=== PATIENT | female | born 1935 | race Caucasian/White ===

== ENCOUNTER → 2017-04-06 | Outpatient (CLI) | payer MEDICARE, BC ==
--- NOTE | 2017-04-11 09:09 | MM ---
Reason for exam: screening (asymptomatic). Last mammogram was performed 7 years and 2 months ago. History: Patient is postmenopausal. Physical Findings: A clinical breast exam by your physician is recommended on an annual basis and results should be correlated with mammographic findings. MG Screening Mammo w CAD Bilateral CC and MLO view(s) were taken. Prior study comparison: February 03, 2010, bilateral digital screening mammogram. March 21, 2008, bilateral diagnostic digital mammog. February 10, 2005, bilateral screening mammogram w/CAD. There are scattered fibroglandular densities. No significant changes when compared with prior studies. ASSESSMENT: Negative, BI-RAD 1 RECOMMENDATION: Routine screening mammogram of both breasts in 1 year.
== END | disposition home or self-care (01) ==
LOC: RADMAMWWP 15:59
PROVIDERS: ATTEND Internal Medicine
DX: Z12.31 Encounter for screening mammogram for malignant neoplasm of breast (principal)
CPT/HCPCS: 77067

== ENCOUNTER → 2020-02-06 | Outpatient (CLI) | payer MEDICARE, BC ==
--- NOTE | 2020-02-06 17:30 | CONS ---
CONSULTATION DATE OF SERVICE: 02/06/2020 An 84-year-old lady who has been [facility] for obstructive sleep apnea- hypopnea syndrome. HISTORY OF PRESENT ILLNESS/SLEEP WAKE EVALUATION: Patient had been diagnosed with obstructive sleep apnea about 20 years ago. At that time was tried on treatment with CPAP, but she was not able to use CPAP treatment. Presently, her sleep schedule from 10 p.m. until around 7 am, but she wakes up at midnight and sometimes has difficulties falling asleep again. No problems with falling asleep at the beginning of the night. No TV in bedroom. She sleeps in different positions. She snores loudly and wakes up from sleep multiple times with up to 4 episodes of nocturia. Positive history of dry mouth and sweating during the sleep. In the morning, patient wakes up tired, falling asleep during the day. Renick Sleepiness Scale significantly increased to 12. Patient may take one nap usually in the morning time. No history of sleep paralysis or cataplexy. PAST MEDICAL HISTORY: Positive for hypertension, hyperlipidemia, low function of the kidney, hyperlipidemia, polyarthritis, episodes of bronchitis, iron deficiency anemia, glaucoma, gout. PAST SURGICAL HISTORY: Total hysterectomy. SOCIAL HISTORY: Negative for smoking or using alcohol. CURRENT MEDICATIONS: Omeprazole 30 mg once a day, furosemide 20 mg every second day, amlodipine 10 mg once a day, metoprolol 25 mg once a day, aspirin 81 mg once a day, allopurinol 100 mg once a day, ferrous sulfate 325 mg once a day, timolol eye drops. FAMILY HISTORY: Heart problems, sleep apnea, thyroid problem, mental illness. PHYSICAL EXAM: An 84-year-old lady without distress, BP 188/83, HR 72, RR 15, height 5, 6, weight 202, temperature 98.1, oxygen saturation at room air 98%. OROPHARYNX: Low position of soft palate. Mallampati 3. NECK: Supple, no JVD. Thyroid is not palpable. LUNGS: Clear to percussion and to auscultation. Good air exchange. No wheezing or rhonchi. HEART: S1, S2 regular. No murmurs, gallops, or rubs. ABDOMEN: Soft and nontender. Bowel sounds are present. No organomegaly appreciated. EXTREMITIES: No clubbing or cyanosis. PYTHON PROGRAMMER: Awake, alert, and oriented X3. Cranial nerves 2 to 7 intact. There is no fasciculation or atrophy. noted. No focal deficits observed. IMPRESSION: 1. Loud snoring, multiple awakenings from sleep, low position of soft palate. 2. History of obstructive sleep apnea and hypopnea syndrome in the past, sleepiness; obstructive sleep apnea-hypopnea syndrome. 3. Hypertension. 4. Gout. 5. Hyperlipidemia. 6. History of bronchitis. 7. History of polyarthritis including shoulders, back, ankles, knee problems. 8. Acid reflux. 9. History of iron deficiency anemia. 10.History of low function of kidney. 11.Restless legs syndrome. 12.Status post total hysterectomy. 13.Glaucoma. PLAN: 1. Polysomnography for evaluation of patient's breathing during sleep. 2. CPAP/BiPAP titration if sleep study confirms obstructive sleep apnea-hypopnea syndrome. 3. Preferable position during sleep on the side. 4. No driving if patient feels any sleepiness. 5. I will see patient for follow up visit to explain results of testing and following plan. Thank you very much for referring this patient for consultation. Sincerely, Jefe Merritt MD, PhD, FAASM Diplomat of [place] [employer] [place] [employer] [facility] [place] MMODL / IJN: [id number] /
== END | disposition home or self-care (01) ==
LOC: SLEEP 13:36
PROVIDERS: ATTEND Internal Medicine
DX: R06.83 Snoring (principal); I10 Essential (primary) hypertension; M10.9 Gout, unspecified; H40.9 Unspecified glaucoma; E78.5 Hyperlipidemia, unspecified; K21.9 Gastro-esophageal reflux disease without esophagitis; Z87.09 Personal history of other diseases of the respiratory system; Z87.39 Personal history of other diseases of the musculoskeletal system and connective tissue; Z90.710 Acquired absence of both cervix and uterus; Z86.2 Personal history of diseases of the blood and blood-forming organs and certain disorders involving the immune mechanism

== ENCOUNTER → 2020-06-01 | Outpatient (CLI) | payer MEDICARE, BC ==
--- NOTE | 2020-06-02 07:49 | XR ---
EXAMINATION TYPE: XR knee complete bilateral DATE OF EXAM: 06/01/2020 CLINICAL HISTORY: Bilateral pain. TECHNIQUE: Three views of the bilateral knees are obtained. COMPARISON: None. FINDINGS: There is no acute fracture/dislocation evident in either knee. Mild to moderate tricompart ment joint space loss seen bilaterally greatest patellofemoral compartments where there is additional mild spurring. Right knee shows 7 mm ossification or fragment along the the portion of distal quadr iceps tendon. Meniscal calcification is present bilaterally suggesting underlying chondrocalcinosis. Increased density left suprapatellar bursa consistent with moderate joint effusion. Mild to moderate posterior arterial vascular calcification is seen. IMPRESSION: As above. Correlate for underlying pseudogout advised.
--- NOTE | 2020-06-02 08:27 | XR ---
EXAMINATION TYPE: XR Hip Bilateral Complete DATE OF EXAM: 06/01/2020 CLINICAL HISTORY: Bilateral hip pain. TECHNIQUE: AP and frogleg views of the bilateral hips are obtained. COMPARISON: None. FINDINGS: There is no acute fracture/dislocation evident in either hip. Symmetric [id number] a xial joint space loss with mild acetabular spurring. Capsular calcifications bilaterally are present. Mild spurring head neck junction bilateral femoral heads. Osseous structures are somewhat deminerali zed. Mild arterial vascular calcification in the bilateral groin tissue. IMPRESSION: As above.
== END | disposition home or self-care (01) ==
LOC: RADXRMAIN 15:56
PROVIDERS: ATTEND Family Medicine
DX: M76.892 Other specified enthesopathies of left lower limb, excluding foot (principal); M76.891 Other specified enthesopathies of right lower limb, excluding foot
CPT/HCPCS: 73521

== ENCOUNTER 2020-07-16 06:03 | Day surgery (SDC) | payer MEDICARE, BC ==
[2020-07-13 11:43] VITALS: BMI 32.3
[2020-07-16 06:26] VITALS: TEMP 96.9
[2020-07-16] MEDS ORDERED: SODIUM CHLORIDE 0.9% 500 ML 500 ML IV ONE (06:26)
[2020-07-16 06:46] LABS: Anisocytosis Slight; Basophils # (A) 0.1 k/uL (0-0.2); Basophils % (A) 1 %; Eosinophils # (A) 0.3 k/uL (0-0.7); Eosinophils % (A) 5 %; HCT 30.1 % (34.0-46.0); HGB 9.1 gm/dL (11.4-16.0); Hypochromasia Marked; Lymphocytes # (A) 1.4 k/uL (1.0-4.8); Lymphocytes % (A) 23 %; MCH 29.9 pg (25.0-35.0); MCHC 30.3 g/dL (31.0-37.0); MCV 98.6 fL (80.0-100.0); Macrocytosis Slight; Mean Platelet Volume 8.1; Monocytes # (A) 0.4 k/uL (0-1.0); Monocytes % (A) 6 %; Neutrophils % (A) 63 %; Platelet Count 276 k/uL (150-450); RBC 3.05 m/uL (3.80-5.40); RDW 17.7 % (11.5-15.5); WBC 6.3 k/uL (3.8-10.6)
[2020-07-16] MEDS ORDERED: fentaNYL (PF) 50 MCG/ML 2 ML AMP ONE (07:41)
[2020-07-16] MEDS ORDERED: MIDAZOLAM 2 MG/2 ML VIAL IV ONE (08:11)
[2020-07-16] MEDS ORDERED: fentaNYL (PF) 50 MCG/ML 2 ML AMP IV ONE (08:11)
[2020-07-16 08:26] VITALS: RESP 16
[2020-07-16 09:23] VITALS: BP 138/62
[2020-07-16 09:24] VITALS: PULSE 55
--- NOTE | 2020-07-16 12:44 | ECHOT ---
TRANSESOPHAGEAL ECHOCARDIOGRAM DATE OF VISIT: July 16, 2020. PERFORMING PHYSICIAN: Armanod Ryan MD. PROCEDURE PERFORMED: Transesophageal echocardiogram. INDICATION: Mitral regurgitation. COMPLICATION: None. LEVEL OF SEDATION: Moderate with sedation length of 15 minutes. PROCEDURE DESCRIPTION: After obtaining an informed consent, the patient was brought to the transesophageal echocardiogram room. A pulse oximetry and heart rate monitors were attached to the patient. Subsequently, the transesophageal echocardiogram probe was advanced through the bite guard to the mid esophageal where 2D echocardiogram images as well as color Doppler images of various cardiac structures were obtained. Also, we did pulse-wave and continuous-wave Doppler. FINDINGS: The left ventricular dimension and systolic function appeared to be within normal limits. The ejection fraction appeared to be in the range of 50% to 55%. The right ventricle appeared to be within normal limits for dimension. The left atrium appeared to be dilated. The aortic valve appeared to be trileaflet valve without stenosis or regurgitation. The mitral valve appeared to be thickened and calcified with evidence of moderate mitral regurgitation only. There was mild to moderate tricuspid regurgitation. CONCLUSION: 1. Normal left ventricular dimension and systolic function. 2. Normal right ventricular dimension and systolic function. 3. Moderate biatrial enlargement. 4. Normal left atrial appendage. 5. Intact interatrial septum. 6. Thickened mitral valve leaflets with moderate mitral regurgitation. 7. Trileaflet aortic valve without stenosis with mild regurgitation. 8. No evidence of pericardial effusion. MMODL / IJN: [id number] /
== END 2020-07-16 09:38 | disposition home or self-care (01) ==
LOC: CATHCVL 06:03
PROVIDERS: ATTEND Internal Medicine Interventional Cardiology
DX: I34.0 Nonrheumatic mitral (valve) insufficiency (principal); I13.11 Hypertensive heart and chronic kidney disease without heart failure, with stage 5 chronic kidney disease, or end stage renal disease; N18.6 End stage renal disease; Z79.82 Long term (current) use of aspirin; Z79.899 Other long term (current) drug therapy; Z88.1 Allergy status to other antibiotic agents; Z88.0 Allergy status to penicillin; Z88.8 Allergy status to other drugs, medicaments and biological substances
CPT/HCPCS: 93312; 93320; 93325; 85025; 87635; J2250; J3010

== ENCOUNTER → 2021-09-17 | Outpatient (CLI) | payer MEDICARE, BC ==
--- NOTE | 2021-09-17 13:21 | XR ---
EXAMINATION TYPE: XR tibia fibula RT DATE OF EXAM: 09/17/2021 CLINICAL HISTORY: pain TECHNIQUE: AP and lateral images of the right tibia and fibula are obtained. COMPARISON: None. FINDINGS: There is no acute fracture/dislocation evident. The joint spaces appear within normal [place] its. The overlying soft tissue appears unremarkable. IMPRESSION: There is no acute fracture or dislocation seen. ICD 10 NO FRACTURE, INITIAL EVALUATION
== END | disposition home or self-care (01) ==
LOC: RADXRMAIN 12:13
PROVIDERS: ATTEND Internal Medicine
DX: M79.604 Pain in right leg (principal); S89.91XA Unspecified injury of right lower leg, initial encounter; Y99.9 Unspecified external cause status

== ENCOUNTER → 2022-06-15 | Outpatient (CLI) | payer MEDICARE, BC ==
[2022-06-15 13:45] LABS: African American GFR (CKD) 24 (>60 ml/min/1.73 sqM); Anion Gap 10 mmol/L; Blood Urea Nitrogen 55 mg/dL (7-17); Calcium 10.3 mg/dL (8.4-10.2); Carbon Dioxide 24 mmol/L (22-30); Chloride 104 mmol/L (98-107); Glucose 124 mg/dL (74-99); Non-African American GFR(CKD) 20 (>60 ml/min/1.73 sqM); Sodium 138 mmol/L (137-145)
== END | disposition home or self-care (01) ==
LOC: RADCTMAIN 13:02
PROVIDERS: ATTEND Internal Medicine Interventional Cardiology
DX: I65.29 Occlusion and stenosis of unspecified carotid artery (principal); N18.9 Chronic kidney disease, unspecified
CPT/HCPCS: 80048

== ENCOUNTER → 2022-06-16 | Day surgery (SDC) | payer MEDICARE, BC ==
[2022-06-14 13:10] VITALS: BMI 26.9
[~2022-06-16] MED LIST: ALPRAZolam 0.25 MG TAB PO PRN; ALPRAZolam 0.5 MG TAB PO PRN; ASPIRIN 325 MG TAB PO STA; BENZOCAINE SPRAY 1 CAN MUCOUS MEM ONE; HEPARIN SODIUM 1,000 UN/ML (10ML VL) IV ONE; HEPARIN SODIUM 1,000 UN/ML (10ML VL) ONE; HEPARIN SODIUM,PORCINE 10,000 UNIT in SODIUM CHLORIDE 0.9% 1,000 ML IRRIGATION PRN; HEPARIN SODIUM,PORCINE 2,500 UNIT in SODIUM CHLORIDE 0.9% 250 ML IRRIGATION PRN; IOPAMIDOL-370 100ML BTL INJ ONE; LIDOCAINE 1% INJ 10MG/ML (5 ML VIAL-PF) SQ ONE; MIDAZOLAM 2 MG/2 ML VIAL IVP ONE; NITROGLYCERIN SL TABS 0.4 MG TAB SUBLINGUAL PRN; RX INFO: IV CONTRAST WAS GIVEN 1 EACH MISC MISCELLANE PRN; SODIUM CHLORIDE 0.9% 1,000 ML IV SCH; SODIUM CHLORIDE 0.9% 1,000 ML in EMPTY BAG 1 BAG IV SCH; VERAPAMIL 2.5 MG/ML 2 ML AMP ONE; VERAPAMIL SYRINGE (5 MG/10 ML) INTRAARTER ONE; fentaNYL (PF) 50 MCG/ML 2 ML AMP IVP ONE; fentaNYL (PF) 50 MCG/ML 2 ML AMP ONE
[2022-06-16 06:30] VITALS: RESP 18; TEMP 97
[2022-06-16 06:52] LABS: INR 1.4 (<1.2); Prothrombin Time 13.8 sec (9.0-12.0)
--- NOTE | 2022-06-16 12:52 | P.PCN ---
Date of Procedure: 06/16/22 Operative Findings: TRANSESOPHAGEAL ECHOCARDIOGRAM CHURCH WORKER: JOSE GU MD, RPVI INDICATION: Mitral regurgitation and aortic stenosis SEDATION: Conscious sedation COMPLICATION: None LEVEL OF SEDATION Moderate sedation length of 12 minutes PROCEDURE DESCRIPTION: After obtaining an informed consent, the patient was brought to transesophageal echocardiogram room. Pulse oximetry and heart monitors were attached to the patient. The patient throat was sprayed using lidocaine. The patient was turned into left lateral position. After that a bite guard was placed. After an appropriate conscious sedation was initiated, the transesophageal echocardiogram was advanced through a bite guard into the mid esophagus. A 2-D echocardiogram images, color Doppler images, continuous wave images, pulse-wave images, of various cardiac structure were performed. After that the transesophageal echocardiogram probe was advanced into the stomach and fixed to obtain transgastric view was. The probe was brought into the mid esophagus. Inter-atrial septum was interrogated using 2D images, color Doppler images, and then contrast study. After that transesophageal echocardiogram was withdrawn out and upon withdrawing the descending thoracic aorta all the way up to the arch was evaluated. FINDING: The left ventricular systolic function appeared to be low normal was EF around 50%. The right ventricle appeared to be mildly dilated with normal function. The left atrium and right atrium are dilated. The left atrial appendage appeared to be free from any thrombus. The interatrial septum appears to be intact. The aortic valve appears to be thickened and calcified was evidence of moderate aortic stenosis with a mean gradient of about 18 mmHg the mitral valve appeared to be also thickened with evidence of moderate mitral regurgitation by quantitative measurements. The radius of the PISA was 0.8 cm. There is moderate tricuspid regurgitation was identified. No evidence of pericardial effusion CONCLUSION: 1. Low normal left ventricular systolic function was EF around 50% 2. Thickened anterior and posterior mitral leaflets was moderate mitral regurgitation by quantitative measurements 3. Aortic sclerosis with moderate aortic stenosis and no aortic insufficiency 4. Moderate tricuspid regurgitation 5. No evidence of pericardial effusion
--- NOTE | 2022-06-16 12:54 | P.PCN ---
Date of Procedure: 06/16/22 Operative Findings: CARDIAC CATHETERIZATION PERFORMING PHYSICIAN: Armando Ryan MD, RPVI PROCEDURE PERFORMED: 1. Selective right and left coronary angiogram 2. Left heart catheterization INDICATION: Valvular heart disease COMPLICATION: None APPROACH: Right radial artery LEVEL OF SEDATION: Moderate with a sedation length of 26 minutes PROCEDURE DESCRIPTION: After obtaining an informed consent, the patient was brought to cardiac wharf laborer . Local anesthesia was performed using lidocaine subcutaneously. The right radial artery was cannulated using Seldinger technique, the guidewire passed easily, following that we advanced a 5-Danish sheath dilator assembly, the wire and dilator were removed and sheath was flushed. Following that, 2 mg of verapamil along with 2000 unit heparin were given. Selective right and left coronary angiogram using a 6-Danish JR4 and JL 3.5 catheters. The procedure was completed there was no complication. SELECTIVE CORONARY ANGIOGRAM: The right coronary artery: Large-caliber vessel and a dominant vessel. The RCA has intermediate lesion in the midportion Left main: Is angiographically normal. Bifurcates into the LCx and LAD The left circumflex: Large caliber vessel and nondominant dominant vessel. The proximal LCx gives rises into a large OM which has a tight lesion in the midportion. The circumflex distally has a tight lesion as well as appears to be in the range of 80%. The left anterior descending artery: Proximal LAD has a severe disease appeared to be in the range of 70-80%. The mid and distal LAD appears to be normal CONCLUSION: 1. Severe disease involving the proximal LAD and severe disease involving the first OM and distal left circumflex 2. Intermediate disease involving the mid right coronary artery
[2022-06-16 16:07] VITALS: BP 158/65; PULSE 58
== END ==
LOC: CATHCVL 05:39
PROVIDERS: ATTEND Internal Medicine Interventional Cardiology
DX: I25.10 Atherosclerotic heart disease of native coronary artery without angina pectoris (principal); I08.3 Combined rheumatic disorders of mitral, aortic and tricuspid valves; I12.9 Hypertensive chronic kidney disease with stage 1 through stage 4 chronic kidney disease, or unspecified chronic kidney disease; N18.9 Chronic kidney disease, unspecified; I65.23 Occlusion and stenosis of bilateral carotid arteries; E11.9 Type 2 diabetes mellitus without complications; E78.5 Hyperlipidemia, unspecified; Z79.01 Long term (current) use of anticoagulants; Z79.52 Long term (current) use of systemic steroids; Z79.899 Other long term (current) drug therapy; Z88.0 Allergy status to penicillin; Z88.1 Allergy status to other antibiotic agents; Z88.8 Allergy status to other drugs, medicaments and biological substances
CPT/HCPCS: 93454; 93312; 93320; 93325; 85610; C1769 ×3; C1887; C1894; J2250; J2001; J3010; J1644; Q9967

== ENCOUNTER 2022-08-25 06:07 | Day surgery (SDC) | payer MEDICARE, BC ==
[2022-08-24 12:21] VITALS: BMI 25.4
[~2022-08-25 06:07] MED LIST changes: -BENZOCAINE SPRAY 1 CAN MUCOUS MEM ONE; -HEPARIN SODIUM 1,000 UN/ML (10ML VL) IV ONE; -HEPARIN SODIUM 1,000 UN/ML (10ML VL) ONE; -IOPAMIDOL-370 100ML BTL INJ ONE; -LIDOCAINE 1% INJ 10MG/ML (5 ML VIAL-PF) SQ ONE; -MIDAZOLAM 2 MG/2 ML VIAL IVP ONE; -RX INFO: IV CONTRAST WAS GIVEN 1 EACH MISC MISCELLANE PRN; -SODIUM CHLORIDE 0.9% 1,000 ML IV SCH; -SODIUM CHLORIDE 0.9% 1,000 ML in EMPTY BAG 1 BAG IV SCH; -VERAPAMIL 2.5 MG/ML 2 ML AMP ONE; -VERAPAMIL SYRINGE (5 MG/10 ML) INTRAARTER ONE; -fentaNYL (PF) 50 MCG/ML 2 ML AMP IVP ONE; -fentaNYL (PF) 50 MCG/ML 2 ML AMP ONE
[2022-08-25] MEDS ORDERED: SODIUM CHLORIDE 0.9% 1,000 ML IV ONE (06:49)
[2022-08-25 07:05] LABS: Anisocytosis Slight; Basophils # (A) 0.1 k/uL (0-0.2); Basophils % (A) 1 %; Eosinophils # (A) 0.3 k/uL (0-0.7); Eosinophils % (A) 5 %; HCT 26.9 % (34.0-46.0); HGB 8.7 gm/dL (11.4-16.0); Hypochromasia Moderate; Lymphocytes # (A) 1.3 k/uL (1.0-4.8); Lymphocytes % (A) 24 %; MCH 30.2 pg (25.0-35.0); MCHC 32.4 g/dL (31.0-37.0); MCV 93.3 fL (80.0-100.0); Mean Platelet Volume 9.9; Monocytes # (A) 0.4 k/uL (0-1.0); Monocytes % (A) 8 %; Neutrophils # (A) 3.2 k/uL (1.3-7.7); Neutrophils % (A) 59 %; Platelet Count 220 k/uL (150-450); RBC 2.89 m/uL (3.80-5.40); WBC 5.3 k/uL (3.8-10.6)
[2022-08-25] MEDS ORDERED: VERAPAMIL 2.5 MG/ML 2 ML AMP ONE (07:17)
[2022-08-25 07:22] LABS: INR 1.6 (<1.2); Prothrombin Time 15.9 sec (9.0-12.0)
[2022-08-25 07:31] LABS: Calcium 9.6 mg/dL (8.4-10.2); Potassium 3.9 mmol/L (3.5-5.1)
[2022-08-25] MEDS ORDERED: HEPARIN SODIUM 1,000 UN/ML (10ML VL) ONE (07:35)
[2022-08-25] MEDS: MIDAZOLAM 2 MG/2 ML VIAL IVP ONE ×2 (07:50→08:12)
[2022-08-25] MEDS ORDERED: LIDOCAINE 1% INJ 10MG/ML (5 ML VIAL-PF) SQ ONE (07:51)
[2022-08-25] MEDS ORDERED: VERAPAMIL SYRINGE (5 MG/10 ML) INTRAARTER ONE (07:54)
[2022-08-25] MEDS: HEPARIN SODIUM 1,000 UN/ML (10ML VL) IV ONE ×3 (07:58→08:30)
[2022-08-25] MEDS ORDERED: CLOPIDOGREL 75 MG TAB ONE (08:20)
[2022-08-25] MEDS ORDERED: CLOPIDOGREL 75 MG TAB PO ONE (08:22)
[2022-08-25] MEDS ORDERED: ZOLPIDEM 5 MG TAB PO PRN (08:28)
[2022-08-25] MEDS ORDERED: MAG HYDROX/AL HYDROX/SIMETH 30 ML CUP PO PRN (08:28)
[2022-08-25] MEDS ORDERED: NITROGLYCERIN SL TABS 0.4 MG TAB SUBLINGUAL PRN (08:28)
[2022-08-25] MEDS ORDERED: RX INFO: IV CONTRAST WAS GIVEN 1 EACH MISC MISCELLANE PRN (08:28)
[2022-08-25] MEDS ORDERED: ATROPINE SULFATE 0.1 MG/ML 10ML SYRINGE IV PRN (08:28)
[2022-08-25] MEDS ORDERED: SODIUM CHLORIDE 0.9% 1,000 ML in EMPTY BAG 1 BAG IV SCH (08:30)
--- NOTE | 2022-08-25 08:32 | P.PCN ---
Date of Procedure: 08/25/22 Operative Findings: PERCUTANEOUS CORONARY INTERVENTION Performing physician Armando Ryan M.D. Procedure Performed: 1. Successful stenting of the proximal LAD using 3.5 x 18 mm Xience drug-eluting stent with an excellent angiographic results with adjunctive use of intravascular imaging 2. Ultrasound-guided access of the right radial artery Indication: Severe CAD in this 87-year-old female patient who continues to be symptomatic. Approach: Right radial artery Complications: None Level of Sedation: Moderate with a sedation length of 34 minutes Procedure Discussion: After obtaining an informed consent the patient was brought to the cardiac propagator laborer. The right radial artery was cannulated using puncture technique under ultrasound guidance, the micropuncture wire passed easily then I placed a 6- Serbian sheath. After that anticoagulation was initiated using heparin with continuous ACT monitoring. Subsequently I did engage the left main using JL 3.5 short tip guiding catheter. The LAD was wired using a whisper wire. Intravascular ultrasound was performed and showed a diameter of the LAD around 3.5-4 mm. I did attempt a predilatation using 2.5 mm balloon but the balloon would not cross the lesion in spite of using guide liner. After that was using a ezra wire and I was able to get the balloon to the proximal LAD. The balloon was inflated under 14 gerald for 20 seconds. After that I deployed 3.5 x 18 mm dotty nt where the stent was positioned under fluoroscopy guidance before it was deployed and deployed under 14 gerald. I posterity the stent using 3.5 mm noncompliant balloon. Final angiogram was performed and showed [id number] dissection involving the very proximal. No dye staining was identified. The flow was MARCO-3 flow. I decided to treat the lesion medically. As a matter of fact the dissection was identified using angiogram but by intravascular ultrasound again I was unable to identify. The procedure was completed. Postprocedure Management: 1. dual antiplatelet therapy using aspirin and Plavix for 12 months 2. PCI of the LCx and ramus intermedius 3. follow-up with the patient
[2022-08-25] MEDS ORDERED: IOPAMIDOL-370 100ML BTL INJ ONE (08:34)
[2022-08-25] MEDS: SODIUM CHLORIDE 0.9% 1,000 ML in EMPTY BAG 1 BAG IV SCH ×2 (09:42→20:06)
[2022-08-25] MEDS: hydrALAZINE HCL 50 MG TAB PO SCH ×2 (16:47→20:26)
[2022-08-25] MEDS: carvediloL 12.5 MG TAB PO SCH (17:39)
[2022-08-25] MEDS: ACETAMINOPHEN TAB 500 MG TAB PO SCH (20:26)
[2022-08-25] MEDS ORDERED: SODIUM BICARBONATE TAB 650 MG TAB PO SCH (21:00)
[2022-08-25] MEDS ORDERED: allopurinoL 100 MG TAB PO SCH (21:00)
[2022-08-26 03:06] VITALS: TEMP 98.3
[2022-08-26] MEDS: carvediloL 12.5 MG TAB PO SCH (06:20)
[2022-08-26] MEDS ORDERED: FUROSEMIDE 20 MG TAB PO PRN (07:00)
[2022-08-26] MEDS ORDERED: PANTOPRAZOLE 40 MG TABLET PO SCH (07:30)
--- NOTE | 2022-08-26 07:33 | P.DS ---
Providers Attending physician: Armando Ryan Consults: 08/25/22 08:28 Consult Physician Routine Consulting Provider: [facility] Consult Reason/Comments: Post Interventional patient Do you want consulting provider notified?: Already Contacted Primary care physician: [facility] Course: The patient is a pleasant 87-year-old female patient who underwent yesterday successful stenting of the proximal left anterior descending artery. She was seen this morning. She is asymptomatic. She is hemodynamically stable. The creatinine is 2.0 which is about her baseline. The patient is going to be discharged home on dual antiplatelet therapy. She will be seen and evaluated in the office next week. Plan - Discharge Summary Discharge Rx Participant: No New Discharge Prescriptions: New Clopidogrel [Plavix] 75 mg PO DAILY #90 tablet Continue Acetaminophen Tab [Tylenol] 1,000 mg PO BID Ferrous Sulfate [Iron] 325 mg PO DAILY carvediloL [Coreg] 25 mg PO BID Furosemide [Lasix] 20 mg PO Q48H PRN PRN Reason: extreme swelling Sodium Bicarbonate Tab 650 mg PO HS Warfarin [Coumadin] 2 mg PO SUTUWETHSA Warfarin [Coumadin] 4 mg PO MOFR Sodium Bicarbonate Tab 1,300 mg PO QAM hydrALAZINE HCL [Apresoline] 100 mg PO TID amLODIPine [Norvasc] 10 mg PO QAM allopurinoL [Zyloprim] 100 mg PO HS Omeprazole 40 mg PO QAM Cholecalciferol [Vitamin D3 (125 Mcg = 5000 Iu)] 125 mcg PO DAILY Discharge Medication List Acetaminophen Tab [Tylenol] 1,000 mg PO BID 07/13/20 [History] Ferrous Sulfate [Iron] 325 mg PO DAILY 07/13/20 [History] Omeprazole 40 mg PO QAM 07/13/20 [History] Sodium Bicarbonate Tab 1,300 mg PO QAM 07/13/20 [History] allopurinoL [Zyloprim] 100 mg PO HS 07/13/20 [History] amLODIPine [Norvasc] 10 mg PO QAM 07/13/20 [History] carvediloL [Coreg] 25 mg PO BID 07/13/20 [History] hydrALAZINE HCL [Apresoline] 100 mg PO TID 07/13/20 [History] Furosemide [Lasix] 20 mg PO Q48H PRN 06/14/22 [History] Sodium Bicarbonate Tab 650 mg PO HS 06/14/22 [History] Warfarin [Coumadin] 2 mg PO SUTUWETHSA 06/14/22 [History] Warfarin [Coumadin] 4 mg PO MOFR 06/14/22 [History] Cholecalciferol [Vitamin D3 (125 Mcg = 5000 Iu)] 125 mcg PO DAILY 08/24/22 [History] Clopidogrel [Plavix] 75 mg PO DAILY #90 tablet 08/26/22 [Rx] Follow up Appointment(s)/Referral(s): Armando Ryan MD [STAFF PHYSICIAN] - 1 Week Patient Instructions/Handouts: Moderate Sedation (DC), After Radial Heart Catheterization (GEN)
[2022-08-26 07:47] VITALS: BP 146/62; PULSE 56; RESP 18
[2022-08-26] MEDS: hydrALAZINE HCL 50 MG TAB PO SCH (08:04)
[2022-08-26] MEDS: ACETAMINOPHEN TAB 500 MG TAB PO SCH (08:05)
[2022-08-26] MEDS ORDERED: CHOLECALCIFEROL 125 MCG (5000 IU) TABLET PO SCH (09:00)
[2022-08-26] MEDS ORDERED: FERROUS SULFATE 325 MG TAB PO SCH (09:00)
[2022-08-26] MEDS ORDERED: amLODIPine 10 MG TAB PO SCH (09:00)
== END 2022-08-26 12:11 | disposition home or self-care (01) ==
LOC: CATHCVL 06:07 → 6NMEDSUR 08:32 → CATHCVL 08-26 12:11
PROVIDERS: ATTEND Internal Medicine Interventional Cardiology
DX: I25.10 Atherosclerotic heart disease of native coronary artery without angina pectoris (principal); I08.0 Rheumatic disorders of both mitral and aortic valves; I12.9 Hypertensive chronic kidney disease with stage 1 through stage 4 chronic kidney disease, or unspecified chronic kidney disease; N18.9 Chronic kidney disease, unspecified; E11.22 Type 2 diabetes mellitus with diabetic chronic kidney disease; I48.0 Paroxysmal atrial fibrillation; E78.5 Hyperlipidemia, unspecified; I65.23 Occlusion and stenosis of bilateral carotid arteries; Z88.0 Allergy status to penicillin; Z88.1 Allergy status to other antibiotic agents; Z88.8 Allergy status to other drugs, medicaments and biological substances; Z79.01 Long term (current) use of anticoagulants; Z79.02 Long term (current) use of antithrombotics/antiplatelets; Z79.899 Other long term (current) drug therapy; Z82.49 Family history of ischemic heart disease and other diseases of the circulatory system
CPT/HCPCS: 94760; 92978; 80048; 82565; 85025; 85610; C1769 ×4; C9600; C1887 ×2; C1894; C1725 ×2; C1753; C1874; J2250; J2001; J1644; Q9967

== ENCOUNTER 2022-08-30 14:37 | Inpatient (IN) | payer MEDICARE, BC ==
[2022-08-30] MEDS ORDERED: SODIUM CHLORIDE 0.9% 500 ML 500 ML IV STA (15:40)
--- NOTE | 2022-08-30 15:44 | ED ---
General Adult HPI - General Chief complaint: Recheck/Abnormal Lab/Rx Stated complaint: BERENICE Time Seen by Provider: 08/30/22 14:50 Source: patient, RN notes reviewed, old records reviewed Mode of arrival: wheelchair Limitations: no limitations - History of Present Illness Initial comments: This is an 87-year-old female presents emergency department with past medical history significant for anemia. Patient states she is usually around a hemoglobin of 8. Patient states she is on Coumadin and Plavix. Patient states she had a stent placed recently approximately a week ago. Patient states she has been feeling significantly more tired and blood was drawn as an outpatient and it came back that her hemoglobin was below 7 so the center the emergency de partment. Patient states she has not noticed any change in her bowel movements or color in the bowel movements. Patient states she does take iron. Patient states she is mildly short of breath denies any chest pain or palpitations. Patient denies any increased swelling to the legs. - Related Data Home Medications Medication Instructions Recorded Confirmed Ferrous Sulfate [Iron] 325 mg PO W/SUPPER 07/13/20 08/30/22 Omeprazole 40 mg PO AC-BRKFST 07/13/20 08/30/22 Sodium Bicarbonate Tab 1,300 mg PO W/BRKFST 07/13/20 08/30/22 allopurinoL [Zyloprim] 100 mg PO W/SUPPER 07/13/20 08/30/22 amLODIPine [Norvasc] 10 mg PO W/BRKFST 07/13/20 08/30/22 carvediloL [Coreg] 25 mg PO BID-W/MEALS 07/13/20 08/30/22 hydrALAZINE HCL [Apresoline] 100 mg PO TID@0800,1600,2100 07/13/20 08/30/22 Furosemide [Lasix] 20 mg PO Q48H 06/14/22 08/30/22 Sodium Bicarbonate Tab 650 mg PO W/SUPPER 06/14/22 08/30/22 Cholecalciferol [Vitamin D3 (125 125 mcg PO W/BRKFST 08/24/22 08/30/22 Mcg = 5000 Iu)] Acetaminophen [Tylenol 8 Hour] 650 mg PO BID-W/MEALS 08/30/22 08/30/22 Aspirin EC [Ecotrin Low Dose] 81 mg PO DAILY 08/30/22 08/30/22 Clopidogrel [Plavix] 75 mg PO W/BRKFST 08/30/22 08/30/22 Warfarin Sodium 2 mg PO SUTUWETHSA@1800 08/30/22 08/30/22 Warfarin Sodium 4 mg PO MOFR@1800 08/30/22 08/30/22 Allergies Allergy/AdvReac Type Severity Reaction Status Date / Time erythromycin base Allergy Dyspnea Verified 08/30/22 16:13 levofloxacin [From Levaquin] Allergy Hallucinati Verified 08/30/22 16:13 ons metronidazole [From Flagyl] Allergy Unknown Verified 08/30/22 16:13 Penicillins Allergy Rash/Hives Verified 08/30/22 16:13 Sulfa (Sulfonamide Allergy Rash/Hives Verified 08/30/22 16:13 Antibiotics) hydrocodone AdvReac Hallucinati Verified 08/30/22 16:13 ons Ydwwygh-ZJF-ZgR Reductase AdvReac "muscle Verified 08/30/22 16:13 Inhibitor pain" [Pqpcjwm-Tjz-Tlq Reductase Inhibitor] Review of Systems ROS Statement: Those systems with pertinent positive or pertinent negative responses have been documented in the HPI. ROS Other: All systems not noted in ROS Statement are negative. Past Medical History Past Medical History: Atrial Fibrillation, Eye Disorder, GERD/Reflux, Hearing Disorder / Deafness, Hypertension, Osteoarthritis (OA), Renal Disease, Sleep Apnea/CPAP/BIPAP Additional Past Medical History / Comment(s): "leaky valves",gout hx of shingles x2-still has pain to forhead and left eye. infec,anemia,hx polio-wears lifts in shoes,CHRONIC KIDNEY DISEASE -STAGE 4,has double vision w/out glasses, HEART MURMUR, HARD OF HEARING History of Any Multi-Drug Resistant Organisms: None Reported Past Surgical History: Appendectomy, Cholecystectomy, Hysterectomy, Orthopedic Surgery Additional Past Surgical History / Comment(s): ORIF left ankle,vein stripping rt leg,trigger fingers sx X 8, had sx on left leg r/t polio,lizzy placed to rt femur post fx,THUMB procedure,maxine cataracts,arthroscopy rt knee Past Anesthesia/Blood Transfusion Reactions: No Reported Reaction, Family History of Problems w/ Anesthesia Additional Past Anesthesia/Blood Transfusion Reaction / Comment(s): no hx blood transfusion. DAUGHTER B/P dropped w/ shoulder surgery & was admitted to ICU Past Psychological History: No Psychological Hx Reported Smoking Status: Never smoker Past Alcohol Use History: None Reported Past Drug Use History: None Reported - Past Family History Son(s) Family Medical History: Cancer Additional Family Medical History / Comment(s): esophageal CA Mother Additional Family Medical History / Comment(s): thinks possibly some type of CA- had fluid retention to stomach area Sister(s) Family Medical History: Cancer Additional Family Medical History / Comment(s): LEUKEMIA General Exam - General Exam Comments Initial Comments: GENERAL: Patient is well-developed and well-nourished. Patient is nontoxic and well- hydrated and is in mild distress. ENT: Neck is soft and supple. No significant lymphadenopathy is noted. Oropharynx is clear. Moist mucous membranes. Neck has full range of motion without eliciting any pain. EYES: The sclera were anicteric and conjunctiva were pink and moist. Extraocular movements were intact and pupils were equal round and reactive to light. Eyelids were unremarkable. PULMONARY: Unlabored respirations. Good breath sounds bilaterally. No audible rales rhonchi or wheezing was noted. CARDIOVASCULAR: There is a regular rate and rhythm without any murmurs gallops or rubs. ABDOMEN: Soft and nontender with normal bowel sounds. No palpable organomegaly was noted. There is no palpable pulsatile mass. SKIN: Skin is clear with no lesions or rashes and otherwise unremarkable. RECTAL: On rectal exam stool was black and was sent off for a Hemoccult study NEUROLOGIC: Patient is alert and oriented x3. Cranial nerves II through XII are grossly intact. Motor and sensory are also intact. Normal speech, volume and content. Symmetrical smile. MUSCULOSKELETAL: Normal extremities with adequate strength and full range of motion. LYMPHATICS: No significant lymphadenopathy is noted PSYCHIATRIC: Normal psychiatric evaluation. Limitations: no limitations Course Vital Signs 08/30/22 08/30/22 08/30/22 14:46 15:26 15:40 Temperature 98.5 F 97.6 F Pulse Rate 69 62 Respiratory 22 19 18 Rate Blood Pressure 158/66 172/71 O2 Sat by Pulse 99 98 Oximetry 08/30/22 16:25 Temperature 97.5 F L Pulse Rate 61 Respiratory 16 Rate Blood Pressure 162/66 O2 Sat by Pulse 97 Oximetry Medical Decision Making - Medical Decision Making EKG shows a sinus rhythm at 63 bpm NH interval 159 QRS is 96 QT interval 470 QTC is 425 per patient's EKG shows no ST segment elevation or depression. Was pt. sent in by a medical professional or institution (CLARICE Landin, DRAW FRAME TENDER, urgent care, hospital, or custodial...) When possible be specific @ -Patient's physician sent her in because of low hemoglobin Did you speak to anyone other than the patient for history (EMS, parent, family, police, friend...)? What history was obtained from this source @ -Patient's daughters gave quite a bit of her past medical history Did you review nursing and triage notes (agree or disagree)? Why? @ -[I reviewed and agree with nursing and triage notes] Were old charts reviewed (outside hosp., previous admission, EMS record, old EKG, old radiological studies, urgent care reports/EKG's, custodial records)? Report findings @ -I reviewed Prior charts prior lab work and prior charts Differential Diagnosis (chest pain, altered mental status, abdominal pain women, abdominal pain men, vaginal bleeding, weakness, fever, dyspnea, syncope, headache, dizziness, GI bleed, back pain, seizure, CVA, palpatations, mental health, musculoskeletal)? @ -Differential Dizziness: Benign paroxysmal positional Vertigo, Menieres disease, otitis media, acoustic neuroma, vertebrobasilar insufficiency, cerebellar stroke, encephalitis, hypovolemic, arrhythmia, coronary artery syndrome, anemia, this is not meant to be an all-inclusive list EKG interpreted by me (3pts min.). @ -[As above] X-rays interpreted by me (1pt min.). @ -No CT interpreted by me (1pt min.). @ -[None done] U/S interpreted by me (1pt. min.). @ -[None done] What testing was considered but not performed or refused? (CT, X-rays, U/S, labs)? Why? @ -[None] What meds were considered but not given or refused? Why? @ -[None] Did you discuss the management of the patient with other professionals (professionals i.e. CLARICE Landin, DRAW FRAME TENDER, lab, RT, psych nurse, social welfare administrator, manager ent, teacher, human resources officer, casework manager)? Give summary @ -[No] Was smoking cessation discussed for >3mins.? @ -[No] Was critical care preformed (if so, how long)? @ -[No] Were there social determinants of health that impacted care today? How? (Homelessness, low income, unemployed, alcoholism, drug addiction, transportation, low edu. Level, literacy, decrease access to med. care, residential, rehab)? @ -[No] Was there de-escalation of care discussed even if they declined (Discuss DNR or withdrawal of care, Hospice)? DNR status @ -[No] What co-morbidities impacted this encounter? (DM, HTN, Smoking, COPD, CAD, Cancer, CVA, ARF, Chemo, Hep., AIDS, mental health diagnosis, sleep apnea, morbid obesity)? @ -[None] Was patient admitted / discharged? Hospital course, mention meds given and route, prescriptions, significant lab abnormalities, going to OR and other pertinent info. @ -Patient's hemoglobin was 6.7 so I gave the patient 1 unit of packed red blood cells I spoke with Dr. Busch he agreed to admit the patient to the patient wrote admitting orders I repeated hemoglobin. I also repeated the troponin level because it was mildly elevated but this could be secondary to patient just having a procedure done Undiagnosed new problem with uncertain prognosis? @ -[No] Drug Therapy requiring intensive monitoring for toxicity (Heparin, Nitro, Insulin, Cardizem)? @ -[No] Were any procedures done? @ -[No] Diagnosis/symptom? @ -Anemia Acute, or Chronic, or Acute on Chronic? @ -Acute Uncomplicated (without systemic symptoms) or Complicated (systemic symptoms)? @ -complicated Side effects of treatment? @ -[No] Exacerbation, Progression, or Severe Exacerbation? @ -Exacerbation Poses a threat to life or bodily function? How? (Chest pain, USA, GA, pneumonia, PE, COPD, DKA, ARF, appy, cholecystitis, CVA, Diverticulitis, Homicidal, Mimi cidal, threat to staff... and all critical care pts) @ -Yes This could lead to poor perfusion and end organ dysfunction - Lab Data Result diagrams: 08/30/22 15:44 08/30/22 15:44 Lab Results 08/30/22 08/30/22 08/30/22 Range/Units 15:44 15:44 15:44 WBC 4.9 (3.8-10.6) k/uL RBC 2.25 L (3.80-5.40) m/uL Hgb 6.7 L* D (11.4-16.0) gm/dL Hct 20.2 L (34.0-46.0) % MCV 90.1 (80.0-100.0) fL MCH 30.0 (25.0-35.0) pg MCHC 33.3 (31.0-37.0) g/dL RDW 17.4 H (11.5-15.5) % Plt Count 215 (150-450) k/uL MPV 9.2 Neutrophils % 60 % Lymphocytes % 27 % Monocytes % 6 % Eosinophils % 4 % Basophils % 1 % Neutrophils # 2.9 (1.3-7.7) k/uL Lymphocytes # 1.4 (1.0-4.8) k/uL Monocytes # 0.3 (0-1.0) k/uL Eosinophils # 0.2 (0-0.7) k/uL Basophils # 0.0 (0-0.2) k/uL Manual Slide Review Performed Large Platelets Present Polychromasia Present Hypochromasia Slight Poikilocytosis Slight Anisocytosis Slight PT 11.0 (9.0-12.0) sec INR 1.0 (<1.2) APTT 22.7 (22.0-30.0) sec Sodium (137-145) mmol/L Potassium (3.5-5.1) mmol/L Chloride (98-107) mmol/L Carbon Dioxide (22-30) mmol/L Anion Gap mmol/L BUN (7-17) mg/dL Creatinine (0.52-1.04) mg/dL Est GFR (CKD-EPI)AfAm (>60 ml/min/1.73 sqM) Est GFR (CKD-EPI)NonAf (>60 ml/min/1.73 sqM) Glucose (74-99) mg/dL Calcium (8.4-10.2) mg/dL Total Bilirubin (0.2-1.3) mg/dL AST (14-36) U/L ALT (4-34) U/L Alkaline Phosphatase (38-126) U/L Troponin I (0.000-0.034) ng/mL Total Protein (6.3-8.2) g/dL Albumin (3.5-5.0) g/dL Stool Occult Blood Positive H (Negative) Blood Type Blood Type Recheck Bld Type Recheck Status Antibody Screen Spec Expiration Date 08/30/22 08/30/22 08/30/22 Range/Units 15:44 15:44 15:44 WBC (3.8-10.6) k/uL RBC (3.80-5.40) m/uL Hgb (11.4-16.0) gm/dL Hct (34.0-46.0) % MCV (80.0-100.0) fL MCH (25.0-35.0) pg MCHC (31.0-37.0) g/dL RDW (11.5-15.5) % Plt Count (150-450) k/uL MPV Neutrophils % % Lymphocytes % % Monocytes % % Eosinophils % % Basophils % % Neutrophils # (1.3-7.7) k/uL Lymphocytes # (1.0-4.8) k/uL Monocytes # (0-1.0) k/uL Eosinophils # (0-0.7) k/uL Basophils # (0-0.2) k/uL Manual Slide Review Large Platelets Polychromasia Hypochromasia Poikilocytosis Anisocytosis PT (9.0-12.0) sec INR (<1.2) APTT (22.0-30.0) sec Sodium 139 (137-145) mmol/L Potassium 4.1 (3.5-5.1) mmol/L Chloride 108 H (98-107) mmol/L Carbon Dioxide 20 L (22-30) mmol/L Anion Gap 11 mmol/L BUN 60 H (7-17) mg/dL Creatinine 1.85 H (0.52-1.04) mg/dL Est GFR (CKD-EPI)AfAm 28 (>60 ml/min/1.73 sqM) Est GFR (CKD-EPI)NonAf 24 (>60 ml/min/1.73 sqM) Glucose 116 H (74-99) mg/dL Calcium 9.8 (8.4-10.2) mg/dL Total Bilirubin 0.4 (0.2-1.3) mg/dL AST 21 (14-36) U/L ALT 16 (4-34) U/L Alkaline Phosphatase 73 (38-126) U/L Troponin I 0.102 H* (0.000-0.034) ng/mL Total Protein 5.9 L (6.3-8.2) g/dL Albumin 3.6 (3.5-5.0) g/dL Stool Occult Blood (Negative) Blood Type O Negative Blood Type Recheck O Neg Bld Type Recheck Status No Antibody Screen NEGATIVE Spec Expiration Date 09/02/20222343 Disposition Clinical Impression: Anemia, Elevated troponin Disposition: ADMITTED IP TO THIS HOSP Referrals: Ron Busch MD [Primary Care Provider] - 1-2 days Time of Disposition: 17:00
[2022-08-30 16:11] LABS: Anisocytosis Slight; Basophils % (A) 1 %; Eosinophils # (A) 0.2 k/uL (0-0.7); Eosinophils % (A) 4 %; HCT 20.2 % (34.0-46.0); Hypochromasia Slight; Lymphocytes # (A) 1.4 k/uL (1.0-4.8); Lymphocytes % (A) 27 %; MCHC 33.3 g/dL (31.0-37.0); MCV 90.1 fL (80.0-100.0); Mean Platelet Volume 9.2; Monocytes # (A) 0.3 k/uL (0-1.0); Monocytes % (A) 6 %; Neutrophils # (A) 2.9 k/uL (1.3-7.7); Neutrophils % (A) 60 %; Partial Thromboplastin Time 22.7 sec (22.0-30.0); Platelet Count 215 k/uL (150-450); Poikilocytosis Slight; RBC 2.25 m/uL (3.80-5.40); RDW 17.4 % (11.5-15.5); WBC 4.9 k/uL (3.8-10.6)
[2022-08-30 16:17] LABS: HGB 6.7 gm/dL (11.4-16.0)
[2022-08-30 16:21] LABS: ALT 16 U/L (4-34); AST 21 U/L (14-36); African American GFR (CKD) 28 (>60 ml/min/1.73 sqM); Albumin 3.6 g/dL (3.5-5.0); Alkaline Phosphatase 73 U/L (38-126); Anion Gap 11 mmol/L; Blood Urea Nitrogen 60 mg/dL (7-17); Calcium 9.8 mg/dL (8.4-10.2); Carbon Dioxide 20 mmol/L (22-30); Chloride 108 mmol/L (98-107); Glucose 116 mg/dL (74-99); Non-African American GFR(CKD) 24 (>60 ml/min/1.73 sqM); Potassium 4.1 mmol/L (3.5-5.1); Sodium 139 mmol/L (137-145); Total Bilirubin 0.4 mg/dL (0.2-1.3); Total Protein 5.9 g/dL (6.3-8.2)
[2022-08-30 16:32] LABS: Large Platelets Present; Polychromasia Present
[2022-08-30] MEDS ORDERED: NITROGLYCERIN SL TABS 0.4 MG TAB SUBLINGUAL PRN (17:00)
--- NOTE | 2022-08-30 17:42 | P.HPIM ---
History of Present Illness H&P Date: 08/30/22 Shelley Keenan, is an 87-year-old female who presented to [facility] emergency room with a chief complaint of shortness of breath and chest tightness She was evaluated in the emergency room vital examination on presentation revealed a temperature of 98.5 pulse 69 respiration 22 blood pressure 158/66 pulse ox 99% on room air Laboratory data revealed a white blood count of 4.9 hemoglobin 6.7 platelet count 2:15 sodium 139 potassium 4.1 chloride 108 CO2 20 BUN 60 creatinine 1.85 stools for Hemoccult was positive Testing in the emergency room revealed EKG done in the emergency room revealed sinus rhythm normal EKG Patient was admitted to medical floor for further evaluation and treatment Past medical history is significant for known history of coronary artery disease, patient was admitted to the hospital a few days ago by Dr. Ryan and underwent angioplasty and stent placement of the proximal LAD, patient also has a known history of chronic anemia, history of hypertension, history of hyperlipidemia, history of gout, and history of paroxysmal atrial fibrillation Past Medical History Past Medical History: Atrial Fibrillation, Eye Disorder, GERD/Reflux, Hearing Disorder / Deafness, Hypertension, Osteoarthritis (OA), Renal Disease, Sleep Apnea/CPAP/BIPAP Additional Past Medical History / Comment(s): "leaky valves",gout hx of shingles x2-still has pain to forhead and left eye. infec,anemia,hx polio-wears lifts in shoes,CHRONIC KIDNEY DISEASE -STAGE 4,has double vision w/out glasses, HEART MURMUR, HARD OF HEARING History of Any Multi-Drug Resistant Organisms: None Reported Past Surgical History: Appendectomy, Cholecystectomy, Hysterectomy, Orthopedic Surgery Additional Past Surgical History / Comment(s): ORIF left ankle,vein stripping rt leg,trigger fingers sx X 8, had sx on left leg r/t polio,lizzy placed to rt femur post fx,THUMB procedure,maxine cataracts,arthroscopy rt knee Past Anesthesia/Blood Transfusion Reactions: No Reported Reaction, Family History of Problems w/ Anesthesia Additional Past Anesthesia/Blood Transfusion Reaction / Comment(s): no hx blood transfusion. DAUGHTER B/P dropped w/ shoulder surgery & was admitted to ICU Past Psychological History: No Psychological Hx Reported Smoking Status: Never smoker Past Alcohol Use History: None Reported Past Drug Use History: None Reported - Past Family History Son(s) Family Medical History: Cancer Additional Family Medical History / Comment(s): esophageal CA Mother Additional Family Medical History / Comment(s): thinks possibly some type of CA- had fluid retention to stomach area Sister(s) Family Medical History: Cancer Additional Family Medical History / Comment(s): LEUKEMIA Medications and Allergies Home Medications Medication Instructions Recorded Confirmed Type Ferrous Sulfate [Iron] 325 mg PO W/SUPPER 07/13/20 08/30/22 History Omeprazole 40 mg PO AC-BRKFST 07/13/20 08/30/22 History Sodium Bicarbonate Tab 1,300 mg PO W/BRKFST 07/13/20 08/30/22 History allopurinoL [Zyloprim] 100 mg PO W/SUPPER 07/13/20 08/30/22 History amLODIPine [Norvasc] 10 mg PO W/BRKFST 07/13/20 08/30/22 History carvediloL [Coreg] 25 mg PO BID-W/MEALS 07/13/20 08/30/22 History hydrALAZINE HCL [Apresoline] 100 mg PO TID@0800,1600,2100 07/13/20 08/30/22 History Furosemide [Lasix] 20 mg PO Q48H 06/14/22 08/30/22 History Sodium Bicarbonate Tab 650 mg PO W/SUPPER 06/14/22 08/30/22 History Cholecalciferol [Vitamin D3 (125 125 mcg PO W/BRKFST 08/24/22 08/30/22 History Mcg = 5000 Iu)] Acetaminophen [Tylenol 8 Hour] 650 mg PO BID-W/MEALS 08/30/22 08/30/22 History Aspirin EC [Ecotrin Low Dose] 81 mg PO DAILY 08/30/22 08/30/22 History Clopidogrel [Plavix] 75 mg PO W/BRKFST 08/30/22 08/30/22 History Warfarin Sodium 2 mg PO SUTUWETHSA@1800 08/30/22 08/30/22 History Warfarin Sodium 4 mg PO MOFR@1800 08/30/22 08/30/22 History Allergies Allergy/AdvReac Type Severity Reaction Status Date / Time erythromycin base Allergy Dyspnea Verified 08/30/22 16:13 levofloxacin [From Levaquin] Allergy Hallucinati Verified 08/30/22 16:13 ons metronidazole [From Flagyl] Allergy Unknown Verified 08/30/22 16:13 Penicillins Allergy Rash/Hives Verified 08/30/22 16:13 Sulfa (Sulfonamide Allergy Rash/Hives Verified 08/30/22 16:13 Antibiotics) hydrocodone AdvReac Hallucinati Verified 08/30/22 16:13 ons Hslvcgi-DFL-BcV Reductase AdvReac "muscle Verified 08/30/22 16:13 Inhibitor pain" [Hrdadfq-Fyo-Bex Reductase Inhibitor] Physical Exam Vitals: Vital Signs Temp Pulse Resp BP Pulse Ox 08/30/22 16:25 97.5 F L 61 16 162/66 97 08/30/22 15:40 97.6 F 62 18 172/71 98 08/30/22 15:26 19 08/30/22 14:46 98.5 F 69 22 158/66 99 Intake and Output 08/30/22 08/30/22 08/30/22 06:59 14:59 22:59 Other: Weight 74.072 kg In general patient is alert and oriented x 3 in no distress HEENT head normocephalic and atraumatic Neck is supple no JVD no goiter no lymphadenopathy no carotid bruit Chest examination is clear to auscultation no crackles no wheezing Cardiac exam reveals regular heart sounds S1 and S2 no gallops no murmurs Abdomen is soft nontender no organomegaly with normal bowel sounds Extremity exam reveals no edema no cyanosis or clubbing Neurological examination reveals no gross focal deficits Results CBC & Chem 7: 08/30/22 15:44 08/30/22 15:44 Labs: Abnormal Lab Results - Last 24 Hours (Table) 08/30/22 08/30/22 08/30/22 Range/Units 15:44 15:44 15:44 RBC 2.25 L (3.80-5.40) m/uL Hgb 6.7 L* D (11.4-16.0) gm/dL Hct 20.2 L (34.0-46.0) % RDW 17.4 H (11.5-15.5) % Chloride 108 H (98-107) mmol/L Carbon Dioxide 20 L (22-30) mmol/L BUN 60 H (7-17) mg/dL Creatinine 1.85 H (0.52-1.04) mg/dL Glucose 116 H (74-99) mg/dL Troponin I (0.000-0.034) ng/mL Total Protein 5.9 L (6.3-8.2) g/dL Stool Occult Blood Positive H (Negative) Crossmatch 08/30/22 08/30/22 Range/Units 15:44 15:44 RBC (3.80-5.40) m/uL Hgb (11.4-16.0) gm/dL Hct (34.0-46.0) % RDW (11.5-15.5) % Chloride (98-107) mmol/L Carbon Dioxide (22-30) mmol/L BUN (7-17) mg/dL Creatinine (0.52-1.04) mg/dL Glucose (74-99) mg/dL Troponin I 0.102 H* (0.000-0.034) ng/mL Total Protein (6.3-8.2) g/dL Stool Occult Blood (Negative) Crossmatch See Detail Assessment and Plan Plan: Episode of chest tightness and shortness of breath, could be related to severe anemia Anemia was positive stools for Hemoccult Underlying history of coronary artery disease with history of angioplasty and stent placement to the LAD few days ago Underlying history of hypertension Underlying history of hyperlipidemia Underlying history of gout Underlying history of chronic anemia Underlying history of diabetes mellitus type 2 At this time patient will be admitted to telemetry floor Serial EKG and cardiac enzymes are ordered Cardiology consultation was requested Surgical consultation was requested in regard to anemia was positive stools for Hemoccult Will follow closely
[2022-08-30 18:11] LABS: Anisocytosis Slight; Basophils % (A) 1 %; Eosinophils # (A) 0.2 k/uL (0-0.7); Eosinophils % (A) 4 %; Hypochromasia Slight; Lymphocytes # (A) 1.4 k/uL (1.0-4.8); Lymphocytes % (A) 31 %; MCH 30.1 pg (25.0-35.0); MCHC 32.8 g/dL (31.0-37.0); MCV 91.8 fL (80.0-100.0); Mean Platelet Volume 8.6; Monocytes # (A) 0.2 k/uL (0-1.0); Monocytes % (A) 5 %; Neutrophils # (A) 2.6 k/uL (1.3-7.7); Neutrophils % (A) 57 %; Platelet Count 195 k/uL (150-450); RDW 17.2 % (11.5-15.5); WBC 4.6 k/uL (3.8-10.6)
[2022-08-30 18:21] LABS: Anisocytosis Slight; Basophils % (A) 1 %; Eosinophils # (A) 0.2 k/uL (0-0.7); Eosinophils % (A) 4 %; HCT 20.8 % (34.0-46.0); Hypochromasia Slight; Lymphocytes # (A) 1.7 k/uL (1.0-4.8); Lymphocytes % (A) 29 %; MCH 29.9 pg (25.0-35.0); MCHC 32.3 g/dL (31.0-37.0); MCV 92.6 fL (80.0-100.0); Mean Platelet Volume 9.3; Monocytes # (A) 0.3 k/uL (0-1.0); Monocytes % (A) 5 %; Neutrophils # (A) 3.5 k/uL (1.3-7.7); Neutrophils % (A) 60 %; Platelet Count 224 k/uL (150-450); RBC 2.25 m/uL (3.80-5.40); RDW 17.2 % (11.5-15.5); WBC 5.8 k/uL (3.8-10.6)
[2022-08-30 18:34] LABS: HCT 18.4 % (34.0-46.0)
[2022-08-30 18:35] LABS: HGB 6.7 gm/dL (11.4-16.0)
[2022-08-30 18:50] LABS: African American GFR (CKD) 27 (>60 ml/min/1.73 sqM); Albumin 3.6 g/dL (3.5-5.0); Anion Gap 13 mmol/L; Blood Urea Nitrogen 60 mg/dL (7-17); Calcium 9.8 mg/dL (8.4-10.2); Carbon Dioxide 19 mmol/L (22-30); Chloride 108 mmol/L (98-107); Glucose 102 mg/dL (74-99); Magnesium 1.8 mg/dL (1.6-2.3); Non-African American GFR(CKD) 23 (>60 ml/min/1.73 sqM); Phosphorus 2.9 mg/dL (2.5-4.5); Potassium 4.1 mmol/L (3.5-5.1); Sodium 140 mmol/L (137-145)
[2022-08-30 18:53] LABS: Polychromasia Present
[2022-08-30 18:54] LABS: Large Platelets Present
[2022-08-30 18:56] LABS: Large Platelets Present; Polychromasia Present
[2022-08-30 19:17] LABS: Appearance,Urine Clear (Clear); Bilirubin,Urine Negative (Negative); Blood,Urine Negative (Negative); Color,Urine Yellow; Glucose,Urine (UA) Negative (Negative); Ketones,Urine Negative (Negative); Leukocyte Esterase,Urine Small (Negative); Nitrite,Urine Negative (Negative); Protein,Urine Negative (Negative); RBC,Urine <1 /hpf (0-5); Specific Gravity,Urine 1.014 (1.001-1.035); Squamous Epithelial Cell,Urine <1 /hpf (0-4); Urobilinogen,Urine <2.0 mg/dL (<2.0); WBC,Urine 3 /hpf (0-5)
[2022-08-30 21:18] LABS: Glucose,Whole Blood 125 mg/dL (70-110)
[2022-08-30] MEDS: SODIUM BICARBONATE TAB 650 MG TAB PO SCH (22:10)
[2022-08-30] MEDS: carvediloL 12.5 MG TAB PO SCH (22:10)
[2022-08-30] MEDS: FERROUS SULFATE 325 MG TAB PO SCH (22:10)
[2022-08-30] MEDS: allopurinoL 100 MG TAB PO SCH (22:10)
[2022-08-30] MEDS: ACETAMINOPHEN TAB 325 MG TAB PO SCH (22:15)
[2022-08-30] MEDS: hydrALAZINE HCL 50 MG TAB PO SCH (22:23)
[2022-08-31 00:38] LABS: Anisocytosis Slight; Basophils % (A) 0 %; Eosinophils # (A) 0.2 k/uL (0-0.7); Eosinophils % (A) 4 %; HCT 21.2 % (34.0-46.0); HGB 7.1 gm/dL (11.4-16.0); Hypochromasia Slight; Lymphocytes # (A) 1.4 k/uL (1.0-4.8); Lymphocytes % (A) 29 %; MCH 30.7 pg (25.0-35.0); MCHC 33.4 g/dL (31.0-37.0); MCV 91.9 fL (80.0-100.0); Mean Platelet Volume 8.7; Monocytes # (A) 0.4 k/uL (0-1.0); Monocytes % (A) 8 %; Neutrophils # (A) 2.7 k/uL (1.3-7.7); Neutrophils % (A) 56 %; Platelet Count 189 k/uL (150-450); RBC 2.31 m/uL (3.80-5.40); RDW 16.6 % (11.5-15.5); WBC 4.8 k/uL (3.8-10.6)
[2022-08-31 02:39] LABS: % Iron Saturation 15.58; Iron 50 UG/DL; Total Iron Binding Capacity 321 UG/DL
[2022-08-31 02:45] LABS: Ferritin 73.5 ng/mL
[2022-08-31 03:04] LABS: Urine Creatinine 58.1 mg/dL
[2022-08-31] MEDS: ACETAMINOPHEN TAB 325 MG TAB PO SCH ×2 (10:12→16:48)
[2022-08-31] MEDS: carvediloL 12.5 MG TAB PO SCH ×2 (10:13→16:49)
[2022-08-31] MEDS: hydrALAZINE HCL 50 MG TAB PO SCH ×3 (10:13→20:52)
[2022-08-31] MEDS: amLODIPine 10 MG TAB PO SCH (10:16)
[2022-08-31] MEDS: ASPIRIN 81 MG PO SCH (10:48)
--- NOTE | 2022-08-31 11:14 | P.PN ---
Subjective Progress Note Date: 08/31/22 Shelley Keenan, is an 87-year-old female who presented to [facility] emergency room with a chief complaint of shortness of breath and chest tightness She was evaluated in the emergency room vital examination on presentation revealed a temperature of 98.5 pulse 69 respiration 22 blood pressure 158/66 pulse ox 99% on room air Laboratory data revealed a white blood count of 4.9 hemoglobin 6.7 platelet count 2:15 sodium 139 potassium 4.1 chloride 108 CO2 20 BUN 60 creatinine 1.85 stools for Hemoccult was positive Testing in the emergency room revealed EKG done in the emergency room revealed sinus rhythm normal EKG Patient was admitted to medical floor for further evaluation and treatment Past medical history is significant for known history of coronary artery disease, patient was admitted to the hospital a few days ago by Dr. Ryan and underwent angioplasty and stent placement of the proximal LAD, patient also has a known history of chronic anemia, history of hypertension, history of hyperlipidemia, history of gout, and history of paroxysmal atrial fibrillation On 08/31/2022 patient is alert and oriented 3. Patient received 1 unit of PRBCs yesterday hemoglobin 7.1. Awaiting lab work today. Patient is currently nothing by mouth for possible EGD and/or colonoscopy. Did discuss case with cardiology services. Patient's aspirin has been added back on. Patient had recent stent placement but aware that Plavix will be held at this time. Patient denies chest pain or shortness of breath. Patient denies nausea vomiting or diarrhea. Patient denies any urinary burning or frequency. Objective - Vital Signs Vital signs: Vital Signs Temp 98.1 F 08/31/22 08:00 Pulse 61 08/31/22 08:00 Resp 18 08/31/22 08:00 BP 172/70 08/31/22 08:00 Pulse Ox 97 08/31/22 09:19 FiO2 Intake & Output 08/30/22 08/31/22 08/31/22 18:59 06:59 18:59 Intake Total 0 320 Balance 0 320 Weight 74.072 kg 74.072 kg Intake: IV 10 Invasive Line 1 10 Blood Product 0 310 Rc As-1 Unit 0 310 [id number] Other: Voiding Method Toilet # Voids 1 - Exam In general patient is alert and oriented x 3 in no distress HEENT head normocephalic and atraumatic Neck is supple no JVD no goiter no lymphadenopathy no carotid bruit Chest examination is clear to auscultation no crackles no wheezing Cardiac exam reveals regular heart sounds S1 and S2 no gallops no murmurs Abdomen is soft nontender no organomegaly with normal bowel sounds Extremity exam reveals no edema no cyanosis or clubbing Neurological examination reveals no gross focal deficits - Labs CBC & Chem 7: 08/30/22 23:42 08/30/22 15:44 Labs: Abnormal Lab Results - Last 24 Hours (Table) 08/30/22 08/30/22 08/30/22 Range/Units 10:00 10:00 10:00 RBC 2.25 L (3.80-5.40) m/uL Hgb 6.7 L* D (11.4-16.0) gm/dL Hct 20.8 L (34.0-46.0) % RDW 17.2 H (11.5-15.5) % Chloride 108 H (98-107) mmol/L Carbon Dioxide 19 L (22-30) mmol/L BUN 60 H (7-17) mg/dL Creatinine 1.92 H (0.52-1.04) mg/dL Glucose 102 H (74-99) mg/dL POC Glucose (mg/dL) (70-110) mg/dL Troponin I (0.000-0.034) ng/mL Total Protein (6.3-8.2) g/dL PTH Intact 101.0 H pg/mL Ur Leukocyte Esterase (Negative) Ur Random Microalbumin mg/dL Microalb/Creat Ratio mg/g Cr Stool Occult Blood (Negative) Crossmatch 08/30/22 08/30/22 08/30/22 Range/Units 10:00 10:00 15:44 RBC 2.25 L (3.80-5.40) m/uL Hgb 6.7 L* (11.4-16.0) gm/dL Hct 20.2 L (34.0-46.0) % RDW 17.4 H (11.5-15.5) % Chloride (98-107) mmol/L Carbon Dioxide (22-30) mmol/L BUN (7-17) mg/dL Creatinine (0.52-1.04) mg/dL Glucose (74-99) mg/dL POC Glucose (mg/dL) (70-110) mg/dL Troponin I (0.000-0.034) ng/mL Total Protein (6.3-8.2) g/dL PTH Intact pg/mL Ur Leukocyte Esterase Small H (Negative) Ur Random Microalbumin 2.6 H mg/dL Microalb/Creat Ratio 45 H mg/g Cr Stool Occult Blood (Negative) Crossmatch 08/30/22 08/30/22 08/30/22 Range/Units 15:44 15:44 15:44 RBC (3.80-5.40) m/uL Hgb (11.4-16.0) gm/dL Hct (34.0-46.0) % RDW (11.5-15.5) % Chloride 108 H (98-107) mmol/L Carbon Dioxide 20 L (22-30) mmol/L BUN 60 H (7-17) mg/dL Creatinine 1.85 H (0.52-1.04) mg/dL Glucose 116 H (74-99) mg/dL POC Glucose (mg/dL) (70-110) mg/dL Troponin I 0.102 H* (0.000-0.034) ng/mL Total Protein 5.9 L (6.3-8.2) g/dL PTH Intact pg/mL Ur Leukocyte Esterase (Negative) Ur Random Microalbumin mg/dL Microalb/Creat Ratio mg/g Cr Stool Occult Blood Positive H (Negative) Crossmatch 08/30/22 08/30/22 08/30/22 Range/Units 15:44 17:59 19:39 RBC 2.00 L (3.80-5.40) m/uL Hgb 6.0 L* (11.4-16.0) gm/dL Hct 18.4 L* (34.0-46.0) % RDW 17.2 H (11.5-15.5) % Chloride (98-107) mmol/L Carbon Dioxide (22-30) mmol/L BUN (7-17) mg/dL Creatinine (0.52-1.04) mg/dL Glucose (74-99) mg/dL POC Glucose (mg/dL) (70-110) mg/dL Troponin I 0.083 H* (0.000-0.034) ng/mL Total Protein (6.3-8.2) g/dL PTH Intact pg/mL Ur Leukocyte Esterase (Negative) Ur Random Microalbumin mg/dL Microalb/Creat Ratio mg/g Cr Stool Occult Blood (Negative) Crossmatch See Detail 08/30/22 08/30/22 Range/Units 21:17 23:42 RBC 2.31 L (3.80-5.40) m/uL Hgb 7.1 L (11.4-16.0) gm/dL Hct 21.2 L (34.0-46.0) % RDW 16.6 H (11.5-15.5) % Chloride (98-107) mmol/L Carbon Dioxide (22-30) mmol/L BUN (7-17) mg/dL Creatinine (0.52-1.04) mg/dL Glucose (74-99) mg/dL POC Glucose (mg/dL) 125 H (70-110) mg/dL Troponin I (0.000-0.034) ng/mL Total Protein (6.3-8.2) g/dL PTH Intact pg/mL Ur Leukocyte Esterase (Negative) Ur Random Microalbumin mg/dL Microalb/Creat Ratio mg/g Cr Stool Occult Blood (Negative) Crossmatch Assessment and Plan Plan: Episode of chest tightness and shortness of breath, could be related to severe anemia Anemia was positive stools for Hemoccult. Status post 1 unit of PRBCs Underlying history of coronary artery disease with history of angioplasty and stent placement to the LAD few days ago Underlying history of hypertension Underlying history of hyperlipidemia Underlying history of gout Underlying history of chronic anemia Underlying history of diabetes mellitus type 2 At this time patient will be admitted to telemetry floor Serial EKG and cardiac enzymes are ordered Cardiology services following Surgical services following tentative plans for EGD and/or colonoscopy currently nothing by mouth Repeat labs ordered Will follow closely
[2022-08-31 11:36] LABS: Anisocytosis Slight; HCT 23.1 % (34.0-46.0); HGB 7.5 gm/dL (11.4-16.0); Hypochromasia Slight; MCH 29.7 pg (25.0-35.0); MCHC 32.5 g/dL (31.0-37.0); MCV 91.2 fL (80.0-100.0); Mean Platelet Volume 8.7; Platelet Count 193 k/uL (150-450); Poikilocytosis Slight; RBC 2.54 m/uL (3.80-5.40); WBC 4.8 k/uL (3.8-10.6)
--- NOTE | 2022-08-31 13:27 | P.GSCN ---
History of Present Illness Consult date: 08/31/22 History of present illness: CHIEF COMPLAINT: Anemia HISTORY OF PRESENT ILLNESS: This is a 87-year-old female who presented to her complaints of shortness of breath and anemia. Patient found to have a hemoglobin below 7 outpatient and came into the ER for evaluation. She was found to have a hemoglobin of 6.7. She does report that her stools have been black but this is not new. She takes iron at home. She denies any abdominal pain. Denies any nausea or vomiting. She reports that her last EGD and colonoscopy over 10 years ago. She denies any prior history of GI bleed. Patient has coronary artery disease and had a stent placed last . At that time she was started on aspirin and Plavix. Patient also takes Coumadin for her history of atrial fibrillation. She does report having occasional nausea but no vomiting. Patient has received a total of 1 unit of blood. Her lowest hemoglobin was 6.0 and she is now up to 7.5. Stool for occult blood po sitive. Patient did have elevated troponin. Cardiology consulted. PAST MEDICAL HISTORY: See below PAST SURGICAL HISTORY: See below MEDICATIONS: See below ALLERGIES: See below SOCIAL HISTORY: No illicit drug use. REVIEW OF SYSTEMS: CONSTITUTIONAL: Denies fever or chills. HEENT: Denies blurred vision, vision changes, or eye pain. Denies hemoptysis CARDIOVASCULAR: Denies chest pain or pressure. RESPIRATORY: No shortness of breath. GASTROINTESTINAL: See HPI for pertinent findings HEMATOLOGIC: Denies bleeding disorders. GENITOURINARY: Denies any blood in urine or increased urinary frequency. SKIN: Denies pruitis. Denies rash. PHYSICAL EXAM: VITAL SIGNS: Reviewed GENERAL: Well-developed in no acute distress. HEENT: No sclera icterus. Extraocular movements grossly intact. Moist buccal mucosa. Head is atraumatic, normocephalic. No nasal drainage. ABDOMEN: Soft. Nondistended. Nontender NEUROLOGIC: Alert and oriented. Cranial nerves II through XII grossly intact. LABORATORY DATA: WBC is 4.8 Hgb 6.70-6.0-7.5 platelets 193 Sodium is 139 potassium 4.1 creatinine 1.85 Iron 50 Stool for occult blood positive IMAGING: ASSESSMENT: 1. Anemia with black stools and stool for occult blood positive. On iron tablets at home 2. On multiple blood thinners including aspirin, Plavix and Coumadin 3. Coronary disease with cardiac stent placed on 08/25/2022 4. Chronic kidney disease 5. Elevated troponin. Evaluated by cardiology PLAN: -Patient scheduled for EGD and Colonoscopy with Dr. Adam tomorrow, 09/01/2022 -Continue clear liquid diet for today -Start Bowel prep now -Nothing by mouth after midnight -Continue to monitor hemoglobin -Continue monitoring for any signs or symptoms of bleeding -Agree with holding aspirin, Plavix and Coumadin Physician Transaction Coordinator note has been reviewed by physician. Signing provider agrees with the documented findings, assessment, and plan of care. I have personally seen and examined the patient, reviewed the CHIEF TELEPHONE OPERATOR /PAs history, exam and MDM and agree with the assessment and plan as written. Based on total visit time, I have performed more than 50% of the visit. As above: Patient presents with symptomatic anemia. Patient with history of chronic anemia for many years. Has been on Procrit she says for the last 15-20 years. Recently her anticoagulation was increased after stent placement. No visible GI bleed however heme positive stools are present. Options discussed with patient. We'll proceed with upper and lower endoscopy tomorrow. Past Medical History Past Medical History: Atrial Fibrillation, Eye Disorder, GERD/Reflux, Hearing Disorder / Deafness, Hypertension, Osteoarthritis (OA), Renal Disease, Sleep Apnea/CPAP/BIPAP Additional Past Medical History / Comment(s): "leaky valves",gout hx of shingles x2-still has pain to forhead and left eye. infec,anemia,hx polio-wears lifts in shoes,CHRONIC KIDNEY DISEASE -STAGE 4,has double vision w/out glasses, HEART MURMUR, HARD OF HEARING History of Any Multi-Drug Resistant Organisms: None Reported Past Surgical History: Appendectomy, Cholecystectomy, Hysterectomy, Orthopedic Surgery Additional Past Surgical History / Comment(s): ORIF left ankle,vein stripping rt leg,trigger fingers sx X 8, had sx on left leg r/t polio,lizzy placed to rt femur post fx,THUMB procedure,maxine cataracts,arthroscopy rt knee Past Anesthesia/Blood Transfusion Reactions: No Reported Reaction, Family History of Problems w/ Anesthesia Additional Past Anesthesia/Blood Transfusion Reaction / Comm: hx blood transfusio. DAUGHTER B/P dropped w/ shoulder surgery & was admitted to ICU Past Psychological History: No Psychological Hx Reported Smoking Status: Never smoker Past Alcohol Use History: None Reported Additional Past Alcohol Use History / Comment(s): smoked as a teenager Past Drug Use History: None Reported - Past Family History Son(s) Family Medical History: Cancer Additional Family Medical History / Comment(s): esophageal CA Mother Additional Family Medical History / Comment(s): thinks possibly some type of CA- had fluid retention to stomach area Sister(s) Family Medical History: Cancer Additional Family Medical History / Comment(s): LEUKEMIA Medications and Allergies Home Medications Medication Instructions Recorded Confirmed Type Ferrous Sulfate [Iron] 325 mg PO W/SUPPER 07/13/20 08/30/22 History Omeprazole 40 mg PO AC-BRKFST 07/13/20 08/30/22 History Sodium Bicarbonate Tab 1,300 mg PO W/BRKFST 07/13/20 08/30/22 History allopurinoL [Zyloprim] 100 mg PO W/SUPPER 07/13/20 08/30/22 History amLODIPine [Norvasc] 10 mg PO W/BRKFST 07/13/20 08/30/22 History carvediloL [Coreg] 25 mg PO BID-W/MEALS 07/13/20 08/30/22 History hydrALAZINE HCL [Apresoline] 100 mg PO TID@0800,1600,2100 07/13/20 08/30/22 History Furosemide [Lasix] 20 mg PO Q48H 06/14/22 08/30/22 History Sodium Bicarbonate Tab 650 mg PO W/SUPPER 06/14/22 08/30/22 History Cholecalciferol [Vitamin D3 (125 125 mcg PO W/BRKFST 08/24/22 08/30/22 History Mcg = 5000 Iu)] Acetaminophen [Tylenol 8 Hour] 650 mg PO BID-W/MEALS 08/30/22 08/30/22 History Aspirin EC [Ecotrin Low Dose] 81 mg PO DAILY 08/30/22 08/30/22 History Clopidogrel [Plavix] 75 mg PO W/BRKFST 08/30/22 08/30/22 History Warfarin Sodium 2 mg PO SUTUWETHSA@1800 08/30/22 08/30/22 History Warfarin Sodium 4 mg PO MOFR@1800 08/30/22 08/30/22 History Allergies Allergy/AdvReac Type Severity Reaction Status Date / Time erythromycin base Allergy Dyspnea Verified 08/30/22 16:13 levofloxacin [From Levaquin] Allergy Hallucinati Verified 08/30/22 16:13 ons metronidazole [From Flagyl] Allergy Unknown Verified 08/30/22 16:13 Penicillins Allergy Rash/Hives Verified 08/30/22 16:13 Sulfa (Sulfonamide Allergy Rash/Hives Verified 08/30/22 16:13 Antibiotics) hydrocodone AdvReac Hallucinati Verified 08/30/22 16:13 ons [id number] Reductase AdvReac "muscle Verified 08/30/22 16:13 Inhibitor pain" [Dhxhnmd-Uak-Fka Reductase Inhibitor] Surgical - Exam Vital Signs Temp Pulse Resp BP Pulse Ox 98.5 F 69 22 158/66 99 08/30/22 14:46 08/30/22 14:46 08/30/22 14:46 08/30/22 14:46 08/30/22 14:46 Results - Labs 08/31/22 10:52 08/30/22 15:44 Abnormal Lab Results - Last 24 Hours (Table) 08/30/22 08/30/22 08/30/22 Range/Units 10:00 10:00 10:00 RBC 2.25 L (3.80-5.40) m/uL Hgb 6.7 L* D (11.4-16.0) gm/dL Hct 20.8 L (34.0-46.0) % RDW 17.2 H (11.5-15.5) % Chloride 108 H (98-107) mmol/L Carbon Dioxide 19 L (22-30) mmol/L BUN 60 H (7-17) mg/dL Creatinine 1.92 H (0.52-1.04) mg/dL Glucose 102 H (74-99) mg/dL POC Glucose (mg/dL) (70-110) mg/dL Troponin I (0.000-0.034) ng/mL Total Protein (6.3-8.2) g/dL PTH Intact 101.0 H pg/mL Ur Leukocyte Esterase (Negative) Ur Random Microalbumin mg/dL Microalb/Creat Ratio mg/g Cr Stool Occult Blood (Negative) Crossmatch 08/30/22 08/30/22 08/30/22 Range/Units 10:00 10:00 15:44 RBC 2.25 L (3.80-5.40) m/uL Hgb 6.7 L* (11.4-16.0) gm/dL Hct 20.2 L (34.0-46.0) % RDW 17.4 H (11.5-15.5) % Chloride (98-107) mmol/L Carbon Dioxide (22-30) mmol/L BUN (7-17) mg/dL Creatinine (0.52-1.04) mg/dL Glucose (74-99) mg/dL POC Glucose (mg/dL) (70-110) mg/dL Troponin I (0.000-0.034) ng/mL Total Protein (6.3-8.2) g/dL PTH Intact pg/mL Ur Leukocyte Esterase Small H (Negative) Ur Random Microalbumin 2.6 H mg/dL Microalb/Creat Ratio 45 H mg/g Cr Stool Occult Blood (Negative) Crossmatch 08/30/22 08/30/22 08/30/22 Range/Units 15:44 15:44 15:44 RBC (3.80-5.40) m/uL Hgb (11.4-16.0) gm/dL Hct (34.0-46.0) % RDW (11.5-15.5) % Chloride 108 H (98-107) mmol/L Carbon Dioxide 20 L (22-30) mmol/L BUN 60 H (7-17) mg/dL Creatinine 1.85 H (0.52-1.04) mg/dL Glucose 116 H (74-99) mg/dL POC Glucose (mg/dL) (70-110) mg/dL Troponin I 0.102 H* (0.000-0.034) ng/mL Total Protein 5.9 L (6.3-8.2) g/dL PTH Intact pg/mL Ur Leukocyte Esterase (Negative) Ur Random Microalbumin mg/dL Microalb/Creat Ratio mg/g Cr Stool Occult Blood Positive H (Negative) Crossmatch 08/30/22 08/30/22 08/30/22 Range/Units 15:44 17:59 19:39 RBC 2.00 L (3.80-5.40) m/uL Hgb 6.0 L* (11.4-16.0) gm/dL Hct 18.4 L* (34.0-46.0) % RDW 17.2 H (11.5-15.5) % Chloride (98-107) mmol/L Carbon Dioxide (22-30) mmol/L BUN (7-17) mg/dL Creatinine (0.52-1.04) mg/dL Glucose (74-99) mg/dL POC Glucose (mg/dL) (70-110) mg/dL Troponin I 0.083 H* (0.000-0.034) ng/mL Total Protein (6.3-8.2) g/dL PTH Intact pg/mL Ur Leukocyte Esterase (Negative) Ur Random Microalbumin mg/dL Microalb/Creat Ratio mg/g Cr Stool Occult Blood (Negative) Crossmatch See Detail 08/30/22 08/30/22 Range/Units 21:17 23:42 RBC 2.31 L (3.80-5.40) m/uL Hgb 7.1 L (11.4-16.0) gm/dL Hct 21.2 L (34.0-46.0) % RDW 16.6 H (11.5-15.5) % Chloride (98-107) mmol/L Carbon Dioxide (22-30) mmol/L BUN (7-17) mg/dL Creatinine (0.52-1.04) mg/dL Glucose (74-99) mg/dL POC Glucose (mg/dL) 125 H (70-110) mg/dL Troponin I (0.000-0.034) ng/mL Total Protein (6.3-8.2) g/dL PTH Intact pg/mL Ur Leukocyte Esterase (Negative) Ur Random Microalbumin mg/dL Microalb/Creat Ratio mg/g Cr Stool Occult Blood (Negative) Crossmatch Diabetes panel 08/30/22 08/30/22 Range/Units 10:00 15:44 Sodium 140 139 (137-145) mmol/L Potassium 4.1 4.1 (3.5-5.1) mmol/L Chloride 108 H 108 H (98-107) mmol/L Carbon Dioxide 19 L 20 L (22-30) mmol/L BUN 60 H 60 H (7-17) mg/dL Creatinine 1.92 H 1.85 H (0.52-1.04) mg/dL Glucose 102 H 116 H (74-99) mg/dL Calcium 9.8 9.8 (8.4-10.2) mg/dL AST 21 (14-36) U/L ALT 16 (4-34) U/L Alkaline Phosphatase 73 (38-126) U/L Total Protein 5.9 L (6.3-8.2) g/dL Albumin 3.6 3.6 (3.5-5.0) g/dL Calcium panel 08/30/22 08/30/22 Range/Units 10:00 15:44 Calcium 9.8 9.8 (8.4-10.2) mg/dL Phosphorus 2.9 (2.5-4.5) mg/dL Albumin 3.6 3.6 (3.5-5.0) g/dL Pituitary panel 08/30/22 08/30/22 Range/Units 10:00 15:44 Sodium 140 139 (137-145) mmol/L Potassium 4.1 4.1 (3.5-5.1) mmol/L Chloride 108 H 108 H (98-107) mmol/L Carbon Dioxide 19 L 20 L (22-30) mmol/L BUN 60 H 60 H (7-17) mg/dL Creatinine 1.92 H 1.85 H (0.52-1.04) mg/dL Glucose 102 H 116 H (74-99) mg/dL Calcium 9.8 9.8 (8.4-10.2) mg/dL Adrenal panel 08/30/22 08/30/22 Range/Units 10:00 15:44 Sodium 140 139 (137-145) mmol/L Potassium 4.1 4.1 (3.5-5.1) mmol/L Chloride 108 H 108 H (98-107) mmol/L Carbon Dioxide 19 L 20 L (22-30) mmol/L BUN 60 H 60 H (7-17) mg/dL Creatinine 1.92 H 1.85 H (0.52-1.04) mg/dL Glucose 102 H 116 H (74-99) mg/dL Calcium 9.8 9.8 (8.4-10.2) mg/dL Total Bilirubin 0.4 (0.2-1.3) mg/dL AST 21 (14-36) U/L ALT 16 (4-34) U/L Alkaline Phosphatase 73 (38-126) U/L Total Protein 5.9 L (6.3-8.2) g/dL Albumin 3.6 3.6 (3.5-5.0) g/dL
[2022-08-31] MEDS ORDERED: PEG 3350 (236 GM/BTL) + LYTES 4,000 ML BOTTLE PO ONE (14:00)
[2022-08-31 16:12] LABS: Chol/HDL Ratio 4.88 Ratio; LDL Cholesterol,Calculated 84.3 mg/dL (0.0-131.0)
--- NOTE | 2022-08-31 16:31 | P.CRDCN ---
History of Present Illness Consult date: 08/31/22 Reason for Consult (text): Elevated troponins History of present illness: History of present illness: This is an 87 year old female patient of Dr. Ryan with past medical history of coronary artery disease with known severe 2 vessel coronary artery disease and intermediate 1 vessel or new or artery disease as well as valvular heart disease with aortic and mitral regurgitation as well as hypertension, hyperlipidemia, chronic kidney disease, paroxysmal atrial fibrillation, carotid atherosclerosis, chronic anemia. Patient was last seen in the office on August 11. Patient is deemed a high risk or open heart surgery. She continues to have symptoms of shortness of breath with exertion and subsequently underwent PCI with stent placement in the LAD on 08/25. Patient states that she has shortness of breath at rest and with activity. She has had chronic anemia and follows with oncology. She has received iron infusions and transfusions in the past. She states she has chronically dark stool because she is on iron supplement. She has not noted any change in her bowel movements stools. We have been asked to evaluate the patient for elevated troponins. She denies having any chest pain. She states she's had shortness of breath since starting Plavix on Monday following the stent placement. Patient had a hemoglobin of 6 and following one unit transfusion is 7.1. EKG sinus rhythm Chest x-ray: WBC 4.8, hemoglobin 7.5, platelet count 193. Troponin 0.102, 0.083. Triglycerides 278, cholesterol 176, LDL 84, HDL 36. Magnesium 1.8. Stool for occult blood positive. Home cardiac medications: Amlodipine 10 mg daily, aspirin 81 mg daily, Coreg 25 mg twice daily, Plavix 75 mg daily, Lasix 20 mg every 48 hours, hydralazine 100 mg 3 times daily, Coumadin 4 mg alternating with 2 mg. Cardiac catheterization 05/2022 revealed a severe CAD involving the proximal LAD, severe CAD involving the OM1 and distal left circumflex, intermediate disease involving the mid RCA. JUAN DANIEL 06/16/2022 revealed EF of 50%, moderate MR, moderate TR, moderate a very Lexiscan stress test 03/2019 normal Carotid duplex 11/2021 revealed moderate disease in the right ICA and severe disease in the left ICA. Review Of Systems: At the time of my evaluation: Constitutional: No fever, no chills. reports weakness and fatigue denies lethargy. EENT: No headache. No dizziness. Lungs: No shortness of breath, cough, no sputum production. No wheezing. Cardiovascular: No chest pain, no lower extremity edema. No palpitations. No paroxysmal nocturnal dyspnea. No orthopnea. No lightheadedness or dizziness. No syncopal episodes. Abdominal: No abdominal pain. No nausea, vomiting. No diarrhea. No constipation. No bloody or tarry stools. Genitourinary: No dysuria.. No urinary retention. Musculoskeletal: No myalgias. No muscle weakness, no frequent falls. No back pain. No neck pain. Integumentary: No wounds. No rash. No unusual bruising. Neurologic: No aphasia. No facial droop. No change in mentation. No head injury. No headache. Physical examination: Gen: This is an 87-year-old female. She is resting in bed appears to be comfortable at rest and in no acute distress VS: reviewed HEENT: Head is atraumatic, normocephalic. Pupils equal, round. Sclerae is anicteric. NECK: Supple. No JVD. . LUNGS: Clear to auscultation. No wheezes or rhonchi. No intercostal retractions. HEART: Regular rate and rhythm. No murmur. ABDOMEN: Soft No tenderness. EXTREMITIES: No pedal edema. No calf tenderness. NEUROLOGICAL: Patient is awake, alert and oriented x3. Assessment: Elevated troponins, acute coronary syndrome ruled out Elevated troponins most likely due to anemia and chronic kidney disease Anemia with positive occult stool Chronic anemia Coronary artery disease with recent stent to the LAD on 08/25 Carotid artery disease Paroxysmal atrial fibrillation Chronic kidney disease stage IV Hypertension Dyslipidemia Diabetes Family history of CAD Plan: Resume patient on aspirin 81 mg daily and continue to hold Coumadin and Plavix Resume other home cardiac medications GI workup per general surgery Patient is cleared by cardiology to undergo EGD and colonoscopy scheduled for tomorrow Further recommendations to follow based upon clinical course Thank you kindly for this consultation. Nurse practitioner note has been reviewed, I agree with documented findings and plan of care. Patient was seen and examined. Past Medical History Past Medical History: Atrial Fibrillation, Eye Disorder, GERD/Reflux, Hearing Disorder / Deafness, Hypertension, Osteoarthritis (OA), Renal Disease, Sleep Apnea/CPAP/BIPAP Additional Past Medical History / Comment(s): "leaky valves",gout hx of shingles x2-still has pain to forhead and left eye. infec,anemia,hx polio-wears lifts in shoes,CHRONIC KIDNEY DISEASE -STAGE 4,has double vision w/out glasses, HEART MURMUR, HARD OF HEARING History of Any Multi-Drug Resistant Organisms: None Reported Past Surgical History: Appendectomy, Cholecystectomy, Hysterectomy, Orthopedic Surgery Additional Past Surgical History / Comment(s): ORIF left ankle,vein stripping rt leg,trigger fingers sx X 8, had sx on left leg r/t polio,lizzy placed to rt femur post fx,THUMB procedure,maxine cataracts,arthroscopy rt knee Past Anesthesia/Blood Transfusion Reactions: No Reported Reaction, Family History of Problems w/ Anesthesia Additional Past Anesthesia/Blood Transfusion Reaction / Comment(s): hx blood transfusio. DAUGHTER B/P dropped w/ shoulder surgery & was admitted to ICU Past Psychological History: No Psychological Hx Reported Smoking Status: Never smoker Past Alcohol Use History: None Reported Additional Past Alcohol Use History / Comment(s): smoked as a teenager Past Drug Use History: None Reported - Past Family History Son(s) Family Medical History: Cancer Additional Family Medical History / Comment(s): esophageal CA Mother Additional Family Medical History / Comment(s): thinks possibly some type of CA- had fluid retention to stomach area Sister(s) Family Medical History: Cancer Additional Family Medical History / Comment(s): LEUKEMIA Medications and Allergies Home Medications Medication Instructions Recorded Confirmed Type Ferrous Sulfate [Iron] 325 mg PO W/SUPPER 07/13/20 08/30/22 History Omeprazole 40 mg PO AC-BRKFST 07/13/20 08/30/22 History Sodium Bicarbonate Tab 1,300 mg PO W/BRKFST 07/13/20 08/30/22 History allopurinoL [Zyloprim] 100 mg PO W/SUPPER 07/13/20 08/30/22 History amLODIPine [Norvasc] 10 mg PO W/BRKFST 07/13/20 08/30/22 History carvediloL [Coreg] 25 mg PO BID-W/MEALS 07/13/20 08/30/22 History hydrALAZINE HCL [Apresoline] 100 mg PO TID@0800,1600,2100 07/13/20 08/30/22 History Furosemide [Lasix] 20 mg PO Q48H 06/14/22 08/30/22 History Sodium Bicarbonate Tab 650 mg PO W/SUPPER 06/14/22 08/30/22 History Cholecalciferol [Vitamin D3 (125 125 mcg PO W/BRKFST 08/24/22 08/30/22 History Mcg = 5000 Iu)] Acetaminophen [Tylenol 8 Hour] 650 mg PO BID-W/MEALS 08/30/22 08/30/22 History Aspirin EC [Ecotrin Low Dose] 81 mg PO DAILY 08/30/22 08/30/22 History Clopidogrel [Plavix] 75 mg PO W/BRKFST 08/30/22 08/30/22 History Warfarin Sodium 2 mg PO SUTUWETHSA@1800 08/30/22 08/30/22 History Warfarin Sodium 4 mg PO MOFR@1800 08/30/22 08/30/22 History Allergies Allergy/AdvReac Type Severity Reaction Status Date / Time erythromycin base Allergy Dyspnea Verified 08/30/22 16:13 levofloxacin [From Levaquin] Allergy Hallucinati Verified 08/30/22 16:13 ons metronidazole [From Flagyl] Allergy Unknown Verified 08/30/22 16:13 Penicillins Allergy Rash/Hives Verified 08/30/22 16:13 Sulfa (Sulfonamide Allergy Rash/Hives Verified 08/30/22 16:13 Antibiotics) hydrocodone AdvReac Hallucinati Verified 08/30/22 16:13 ons Ldvkbxw-MRO-HlR Reductase AdvReac "muscle Verified 08/30/22 16:13 Inhibitor pain" [Vouljpw-Uqr-Eyn Reductase Inhibitor] Physical Exam Vitals: Vital Signs Temp Pulse Pulse Resp BP BP Pulse Ox 08/31/22 04:00 98.0 F 57 L 18 144/66 96 08/31/22 00:00 98.0 F 59 L 18 142/76 98 08/30/22 21:35 98.2 F 60 18 168/76 97 08/30/22 20:33 98.8 F 60 16 160/67 08/30/22 20:13 60 16 157/69 96 08/30/22 19:48 98.3 F 59 L 18 170/75 98 08/30/22 19:06 98.4 F 59 L 16 181/77 98 08/30/22 18:36 98.4 F 60 17 196/81 08/30/22 18:16 98.5 F 61 16 161/67 96 08/30/22 18:05 98.5 F 64 16 159/65 96 08/30/22 16:25 97.5 F L 61 16 162/66 97 08/30/22 15:40 97.6 F 62 18 172/71 98 08/30/22 15:26 19 08/30/22 14:46 98.5 F 69 22 158/66 99 Intake and Output 08/30/22 08/31/22 08/31/22 22:59 06:59 14:59 Intake Total 320 Balance 320 Intake: IV 10 Invasive Line 1 10 Blood Product 310 Rc As-1 Unit 310 [id number] Other: Voiding Method Toilet Toilet # Voids 1 Weight 74.072 kg Results 08/31/22 10:52 08/30/22 15:44 Cardiac Enzymes 08/30/22 08/30/22 08/30/22 Range/Units 15:44 15:44 19:39 AST 21 (14-36) U/L Troponin I 0.102 H* 0.083 H* (0.000-0.034) ng/mL Coagulation 08/30/22 Range/Units 15:44 PT 11.0 (9.0-12.0) sec APTT 22.7 (22.0-30.0) sec CBC 08/30/22 08/30/22 08/30/22 Range/Units 10:00 15:44 17:59 WBC 5.8 4.9 4.6 (3.8-10.6) k/uL RBC 2.25 L 2.25 L 2.00 L (3.80-5.40) m/uL Hgb 6.7 L* D 6.7 L* 6.0 L* (11.4-16.0) gm/dL Hct 20.8 L 20.2 L 18.4 L* (34.0-46.0) % Plt Count 224 215 195 (150-450) k/uL 08/30/22 Range/Units 23:42 WBC 4.8 (3.8-10.6) k/uL RBC 2.31 L (3.80-5.40) m/uL Hgb 7.1 L (11.4-16.0) gm/dL Hct 21.2 L (34.0-46.0) % Plt Count 189 (150-450) k/uL Comprehensive Metabolic Panel 08/30/22 08/30/22 Range/Units 10:00 15:44 Sodium 140 139 (137-145) mmol/L Potassium 4.1 4.1 (3.5-5.1) mmol/L Chloride 108 H 108 H (98-107) mmol/L Carbon Dioxide 19 L 20 L (22-30) mmol/L BUN 60 H 60 H (7-17) mg/dL Creatinine 1.92 H 1.85 H (0.52-1.04) mg/dL Glucose 102 H 116 H (74-99) mg/dL Calcium 9.8 9.8 (8.4-10.2) mg/dL AST 21 (14-36) U/L ALT 16 (4-34) U/L Alkaline Phosphatase 73 (38-126) U/L Total Protein 5.9 L (6.3-8.2) g/dL Albumin 3.6 3.6 (3.5-5.0) g/dL Current Medications Generic Name Dose Route Start Last Admin Trade Name Freq PRN Reason Stop Dose Admin Acetaminophen 650 mg 08/30/22 22:00 08/30/22 22:15 Acetaminophen Tab 325 Mg Tab PO 650 mg BID-W/MEALS CONCHITA Administration Allopurinol 100 mg 08/30/22 22:00 08/30/22 22:10 Allopurinol 100 Mg Tab PO 100 mg W/SUPPER CONCHITA Administration Carvedilol 25 mg 08/30/22 22:00 08/30/22 22:10 Carvedilol 12.5 Mg Tab PO 25 mg BID-W/MEALS CONCHITA Administration Ferrous Sulfate 325 mg 08/30/22 22:00 08/30/22 22:10 Ferrous Sulfate 325 Mg Tab PO 325 mg W/SUPPER CONCHITA Administration Hydralazine HCl 100 mg 08/30/22 22:14 08/30/22 22:23 Hydralazine Hcl 50 Mg Tab PO 100 mg TID@0800,1600,2100 CONCHITA Administration Nitroglycerin 0.4 mg 08/30/22 17:00 Nitroglycerin Sl Tabs 0.4 Mg Tab SUBLINGUAL Q5M PRN Chest Pain Sodium Bicarbonate 650 mg 08/30/22 22:00 08/30/22 22:10 Sodium Bicarbonate Tab 650 Mg Tab PO 650 mg W/SUPPER CONCHITA Administration Intake and Output 08/30/22 08/31/22 08/31/22 22:59 06:59 14:59 Intake Total 320 Balance 320 Intake: IV 10 Invasive Line 1 10 Blood Product 310 Rc As-1 Unit 310 [id number] Other: Voiding Method Toilet Toilet # Voids 1 Weight 74.072 kg 08/30/22 23:42 08/30/22 15:44
[2022-08-31] MEDS: allopurinoL 100 MG TAB PO SCH (16:49)
[2022-08-31] MEDS: FERROUS SULFATE 325 MG TAB PO SCH (16:49)
[2022-08-31] MEDS: SODIUM BICARBONATE TAB 650 MG TAB PO SCH (16:49)
[2022-08-31] MEDS ORDERED: hydrALAZINE HCL 50 MG TAB PO SCH (22:00)
[2022-09-01 11:01] LABS: Anisocytosis Slight; Basophils % (A) 1 %; Eosinophils # (A) 0.2 k/uL (0-0.7); Eosinophils % (A) 6 %; HCT 23.3 % (34.0-46.0); HGB 7.6 gm/dL (11.4-16.0); Hypochromasia Slight; Lymphocytes # (A) 1.3 k/uL (1.0-4.8); Lymphocytes % (A) 29 %; MCHC 32.7 g/dL (31.0-37.0); MCV 91.9 fL (80.0-100.0); Mean Platelet Volume 8.9; Monocytes # (A) 0.3 k/uL (0-1.0); Monocytes % (A) 7 %; Neutrophils # (A) 2.4 k/uL (1.3-7.7); Neutrophils % (A) 55 %; Platelet Count 201 k/uL (150-450); RBC 2.53 m/uL (3.80-5.40); RDW 16.8 % (11.5-15.5); WBC 4.4 k/uL (3.8-10.6)
[2022-09-01 11:17] LABS: ALT 13 U/L (4-34); AST 21 U/L (14-36); African American GFR (CKD) 29 (>60 ml/min/1.73 sqM); Albumin 3.2 g/dL (3.5-5.0); Alkaline Phosphatase 76 U/L (38-126); Anion Gap 9 mmol/L; Blood Urea Nitrogen 32 mg/dL (7-17); Calcium 9.4 mg/dL (8.4-10.2); Carbon Dioxide 22 mmol/L (22-30); Chloride 110 mmol/L (98-107); Glucose 92 mg/dL (74-99); Non-African American GFR(CKD) 25 (>60 ml/min/1.73 sqM); Potassium 3.9 mmol/L (3.5-5.1); Sodium 141 mmol/L (137-145); Total Bilirubin 0.4 mg/dL (0.2-1.3); Total Protein 5.4 g/dL (6.3-8.2)
[2022-09-01] MEDS ORDERED: LIDOCAINE 2% INJ 20 MG/ML (2 ML VIAL) ONE (12:25)
[2022-09-01] MEDS ORDERED: PROPOFOL 10 MG/ML 20 ML VIAL IV ONE (12:25)
[2022-09-01] MEDS ORDERED: IV FLUID CONTINUATION 1,000 ML IV ONE (12:25)
--- NOTE | 2022-09-01 13:26 | P.PCN ---
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 EGD with biopsy and clip placement 2. Colonoscopy ANESTHESIA: MAC SURGEON: Michael Adam M.D. SPECIMENS: Antrum, distal esophagus ENDOSCOPIC PROCEDURE: The patient was on the endoscopy table in the left decubitus position. The Olympus gastroscope was inserted into the oropharynx and passed under direct visualization to the region of the third portion of the duodenum. From that point the scope was slowly withdrawn inspecting all surfaces carefully. There were no neoplastic inflammatory or polypoid lesions throughout the duodenum. The pylorus was widely patent. The stomach was carefully inspected. There was raised thickened folds in the antrum. This had the appearance of a mild watermelon stomach. A biopsy of the thickened erythematous fold was taken. There was some oozing from that that did not seem to be stopping and a clip was deployed. No further bleeding was seen at that time. Retroflexion revealed a normal hiatus. The esophagus was then carefully examined. There was mild distal esophagitis present. A biopsy of the distal esophagus took place. The patient was kept on the endoscopy table in the left decubitus position. The Olympus colonoscope was inserted into the anus and passed under direct visualization to the base of the cecum. The appendiceal orifice was visualized. From that point the scope was slowly withdrawn inspecting all surfaces carefully. There were no neoplastic inflammatory or polypoid lesions throughout the cecum, ascending, transverse, descending, sigmoid and rectum. There was extensive left-sided diverticulosis noted. Digital rectal examination was normal. The patient was taken to the recovery room in stable condition per anesthesia guidelines. RECOMMENDATIONS: Stool in the colon was dark in color. No fresh blood was seen in the colon. In the stomach there was a small area of blood seen adjacent to the thickened folds. I suspect this is likely the source of chronic anemia. Await biopsies results. Patient may resume diet. May discharge. Follow-up as outpatient. Patient may require ablative procedure on the vascular ectasia.
--- NOTE | 2022-09-01 13:44 | P.CONS ---
History of Present Illness - Reason for Consult Consult date: 09/01/22 anemia Requesting physician: Ron Busch - Chief Complaint Abnormal hemoglobin, shortness of breath, weakness - History of Present Illness Mrs. Snider is a pleasant female patient of Dr. Ti Contreras with past medical history of atrial fibrillation, GERD, hypertension, hyperlipidemia, gout, OA, chronic kidney disease, sleep apnea. She has been seen in our practice for many years for anemia of chronic kidney disease, receiving YOUSIF therapy every 3 weeks and IV iron as needed. She has had complaints of chronic fatigue for years. She had a JUAN DANIEL in [address] Quinonez. She was started on low-dose L a course by Dr. Busch her PCP after developing A. fib following Covid vaccine. Last week she had angioplasty with stent placement in the LAD and aspirin and Plavix was added. She received retacrit 60,000 units 08/30. CBC that day showed her Hgb to be less than 7 so, transfusion was recommended but, patient was having symptoms of persistent weakness, shortness of breath and fatigue so, she came to the emergency department. On admit she received 1 unit of blood, was found to have stable vital signs, hemoglobin 6.7, creatinine 1.85-which is her baseline-, Hemoccult was positive, normal EKG. She denies any gross bleeding, her last colonoscopy was more than 5-10 years ago she thinks, she denies any fevers, nausea or vomiting, chest pain, abdominal pain, distention, bloating, acute changes in bowel or bladder habits. She is being prepped for endoscopy. Review of Systems 10 point review of systems is negative except as stated in HPI Past Medical History Past Medical History: Atrial Fibrillation, Eye Disorder, GERD/Reflux, Hearing Disorder / Deafness, Hypertension, Osteoarthritis (OA), Renal Disease, Sleep Apnea/CPAP/BIPAP Additional Past Medical History / Comment(s): "leaky valves",gout hx of shingles x2-still has pain to forhead and left eye. infec,anemia,hx polio-wears lifts in shoes,CHRONIC KIDNEY DISEASE -STAGE 4,has double vision w/out glasses, HEART MURMUR, HARD OF HEARING History of Any Multi-Drug Resistant Organisms: None Reported Past Surgical History: Appendectomy, Cholecystectomy, Hysterectomy, Orthopedic Surgery Additional Past Surgical History / Comment(s): ORIF left ankle,vein stripping rt leg,trigger fingers sx X 8, had sx on left leg r/t polio,lizzy placed to rt femur post fx,THUMB procedure,maxine cataracts,arthroscopy rt knee Past Anesthesia/Blood Transfusion Reactions: No Reported Reaction, Family History of Problems w/ Anesthesia Additional Past Anesthesia/Blood Transfusion Reaction / Comm: hx blood transfusio. DAUGHTER B/P dropped w/ shoulder surgery & was admitted to ICU Past Psychological History: No Psychological Hx Reported Smoking Status: Never smoker Past Alcohol Use History: None Reported Additional Past Alcohol Use History / Comment(s): smoked as a teenager Past Drug Use History: None Reported - Past Family History Son(s) Family Medical History: Cancer Additional Family Medical History / Comment(s): esophageal CA Mother Additional Family Medical History / Comment(s): thinks possibly some type of CA- had fluid retention to stomach area Sister(s) Family Medical History: Cancer Additional Family Medical History / Comment(s): LEUKEMIA Medications and Allergies Home Medications Medication Instructions Recorded Confirmed Type Ferrous Sulfate [Iron] 325 mg PO W/SUPPER 07/13/20 08/30/22 History Omeprazole 40 mg PO AC-BRKFST 07/13/20 08/30/22 History Sodium Bicarbonate Tab 1,300 mg PO W/BRKFST 07/13/20 08/30/22 History allopurinoL [Zyloprim] 100 mg PO W/SUPPER 07/13/20 08/30/22 History amLODIPine [Norvasc] 10 mg PO W/BRKFST 07/13/20 08/30/22 History carvediloL [Coreg] 25 mg PO BID-W/MEALS 07/13/20 08/30/22 History hydrALAZINE HCL [Apresoline] 100 mg PO TID@0800,1600,2100 07/13/20 08/30/22 History Furosemide [Lasix] 20 mg PO Q48H 06/14/22 08/30/22 History Sodium Bicarbonate Tab 650 mg PO W/SUPPER 06/14/22 08/30/22 History Cholecalciferol [Vitamin D3 (125 125 mcg PO W/BRKFST 08/24/22 08/30/22 History Mcg = 5000 Iu)] Acetaminophen [Tylenol 8 Hour] 650 mg PO BID-W/MEALS 08/30/22 08/30/22 History Aspirin EC [Ecotrin Low Dose] 81 mg PO DAILY 08/30/22 08/30/22 History Clopidogrel [Plavix] 75 mg PO W/BRKFST 08/30/22 08/30/22 History Warfarin Sodium 2 mg PO SUTUWETHSA@1800 08/30/22 08/30/22 History Warfarin Sodium 4 mg PO MOFR@1800 08/30/22 08/30/22 History Allergies Allergy/AdvReac Type Severity Reaction Status Date / Time erythromycin base Allergy Dyspnea Verified 08/30/22 16:13 levofloxacin [From Levaquin] Allergy Hallucinati Verified 08/30/22 16:13 ons metronidazole [From Flagyl] Allergy Unknown Verified 08/30/22 16:13 Penicillins Allergy Rash/Hives Verified 08/30/22 16:13 Sulfa (Sulfonamide Allergy Rash/Hives Verified 08/30/22 16:13 Antibiotics) hydrocodone AdvReac Hallucinati Verified 08/30/22 16:13 ons Mcqchez-NKL-HpZ Reductase AdvReac "muscle Verified 08/30/22 16:13 Inhibitor pain" [Ffrkgmi-Ahf-Lnj Reductase Inhibitor] Physical Exam Vitals: Vital Signs Temp Pulse Resp BP Pulse Ox 09/01/22 04:00 98.3 F 60 16 135/70 98 09/01/22 00:00 98.1 F 58 L 16 148/68 99 08/31/22 20:00 98.0 F 54 L 16 164/76 98 08/31/22 16:00 98.3 F 63 16 157/65 99 08/31/22 12:00 98.3 F 53 L 16 146/63 97 08/31/22 09:19 97 Intake and Output 08/31/22 09/01/22 09/01/22 22:59 06:59 14:59 Intake Total 960 Output Total 600 Balance 360 Intake: Oral 960 Output: Stool 600 Other: Voiding Method Bedside Commode Bedside Commode # Voids 2 # Bowel Movements 6 - Constitutional General appearance: average body habitus, cooperative, no acute distress - EENT Eyes: anicteric sclerae, EOMI ENT: hearing grossly normal - Respiratory Respiratory: bilateral: CTA - Cardiovascular Rhythm: regular Heart sounds: normal: S1, S2 Abnormal Heart Sounds: systolic murmur leg Peripheral Edema: bilateral: None - Gastrointestinal General gastrointestinal: no absent bowel sounds, no decreased bowel sounds, no distended, no hepatomegaly, no hyperactive bowel sounds, normal bowel sounds, no organomegaly, no rigid, no scaphoid, soft, no splenomegaly, no tenderness, no umbilical hernia, no ventral hernia - Integumentary Integumentary: pale - Neurologic Neurologic: CNII-XII intact - Musculoskeletal Musculoskeletal: strength equal bilaterally - Psychiatric Psychiatric: A&O x's 3, appropriate affect, intact judgment & insight Results CBC & Chem 7: 09/01/22 09:42 09/01/22 09:42 Labs: Abnormal Lab Results - Last 24 Hours (Table) 08/31/22 08/31/22 Range/Units 10:52 10:52 RBC 2.54 L (3.80-5.40) m/uL Hgb 7.5 L (11.4-16.0) gm/dL Hct 23.1 L (34.0-46.0) % RDW 17.0 H (11.5-15.5) % Triglycerides 278.00 H (0.00-149.00) mg/dL VLDL Cholesterol, Calc 55.60 H (5.00-40.00) mg/dL HDL Cholesterol 36.10 L (40.00-60.00) mg/dL Assessment and Plan (1) Anemia in chronic kidney disease Current Visit: Yes Status: Chronic Priority: Medium Code(s): N18.9 - CHRONIC KIDNEY DISEASE, UNSPECIFIED; D63.1 - ANEMIA IN CHRONIC KIDNEY DISEASE SNOMED Code(s): 051325711 Plan: Anemia of chronic kidney disease -Patient has been on yousif therapy every 3 weeks for many years. Her hemoglobin tends to run in the 9-10 range. Last dose of YOUSIF was given 08/30/22 -Recent addition of dual antiplatelet therapy for cardiac stent placement in the LAD. Patient is also on Coumadin for atrial fibrillation. Cardiology holding Coumadin and Plavix for now. -Patient being prepped for endoscopy. -IV iron ordered -Continue to monitor hemoglobin while inpatient. Had an appropriate increase in her hemoglobin after 1 unit of packed red blood cells. Transfuse for hemoglobin less than 7. Doctor attests: I performed a history and physical examination of this patient, developed impression and plan of care. Discussed with dictator. I agree with dictators note, documented as a scribe.
[2022-09-01] MEDS: ACETAMINOPHEN TAB 325 MG TAB PO SCH ×2 (13:56→18:27)
[2022-09-01] MEDS: carvediloL 12.5 MG TAB PO SCH ×2 (13:56→18:27)
[2022-09-01] MEDS: hydrALAZINE HCL 50 MG TAB PO SCH ×3 (13:57→19:58)
[2022-09-01] MEDS: ASPIRIN 81 MG PO SCH (14:00)
[2022-09-01] MEDS: SODIUM FERRIC GLUCONAT-SUCROSE 125 MG in SODIUM CHLORIDE 0.9% 100 ML IVPB SCH (14:01)
[2022-09-01] MEDS: amLODIPine 10 MG TAB PO SCH (14:01)
[2022-09-01] MEDS: FUROSEMIDE 20 MG TAB PO SCH (14:01)
--- NOTE | 2022-09-01 15:11 | P.PN ---
Subjective Progress Note Date: 09/01/22 History of present illness: This is an 87 year old female patient of Dr. Ryan with past medical history of coronary artery disease with known severe 2 vessel coronary artery disease and intermediate 1 vessel or new or artery disease as well as valvular heart disease with aortic and mitral regurgitation as well as hypertension, hyperlipidemia, chronic kidney disease, paroxysmal atrial fibrillation, carotid atherosclerosis, chronic anemia. Patient was last seen in the office on August 11. Patient is deem ed a high risk or open heart surgery. She continues to have symptoms of shortness of breath with exertion and subsequently underwent PCI with stent placement in the LAD on 08/25. Patient states that she has shortness of breath at rest and with activity. She has had chronic anemia and follows with oncology. She has received iron infusions and transfusions in the past. She states she has chronically dark stool because she is on iron supplement. She has not noted any change in her bowel movements stools. We have been asked to evaluate the patient for elevated troponins. She denies having any chest pain. She states she's had shortness of breath since starting Plavix on Monday following the stent placement. Patient had a hemoglobin of 6 and following one unit transfusion is 7.1. EKG sinus rhythm Chest x-ray: WBC 4.8, hemoglobin 7.5, platelet count 193. Troponin 0.102, 0.083. Tri glycerides 278, cholesterol 176, LDL 84, HDL 36. Magnesium 1.8. Stool for occult blood positive. Home cardiac medications: Amlodipine 10 mg daily, aspirin 81 mg daily, Coreg 25 mg twice daily, Plavix 75 mg daily, Lasix 20 mg every 48 hours, hydralazine 100 mg 3 times daily, Coumadin 4 mg alternating with 2 mg. Cardiac catheterization 05/2022 revealed a severe CAD involving the proximal LAD, severe CAD involving the OM1 and distal left circumflex, intermediate disease involving the mid RCA. JUAN DANIEL 06/16/2022 revealed EF of 50%, moderate MR, moderate TR, moderate a very Lexiscan stress test 03/2019 normal Carotid duplex 11/2021 revealed moderate disease in the right ICA and severe disease in the left ICA. 09/01 Today, patient underwent EGD and colonoscopy with Dr. 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 The patient is feeling tired after undergoing bowel prep. Ferrlecit has been infused. Hemoglobin is 7.6. She denies having any chest pain or pressure. Physical examination: Gen: This is an 87-year-old female. She is resting in bed appears to be comfortable at rest and in no acute distress VS: reviewed HEENT: Head is atraumatic, normocephalic. Pupils equal, round. Sclerae is anicteric. NECK: Supple. No JVD. . LUNGS: Clear to auscultation. No wheezes or rhonchi. No intercostal retractions. HEART: Regular rate and rhythm. No murmur. ABDOMEN: Soft No tenderness. EXTREMITIES: No pedal edema. No calf tenderness. NEUROLOGICAL: Patient is awake, alert and oriented x3. Assessment: Elevated troponins, acute coronary syndrome ruled out Elevated troponins most likely due to anemia and chronic kidney disease Anemia with positive occult stool Chronic anemia Coronary artery disease with recent stent to the LAD on 08/25 Carotid artery disease Paroxysmal atrial fibrillation Chronic kidney disease stage IV Hypertension Dyslipidemia Diabetes Family history of CAD Plan: Resume patient on aspirin 81 mg daily and continue to hold Coumadin and Plavix Resume other home cardiac medications Recommend holding Lasix and Coumadin at the time of discharged and patient to follow-up with Dr. Ryan in one week to evaluate and possibly resume anticoagulation/antiplatelet. Cardiology will sign off and follow on an as- needed basis. Please reconsult for any new concerns. Nurse practitioner note has been reviewed, I agree with documented findings and plan of care. Patient was seen and examined. Objective - Vital Signs Vital signs: Vital Signs Temp 98.2 F 09/01/22 11:32 Pulse 57 L 09/01/22 11:32 Resp 20 09/01/22 11:32 BP 174/65 09/01/22 11:32 Pulse Ox 97 09/01/22 11:32 FiO2 Intake & Output 08/31/22 09/01/22 09/01/22 18:59 06:59 18:59 Intake Total 1440 800 Output Total 600 Balance 1440 -600 800 Intake: IV 800 Oral 1440 Output: Stool 600 Other: Voiding Method Bedside Commode # Voids 2 # Bowel Movements 6 - Labs CBC & Chem 7: 09/01/22 09:42 09/01/22 09:42 Labs: Abnormal Lab Results - Last 24 Hours (Table) 08/31/22 09/01/22 09/01/22 Range/Units 10:52 09:42 09:42 RBC 2.53 L (3.80-5.40) m/uL Hgb 7.6 L (11.4-16.0) gm/dL Hct 23.3 L (34.0-46.0) % RDW 16.8 H (11.5-15.5) % Chloride 110 H (98-107) mmol/L BUN 32 H (7-17) mg/dL Creatinine 1.79 H (0.52-1.04) mg/dL Total Protein 5.4 L (6.3-8.2) g/dL Albumin 3.2 L (3.5-5.0) g/dL Triglycerides 278.00 H (0.00-149.00) mg/dL VLDL Cholesterol, Calc 55.60 H (5.00-40.00) mg/dL HDL Cholesterol 36.10 L (40.00-60.00) mg/dL
--- NOTE | 2022-09-01 16:15 | P.PN ---
Subjective Progress Note Date: 09/01/22 Shelley Keenan, is an 87-year-old female who presented to [facility] emergency room with a chief complaint of shortness of breath and chest tightness She was evaluated in the emergency room vital examination on presentation revealed a temperature of 98.5 pulse 69 respiration 22 blood pressure 158/66 pulse ox 99% on room air Laboratory data revealed a white blood count of 4.9 hemoglobin 6.7 platelet count 2:15 sodium 139 potassium 4.1 chloride 108 CO2 20 BUN 60 creatinine 1.85 stools for Hemoccult was positive Testing in the emergency room revealed EKG done in the emergency room revealed sinus rhythm normal EKG Patient was admitted to medical floor for further evaluation and treatment Past medical history is significant for known history of coronary artery disease, patient was admitted to the hospital a few days ago by Dr. Ryan and underwent angioplasty and stent placement of the proximal LAD, patient also has a known history of chronic anemia, history of hypertension, history of hyperlipidemia, history of gout, and history of paroxysmal atrial fibrillation On 08/31/2022 patient is alert and oriented 3. Patient received 1 unit of PRBCs yesterday hemoglobin 7.1. Awaiting lab work today. Patient is currently nothing by mouth for possible EGD and/or colonoscopy. Did discuss case with cardiology services. Patient's aspirin has been added back on. Patient had recent stent placement but aware that Plavix will be held at this time. Patient denies chest pain or shortness of breath. Patient denies nausea vomiting or diarrhea. Patient denies any urinary burning or frequency. On 09/01/2022 patient was seen and examined on the medical floor she is alert and oriented 3 in no apparent distress she she is scheduled for EGD and colonoscopy today there is no fever or chills no headache or dizziness no chest pain no shortness of breath no cough no nausea or vomiting no abdominal pain no diarrhea no blood in the stools no burning with urination no frequency or urgency and no hematuria Objective - Vital Signs Vital signs: Vital Signs Temp 98.3 F 09/01/22 04:00 Pulse 60 09/01/22 04:00 Resp 16 09/01/22 04:00 BP 135/70 09/01/22 04:00 Pulse Ox 98 09/01/22 04:00 FiO2 Intake & Output 08/31/22 09/01/22 09/01/22 18:59 06:59 18:59 Intake Total 1440 Output Total 600 Balance 1440 -600 Intake: Oral 1440 Output: Stool 600 Other: Voiding Method Bedside Commode # Voids 2 # Bowel Movements 6 - Exam In general patient is alert and oriented x 3 in no distress HEENT head normocephalic and atraumatic Neck is supple no JVD no goiter no lymphadenopathy no carotid bruit Chest examination is clear to auscultation no crackles no wheezing Cardiac exam reveals regular heart sounds S1 and S2 no gallops no murmurs Abdomen is soft nontender no organomegaly with normal bowel sounds Extremity exam reveals no edema no cyanosis or clubbing Neurological examination reveals no gross focal deficits - Labs CBC & Chem 7: 09/01/22 09:42 09/01/22 09:42 Labs: Abnormal Lab Results - Last 24 Hours (Table) 08/31/22 08/31/22 Range/Units 10:52 10:52 RBC 2.54 L (3.80-5.40) m/uL Hgb 7.5 L (11.4-16.0) gm/dL Hct 23.1 L (34.0-46.0) % RDW 17.0 H (11.5-15.5) % Triglycerides 278.00 H (0.00-149.00) mg/dL VLDL Cholesterol, Calc 55.60 H (5.00-40.00) mg/dL HDL Cholesterol 36.10 L (40.00-60.00) mg/dL Assessment and Plan Plan: Episode of chest tightness and shortness of breath, could be related to severe anemia Anemia was positive stools for Hemoccult. Status post 1 unit of PRBCs Underlying history of coronary artery disease with history of angioplasty and stent placement to the LAD few days ago Underlying history of hypertension Underlying history of hyperlipidemia Underlying history of gout Underlying history of chronic anemia Underlying history of diabetes mellitus type 2 At this time patient will be admitted to telemetry floor Serial EKG and cardiac enzymes are ordered Cardiology services following Surgical services following tentative plans for EGD and/or colonoscopy currently nothing by mouth Repeat labs ordered Will follow closely
[2022-09-01] MEDS: SODIUM BICARBONATE TAB 650 MG TAB PO SCH (18:27)
[2022-09-01] MEDS: allopurinoL 100 MG TAB PO SCH (18:27)
[2022-09-02] MEDS: ACETAMINOPHEN TAB 325 MG TAB PO SCH ×2 (06:13→16:33)
[2022-09-02] MEDS: carvediloL 12.5 MG TAB PO SCH ×2 (06:14→16:34)
[2022-09-02] MEDS: amLODIPine 10 MG TAB PO SCH (06:14)
[2022-09-02] MEDS: SODIUM FERRIC GLUCONAT-SUCROSE 125 MG in SODIUM CHLORIDE 0.9% 100 ML IVPB SCH (08:24)
[2022-09-02] MEDS: ASPIRIN 81 MG PO SCH (08:24)
[2022-09-02] MEDS: hydrALAZINE HCL 50 MG TAB PO SCH ×3 (08:24→19:50)
[2022-09-02 09:34] LABS: ALT 13 U/L (4-34); AST 22 U/L (14-36); African American GFR (CKD) 28 (>60 ml/min/1.73 sqM); Albumin 3.2 g/dL (3.5-5.0); Alkaline Phosphatase 66 U/L (38-126); Anion Gap 8 mmol/L; Blood Urea Nitrogen 30 mg/dL (7-17); Calcium 9.3 mg/dL (8.4-10.2); Carbon Dioxide 21 mmol/L (22-30); Chloride 109 mmol/L (98-107); Glucose 130 mg/dL (74-99); Non-African American GFR(CKD) 24 (>60 ml/min/1.73 sqM); Sodium 138 mmol/L (137-145); Total Bilirubin 0.4 mg/dL (0.2-1.3); Total Protein 5.4 g/dL (6.3-8.2)
[2022-09-02 09:53] LABS: Anisocytosis Slight; Basophils % (A) 1 %; Eosinophils # (A) 0.2 k/uL (0-0.7); Eosinophils % (A) 5 %; HCT 22.9 % (34.0-46.0); HGB 7.4 gm/dL (11.4-16.0); Hypochromasia Slight; Lymphocytes # (A) 1.1 k/uL (1.0-4.8); Lymphocytes % (A) 23 %; MCH 29.9 pg (25.0-35.0); MCHC 32.3 g/dL (31.0-37.0); MCV 92.7 fL (80.0-100.0); Mean Platelet Volume 8.8; Monocytes # (A) 0.4 k/uL (0-1.0); Monocytes % (A) 7 %; Neutrophils # (A) 3.1 k/uL (1.3-7.7); Neutrophils % (A) 63 %; Platelet Count 206 k/uL (150-450); RBC 2.48 m/uL (3.80-5.40); RDW 17.1 % (11.5-15.5)
--- NOTE | 2022-09-02 10:00 | P.PN ---
Subjective Progress Note Date: 09/02/22 Shelley Keenan, is an 87-year-old female who presented to [facility] emergency room with a chief complaint of shortness of breath and chest tightness She was evaluated in the emergency room vital examination on presentation revealed a temperature of 98.5 pulse 69 respiration 22 blood pressure 158/66 pulse ox 99% on room air Laboratory data revealed a white blood count of 4.9 hemoglobin 6.7 platelet count 2:15 sodium 139 potassium 4.1 chloride 108 CO2 20 BUN 60 creatinine 1.85 stools for Hemoccult was positive Testing in the emergency room revealed EKG done in the emergency room revealed sinus rhythm normal EKG Patient was admitted to medical floor for further evaluation and treatment Past medical history is significant for known history of coronary artery disease, patient was admitted to the hospital a few days ago by Dr. Ryan and underwent angioplasty and stent placement of the proximal LAD, patient also has a known history of chronic anemia, history of hypertension, history of hyperlipidemia, history of gout, and history of paroxysmal atrial fibrillation On 08/31/2022 patient is alert and oriented 3. Patient received 1 unit of PRBCs yesterday hemoglobin 7.1. Awaiting lab work today. Patient is currently nothing by mouth for possible EGD and/or colonoscopy. Did discuss case with cardiology services. Patient's aspirin has been added back on. Patient had recent stent placement but aware that Plavix will be held at this time. Patient denies chest pain or shortness of breath. Patient denies nausea vomiting or diarrhea. Patient denies any urinary burning or frequency. On 09/01/2022 patient was seen and examined on the medical floor she is alert and oriented 3 in no apparent distress she she is scheduled for EGD and colonoscopy today there is no fever or chills no headache or dizziness no chest pain no shortness of breath no cough no nausea or vomiting no abdominal pain no diarrhea no blood in the stools no burning with urination no frequency or urgency and no hematuria. On 09/02/2022 patient was seen and examined on the medical floor she is alert and oriented in no apparent distress, results of EGD and colonoscopy reviewed with patient in details, currently she is receiving IV iron, and IV Protonix, Plavix is on hold cardiology are following, patient had a recent cardiac stent few days ago. Hemoglobin today is 7.4, there is no fever or chills no headache or dizziness no chest pain no shortness of breath no cough no nausea or vomiting no abdominal pain no diarrhea no blood in the stools, actually patient did not have a bowel movement since her EGD and colonoscopy yesterday and no urinary symptoms. We will continue to monitor Objective - Vital Signs Vital signs: Vital Signs Temp 98.1 F 09/01/22 19:57 Pulse 54 L 09/02/22 04:20 Resp 15 09/01/22 23:34 BP 153/65 09/02/22 04:20 Pulse Ox 98 09/02/22 04:20 FiO2 Intake & Output 09/01/22 09/02/22 09/02/22 18:59 06:59 18:59 Intake Total 1080 540 Output Total 700 Balance 380 540 Weight 72 kg Intake: IV 800 Intake, IV Titration 100 Amount Sodium Ferric Gluconat- 100 Sucrose 125 mg In Sodium Chloride 0.9% 100 ml @ 100 mls/hr IVPB DAILY [facility] Rx#:[id number] Oral 180 540 Output: Urine 700 Other: Voiding Method Bedside Commode # Voids 1 - Exam In general patient is alert and oriented x 3 in no distress HEENT head normocephalic and atraumatic Neck is supple no JVD no goiter no lymphadenopathy no carotid bruit Chest examination is clear to auscultation no crackles no wheezing Cardiac exam reveals regular heart sounds S1 and S2 no gallops no murmurs Abdomen is soft nontender no organomegaly with normal bowel sounds Extremity exam reveals no edema no cyanosis or clubbing Neurological examination reveals no gross focal deficits - Labs CBC & Chem 7: 09/02/22 08:09 09/02/22 08:09 Labs: Abnormal Lab Results - Last 24 Hours (Table) 09/01/22 09/01/22 Range/Units 09:42 09:42 RBC 2.53 L (3.80-5.40) m/uL Hgb 7.6 L (11.4-16.0) gm/dL Hct 23.3 L (34.0-46.0) % RDW 16.8 H (11.5-15.5) % Chloride 110 H (98-107) mmol/L BUN 32 H (7-17) mg/dL Creatinine 1.79 H (0.52-1.04) mg/dL Total Protein 5.4 L (6.3-8.2) g/dL Albumin 3.2 L (3.5-5.0) g/dL Assessment and Plan Plan: Episode of chest tightness and shortness of breath, could be related to severe anemia Anemia was positive stools for Hemoccult. Status post 1 unit of PRBCs Underlying history of coronary artery disease with history of angioplasty and stent placement to the LAD few days ago Underlying history of hypertension Underlying history of hyperlipidemia Underlying history of gout Underlying history of chronic anemia Underlying history of diabetes mellitus type 2 At this time patient will be admitted to telemetry floor Serial EKG and cardiac enzymes are ordered Cardiology services following Surgical services following tentative plans for EGD and/or colonoscopy currently nothing by mouth Repeat labs ordered Will follow closely
--- NOTE | 2022-09-02 12:22 | P.PN ---
Subjective Progress Note Date: 09/02/22 Principal diagnosis: GI bleeding Patient doing well today. Hemoglobin 7.4 from 7.6. She is tolerating diet. Objective - Vital Signs Vital signs: Vital Signs Temp 98.1 F 09/01/22 19:57 Pulse 58 L 09/02/22 08:00 Resp 18 09/02/22 08:00 BP 159/61 09/02/22 08:00 Pulse Ox 98 09/02/22 09:19 FiO2 21 09/02/22 09:19 Intake & Output 09/01/22 09/02/22 09/02/22 18:59 06:59 18:59 Intake Total 1080 660 Output Total 700 600 Balance 380 60 Weight 72 kg Intake: IV 800 Intake, IV Titration 100 Amount Sodium Ferric Gluconat- 100 Sucrose 125 mg In Sodium Chloride 0.9% 100 ml @ 100 mls/hr IVPB DAILY [facility] Rx#:[id number] Oral 180 660 Output: Urine 700 0 Stool 600 Other: Voiding Method Bedside Commode Bedside Commode # Voids 1 0 # Bowel Movements 0 - Exam Abdomen: Soft, nontender, nondistended - Labs CBC & Chem 7: 09/02/22 08:09 09/02/22 08:09 Labs: Abnormal Lab Results - Last 24 Hours (Table) 09/02/22 09/02/22 Range/Units 08:09 08:09 RBC 2.48 L (3.80-5.40) m/uL Hgb 7.4 L (11.4-16.0) gm/dL Hct 22.9 L (34.0-46.0) % RDW 17.1 H (11.5-15.5) % Chloride 109 H (98-107) mmol/L Carbon Dioxide 21 L (22-30) mmol/L BUN 30 H (7-17) mg/dL Creatinine 1.86 H (0.52-1.04) mg/dL Glucose 130 H (74-99) mg/dL Total Protein 5.4 L (6.3-8.2) g/dL Albumin 3.2 L (3.5-5.0) g/dL Assessment and Plan (1) Anemia Narrative/Plan: Patient doing well today. Continue antiacids post discharge. Await stomach biopsy results. Follow-up in the office 2-3 weeks. We'll sign off. Please call if needed. Current Visit: Yes Status: Acute Code(s): D64.9 - ANEMIA, UNSPECIFIED SNOMED Code(s): 310124390
--- NOTE | 2022-09-02 15:23 | P.PN ---
Subjective Progress Note Date: 09/02/22 Principal diagnosis: anemia at today's visit patient is resting comfortably in bed, family at bedside. Patient reports feeling fatigued. Denies any episodes of bleeding. S/P co lonoscopy with Dr. Adam which revealed dark stool in colon and blood in stomach. Patient has been started on IV iron. Coumadin and Plavix have been held. Objective - Vital Signs Vital signs: Vital Signs Temp 97.9 F 09/02/22 12:00 Pulse 57 L 09/02/22 14:00 Resp 18 09/02/22 14:00 BP 136/57 09/02/22 12:00 Pulse Ox 98 09/02/22 12:00 FiO2 21 09/02/22 09:19 Intake & Output 09/01/22 09/02/22 09/02/22 18:59 06:59 18:59 Intake Total 1080 660 Output Total 700 1200 Balance 380 -540 Weight 72 kg Intake: IV 800 Intake, IV Titration 100 Amount Sodium Ferric Gluconat- 100 Sucrose 125 mg In Sodium Chloride 0.9% 100 ml @ 100 mls/hr IVPB DAILY [facility] Rx#:[id number] Oral 180 660 Output: Urine 700 0 Stool 1200 Other: Voiding Method Bedside Commode Bedside Commode # Voids 1 0 # Bowel Movements 0 - Constitutional General appearance: Present: average body habitus, no acute distress - EENT Eyes: Present: anicteric sclerae, EOMI ENT: Present: hearing grossly normal - Respiratory Details: breathing even and unlabored - Cardiovascular Details: skin warm and dry - Integumentary Integumentary: Present: pale - Neurologic Neurologic: Present: CNII-XII intact - Musculoskeletal Musculoskeletal: Present: generalized weakness - Psychiatric Psychiatric: Present: A&O x's 3, appropriate affect, intact judgment & insight - Labs CBC & Chem 7: 09/02/22 08:09 09/02/22 08:09 Labs: Abnormal Lab Results - Last 24 Hours (Table) 09/02/22 09/02/22 Range/Units 08:09 08:09 RBC 2.48 L (3.80-5.40) m/uL Hgb 7.4 L (11.4-16.0) gm/dL Hct 22.9 L (34.0-46.0) % RDW 17.1 H (11.5-15.5) % Chloride 109 H (98-107) mmol/L Carbon Dioxide 21 L (22-30) mmol/L BUN 30 H (7-17) mg/dL Creatinine 1.86 H (0.52-1.04) mg/dL Glucose 130 H (74-99) mg/dL Total Protein 5.4 L (6.3-8.2) g/dL Albumin 3.2 L (3.5-5.0) g/dL Assessment and Plan (1) Anemia Current Visit: Yes Status: Acute Priority: High Code(s): D64.9 - ANEMIA, UNSPECIFIED SNOMED Code(s): 606970707 Plan: Anemia: -Patient has been on yousif therapy every 3 weeks for many years. Her hemoglobin tends to run in the 9-10 range. Last dose of YOUSIF was given 08/30/22 -Recent addition of dual antiplatelet therapy for cardiac stent placement in the LAD. Patient is also on Coumadin for atrial fibrillation. Cardiology holding Coumadin and Plavix for now. -S/p colonoscopy and EGD with Dr. Griffiths. Found dark stool within the colon, no fresh blood seen. In the stomach there was a small area of blood seen adjacent to the thickened folds, suspecting this as the source of chronic anemia. Biopsy obtained of distal esophagus. He is recommending evaluation outpatient for possible ablative procedure. -Iron studies revealed TODD, parenteral iron started -Chronic anemia related to CKD superimposed by GI bleed -Continue to monitor hemoglobin while inpatient. Had an appropriate increase in her hemoglobin after 1 unit of packed red blood cells. Hemoglobin 7.4 today. Transfuse for hemoglobin less than 7.
[2022-09-02] MEDS: allopurinoL 100 MG TAB PO SCH (16:33)
[2022-09-02] MEDS: SODIUM BICARBONATE TAB 650 MG TAB PO SCH (16:33)
[2022-09-02] MEDS: PANTOPRAZOLE 40 MG/10 ML VIAL IVP SCH ×2 (17:19→19:50)
[2022-09-03] MEDS: carvediloL 12.5 MG TAB PO SCH ×2 (06:02→15:03)
[2022-09-03] MEDS: amLODIPine 10 MG TAB PO SCH (06:02)
[2022-09-03] MEDS: ACETAMINOPHEN TAB 325 MG TAB PO SCH ×2 (06:02→15:03)
[2022-09-03] MEDS: FUROSEMIDE 20 MG TAB PO SCH (09:55)
[2022-09-03] MEDS: ASPIRIN 81 MG PO SCH (09:55)
[2022-09-03] MEDS: hydrALAZINE HCL 50 MG TAB PO SCH ×3 (09:55→21:54)
[2022-09-03] MEDS: SODIUM FERRIC GLUCONAT-SUCROSE 125 MG in SODIUM CHLORIDE 0.9% 100 ML IVPB SCH (09:55)
[2022-09-03] MEDS: PANTOPRAZOLE 40 MG/10 ML VIAL IVP SCH ×2 (09:55→19:27)
--- NOTE | 2022-09-03 10:51 | P.PN ---
Subjective Progress Note Date: 09/03/22 Shelley Keenan, is an 87-year-old female who presented to [facility] emergency room with a chief complaint of shortness of breath and chest tightness She was evaluated in the emergency room vital examination on presentation revealed a temperature of 98.5 pulse 69 respiration 22 blood pressure 158/66 pulse ox 99% on room air Laboratory data revealed a white blood count of 4.9 hemoglobin 6.7 platelet count 2:15 sodium 139 potassium 4.1 chloride 108 CO2 20 BUN 60 creatinine 1.85 stools for Hemoccult was positive Testing in the emergency room revealed EKG done in the emergency room revealed sinus rhythm normal EKG Patient was admitted to medical floor for further evaluation and treatment Past medical history is significant for known history of coronary artery disease, patient was admitted to the hospital a few days ago by Dr. Ryan and underwent angioplasty and stent placement of the proximal LAD, patient also has a known history of chronic anemia, history of hypertension, history of hyperlipidemia, history of gout, and history of paroxysmal atrial fibrillation On 08/31/2022 patient is alert and oriented 3. Patient received 1 unit of PRBCs yesterday hemoglobin 7.1. Awaiting lab work today. Patient is currently nothing by mouth for possible EGD and/or colonoscopy. Did discuss case with cardiology services. Patient's aspirin has been added back on. Patient had recent stent placement but aware that Plavix will be held at this time. Patient denies chest pain or shortness of breath. Patient denies nausea vomiting or diarrhea. Patient denies any urinary burning or frequency. On 09/01/2022 patient was seen and examined on the medical floor she is alert and oriented 3 in no apparent distress she she is scheduled for EGD and colonoscopy today there is no fever or chills no headache or dizziness no chest pain no shortness of breath no cough no nausea or vomiting no abdominal pain no diarrhea no blood in the stools no burning with urination no frequency or urgency and no hematuria. On 09/02/2022 patient was seen and examined on the medical floor she is alert and oriented in no apparent distress, results of EGD and colonoscopy reviewed with patient in details, currently she is receiving IV iron, and IV Protonix, Plavix is on hold cardiology are following, patient had a recent cardiac stent few days ago. Hemoglobin today is 7.4, there is no fever or chills no headache or dizziness no chest pain no shortness of breath no cough no nausea or vomiting no abdominal pain no diarrhea no blood in the stools, actually patient did not have a bowel movement since her EGD and colonoscopy yesterday and no urinary symptoms. We will continue to monitor On 09/03/2022 patient was seen and examined on the medical floor she is alert and oriented 3 in no apparent distress, she is complaining of severe fatigue otherwise she denies any complaints, there is no fever or chills no headache or dizziness no chest pain no shortness of breath no cough no nausea or vomiting no abdominal pain no diarrhea no blood in the stools no burning with urination no frequency or urgency and no hematuria. Patient is still off Coumadin and Plavix, nurse was asked to contact cardiology and assess plan for anticoagulation, and anti-platelet medications, patient had a stent placed earlier in August few days ago, hemoglobin yesterday dropped to 7.4, CBC for today is still pending, will continue to monitor, patient is receiving IV iron, she is not ready for discharge yet. Objective - Vital Signs Vital signs: Vital Signs Temp 98.4 F 09/03/22 08:00 Pulse 56 L 09/03/22 08:00 Resp 16 09/03/22 08:00 BP 122/53 09/03/22 08:00 Pulse Ox 98 09/03/22 08:54 FiO2 21 09/03/22 08:54 Intake & Output 09/02/22 09/03/22 09/03/22 18:59 06:59 18:59 Intake Total 780 540 420 Output Total 1200 600 Balance -420 540 -180 Intake: Oral 780 540 420 Output: Urine 0 Stool 1200 600 Other: Voiding Method Bedside Commode Bedside Commode Bedside Commode # Voids 1 # Bowel Movements 1 - Exam In general patient is alert and oriented x 3 in no distress HEENT head normocephalic and atraumatic Neck is supple no JVD no goiter no lymphadenopathy no carotid bruit Chest examination is clear to auscultation no crackles no wheezing Cardiac exam reveals regular heart sounds S1 and S2 no gallops no murmurs Abdomen is soft nontender no organomegaly with normal bowel sounds Extremity exam reveals no edema no cyanosis or clubbing Neurological examination reveals no gross focal deficits - Labs CBC & Chem 7: 09/02/22 08:09 09/02/22 08:09 Assessment and Plan Plan: Episode of chest tightness and shortness of breath, could be related to severe anemia Anemia was positive stools for Hemoccult. Status post 1 unit of PRBCs Underlying history of coronary artery disease with history of angioplasty and stent placement to the LAD few days ago Underlying history of hypertension Underlying history of hyperlipidemia Underlying history of gout Underlying history of chronic anemia Underlying history of diabetes mellitus type 2 At this time patient will be admitted to telemetry floor Serial EKG and cardiac enzymes are ordered Cardiology services following Surgical services following tentative plans for EGD and/or colonoscopy currently nothing by mouth Repeat labs ordered Will follow closely
[2022-09-03 11:54] LABS: African American GFR (CKD) 27 (>60 ml/min/1.73 sqM); Anion Gap 10 mmol/L; Blood Urea Nitrogen 26 mg/dL (7-17); Calcium 9.2 mg/dL (8.4-10.2); Carbon Dioxide 19 mmol/L (22-30); Chloride 109 mmol/L (98-107); Glucose 243 mg/dL (74-99); Non-African American GFR(CKD) 24 (>60 ml/min/1.73 sqM); Potassium 3.9 mmol/L (3.5-5.1); Sodium 138 mmol/L (137-145)
[2022-09-03 12:19] LABS: Anisocytosis Slight; HCT 23.5 % (34.0-46.0); HGB 7.4 gm/dL (11.4-16.0); Hypochromasia Moderate; MCH 30.4 pg (25.0-35.0); MCHC 31.3 g/dL (31.0-37.0); MCV 97.1 fL (80.0-100.0); Macrocytosis Slight; Mean Platelet Volume 9.3; Platelet Count 238 k/uL (150-450); RBC 2.42 m/uL (3.80-5.40); RDW 18.1 % (11.5-15.5)
[2022-09-03 13:10] LABS: Band Neutrophils % 1 %; Metamyelocytes % 1 %; Myelocytes % 1 %; Neutrophils % (M) 50 %; Nucleated Red Blood Cells 4 /100 WBC (0-0); Total Cells Counted 200
[2022-09-03 13:11] LABS: Basophils # (M) 0.05 k/uL (0-0.2); Eosinophils # (M) 0.37 k/uL (0-0.7); Metamyelocytes # (M) 0.05 k/uL (0); Monocytes # (M) 0.42 k/uL (0-1.0); Myelocytes # (M) 0.05 k/uL (0); WBC 5.3 k/uL (3.8-10.6)
[2022-09-03] MEDS: allopurinoL 100 MG TAB PO SCH (15:03)
[2022-09-03] MEDS: SODIUM BICARBONATE TAB 650 MG TAB PO SCH (15:03)
[2022-09-04] MEDS: amLODIPine 10 MG TAB PO SCH (06:49)
[2022-09-04] MEDS: ACETAMINOPHEN TAB 325 MG TAB PO SCH ×2 (06:49→16:01)
[2022-09-04] MEDS: carvediloL 12.5 MG TAB PO SCH ×2 (06:49→16:02)
[2022-09-04] MEDS: hydrALAZINE HCL 50 MG TAB PO SCH ×3 (08:17→20:44)
[2022-09-04] MEDS: ASPIRIN 81 MG PO SCH (08:17)
[2022-09-04] MEDS: PANTOPRAZOLE 40 MG/10 ML VIAL IVP SCH ×2 (08:17→20:44)
--- NOTE | 2022-09-04 10:51 | P.PN ---
Subjective Progress Note Date: 09/04/22 Shelley Keenan, is an 87-year-old female who presented to [facility] emergency room with a chief complaint of shortness of breath and chest tightness She was evaluated in the emergency room vital examination on presentation revealed a temperature of 98.5 pulse 69 respiration 22 blood pressure 158/66 pulse ox 99% on room air Laboratory data revealed a white blood count of 4.9 hemoglobin 6.7 platelet count 2:15 sodium 139 potassium 4.1 chloride 108 CO2 20 BUN 60 creatinine 1.85 stools for Hemoccult was positive Testing in the emergency room revealed EKG done in the emergency room revealed sinus rhythm normal EKG Patient was admitted to medical floor for further evaluation and treatment Past medical history is significant for known history of coronary artery disease, patient was admitted to the hospital a few days ago by Dr. Ryan and underwent angioplasty and stent placement of the proximal LAD, patient also has a known history of chronic anemia, history of hypertension, history of hyperlipidemia, history of gout, and history of paroxysmal atrial fibrillation On 08/31/2022 patient is alert and oriented 3. Patient received 1 unit of PRBCs yesterday hemoglobin 7.1. Awaiting lab work today. Patient is currently nothing by mouth for possible EGD and/or colonoscopy. Did discuss case with cardiology services. Patient's aspirin has been added back on. Patient had recent stent placement but aware that Plavix will be held at this time. Patient denies chest pain or shortness of breath. Patient denies nausea vomiting or diarrhea. Patient denies any urinary burning or frequency. On 09/01/2022 patient was seen and examined on the medical floor she is alert and oriented 3 in no apparent distress she she is scheduled for EGD and colonoscopy today there is no fever or chills no headache or dizziness no chest pain no shortness of breath no cough no nausea or vomiting no abdominal pain no diarrhea no blood in the stools no burning with urination no frequency or urgency and no hematuria. On 09/02/2022 patient was seen and examined on the medical floor she is alert and oriented in no apparent distress, results of EGD and colonoscopy reviewed with patient in details, currently she is receiving IV iron, and IV Protonix, Plavix is on hold cardiology are following, patient had a recent cardiac stent few days ago. Hemoglobin today is 7.4, there is no fever or chills no headache or dizziness no chest pain no shortness of breath no cough no nausea or vomiting no abdominal pain no diarrhea no blood in the stools, actually patient did not have a bowel movement since her EGD and colonoscopy yesterday and no urinary symptoms. We will continue to monitor On 09/03/2022 patient was seen and examined on the medical floor she is alert and oriented 3 in no apparent distress, she is complaining of severe fatigue otherwise she denies any complaints, there is no fever or chills no headache or dizziness no chest pain no shortness of breath no cough no nausea or vomiting no abdominal pain no diarrhea no blood in the stools no burning with urination no frequency or urgency and no hematuria. Patient is still off Coumadin and Plavix, nurse was asked to contact cardiology and assess plan for anticoagulation, and anti-platelet medications, patient had a stent placed earlier in August few days ago, hemoglobin yesterday dropped to 7.4, CBC for today is still pending, will continue to monitor, patient is receiving IV iron, she is not ready for discharge yet. On 09/04/2022 patient was seen and examined on the medical floor she is alert and oriented in no apparent distress, she is complaining of fatigue and weakness, otherwise she denies any complaints, she is maintained on aspirin only at this time, she is receiving IV iron per hematology recommendation, there is no fever or chills no headache or dizziness no chest pain no shortness of breath no cough no nausea or vomiting no abdominal pain no diarrhea and no urinary symptoms. Will recheck labs in a.m. if stable patient can be discharged home tomorrow with close monitoring. Objective - Vital Signs Vital signs: Vital Signs Temp 98.3 F 09/04/22 07:26 Pulse 57 L 09/04/22 07:26 Resp 18 09/04/22 08:00 BP 132/69 09/04/22 07:26 Pulse Ox 97 09/04/22 07:26 FiO2 21 09/03/22 08:54 Intake & Output 09/03/22 09/04/22 09/04/22 18:59 06:59 18:59 Intake Total 1090 Output Total 600 Balance 490 Intake: Oral 1090 Output: Stool 600 Other: Voiding Method Bedside Commode Toilet Toilet Bedside Commode Bedside Commode # Voids 1 - Exam In general patient is alert and oriented x 3 in no distress HEENT head normocephalic and atraumatic Neck is supple no JVD no goiter no lymphadenopathy no carotid bruit Chest examination is clear to auscultation no crackles no wheezing Cardiac exam reveals regular heart sounds S1 and S2 no gallops no murmurs Abdomen is soft nontender no organomegaly with normal bowel sounds Extremity exam reveals no edema no cyanosis or clubbing Neurological examination reveals no gross focal deficits - Labs CBC & Chem 7: 09/03/22 10:35 09/03/22 10:35 Labs: Abnormal Lab Results - Last 24 Hours (Table) 09/03/22 09/03/22 Range/Units 10:35 10:35 RBC 2.42 L (3.80-5.40) m/uL Hgb 7.4 L (11.4-16.0) gm/dL Hct 23.5 L (34.0-46.0) % RDW 18.1 H (11.5-15.5) % Metamyelocytes # (Man) 0.05 H (0) k/uL Myelocytes # (Manual) 0.05 H (0) k/uL Nucleated RBCs 4 H (0-0) /100 WBC Chloride 109 H (98-107) mmol/L Carbon Dioxide 19 L (22-30) mmol/L BUN 26 H (7-17) mg/dL Creatinine 1.89 H (0.52-1.04) mg/dL Glucose 243 H (74-99) mg/dL Assessment and Plan Plan: Episode of chest tightness and shortness of breath, could be related to severe anemia Anemia was positive stools for Hemoccult. Status post 1 unit of PRBCs Underlying history of coronary artery disease with history of angioplasty and stent placement to the LAD few days ago Underlying history of hypertension Underlying history of hyperlipidemia Underlying history of gout Underlying history of chronic anemia Underlying history of diabetes mellitus type 2 At this time patient will be admitted to telemetry floor Serial EKG and cardiac enzymes are ordered Cardiology services following Surgical services following tentative plans for EGD and/or colonoscopy currently nothing by mouth Repeat labs ordered Will follow closely
[2022-09-04 13:32] LABS: Anisocytosis Slight; HCT 24.3 % (34.0-46.0); HGB 7.9 gm/dL (11.4-16.0); Hypochromasia Slight; MCH 31.3 pg (25.0-35.0); MCHC 32.7 g/dL (31.0-37.0); MCV 95.7 fL (80.0-100.0); Macrocytosis Slight; Mean Platelet Volume 9.1; Platelet Count 295 k/uL (150-450); RBC 2.54 m/uL (3.80-5.40); RDW 19.1 % (11.5-15.5)
[2022-09-04 14:08] LABS: Band Neutrophils % 1 %; Basophils # (M) 0.07 k/uL (0-0.2); Metamyelocytes % 2 %; Myelocytes % 3 %; Neutrophils % (M) 58 %; Nucleated Red Blood Cells 4 /100 WBC (0-0); Total Cells Counted 200
[2022-09-04 14:09] LABS: Eosinophils # (M) 0.47 k/uL (0-0.7); Lymphocytes # (M) 1.34 k/uL (1.0-4.8); Metamyelocytes # (M) 0.13 k/uL (0); WBC 6.7 k/uL (3.8-10.6)
[2022-09-04] MEDS: SODIUM BICARBONATE TAB 650 MG TAB PO SCH (16:01)
[2022-09-04] MEDS: allopurinoL 100 MG TAB PO SCH (16:02)
[2022-09-05 05:15] VITALS: TEMP 97.8
[2022-09-05] MEDS: amLODIPine 10 MG TAB PO SCH (07:00)
[2022-09-05] MEDS: ACETAMINOPHEN TAB 325 MG TAB PO SCH (07:00)
[2022-09-05] MEDS: carvediloL 12.5 MG TAB PO SCH (07:00)
[2022-09-05 08:40] LABS: Anisocytosis Slight; HCT 24.7 % (34.0-46.0); HGB 7.7 gm/dL (11.4-16.0); Hypochromasia Slight; MCH 29.8 pg (25.0-35.0); MCHC 31.1 g/dL (31.0-37.0); MCV 95.9 fL (80.0-100.0); Macrocytosis Slight; Mean Platelet Volume 9.9; Platelet Count 267 k/uL (150-450); RBC 2.57 m/uL (3.80-5.40); RDW 19.6 % (11.5-15.5)
[2022-09-05 08:48] LABS: ALT 16 U/L (4-34); AST 23 U/L (14-36); African American GFR (CKD) 24 (>60 ml/min/1.73 sqM); Albumin 3.2 g/dL (3.5-5.0); Alkaline Phosphatase 64 U/L (38-126); Anion Gap 7 mmol/L; Blood Urea Nitrogen 30 mg/dL (7-17); Calcium 9.3 mg/dL (8.4-10.2); Carbon Dioxide 24 mmol/L (22-30); Chloride 109 mmol/L (98-107); Glucose 136 mg/dL (74-99); Non-African American GFR(CKD) 21 (>60 ml/min/1.73 sqM); Potassium 4.1 mmol/L (3.5-5.1); Sodium 140 mmol/L (137-145); Total Bilirubin 0.3 mg/dL (0.2-1.3); Total Protein 5.3 g/dL (6.3-8.2)
[2022-09-05] MEDS: PANTOPRAZOLE 40 MG/10 ML VIAL IVP SCH (09:04)
[2022-09-05] MEDS: ASPIRIN 81 MG PO SCH (09:04)
[2022-09-05] MEDS: hydrALAZINE HCL 50 MG TAB PO SCH (09:04)
[2022-09-05] MEDS: FUROSEMIDE 20 MG TAB PO SCH (09:04)
[2022-09-05 09:18] VITALS: BP 122/56; PULSE 55; RESP 16
[2022-09-05 09:39] LABS: Band Neutrophils % 1 %; Eosinophils # (M) 0.17 k/uL (0-0.7); Metamyelocytes # (M) 0.11 k/uL (0); Metamyelocytes % 2 %; Myelocytes # (M) 0.06 k/uL (0); Myelocytes % 1 %; Neutrophils % (M) 63 %; Nucleated Red Blood Cells 3 /100 WBC (0-0); Total Cells Counted 200
[2022-09-05 09:40] LABS: Lymphocytes # (M) 1.38 k/uL (1.0-4.8); Monocytes # (M) 0.33 k/uL (0-1.0); WBC 5.5 k/uL (3.8-10.6)
--- NOTE | 2022-09-05 10:30 | P.DS ---
Providers Date of admission: 08/30/22 17:00 Expected date of discharge: 09/05/22 Attending physician: Ron Busch Consults: 08/30/22 17:00 Consult Physician Urgent Consulting Provider: [facility] Consult Reason/Comments: Elevated troponin Do you want consulting provider notified?: Yes 08/30/22 17:36 Consult Physician Routine Consulting Provider: Michael Adam Consult Reason/Comments: anemia Do you want consulting provider notified?: Yes 08/31/22 16:33 Consult Physician Routine Consulting Provider: Efrain Mario Consult Reason/Comments: anemia Do you want consulting provider notified?: Yes 09/04/22 11:35 Consult Physician Routine Consulting Provider: Lori Mendez Consult Reason/Comments: 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 Status post 1 unit of PRBCs Underlying history of coronary artery disease with history of angioplasty and stent placement to the LAD few days ago Underlying history of hypertension Underlying history of hyperlipidemia Underlying history of gout Underlying history of chronic anemia Underlying history of diabetes mellitus type 2 Hospital course Shelley Keenan, is an 87-year-old female who presented to [facility] emergency room with a chief complaint of shortness of breath and chest tightness She was evaluated in the emergency room vital examination on presentation revealed a temperature of 98.5 pulse 69 respiration 22 blood pressure 158/66 pulse ox 99% on room air Laboratory data revealed a white blood count of 4.9 hemoglobin 6.7 platelet count 2:15 sodium 139 potassium 4.1 chloride 108 CO2 20 BUN 60 creatinine 1.85 stools for Hemoccult was positive Testing in the emergency room revealed EKG done in the emergency room revealed sinus rhythm normal EKG Patient was admitted to medical floor for further evaluation and treatment Past medical history is significant for known history of coronary artery disease, patient was admitted to the hospital a few days ago by Dr. Ryan and underwent angioplasty and stent placement of the proximal LAD, patient also has a known history of chronic anemia, history of hypertension, history of hyperlipidemia, history of gout, and history of paroxysmal atrial fibrillation On 08/31/2022 patient is alert and oriented 3. Patient received 1 unit of PRBCs yesterday hemoglobin 7.1. Awaiting lab work today. Patient is currently nothing by mouth for possible EGD and/or colonoscopy. Did discuss case with cardiology services. Patient's aspirin has been added back on. Patient had recent stent placement but aware that Plavix will be held at this time. Patient denies chest pain or shortness of breath. Patient denies nausea vomiting or diarrhea. Patient denies any urinary burning or frequency. On 09/01/2022 patient was seen and examined on the medical floor she is alert and oriented 3 in no apparent distress she she is scheduled for EGD and colonoscopy today there is no fever or chills no headache or dizziness no chest pain no shortness of breath no cough no nausea or vomiting no abdominal pain no diarrhea no blood in the stools no burning with urination no frequency or urgency and no hematuria. On 09/02/2022 patient was seen and examined on the medical floor she is alert and oriented in no apparent distress, results of EGD and colonoscopy reviewed with patient in details, currently she is receiving IV iron, and IV Protonix, Plavix is on hold cardiology are following, patient had a recent cardiac stent few days ago. Hemoglobin today is 7.4, there is no fever or chills no headache or dizziness no chest pain no shortness of breath no cough no nausea or vomiting no abdominal pain no diarrhea no blood in the stools, actually patient did not have a bowel movement since her EGD and colonoscopy yesterday and no urinary symptoms. We will continue to monitor On 09/03/2022 patient was seen and examined on the medical floor she is alert and oriented 3 in no apparent distress, she is complaining of severe fatigue otherwise she denies any complaints, there is no fever or chills no headache or dizziness no chest pain no shortness of breath no cough no nausea or vomiting no abdominal pain no diarrhea no blood in the stools no burning with urination no frequency or urgency and no hematuria. Patient is still off Coumadin and Plavix, nurse was asked to contact cardiology and assess plan for anticoagulation, and anti-platelet medications, patient had a stent placed earlier in August few days ago, hemoglobin yesterday dropped to 7.4, CBC for today is still pending, will continue to monitor, patient is receiving IV iron, she is not ready for discharge yet. On 09/04/2022 patient was seen and examined on the medical floor she is alert and oriented in no apparent distress, she is complaining of fatigue and weakness, otherwise she denies any complaints, she is maintained on aspirin only at this time, she is receiving IV iron per hematology recommendation, there is no fever or chills no headache or dizziness no chest pain no shortness of breath no cough no nausea or vomiting no abdominal pain no diarrhea and no urinary symptoms. Will recheck labs in a.m. if stable patient can be discharged home tomorrow with close monitoring. On 09/05/2022 patient will be DC'd home hemoglobin stable at 7.7 case was discussed with Dr. Patricia with cardiology okay to hold Plavix and Coumadin at this time maintain on aspirin for 1 week and follow-up for further evaluation. Patient has been tolerating diet. Creatinine 2.08 but this does appear patient's baseline. Patient will need close follow-up outpatient with cardiology and PCP for further management at this time patient denies chest pain or shortness of breath. Patient denies nausea vomiting or diarrhea. Patient denies any urinary burning or frequency Patient Condition at Discharge: Stable Plan - Discharge Summary Discharge Rx Participant: No New Discharge Prescriptions: No Action Ferrous Sulfate [Iron] 325 mg PO W/SUPPER carvediloL [Coreg] 25 mg PO BID-W/MEALS Furosemide [Lasix] 20 mg PO Q48H Sodium Bicarbonate Tab 650 mg PO W/SUPPER Acetaminophen [Tylenol 8 Hour] 650 mg PO BID-W/MEALS Clopidogrel [Plavix] 75 mg PO W/BRKFST Warfarin Sodium 2 mg PO SUTUWETHSA@1800 Sodium Bicarbonate Tab 1,300 mg PO W/BRKFST hydrALAZINE HCL [Apresoline] 100 mg PO TID@0800,1600,2100 amLODIPine [Norvasc] 10 mg PO W/BRKFST allopurinoL [Zyloprim] 100 mg PO W/SUPPER Omeprazole 40 mg PO AC-BRKFST Cholecalciferol [Vitamin D3 (125 Mcg = 5000 Iu)] 125 mcg PO W/BRKFST Aspirin EC [Ecotrin Low Dose] 81 mg PO DAILY Warfarin Sodium 4 mg PO MOFR@1800 Discharge Medication List Ferrous Sulfate [Iron] 325 mg PO W/SUPPER 07/13/20 [History] Omeprazole 40 mg PO AC-BRKFST 07/13/20 [History] Sodium Bicarbonate Tab 1,300 mg PO W/BRKFST 07/13/20 [History] allopurinoL [Zyloprim] 100 mg PO W/SUPPER 07/13/20 [History] amLODIPine [Norvasc] 10 mg PO W/BRKFST 07/13/20 [History] carvediloL [Coreg] 25 mg PO BID-W/MEALS 07/13/20 [History] hydrALAZINE HCL [Apresoline] 100 mg PO TID@0800,1600,2100 07/13/20 [History] Furosemide [Lasix] 20 mg PO Q48H 06/14/22 [History] Sodium Bicarbonate Tab 650 mg PO W/SUPPER 06/14/22 [History] Cholecalciferol [Vitamin D3 (125 Mcg = 5000 Iu)] 125 mcg PO W/BRKFST 08/24/22 [History] Acetaminophen [Tylenol 8 Hour] 650 mg PO BID-W/MEALS 08/30/22 [History] Aspirin EC [Ecotrin Low Dose] 81 mg PO DAILY 08/30/22 [History] Clopidogrel [Plavix] 75 mg PO W/BRKFST 08/30/22 [History] Warfarin Sodium 2 mg PO SUTUWETHSA@1800 08/30/22 [History] Warfarin Sodium 4 mg PO MOFR@1800 08/30/22 [History] Follow up Appointment(s)/Referral(s): Michael Adam MD [Medical Doctor] - 3 Weeks Armando Ryan MD [STAFF PHYSICIAN] - 1 Week Ron Busch MD [Primary Care Provider] - 1-2 days Ti Contreras MD [STAFF PHYSICIAN] - 09/20/22 2:00 pm
--- NOTE | 2022-09-05 10:30 | P.CONS ---
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 Patient had a hemoglobin of 6.7 on 08/30/2022. She has a past medical history including atrial fibrillation, coronary artery disease status post stenting 08/25/2022, GERD, hearing disorder, hypertension, osteoarthritis, and renal disease. Her hemoglobin went down as low as 6.0, she received 1 unit of blood. She had a stool occult blood positive. Initially general surgery was consulted and Dr. Adam performed an EGD and colonoscopy on 09/01/2022. 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 Colonoscopy reported diverticulosis. Patient states she does have black stools prior to coming in, which she states she always does due to taking iron. She also states back in January she had an episode where her hemoglobin was at 6 and she had received blood. She states at that time she was unsure cause of the low hemoglobin, did not undergo any endoscopic evaluation at that time. She denies any blood in her stool, abdominal pain, nausea, or vomiting. States she was short of breath on admission. Shortness of breath has improved. Hemoglobin now stable at 7.7. Today's labs WBC 5.5 hemoglobin 7.7 hematocrit 24 platelet count 267,000 sodium 140 potassium 4.1 BUN 30 creatinine 2.0 total bilirubin 0.3 AST 23 ALT 16 alkaline phosphatase 64 Review of Systems REVIEW OF SYSTEMS: CARDIOPULMONARY: No chest pain. Complains of shortness of breath on admission. Gastrointestinal: History of GERD, denies heartburn currently. No nausea or vomiting. No hematemesis, coffee-ground emesis. No rectal bleeding, or melena. Reports dark stools however states she is on iron. GENITOURINARY: No dysuria or hematuria. MUSCULOSKELETAL: Reports normal range of motion., Joint pain. SKIN: No rashes. No jaundice. ENDOCRINE: No chills, fevers. No excessive weight gain or loss. No polydipsia or polyuria. PSYCHIATRIC: Unremarkable. NEUROLOGY: No change in mental status. Denies dizziness, headache. ENT: Vision unremarkable. CONSTITUTIONAL: No recent weight loss. No fever, chills, night sweats. Past Medical History Past Medical History: Atrial Fibrillation, Eye Disorder, GERD/Reflux, Hearing Disorder / Deafness, Hypertension, Osteoarthritis (OA), Renal Disease, Sleep Apnea/CPAP/BIPAP Additional Past Medical History / Comment(s): "leaky valves",gout hx of shingles x2-still has pain to forhead and left eye. infec,anemia,hx polio-wears lifts in shoes,CHRONIC KIDNEY DISEASE -STAGE 4,has double vision w/out glasses, HEART MURMUR, HARD OF HEARING History of Any Multi-Drug Resistant Organisms: None Reported Past Surgical History: Appendectomy, Cholecystectomy, Hysterectomy, Orthopedic Surgery Additional Past Surgical History / Comment(s): ORIF left ankle,vein stripping rt leg,trigger fingers sx X 8, had sx on left leg r/t polio,lizzy placed to rt femur post fx,THUMB procedure,maxine cataracts,arthroscopy rt knee Past Anesthesia/Blood Transfusion Reactions: No Reported Reaction, Family History of Problems w/ Anesthesia Additional Past Anesthesia/Blood Transfusion Reaction / Comm: hx blood transfusio. DAUGHTER B/P dropped w/ shoulder surgery & was admitted to ICU Past Psychological History: No Psychological Hx Reported Smoking Status: Never smoker Past Alcohol Use History: None Reported Additional Past Alcohol Use History / Comment(s): smoked as a teenager Past Drug Use History: None Reported - Past Family History Son(s) Family Medical History: Cancer Additional Family Medical History / Comment(s): esophageal CA Mother Additional Family Medical History / Comment(s): thinks possibly some type of CA- had fluid retention to stomach area Sister(s) Family Medical History: Cancer Additional Family Medical History / Comment(s): LEUKEMIA Medications and Allergies Home Medications Medication Instructions Recorded Confirmed Type Ferrous Sulfate [Iron] 325 mg PO W/SUPPER 07/13/20 08/30/22 History Sodium Bicarbonate Tab 1,300 mg PO W/BRKFST 07/13/20 08/30/22 History allopurinoL [Zyloprim] 100 mg PO W/SUPPER 07/13/20 08/30/22 History amLODIPine [Norvasc] 10 mg PO W/BRKFST 07/13/20 08/30/22 History carvediloL [Coreg] 25 mg PO BID-W/MEALS 07/13/20 08/30/22 History hydrALAZINE HCL [Apresoline] 100 mg PO TID@0800,1600,2100 07/13/20 08/30/22 History Furosemide [Lasix] 20 mg PO Q48H 06/14/22 08/30/22 History Sodium Bicarbonate Tab 650 mg PO W/SUPPER 06/14/22 08/30/22 History Cholecalciferol [Vitamin D3 (125 125 mcg PO W/BRKFST 08/24/22 08/30/22 History Mcg = 5000 Iu)] Acetaminophen [Tylenol 8 Hour] 650 mg PO BID-W/MEALS 08/30/22 08/30/22 History Aspirin EC [Ecotrin Low Dose] 81 mg PO DAILY 08/30/22 08/30/22 History Pantoprazole [Protonix] 40 mg PO BID 30 Days #60 tab 09/05/22 Rx Allergies Allergy/AdvReac Type Severity Reaction Status Date / Time erythromycin base Allergy Dyspnea Verified 08/30/22 16:13 levofloxacin [From Levaquin] Allergy Hallucinati Verified 08/30/22 16:13 ons metronidazole [From Flagyl] Allergy Unknown Verified 08/30/22 16:13 Penicillins Allergy Rash/Hives Verified 08/30/22 16:13 Sulfa (Sulfonamide Allergy Rash/Hives Verified 08/30/22 16:13 Antibiotics) hydrocodone AdvReac Hallucinati Verified 08/30/22 16:13 ons Tpydakc-ASC-GcR Reductase AdvReac "muscle Verified 08/30/22 16:13 Inhibitor pain" [Wvxzysc-Sue-Zbu Reductase Inhibitor] Physical Exam Vitals: Vital Signs Temp Pulse Resp BP Pulse Ox 09/05/22 02:00 97.8 F 62 15 118/72 97 09/04/22 20:00 98.0 F 61 18 148/72 98 09/04/22 16:05 98.0 F 59 L 17 152/67 97 09/04/22 13:43 98.2 F 59 L 17 109/63 97 Intake and Output 09/04/22 09/05/22 09/05/22 22:59 06:59 14:59 Intake Total 540 Balance 540 Intake: Oral 540 Other: Voiding Method Toilet Bedside Commode # Voids 3 1 # Bowel Movements 0 Weight 72.5 kg General appearance: The patient is alert, oriented, appears in no acute distress. HET: Head is normocephalic and atraumatic. Conjunctiva pink. Sclera anicteric. Neck: Supple without lymphadenopathy. Trachea midline. Heart: S1 S2. Regular rate and rhythm. Lungs: Clear to auscultation. Abdomen: Soft, nontender, nondistended with bowel sounds. No guarding or rigidity. Skin: No rashes. No jaundice. Extremities: Normal skin color and turgor. Neurological: No focal deficits. Alert and oriented x3. Results CBC & Chem 7: 09/05/22 07:51 09/05/22 07:51 Labs: Abnormal Lab Results - Last 24 Hours (Table) 09/04/22 Range/Units 12:22 RBC 2.54 L (3.80-5.40) m/uL Hgb 7.9 L (11.4-16.0) gm/dL Hct 24.3 L (34.0-46.0) % RDW 19.1 H (11.5-15.5) % Metamyelocytes # (Man) 0.13 H (0) k/uL Myelocytes # (Manual) 0.20 H (0) k/uL Nucleated RBCs 4 H (0-0) /100 WBC Assessment and Plan (1) Normocytic normochromic anemia Narrative/Plan: This is a 87-year-old who had outpatient labs showing that patient was anemia. She had been experiencing shortness of breath. She has a history of atrial fibrillation, coronary artery disease and recently underwent cardiac stents on 08/25/2022. She was on aspirin 81 mg, Plavix 75 mg daily and Coumadin prior to admission. Initially general surgery was consulted as there was no GI present in the hospital and patient underwent EGD and colonoscopy on 09/01/2022 with findings of gastritis possible watermelon stomach, mild distal esophagitis and diverticulosis on colonoscopy. Since that time patient's hemoglobin has been stable at 7.7. She states that she has not had a bowel movement since her colonoscopy. Prior to that she has had dark stools but no black tarry stool and no maroon colored stool. States that her stools are dark due to her iron that she takes at home. Denies any abdominal pain, nausea or vomiting. Has a history of GERD however takes omeprazole with good symptom control. Gen. surgery recommends outpatient follow-up. Patient was cleared for discharge from Gen. surgery. Cardiology following and also agreeable to hold Plavix for now and discontinue Coumadin. Patient to follow-up with cardiology this week. Status: Acute Code(s): D64.9 - ANEMIA, UNSPECIFIED SNOMED Code(s): 90568091 (2) Gastritis Narrative/Plan: Patient to follow-up in the outpatient setting with Dr. Adam. Can refer to gastroenterology as needed Status: Acute Code(s): K29.70 - GASTRITIS, UNSPECIFIED, WITHOUT BLEEDING SNOMED Code(s): 0503256 (3) Esophagitis Status: Acute Code(s): K20.90 - ESOPHAGITIS, UNSPECIFIED WITHOUT BLEEDING SNOMED Code(s): 79110771 (4) Chronic kidney disease Status: Acute Code(s): N18.9 - CHRONIC KIDNEY DISEASE, UNSPECIFIED SNOMED Code(s): 415944837 (5) Chronic anemia Narrative/Plan: The patient anemia of chronic disease, on oral iron Status: Acute Code(s): D64.9 - ANEMIA, UNSPECIFIED SNOMED Code(s): 720458720 Plan: 1. Continue symptomatic and supportive care 2. Continue to hold anticoagulation, may continue antiplatelet per recommendations from cardiology 3. Continue iron supplement 4. Continue omeprazole 5. Patient to keep appointment with Dr. Adam for biopsy results and further recommendations 6. Patient will likely need argon plasma coagulation at some point Thank you for this consultation. Dr. Madison Mendez I agree with the dictator's note, documented as a scribe by Lu Alford.
--- NOTE | 2022-09-05 16:39 | P.PN ---
Subjective Progress Note Date: 09/05/22 Principal diagnosis: Anemia In follow-up today patient denies any bleeding, she did receive parenteral iron, she will be due for her next dose of YOUSIF in about 2 weeks. She is status post her EGD, she had a biopsy, clip, visually a watermelon stomach, some esophagitis and some vascular ectasia. Objective - Vital Signs Vital signs: Vital Signs Temp 97.8 F 09/05/22 09:00 Pulse 55 L 09/05/22 09:00 Resp 16 09/05/22 09:00 BP 122/56 09/05/22 09:00 Pulse Ox 98 09/05/22 09:00 FiO2 21 09/03/22 08:54 Intake & Output 09/04/22 09/05/22 09/05/22 18:59 06:59 18:59 Intake Total 720 360 Balance 720 360 Weight 72.5 kg Intake: Oral 720 360 Other: Voiding Method Toilet Toilet Toilet Bedside Commode Bedside Commode Bedside Commode # Voids 3 1 # Bowel Movements 0 - Constitutional General appearance: Present: average body habitus, cooperative, no acute distress - EENT Eyes: Present: anicteric sclerae, EOMI ENT: Present: hearing grossly normal - Respiratory Details: Respirations even and unlabored at rest - Cardiovascular Details: Skin warm and dry to the touch - Integumentary Integumentary: Present: pale - Neurologic Neurologic: Present: CNII-XII intact - Musculoskeletal Musculoskeletal: Present: strength equal bilaterally - Psychiatric Psychiatric: Present: A&O x's 3, appropriate affect, intact judgment & insight - Labs CBC & Chem 7: 09/05/22 07:51 09/05/22 07:51 Labs: Abnormal Lab Results - Last 24 Hours (Table) 09/05/22 09/05/22 Range/Units 07:51 07:51 RBC 2.57 L (3.80-5.40) m/uL Hgb 7.7 L (11.4-16.0) gm/dL Hct 24.7 L (34.0-46.0) % RDW 19.6 H (11.5-15.5) % Metamyelocytes # (Man) 0.11 H (0) k/uL Myelocytes # (Manual) 0.06 H (0) k/uL Nucleated RBCs 3 H (0-0) /100 WBC Chloride 109 H (98-107) mmol/L BUN 30 H (7-17) mg/dL Creatinine 2.08 H (0.52-1.04) mg/dL Glucose 136 H (74-99) mg/dL Total Protein 5.3 L (6.3-8.2) g/dL Albumin 3.2 L (3.5-5.0) g/dL Assessment and Plan (1) Normocytic normochromic anemia Status: Acute Code(s): D64.9 - ANEMIA, UNSPECIFIED SNOMED Code(s): 23651157 Plan: Anemia of chronic kidney disease -Patient has been on yousif therapy every 3 weeks for many years. Her hemoglobin tends to run in the 9-10 range. Last dose of YOUSIF was given 08/30/22, Due in 2 weeks -Recent addition of dual antiplatelet therapy for cardiac stent placement in the LAD. Patient is also on Coumadin for atrial fibrillation. Cardiology holding Coumadin and Plavix, plan for f/u soon -EGD with General surgery. Biopsy, clip, visually a watermelon stomach, some esophagitis and some vascular ectasia. GI has seen patient and will follow up with her in the outpatient setting -IV iron 3 doses given -Hemoglobin is low but has remained stable after 1 unit of blood on admission. -Patient will contact the office if she is concerned about anemia, she can never CBC drawn at any time.
== END 2022-09-05 13:23 | disposition home or self-care (01) | DRG 378 ==
LOC: EC 14:37 → 3SCARD 17:00
PROVIDERS: ADMIT Internal Medicine; ATTEND Internal Medicine
PROC: 0DB68ZX Excision of Stomach, Via Natural or Artificial Opening Endoscopic, Diagnostic (ICD-10-PCS; principal; 2022-09-01 13:40)
PROC: 0W3P8ZZ Control Bleeding in Gastrointestinal Tract, Via Natural or Artificial Opening Endoscopic (ICD-10-PCS; 2022-09-01 13:40)
DX: K29.71 Gastritis, unspecified, with bleeding (principal); D62 Acute posthemorrhagic anemia; N18.4 Chronic kidney disease, stage 4 (severe); K57.31 Diverticulosis of large intestine without perforation or abscess with bleeding; E78.5 Hyperlipidemia, unspecified; E11.22 Type 2 diabetes mellitus with diabetic chronic kidney disease; I25.10 Atherosclerotic heart disease of native coronary artery without angina pectoris; I12.9 Hypertensive chronic kidney disease with stage 1 through stage 4 chronic kidney disease, or unspecified chronic kidney disease; I48.0 Paroxysmal atrial fibrillation; D63.1 Anemia in chronic kidney disease; R79.89 Other specified abnormal findings of blood chemistry; Z79.01 Long term (current) use of anticoagulants; G47.30 Sleep apnea, unspecified; M10.9 Gout, unspecified; I08.3 Combined rheumatic disorders of mitral, aortic and tricuspid valves; M19.90 Unspecified osteoarthritis, unspecified site; I65.29 Occlusion and stenosis of unspecified carotid artery; R53.82 Chronic fatigue, unspecified; Z79.02 Long term (current) use of antithrombotics/antiplatelets; Z79.82 Long term (current) use of aspirin; Z79.899 Other long term (current) drug therapy; Z86.19 Personal history of other infectious and parasitic diseases; Z86.12 Personal history of poliomyelitis; Z90.710 Acquired absence of both cervix and uterus; Z95.5 Presence of coronary angioplasty implant and graft; Z88.1 Allergy status to other antibiotic agents; Z88.2 Allergy status to sulfonamides; Z88.5 Allergy status to narcotic agent
CPT/HCPCS: 36415; 43239; 43255; 45378; 80048; 80053; 80061; 81001; 82040; 82043; 82272; 82306; 82570; 82728; 83540; 83550; 83735; 83970; 84100; 84484; 84550; 85025; 85027; 85610; 85730; 86850; 86900; 86901; 86920; 88305; 93005; 94760; 96360; 99285

== ENCOUNTER → 2022-10-25 | Outpatient (CLI) | payer MEDICARE, BC ==
[2022-10-25 15:53] LABS: HCT 30.9 % (37.2-46.3); HGB 9.7 d/dL (12.0-15.0); MCH 31.7 pg (27.0-32.0); MCHC 31.4 d/dL (32.0-37.0); Mean Platelet Volume 10.4 FL (9.5-12.2); NRBC Per 100 WBC 0 X 10*3/uL (0.00-0.01); Platelet Count 245 X 10*3/uL (140-440); RBC 3.06 X 10*6/uL (4.10-5.20); RDW 17.4 % (11.5-14.5)
[2022-10-25 16:07] LABS: Blood Urea Nitrogen 57.8 mg/dL (9.0-27.0); Carbon Dioxide 23.7 mmol/L (21.6-31.8); Chloride 106 mmol/L (96-109); Potassium 4.2 mmol/L (3.5-5.5); Sodium 141 mmol/L (135-145)
== END | disposition home or self-care (01) ==
LOC: LABPAT 11:18
PROVIDERS: ATTEND Internal Medicine Interventional Cardiology
DX: Z01.812 Encounter for preprocedural laboratory examination (principal); R06.02 Shortness of breath
CPT/HCPCS: 36415; 80051; 82565; 84520; 85027

== ENCOUNTER 2022-10-26 10:26 | Day surgery (SDC) | payer MEDICARE, BC ==
[~2022-10-26 10:26] MED LIST changes: +ASPIRIN 325 MG TAB PO ONE; -ASPIRIN 325 MG TAB PO STA; +HEPARIN SODIUM,PORCINE (1 ML) 2,500 UNIT in SODIUM CHLORIDE 0.9% 250 ML IRRIGATION PRN; -HEPARIN SODIUM,PORCINE 2,500 UNIT in SODIUM CHLORIDE 0.9% 250 ML IRRIGATION PRN
[2022-10-26] MEDS ORDERED: SODIUM CHLORIDE 0.9% 1,000 ML IV ONE (10:44)
[2022-10-26] MEDS ORDERED: VERAPAMIL 2.5 MG/ML 2 ML AMP ONE (11:58)
[2022-10-26] MEDS ORDERED: HEPARIN SODIUM 1,000 UN/ML (10ML VL) ONE (11:58)
[2022-10-26] MEDS ORDERED: LIDOCAINE 1% INJ 10MG/ML (5 ML VIAL-PF) SQ ONE (12:15)
[2022-10-26] MEDS ORDERED: MIDAZOLAM 2 MG/2 ML VIAL IVP ONE (12:16)
[2022-10-26] MEDS ORDERED: VERAPAMIL SYRINGE (5 MG/10 ML) INTRAARTER ONE (12:16)
[2022-10-26] MEDS ORDERED: HEPARIN SODIUM 1,000 UN/ML (10ML VL) IV ONE (12:16)
[2022-10-26] MEDS: HEPARIN SODIUM 1,000 UN/ML (10ML VL) IV ONE ×3 (12:16→13:03)
[2022-10-26] MEDS ORDERED: NITROGLYCERIN 1000MCG/10ML SYRINGE INTRACORON ONE (12:39)
[2022-10-26] MEDS ORDERED: CLOPIDOGREL 75 MG TAB ONE (13:07)
[2022-10-26] MEDS ORDERED: CLOPIDOGREL 75 MG TAB PO ONE (13:11)
[2022-10-26] MEDS ORDERED: IV FLUID CONTINUATION 700 ML IV ONE (13:13)
[2022-10-26] MEDS ORDERED: IOPAMIDOL-370 100ML BTL INJ ONE (13:14)
[2022-10-26] MEDS ORDERED: MAG HYDROX/AL HYDROX/SIMETH 30 ML CUP PO PRN (13:18)
[2022-10-26] MEDS ORDERED: ZOLPIDEM 5 MG TAB PO PRN (13:18)
[2022-10-26] MEDS ORDERED: RX INFO: IV CONTRAST WAS GIVEN 1 EACH MISC MISCELLANE PRN (13:18)
[2022-10-26] MEDS ORDERED: ATROPINE SULFATE 0.1 MG/ML 10ML SYRINGE IV PRN (13:18)
[2022-10-26] MEDS ORDERED: NITROGLYCERIN SL TABS 0.4 MG TAB SUBLINGUAL PRN (13:18)
--- NOTE | 2022-10-26 13:24 | P.PCN ---
Date of Procedure: 10/26/22 Operative Findings: PERCUTANEOUS CORONARY INTERVENTION Performing physician Armando Ryan M.D. Procedure Performed: 1. Successful stenting of the left circumflex using 3.0 x 33 mm Xience drug- eluting stent with an excellent angiographic results. 2. Successful stending of the RCA using 3.25 x 28 mm Xience drug-eluting stent with an excellent angiographic result. 3. Adjunctive use of intravascular imaging 4. Ultrasound guided access of the right radial artery Indication: Severe coronary artery disease in this 87-year-old female patient who remains symptomatic. She is known to have severe disease involving the LCx and RCA after she underwent recently stenting of the left anterior descending artery Approach: Right radial artery Complications: None Level of Sedation: Moderate with a sedation length of 60 minutes Procedure Discussion: After obtaining an informed consent the patient was brought to the cardiac catheter finisher and inspector. The right radial artery was cannulated using micropuncture technique under ultrasound guidance and the micropuncture wire passed easily then I placed a 6- Chinese sheath 11 cm at the right radial artery. Subsequently anticoagulation was initiated using heparin with continuous ACT monitoring. After that I did engage the left main using a JL 3.5 guiding catheter. After that I did wire the left circumflex using a run-through wire. Intravascular ultrasound was performed and showed a diameter of the LCx around 3 mm. Predilatation was performed using 2.25 mm balloon before I deployed 3.0 x 33 mm stent where the stent was positioned under fluoroscopy guidance and deployed under its nominal pressure. Postdilatation of the proximal portion of the stent was performed using 3.5 mm balloon. The angiogram following that showed good angiographic results. Subsequently I did engage the right coronary artery using an AL-1 guiding catheter. I did wire the RCA using a whisper wire and a run-through wire because the guidewire barely seated area after that I did again intravascular ultrasound and that showed a diameter of about 3 mm. I did predilatation using 3.0 mm balloon before I deployed 3.25 x 28 millimeters stent where the stent was positioned under fluoroscopy guidance and deployed under fluoroscopy guidance with the final angiogram showing excellent angiographic results and the procedure was completed was no complication. Postprocedure Management: 1. Dual antiplatelet therapy using aspirin and Plavix for at least 6 months 2. Aggressive cholesterol control 3. Risk factors modification
[2022-10-26] MEDS ORDERED: SODIUM CHLORIDE 0.9% 1,000 ML in EMPTY BAG 1 BAG IV SCH (13:30)
[2022-10-26] MEDS: SODIUM CHLORIDE 0.9% 1,000 ML in EMPTY BAG 1 BAG IV SCH ×2 (14:32→23:51)
[2022-10-26 14:44] VITALS: BMI 25.9
[2022-10-26] MEDS: hydrALAZINE HCL 50 MG TAB PO SCH ×2 (16:24→20:12)
[2022-10-26] MEDS: carvediloL 12.5 MG TAB PO SCH (17:22)
[2022-10-26] MEDS: ACETAMINOPHEN TAB 325 MG TAB PO SCH (17:22)
[2022-10-26] MEDS ORDERED: FERROUS SULFATE 325 MG TAB PO SCH (17:30)
[2022-10-26] MEDS ORDERED: SODIUM BICARBONATE TAB 650 MG TAB PO SCH (17:30)
[2022-10-26] MEDS ORDERED: allopurinoL 100 MG TAB PO SCH (17:30)
[2022-10-27] MEDS ORDERED: CHOLECALCIFEROL 125 MCG (5000 IU) TABLET PO SCH (07:30)
[2022-10-27] MEDS ORDERED: SODIUM BICARBONATE TAB 650 MG TAB PO SCH (07:30)
[2022-10-27] MEDS ORDERED: amLODIPine 10 MG TAB PO SCH (07:30)
[2022-10-27] MEDS ORDERED: PANTOPRAZOLE 40 MG TABLET PO SCH (07:30)
[2022-10-27 07:33] LABS: African American GFR (CKD) 26 (>60 ml/min/1.73 sqM); Non-African American GFR(CKD) 22 (>60 ml/min/1.73 sqM)
[2022-10-27 07:57] VITALS: BP 148/73; PULSE 60; RESP 18; TEMP 98.1
[2022-10-27] MEDS: ACETAMINOPHEN TAB 325 MG TAB PO SCH (08:06)
[2022-10-27] MEDS: carvediloL 12.5 MG TAB PO SCH (08:06)
[2022-10-27] MEDS: hydrALAZINE HCL 50 MG TAB PO SCH (08:14)
--- NOTE | 2022-10-27 08:29 | P.DS ---
Providers Attending physician: Armando Ryan Consults: 10/26/22 13:19 Consult Physician Routine Consulting Provider: [facility] Consult Reason/Comments: Post Interventional patient Do you want consulting provider notified?: Already Contacted Primary care physician: [facility] Course: The patient is an 87-year-old female patient who underwent yesterday successful balloon angioplasty and stenting of the circumflex and right coronary artery She was seen this morning. She is asymptomatic and hemodynamically stable. The patient is going to be discharged home on dual antiplatelet therapy. She does have history of statin intolerance. Plan - Discharge Summary Discharge Rx Participant: No New Discharge Prescriptions: Continue Ferrous Sulfate [Iron] 325 mg PO W/SUPPER carvediloL [Coreg] 12.5 mg PO BID-W/MEALS Furosemide [Lasix] 20 mg PO Q48H Sodium Bicarbonate Tab 650 mg PO W/SUPPER Acetaminophen [Tylenol 8 Hour] 650 mg PO BID-W/MEALS Sodium Bicarbonate Tab 1,300 mg PO W/BRKFST hydrALAZINE HCL [Apresoline] 100 mg PO TID@0800,1600,2100 amLODIPine [Norvasc] 10 mg PO W/BRKFST allopurinoL [Zyloprim] 100 mg PO W/SUPPER Cholecalciferol [Vitamin D3 (125 Mcg = 5000 Iu)] 125 mcg PO W/BRKFST Aspirin EC [Ecotrin Low Dose] 81 mg PO DAILY Multivitamins, Thera [Multivitamin (formulary)] 1 tab PO DAILY Clopidogrel [Plavix] 75 mg PO DAILY Omeprazole 40 mg PO DAILY Epoetin Sanya [Procrit] 60,000 unit IM Q21D Discharge Medication List Ferrous Sulfate [Iron] 325 mg PO W/SUPPER 07/13/20 [History] Sodium Bicarbonate Tab 1,300 mg PO W/BRKFST 07/13/20 [History] allopurinoL [Zyloprim] 100 mg PO W/SUPPER 07/13/20 [History] amLODIPine [Norvasc] 10 mg PO W/BRKFST 07/13/20 [History] carvediloL [Coreg] 12.5 mg PO BID-W/MEALS 07/13/20 [History] hydrALAZINE HCL [Apresoline] 100 mg PO TID@0800,1600,2100 07/13/20 [History] Furosemide [Lasix] 20 mg PO Q48H 06/14/22 [History] Sodium Bicarbonate Tab 650 mg PO W/SUPPER 06/14/22 [History] Cholecalciferol [Vitamin D3 (125 Mcg = 5000 Iu)] 125 mcg PO W/BRKFST 08/24/22 [History] Acetaminophen [Tylenol 8 Hour] 650 mg PO BID-W/MEALS 08/30/22 [History] Aspirin EC [Ecotrin Low Dose] 81 mg PO DAILY 08/30/22 [History] Clopidogrel [Plavix] 75 mg PO DAILY 10/25/22 [History] Epoetin Sanya [Procrit] 60,000 unit IM Q21D 10/25/22 [History] Multivitamins, Thera [Multivitamin (formulary)] 1 tab PO DAILY 10/25/22 [History] Omeprazole 40 mg PO DAILY 10/25/22 [History] Follow up Appointment(s)/Referral(s): Armando Ryan MD [STAFF PHYSICIAN] - 1 Week (APPOINTMENT MADE ON October @ 3:30PM ) Patient Instructions/Handouts: Moderate Sedation (DC), Cardiac Rehabilitation (ED), Coronary Intravascular Stent Placement (DC), After Radial Heart Catheterization (GEN) Activity/Diet/Wound Care/Special Instructions: *NO LIFTING, PUSHING, OR PULLING ANYTHING OVER 5 POUNDS FOR 5 DAYS *NO DRIVING FOR 3 DAYS *YOU CAN REMOVE YOUR DRESSING TOMORROW AND YOU CAN SHOWER AT THAT TIME....DO NOT SUBMERSE YOUR PUNCTURE SITE IN WATER FOR A FEW DAYS TO PREVENT INFECTION - SO NO TUB BATHS, POOLS, HOT TUBS, DISHES....ETC *ANY SIGNS OF BLEEDING (HARDNESS, SWELLING, OR EXCESSIVE BRUISING) HOLD DIRECT PRESSURE ON YOUR PUNCTURE SITE AND COME TO THE [facility] ROOM TO GET YOUR PUNCTURE SITE LOOKED AT - DO NOT DRIVE YOURSELF! EITHER CALL EMS OR HAVE SOMEONE DRIVE YOU!!
[2022-10-27] MEDS ORDERED: MULTIVITAMINS, THERA 1 EACH TAB PO SCH (09:00)
[2022-10-27] MEDS ORDERED: FUROSEMIDE 20 MG TAB PO SCH (09:00)
[2022-10-27] MEDS ORDERED: ASPIRIN 81 MG PO SCH (09:00)
[2022-10-27] MEDS ORDERED: CLOPIDOGREL 75 MG TAB PO SCH (09:00)
[2022-11-02] MEDS ORDERED: DARBEPOETIN ALFA 100MCG/0.5ML SYRINGE SQ SCH (09:00)
== END 2022-10-27 10:42 | disposition home or self-care (01) ==
LOC: CATHCVL 10:26 → 6NMEDSUR 13:14 → CATHCVL 10-27 10:42
PROVIDERS: ATTEND Internal Medicine Interventional Cardiology
DX: I25.10 Atherosclerotic heart disease of native coronary artery without angina pectoris (principal); I10 Essential (primary) hypertension; E78.5 Hyperlipidemia, unspecified; E11.9 Type 2 diabetes mellitus without complications; Z82.49 Family history of ischemic heart disease and other diseases of the circulatory system; I48.0 Paroxysmal atrial fibrillation; I65.23 Occlusion and stenosis of bilateral carotid arteries; Z95.5 Presence of coronary angioplasty implant and graft; Z79.82 Long term (current) use of aspirin; Z79.02 Long term (current) use of antithrombotics/antiplatelets; Z79.899 Other long term (current) drug therapy
CPT/HCPCS: 94760; 92978; 76937; 82565; C9600; C1769 ×3; C1887 ×3; C1894; C1725 ×4; C1753; C1874 ×2; J2250; J2001; J1644; Q9967; J2305

== ENCOUNTER 2024-01-16 14:36 | Emergency (ER) | payer MEDICARE, BC ==
[2024-01-16 15:43] LABS: ALT 14 U/L (4-34); AST 21 U/L (14-36); African American GFR (CKD) 21 (>60 ml/min/1.73 sqM); Albumin 3.9 g/dL (3.5-5.0); Alkaline Phosphatase 61 U/L (38-126); Anion Gap 11 mmol/L; Blood Urea Nitrogen 55 mg/dL (7-17); Carbon Dioxide 20 mmol/L (22-30); Chloride 110 mmol/L (98-107); Glucose 147 mg/dL (74-99); Non-African American GFR(CKD) 18 (>60 ml/min/1.73 sqM); Potassium 4.4 mmol/L (3.5-5.1); Sodium 141 mmol/L (137-145); Total Bilirubin 0.4 mg/dL (0.2-1.3)
[2024-01-16 15:46] LABS: INR 1.8 (<1.2); Prothrombin Time 17.8 sec (10.0-12.5)
[2024-01-16 15:47] LABS: Anisocytosis Slight; Basophils % (A) 1 %; Eosinophils # (A) 0.2 k/uL (0-0.7); Eosinophils % (A) 5 %; Hypochromasia Slight; Lymphocytes # (A) 1.2 k/uL (1.0-4.8); Lymphocytes % (A) 23 %; MCHC 32.3 g/dL (31.0-37.0); MCV 99.1 fL (80.0-100.0); Macrocytosis Slight; Mean Platelet Volume 9.6; Monocytes # (A) 0.3 k/uL (0-1.0); Monocytes % (A) 7 %; Neutrophils # (A) 3.3 k/uL (1.3-7.7); Neutrophils % (A) 64 %; Platelet Count 252 k/uL (150-450); RBC 2.02 m/uL (3.80-5.40); RDW 17.3 % (11.5-15.5); WBC 5.2 k/uL (3.8-10.6)
[2024-01-16 15:55] LABS: HGB 6.5 gm/dL (11.4-16.0)
--- NOTE | 2024-01-16 16:02 | XR ---
EXAMINATION TYPE: XR chest 2V DATE OF EXAM: 01/16/2024 3:40 PM CLINICAL INDICATION: Female, 88 years old with history of Weakness; COMPARISON: Chest radiographs from 01/16/2024 TECHNIQUE: XR chest 2V Frontal view of the chest. FINDINGS: Lungs/Pleura: Right upper lung linear probable streaky atelectasis/scarring There is flattening of th e diaphragm with increased lucency of the lungs. No evidence of pneumothorax, pleural effusion or foc al consolidation. Pulmonary vascularity: Unremarkable. Heart/mediastinum: Cardiomediastinal silhouette is unremarkable. Musculoskeletal: No acute osseous pathology. IMPRESSION: 1. No acute cardiopulmonary disease/process. 2. Right upper lobe probable streaky atelectasis scarring 3. Mild emphysema. [facility], , 01/16/2024 4:00 PM
--- NOTE | 2024-01-16 16:27 | ED ---
Recheck HPI - General Chief Complaint: Recheck/Abnormal Lab/Rx Stated Complaint: Low hemoglobin Time Seen by Provider: 01/16/24 16:09 Source: patient, RN notes reviewed, old records reviewed Mode of arrival: ambulatory Limitations: no limitations - History of Present Illness Initial Comments: This is an 88-year-old female she presents to us for known low hemoglobin anemia of chronic disease times lower GI bleed, 3 weeks ago her hemoglobin was 9 today it is 6 she is here for transfusion, she has no complaints no blood thinners MD Complaint: abnormal lab (Low hemoglobin) -: days(s) Returns Today for: Called Because of Abnormal Lab/Test, needs IV antibiotics, persistent/worsening pain related to initial visit Symptoms Since Prior Visit: no new symptoms Context: called for abnormal lab result Associated Symptoms: none Treatments Prior to Arrival: other (0) - Related Data Home Medications Medication Instructions Recorded Confirmed Ferrous Sulfate [Iron] 325 mg PO HS 07/13/20 01/16/24 allopurinoL [Zyloprim] 100 mg PO HS 07/13/20 01/16/24 carvediloL [Coreg] 25 mg PO BID-W/MEALS 07/13/20 01/16/24 hydrALAZINE HCL [Apresoline] 50 mg PO BID 07/13/20 01/16/24 Furosemide [Lasix] 20 mg PO Q48H 06/14/22 01/16/24 Sodium Bicarbonate Tab 650 mg PO BID 06/14/22 01/16/24 Cholecalciferol [Vitamin D3 (125 125 mcg PO DAILY 08/24/22 01/16/24 Mcg = 5000 Iu)] Acetaminophen [Tylenol 8 Hour] 650 mg PO BID 08/30/22 01/16/24 Epoetin Sanya [Procrit] 60,000 unit IM Q21D 10/25/22 01/16/24 Multivitamins, Thera [Multivitamin 1 tab PO DAILY 10/25/22 01/16/24 (formulary)] Pantoprazole [Protonix] 40 mg PO DAILY 01/16/24 01/16/24 Warfarin [Coumadin] 1.25 mg PO TU@1800 01/16/24 01/16/24 Warfarin [Coumadin] 2.5 mg PO SUMOWETHFRSA@1800 01/16/24 01/16/24 amLODIPine [Norvasc] 5 mg PO DAILY 01/16/24 01/16/24 Allergies Allergy/AdvReac Type Severity Reaction Status Date / Time erythromycin base Allergy Dyspnea Verified 01/16/24 17:01 levofloxacin [From Levaquin] Allergy Hallucinati Verified 01/16/24 17:01 ons metronidazole [From Flagyl] Allergy Rash/Hives Verified 01/16/24 17:01 Penicillins Allergy Rash/Hives Verified 01/16/24 17:01 Sulfa (Sulfonamide Allergy Rash/Hives Verified 01/16/24 17:01 Antibiotics) hydrocodone AdvReac Hallucinati Verified 01/16/24 17:01 ons [id number] Reductase AdvReac "muscle Verified 01/16/24 17:01 Inhibitor pain" [Fraogyb-Ytc-Vld Reductase Inhibitor] Review of Systems ROS Statement: Those systems with pertinent positive or pertinent negative responses have been documented in the HPI. ROS Other: All systems not noted in ROS Statement are negative. Past Medical History Past Medical History: Atrial Fibrillation, Coronary Artery Disease (CAD), Eye Disorder, GERD/Reflux, Hearing Disorder / Deafness, Hypertension, Osteoarthritis (OA), Renal Disease, Sleep Apnea/CPAP/BIPAP Additional Past Medical History / Comment(s): "leaky valves",gout, hx of shingles x2-still has pain to forhead and left eye,anemia-received blood transfusions and iron transfusions,hx polio-wears lifts in shoes,CHRONIC KIDNEY DISEASE -STAGE 4-no dialysis,has double vision w/out glasses, HEART MURMUR, HARD OF HEARING,no cpap History of Any Multi-Drug Resistant Organisms: None Reported Past Surgical History: Appendectomy, Cholecystectomy, Hysterectomy, Orthopedic Surgery Additional Past Surgical History / Comment(s): O. . RIF left ankle,vein stripping rt leg,trigger fingers sx X 8, had sx on left leg r/t polio,lizzy placed to rt femur post fx,THUMB procedure,maxine cataracts,arthroscopy rt knee,heartstent x1,EGD,colonoscopy Past Anesthesia/Blood Transfusion Reactions: No Reported Reaction, Family History of Problems w/ Anesthesia Additional Past Anesthesia/Blood Transfusion Reaction / Comment(s): no problems w/ prior blood transfusion-last infusion August 2022. DAUGHTER B/P dropped w/ shoulder surgery & was admitted to ICU Past Psychological History: No Psychological Hx Reported Smoking Status: Never smoker Past Alcohol Use History: None Reported Past Drug Use History: None Reported - Past Family History Son(s) Family Medical History: Cancer Additional Family Medical History / Comment(s): esophageal CA Mother Family Medical History: Cancer, Myocardial Infarction ([place]) Additional Family Medical History / Comment(s): thinks possibly some type of CA- had fluid retention to stomach area Sister(s) Family Medical History: Cancer, Myocardial Infarction ([place]) Additional Family Medical History / Comment(s): LUEKEMIA Brother(s) Additional Family Medical History / Comment(s): Parkinson Father Family Medical History: Myocardial Infarction ([place]) General Exam Limitations: no limitations General appearance: alert, in no apparent distress Head exam: Present: atraumatic, normocephalic, normal inspection Eye exam: Present: normal appearance, PERRL, EOMI. Absent: scleral icterus, c onjunctival injection, periorbital swelling ENT exam: Present: normal exam, mucous membranes moist Neck exam: Present: normal inspection. Absent: tenderness, meningismus, lymphadenopathy Respiratory exam: Present: normal lung sounds bilaterally. Absent: respiratory distress, wheezes, rales, rhonchi, stridor Cardiovascular Exam: Present: regular rate, normal rhythm, normal heart sounds. Absent: systolic murmur, diastolic murmur, rubs, gallop, clicks GI/Abdominal exam: Present: soft, normal bowel sounds. Absent: distended, tenderness, guarding, rebound, rigid Extremities exam: Present: normal inspection, full ROM, normal capillary refill. Absent: tenderness, pedal edema, joint swelling, calf tenderness Back exam: Present: normal inspection Neurological exam: Present: alert, oriented X3, CN II-XII intact Psychiatric exam: Present: normal affect, normal mood Skin exam: Present: warm, dry, intact, normal color. Absent: rash Course Vital Signs 01/16/24 01/16/24 01/16/24 14:59 16:17 18:13 Temperature 97.7 F 97.9 F 98.5 F Pulse Rate 60 58 L 56 L Respiratory 20 18 16 Rate Blood Pressure 150/65 170/63 155/67 O2 Sat by Pulse 100 98 97 Oximetry 01/16/24 01/16/24 01/16/24 18:31 18:51 19:46 Temperature 98.3 F 97.3 F L 98.4 F Pulse Rate 56 L 59 L 58 L Respiratory 16 16 16 Rate Blood Pressure 163/66 161/65 168/67 O2 Sat by Pulse 97 96 96 Oximetry 01/16/24 01/16/24 01/16/24 21:00 21:26 21:32 Temperature 98.1 F 98.2 F 98.2 F Pulse Rate 59 L 63 56 L Respiratory 16 16 16 Rate Blood Pressure 164/78 148/56 157/61 O2 Sat by Pulse 97 Oximetry 01/16/24 01/16/24 01/16/24 21:52 23:31 23:51 Temperature 98.3 F 98.3 F 98.3 F Pulse Rate 55 L 58 L 71 Respiratory 16 14 16 Rate Blood Pressure 166/65 153/63 153/74 O2 Sat by Pulse 96 95 Oximetry - Reevaluation(s) Reevaluation #1: 01/16/24 16:37 Medical records reviewed Reevaluation #2: 01/16/24 17:32 Patient given transfusion here in the ER Reevaluation #3: 01/16/24 17:32 Patient informed of results and questions answered Reevaluation #4: 01/16/24 16:37 Was pt. sent in by a medical professional or institution (, PA, GRILL ATTENDANT, urgent care, hospital, or retirement...) When possible be specific @ -no Did you speak to anyone other than the patient for history (EMS, parent, family, police, friend...)? What history was obtained from this source @ -no Did you review nursing and triage notes (agree or disagree)? Why? @ -agree Are old charts reviewed (outside hosp., previous admission, EMS record, old EKG, old radiological studies, urgent care reports/EKG's, retirement records)? Report findings @ -yes Differential Diagnosis (chest pain, altered mental status, abdominal pain women, abdominal pain men, vaginal bleeding, weakness, fever, dyspnea, syncope, headache, dizziness, GI bleed, back pain, seizure, CVA, palpatations, mental health, musculoskeletal)? @ -prior EKG interpreted by me (3pts min.). @ -yes X-rays interpreted by me (1pt min.). @ -yes negative for acute disease CT interpreted by me (1pt min.). @ -no U/S interpreted by me (1pt. min.). @ -no What testing was considered but not performed or refused? (CT, X-rays, U/S, labs)? Why? @ -none What meds were considered but not given or refused? Why? @ -none Did you discuss the management of the patient with other professionals (harinder esposito i.e. , PA, GRILL ATTENDANT, lab, RT, psych nurse, social sciences chair, lead software development engineer, teacher, correctional officer, case aide)? Give summary @ -no Was smoking cessation discussed for >3mins.? @ -no Was critical care preformed (if so, how long)? @ -no Were there social determinants of health that impacted care today? How? (Homelessness, low income, unemployed, alcoholism, drug addiction, transportation, low edu. Level, literacy, decrease access to med. care, intermediate, rehab)? @ -none Was there de-escalation of care discussed even if they declined (Discuss DNR or withdrawal of care, Hospice)? DNR status @ -no What co-morbidities impacted this encounter? (DM, HTN, Smoking, COPD, CAD, Cancer, CVA, ARF, Chemo, Hep., AIDS, mental health diagnosis, sleep apnea, morbid obesity)? @ -none Was patient admitted / discharged? Hospital course, mention meds given and route, prescriptions, significant lab abnormalities, going to OR and other pertinent info. @ - 88 female for anemia of chronic disease and GI bleed coming in for low hemoglobin, patient was given transfusion here in the ER and will discharge home Discharge Undiagnosed new problem with uncertain prognosis? @ -no Drug Therapy requiring intensive monitoring for toxicity (Heparin, Nitro, Insulin, Cardizem)? @ -no Were any procedures done? @ -no Diagnosis/symptom? @ -Chronic disease and GI bleed Acute, or Chronic, or Acute on Chronic? @ -Acute Uncomplicated (without systemic symptoms) or Complicated (systemic symptoms)? @ -Complicated Side effects of treatment? @ -no Exacerbation, Progression, or Severe Exacerbation? @ -exacerbation Poses a threat to life or bodily function? How? (Chest pain, [place], [place], pneumonia, PE, COPD, DKA, ARF, appy, cholecystitis, CVA, Diverticulitis, Homicidal, Suicidal, threat to staff... and all critical care pts) @ -yes extremes of age Reevaluation #5: Differential Weakness: Hypoglycemia, shock, sepsis, hyponatremia, anemia, infection, [place], ETOH, adverse medicine reaction, overdose, stroke, this is not meant to be an all-inclusive list. Medical Decision Making - Medical Decision Making 88 female for anemia of chronic disease and GI bleed coming in for low hemoglobin, patient was given transfusion here in the ER and will discharge home - Lab Data Result diagrams: 01/16/24 15:15 01/16/24 15:07 Lab Results 01/16/24 01/16/24 01/16/24 Range/Units 15:07 15:07 15:07 WBC (3.8-10.6) k/uL RBC (3.80-5.40) m/uL Hgb (11.4-16.0) gm/dL Hct (34.0-46.0) % MCV (80.0-100.0) fL MCH (25.0-35.0) pg MCHC (31.0-37.0) g/dL RDW (11.5-15.5) % Plt Count (150-450) k/uL MPV Neutrophils % % Lymphocytes % % Monocytes % % Eosinophils % % Basophils % % Neutrophils # (1.3-7.7) k/uL Lymphocytes # (1.0-4.8) k/uL Monocytes # (0-1.0) k/uL Eosinophils # (0-0.7) k/uL Basophils # (0-0.2) k/uL Hypochromasia Anisocytosis Macrocytosis PT (10.0-12.5) sec INR (<1.2) APTT (22.0-30.0) sec Sodium 141 (137-145) mmol/L Potassium 4.4 (3.5-5.1) mmol/L Chloride 110 H (98-107) mmol/L Carbon Dioxide 20 L (22-30) mmol/L Anion Gap 11 mmol/L BUN 55 H (7-17) mg/dL Creatinine 2.33 H (0.52-1.04) mg/dL Est GFR (CKD-EPI)AfAm 21 (>60 ml/min/1.73 sqM) Est GFR (CKD-EPI)NonAf 18 (>60 ml/min/1.73 sqM) Glucose 147 H (74-99) mg/dL Lactic Ac Sepsis Rflx Plasma Lactic Acid Reid 3.4 H* (0.7-2.0) mmol/L Calcium 10.0 (8.4-10.2) mg/dL Total Bilirubin 0.4 (0.2-1.3) mg/dL AST 21 (14-36) U/L ALT 14 (4-34) U/L Alkaline Phosphatase 61 (38-126) U/L Troponin I 0.015 (0.000-0.034) ng/mL Total Protein 6.0 L (6.3-8.2) g/dL Albumin 3.9 (3.5-5.0) g/dL Blood Type Blood Type Recheck Bld Type Recheck Status Antibody Screen Crossmatch Spec Expiration Date 01/16/24 01/16/24 01/16/24 Range/Units 15:15 15:15 15:15 WBC 5.2 (3.8-10.6) k/uL RBC 2.02 L (3.80-5.40) m/uL Hgb 6.5 L* (11.4-16.0) gm/dL Hct 20.0 L (34.0-46.0) % MCV 99.1 (80.0-100.0) fL MCH 32.0 (25.0-35.0) pg MCHC 32.3 (31.0-37.0) g/dL RDW 17.3 H (11.5-15.5) % Plt Count 252 (150-450) k/uL MPV 9.6 Neutrophils % 64 % Lymphocytes % 23 % Monocytes % 7 % Eosinophils % 5 % Basophils % 1 % Neutrophils # 3.3 (1.3-7.7) k/uL Lymphocytes # 1.2 (1.0-4.8) k/uL Monocytes # 0.3 (0-1.0) k/uL Eosinophils # 0.2 (0-0.7) k/uL Basophils # 0.0 (0-0.2) k/uL Hypochromasia Slight Anisocytosis Slight Macrocytosis Slight PT 17.8 H (10.0-12.5) sec INR 1.8 H (<1.2) APTT 27.0 (22.0-30.0) sec Sodium (137-145) mmol/L Potassium (3.5-5.1) mmol/L Chloride (98-107) mmol/L Carbon Dioxide (22-30) mmol/L Anion Gap mmol/L BUN (7-17) mg/dL Creatinine (0.52-1.04) mg/dL Est GFR (CKD-EPI)AfAm (>60 ml/min/1.73 sqM) Est GFR (CKD-EPI)NonAf (>60 ml/min/1.73 sqM) Glucose (74-99) mg/dL Lactic Ac Sepsis Rflx Plasma Lactic Acid Reid (0.7-2.0) mmol/L Calcium (8.4-10.2) mg/dL Total Bilirubin (0.2-1.3) mg/dL AST (14-36) U/L ALT (4-34) U/L Alkaline Phosphatase (38-126) U/L Troponin I (0.000-0.034) ng/mL Total Protein (6.3-8.2) g/dL Albumin (3.5-5.0) g/dL Blood Type O Negative Blood Type Recheck O Neg Bld Type Recheck Status No Antibody Screen NEGATIVE Crossmatch See Detail Spec Expiration Date 01/19/2024 - 230601/16/24 01/16/24 Range/Units 15:47 20:40 WBC (3.8-10.6) k/uL RBC (3.80-5.40) m/uL Hgb (11.4-16.0) gm/dL Hct (34.0-46.0) % MCV (80.0-100.0) fL MCH (25.0-35.0) pg MCHC (31.0-37.0) g/dL RDW (11.5-15.5) % Plt Count (150-450) k/uL MPV Neutrophils % % Lymphocytes % % Monocytes % % Eosinophils % % Basophils % % Neutrophils # (1.3-7.7) k/uL Lymphocytes # (1.0-4.8) k/uL Monocytes # (0-1.0) k/uL Eosinophils # (0-0.7) k/uL Basophils # (0-0.2) k/uL Hypochromasia Anisocytosis Macrocytosis PT (10.0-12.5) sec INR (<1.2) APTT (22.0-30.0) sec Sodium (137-145) mmol/L Potassium (3.5-5.1) mmol/L Chloride (98-107) mmol/L Carbon Dioxide (22-30) mmol/L Anion Gap mmol/L BUN (7-17) mg/dL Creatinine (0.52-1.04) mg/dL Est GFR (CKD-EPI)AfAm (>60 ml/min/1.73 sqM) Est GFR (CKD-EPI)NonAf (>60 ml/min/1.73 sqM) Glucose (74-99) mg/dL Lactic Ac Sepsis Rflx Y Plasma Lactic Acid Reid 1.0 (0.7-2.0) mmol/L Calcium (8.4-10.2) mg/dL Total Bilirubin (0.2-1.3) mg/dL AST (14-36) U/L ALT (4-34) U/L Alkaline Phosphatase (38-126) U/L Troponin I (0.000-0.034) ng/mL Total Protein (6.3-8.2) g/dL Albumin (3.5-5.0) g/dL Blood Type Blood Type Recheck Bld Type Recheck Status Antibody Screen Crossmatch Spec Expiration Date - Radiology Data Radiology results: report reviewed (Chest x-ray is negative for acute disease), image reviewed Disposition Clinical Impression: Anemia, Chronic kidney disease, Chronic anemia, Esophagitis, Gastritis, Normocytic normochromic anemia Disposition: HOME SELF-CARE Condition: Fair Instructions (If sedation given, give patient instructions): Anemia (ED) Is patient prescribed a controlled substance at d/c from ED?: No Referrals: Ron Busch MD [Primary Care Provider] - 1-2 days Time of Disposition: 17:30
[2024-01-16 21:57] VITALS: TEMP 98.3
[2024-01-16 23:52] VITALS: BP 153/74; PULSE 71; RESP 16
== END 2024-01-17 00:04 | disposition home or self-care (01) ==
LOC: EC 14:36
DX: N18.4 Chronic kidney disease, stage 4 (severe) (principal); D63.1 Anemia in chronic kidney disease; K29.70 Gastritis, unspecified, without bleeding; K21.00 Gastro-esophageal reflux disease with esophagitis, without bleeding; Z88.0 Allergy status to penicillin; Z88.1 Allergy status to other antibiotic agents; Z88.2 Allergy status to sulfonamides; Z88.5 Allergy status to narcotic agent; Z88.8 Allergy status to other drugs, medicaments and biological substances; Z90.49 Acquired absence of other specified parts of digestive tract
CPT/HCPCS: 99285; 36430; 36415; 93005; 86900; 86901; 80053; 83605; 84484; 85025; 85610; 85730; 86850; 86920; 71046; P9016

== ENCOUNTER 2024-04-10 20:46 | Emergency (ER) | payer MEDICARE, BC ==
[2024-04-10 20:54] VITALS: RESP 18; TEMP 98.3
[2024-04-10 21:23] LABS: Anisocytosis Slight; Basophils # (A) 0.1 k/uL (0-0.2); Basophils % (A) 0 %; Eosinophils # (A) 0.3 k/uL (0-0.7); Eosinophils % (A) 3 %; HCT 22.3 % (34.0-46.0); HGB 7.5 gm/dL (11.4-16.0); Hypochromasia Slight; Lymphocytes # (A) 1.5 k/uL (1.0-4.8); Lymphocytes % (A) 15 %; MCH 30.6 pg (25.0-35.0); MCHC 33.4 g/dL (31.0-37.0); MCV 91.4 fL (80.0-100.0); Monocytes # (A) 0.6 k/uL (0-1.0); Monocytes % (A) 5 %; Neutrophils % (A) 75 %; Platelet Count 244 k/uL (150-450); Poikilocytosis Slight; RBC 2.44 m/uL (3.80-5.40); RDW 17.5 % (11.5-15.5); WBC 10.6 k/uL (3.8-10.6)
[2024-04-10 21:30] LABS: INR 1.5 (<1.2); Partial Thromboplastin Time 25.4 sec (22.0-30.0); Prothrombin Time 15.9 sec (10.0-12.5)
[2024-04-10 21:33] LABS: ALT 17 U/L (4-34); AST 26 U/L (14-36); African American GFR (CKD) 23 (>60 ml/min/1.73 sqM); Albumin 3.8 g/dL (3.5-5.0); Alcohol <10 mg/dL; Alkaline Phosphatase 74 U/L (38-126); Anion Gap 11 mmol/L; Blood Urea Nitrogen 53 mg/dL (7-17); Calcium 9.9 mg/dL (8.4-10.2); Carbon Dioxide 20 mmol/L (22-30); Chloride 108 mmol/L (98-107); Glucose 180 mg/dL (74-99); Non-African American GFR(CKD) 20 (>60 ml/min/1.73 sqM); Potassium 4.4 mmol/L (3.5-5.1); Sodium 139 mmol/L (137-145); Total Bilirubin 0.5 mg/dL (0.2-1.3)
--- NOTE | 2024-04-10 21:40 | XR ---
EXAMINATION TYPE: XR foot limited LT DATE OF EXAM: 04/10/2024 9:34 PM COMPARISON: None CLINICAL INDICATION: Female, 88 years old with history of pain; PHH, pain TECHNIQUE: XR foot limited LT examined in the AP, oblique, and lateral projections. FINDINGS: No evidence of any acute osseous pathology. Fixation hardware in the distal fibula appears intact. Mu ltifocal degeneration changes throughout the joints of the foot with osteophyte formation and joint s pace narrowing. IMPRESSION: 1. No evidence of acute fracture. 2. Moderate degeneration changes throughout the joints of the foot. [facility], , 04/10/2024 9:37 PM
--- NOTE | 2024-04-10 21:41 | XR ---
EXAMINATION TYPE: XR chest 1V portable DATE OF EXAM: 04/10/2024 9:34 PM COMPARISON: Chest radiographs from 2223 CLINICAL INDICATION: Female, 88 years old with history of trauma; [facility] pain TECHNIQUE: XR chest 1V portable Frontal view of the chest. FINDINGS: Lungs/Pleura: T stable right upper lung opacity from 01/16/2024. Here is no evidence of pleural effus ion, focal consolidation, or pneumothorax. Pulmonary vascularity: Unremarkable. Heart/mediastinum: Cardiomediastinal silhouette is unremarkable. Atherosclerotic calcifications are seen in the aorta. Musculoskeletal: No acute osseous pathology. IMPRESSION: Poor penetration limits evaluation of generalized haziness of the radiograph. No acute cardiopulmonar y disease/process. [facility], , 04/10/2024 9:38 PM
--- NOTE | 2024-04-10 21:46 | CT ---
EXAMINATION TYPE: CT brain cspine wo con DATE OF EXAM: 04/10/2024 9:38 PM COMPARISON: None. CLINICAL INDICATION: Female, 88 years old with history of trauma; Patient is coming to facility after a fall. Patient fell from standing, states she did hit her head, denies LOC. Patient is on Warfarin for A fib., pain TECHNIQUE: Brain: Multiple axial CT images of the brain were obtained without IV contrast. Cspine: Axial CT images from the skull base to the inferior aspect of T2 we obtained without intraven ous contrast. Coronal and sagittal reformatted images were also reviewed. . CT DLP: 1294 mGycm, Automated exposure control for dose reduction was used. FINDINGS: Brain: Extra-axial spaces: No abnormal extra-axial fluid collections. Ventricular system: Dilatation in proportion to cerebral atrophy. Cerebral parenchyma: Cerebral atrophy. No acute intraparenchymal hemorrhage or mass effect. The harvey -white junction is well differentiated. Scattered hypoattenuating areas are seen within the white mat ter. Cerebellum: Unremarkable. Mass effect: No evidence of midline shift. Intracranial vasculature: Atherosclerotic calcifications of the intracranial vessels. Soft tissues: Normal. Calvarium/osseous structures: No depressed skull fracture. Paranasal sinuses and mastoid air cells: Mild scattered mucosal thickening and or secretions. Visualized orbits: Orbital contents are intact. Cervical spine: Fracture: None. Osseous structures: Multilevel degenerative disc disease changes with endplate spurring and disc oste ophyte complex's. Vertebral alignment: Grade 1 anterolisthesis of C3 on C4. Spinal canal/Neural Foramina: Disc osteophyte complexes at C4-C5 through C6-C7 with at least mild spi nal canal stenosis. No evidence for significant neural foraminal stenosis. Neck soft tissues: Prevertebral soft tissues are within normal limits. Other: The airway is patent. The lung apices are clear. IMPRESSION: 1. No acute intracranial process. 2. Nonspecific white matter changes, likely secondary to chronic small vessel ischemic disease. 3. No evidence of cervical spine fracture. 4. Moderate to severe multilevel degenerative disc disease. 5. Grade 1 anterolisthesis of C3 on C4. [facility], , 04/10/2024 9:44 PM
--- NOTE | 2024-04-10 21:54 | CT ---
EXAMINATION TYPE: CT lumbar spine wo con, CT pelvis wo con DATE OF EXAM: 04/10/2024 9:38 PM COMPARISON: None. CLINICAL INDICATION: Female, 88 years old with history of trauma; [facility], Patient is coming to facility after a fall. Patient fell from standing, states she did hit her head, denies LOC. Patient is on Warf gucci for A fib. Patient has complaints of L hip and groin pain. (accession [id number]), Fall. Patient h as complaints of L hip and groin pain. (accession [id number]) TECHNIQUE: Multiple axial images were obtained from the midportion of T11 through the sacroiliac lencho nts. Soft tissue and bone windows in coronal and sagittal planes were obtained and reviewed. CT imaging of the pelvis with sagittal and coronal reformats. Contrast used: mL of , (None, if empty). Oral contrast used: (None, if empty). CT DLP: 1147 (accession [id number]), 527.9 (accession [id number]) mGycm, Automated exposure control for d ose reduction was used. FINDINGS: Alignment: There are 5 lumbar type vertebral bodies within normal alignment. Bone: Multilevel degeneration changes throughout the spine with joint space narrowing is high format ion facet joint arthropathy, thickness phenomenon present. Discs: T12-L1: No spinal canal or neural foraminal stenosis is identified. L1-L2: Facet joint arthropathy, osteophytes and disc bulging result in mild spinal canal stenosis and mild bilateral neural foraminal stenosis. L2-L3: Facet joint arthropathy, osteophytes and disc bulging result in moderate spinal canal stenosis and mild bilateral neural foraminal stenosis. L3-L4: Facet joint arthropathy, osteophytes and disc bulging result in moderate to severe spinal joseph l stenosis and mild bilateral neural foraminal stenosis. L4-L5: Facet joint arthropathy, osteophytes and disc bulging result in mild spinal canal stenosis and mild bilateral neural foraminal stenosis. L5-S1: Facet joint arthropathy, osteophytes and disc bulging result in mild spinal canal stenosis and mild bilateral neural foraminal stenosis. Other/pelvis: Moderate to severe atherosclerosis of the arterial vasculature. Atrophic kidneys bilate rally. The gallbladder is surgically absent. Scattered colonic diverticula. . The uterus is surgicall y absent. Right femur fixation hardware appears intact and in appropriate position. There is moderate degenerat ion changes of the hips with osteophyte formation space narrowing and chondrocalcinosis of the labrum . The sacrum and coccyx are intact IMPRESSION: 1. No evidence for spinal fracture or pelvic fracture. 2. Right hip fixation hardware in the appropriate position. 3. Colonic diverticulosis. 4. Moderately severe osteoarthrosis changes of the hips. 5. Moderate severe L3-L4 spinal canal stenosis secondary disc bulge and facet arthropathy. [facility], , 04/10/2024 9:51 PM
[2024-04-10] MEDS: SODIUM CHLORIDE 0.9% 1,000 ML IV STA (22:21)
--- NOTE | 2024-04-10 22:34 | ED ---
General Adult HPI - General Chief complaint: Fall Stated complaint: Fall Time Seen by Provider: 04/10/24 20:52 Source: patient, EMS, RN notes reviewed, old records reviewed Mode of arrival: EMS - History of Present Illness Initial comments: Patient is an 88-year-old female who presents emergency department after a fall. Patient is on Coumadin. Patient fell moving her walker. Was mechanical fall. Fell onto her left side and did strike her left ear on the walker handle. Denies loss of conscious. Has a history of anemia and receives regular transfusions including 1 earlier today, CKD, atrial fibrillation, CAD, hypertension. He has no significant complaints at this time but is complaining of some pain in the left hip as well as left great toe however patient declines analgesia medications. Has no other acute complaints. [place] any any chest pain, shortness of breath, abdominal pain, nausea, vomiting. States this was a mechanical fall. Presents for further evaluation at this time. - Related Data Home Medications Medication Instructions Recorded Confirmed Ferrous Sulfate [Iron] 325 mg PO HS 07/13/20 04/10/24 allopurinoL [Zyloprim] 100 mg PO HS 07/13/20 04/10/24 carvediloL [Coreg] 25 mg PO BID-W/MEALS 07/13/20 04/10/24 hydrALAZINE HCL [Apresoline] 50 mg PO BID 07/13/20 04/10/24 Furosemide [Lasix] 20 mg PO Q48H 06/14/22 04/10/24 Sodium Bicarbonate Tab 650 mg PO BID 06/14/22 04/10/24 Cholecalciferol [Vitamin D3 (125 125 mcg PO DAILY 08/24/22 04/10/24 Mcg = 5000 Iu)] Acetaminophen [Tylenol 8 Hour] 650 mg PO BID 08/30/22 04/10/24 Epoetin Sanya [Procrit] 60,000 unit IM Q21D 10/25/22 04/10/24 Multivitamins, Thera [Multivitamin 1 tab PO DAILY 10/25/22 04/10/24 (formulary)] Pantoprazole [Protonix] 40 mg PO DAILY 01/16/24 04/10/24 Warfarin [Coumadin] 1.25 mg PO DIRECTED 01/16/24 04/10/24 Warfarin [Coumadin] 2.5 mg PO DIRECTED 01/16/24 04/10/24 amLODIPine [Norvasc] 5 mg PO DAILY 01/16/24 04/10/24 Allergies Allergy/AdvReac Type Severity Reaction Status Date / Time erythromycin base Allergy Dyspnea Verified 04/10/24 20:54 levofloxacin [From Levaquin] Allergy Hallucinati Verified 04/10/24 20:54 ons metronidazole [From Flagyl] Allergy Rash/Hives Verified 04/10/24 20:54 Penicillins Allergy Rash/Hives Verified 04/10/24 20:54 Sulfa (Sulfonamide Allergy Rash/Hives Verified 04/10/24 20:54 Antibiotics) hydrocodone AdvReac Hallucinati Verified 04/10/24 20:54 ons Amdkest-SXY-BhY Reductase AdvReac "muscle Verified 04/10/24 20:54 Inhibitor pain" [Ebhsiaj-Dlp-Ldz Reductase Inhibitor] Review of Systems ROS Statement: Those systems with pertinent positive or pertinent negative responses have been documented in the HPI. Review of Systems: CONST: Denies fever EYES: Denies blurry vision ENT: Denies nasal congestion C/V: Denies Chest pain RESP: Denies shortness of breath GI: Denies abdominal pain : Denies dysuria SKIN: Denies rash. MSK: Endorses left hip pain, left great toe pain. NEURO: Denies headache ROS Other: All systems not noted in ROS Statement are negative. Past Medical History Past Medical History: Atrial Fibrillation, Coronary Artery Disease (CAD), Eye Disorder, GERD/Reflux, Hearing Disorder / Deafness, Hypertension, Osteoarthritis (OA), Renal Disease, Sleep Apnea/CPAP/BIPAP Additional Past Medical History / Comment(s): "leaky valves",gout, hx of shingles x2-still has pain to forhead and left eye,anemia-received blood transfusions and iron transfusions,hx polio-wears lifts in shoes,CHRONIC KIDNEY DISEASE -STAGE 4-no dialysis,has double vision w/out glasses, HEART MURMUR, HARD OF HEARING,no cpap History of Any Multi-Drug Resistant Organisms: None Reported Past Surgical History: Appendectomy, Cholecystectomy, Hysterectomy, Orthopedic Surgery Additional Past Surgical History / Comment(s): O. . RIF left ankle,vein stripping rt leg,trigger fingers sx X 8, had sx on left leg r/t polio,lizzy placed to rt femur post fx,THUMB procedure,maxine cataracts,arthroscopy rt knee,heartstent x1,EGD,colonoscopy Past Anesthesia/Blood Transfusion Reactions: No Reported Reaction, Family History of Problems w/ Anesthesia Additional Past Anesthesia/Blood Transfusion Reaction / Comment(s): no problems w/ prior blood transfusion-last infusion August 2022. DAUGHTER B/P dropped w/ shoulder surgery & was admitted to ICU Past Psychological History: No Psychological Hx Reported Smoking Status: Never smoker - Past Family History Son(s) Family Medical History: Cancer Additional Family Medical History / Comment(s): esophageal CA Mother Family Medical History: Cancer, Myocardial Infarction ([place]) Additional Family Medical History / Comment(s): thinks possibly some type of CA- had fluid retention to stomach area Sister(s) Family Medical History: Cancer, Myocardial Infarction ([place]) Additional Family Medical History / Comment(s): LUEKEMIA Brother(s) Additional Family Medical History / Comment(s): Parkinson Father Family Medical History: Myocardial Infarction ([place]) General Exam - General Exam Comments Initial Comments: General: Appears in no acute distress. HEAD: Normal with no signs of head trauma. Negative Dorsey sign. Negative raccoon eyes. EYES: PERRLA, EOMI, conjunctiva normal, no discharge. Pupils are 3 mm and equal bilaterally. ENT: Hearing grossly intact, normal oropharynx. Patient does have tenderness to palpation and bruising of the left ear pinna. No evidence of contusion at this time. RESPIRATORY: Clear breath sounds bilaterally. No wheezes, rales, or rhonchi. C/V: Regular rate and rhythm. S1 and S2 auscultated, no edema, peripheral pulses 2+ and intact throughout ABD: Abd is soft, nontender, nondistended EXT: Decreased range of motion of the left hip secondary to pain. No obvious deformities appreciated. No shortening. Tenderness palpation over the medial aspect of the left MTP joint of the first toe as well as over the left hip. No obvious deformities palpated. No midline cervical, thoracic spine tenderness palpation. Acute on chronic lumbar spine tenderness to palpation. SKIN: Contusion to the left ear pinna but no evidence of hematoma. NEURO: Alert and oriented x 4. Cranial nerves II-XII intact. No focal sensory or strength deficits. GCS of 15. Course Vital Signs 04/10/24 20:48 Temperature 98.3 F Pulse Rate 65 Respiratory 18 Rate Blood Pressure 167/69 O2 Sat by Pulse 98 Oximetry Medical Decision Making - Medical Decision Making Was pt. sent in by a medical professional or institution (CLARICE Landin, CLIENT SUPPORT ANALYST, urgent care, hospital, or long term...) When possible be specific @ -No Did you speak to anyone other than the patient for history (EMS, parent, family, police, friend...)? What history was obtained from this source @ -No Did you review nursing and triage notes (agree or disagree)? Why? @ -I reviewed and agree with nursing and triage notes Were old charts reviewed (outside hosp., previous admission, EMS record, old EKG, old radiological studies, urgent care reports/EKG's, long term records)? Report findings @ -Old charts reviewed confirming patient's typical anemia is between a h emoglobin of 7 and 8 dating back to 2022. Differential Diagnosis (chest pain, altered mental status, abdominal pain women, abdominal pain men, vaginal bleeding, weakness, fever, dyspnea, syncope, head ache, dizziness, GI bleed, back pain, seizure, CVA, palpatations, mental health, musculoskeletal)? @ -Differential Musculoskeletal Muscular strain, contusion, ligament sprain, fracture, arthritis, septic arthritis, bursitis, cellulitis, muscle spasm, nerve compression, DVT, arterial occlusion, herpes zoster, electrolyte abnormality, tumor.... This is not meant to be in all inclusive list EKG interpreted by me (3pts min.). @ -As above X-rays interpreted by me (1pt min.). @ -Chest x-ray reveals no obvious acute cardiopulmonary process. Left foot x- ray negative for any obvious acute process or injury. CT interpreted by me (1pt min.). @ -CT brain, C-spine negative for any obvious acute injury. CT lumbar spine negative for any obvious acute injury. CT pelvis reveals no obvious injury to the left hip. No other obvious acute process. U/S interpreted by me (1pt. min.). @ -None done What testing was considered but not performed or refused? (CT, X-rays, U/S, labs)? Why? @ -None What meds were considered but not given or refused? Why? @ -None Did you discuss the management of the patient with other professionals (professionals i.e. Dr., PA, CLIENT SUPPORT ANALYST, lab, RT, psych nurse, psychiatric social worker supervisor, forming process line worker, teacher, corporate responsibility officer, director case)? Give summary @ -No Was smoking cessation discussed for >3mins.? @ -No Was critical care preformed (if so, how long)? @ -No Were there social determinants of health that impacted care today? How? (Homelessness, low income, unemployed, alcoholism, drug addiction, transportation, low edu. Level, literacy, decrease access to med. care, group home, rehab)? @ -No Was there de-escalation of care discussed even if they declined (Discuss DNR or withdrawal of care, Hospice)? DNR status @ -No What co-morbidities impacted this encounter? (DM, HTN, Smoking, COPD, CAD, Cancer, CVA, ARF, Chemo, Hep., AIDS, mental health diagnosis, sleep apnea, morbid obesity)? @ -On blood thinners, chronic anemia, CKD Was patient admitted / discharged? Hospital course, mention meds given and route, prescriptions, significant lab abnormalities, going [facility] and [facility]. @ -Patient presents to the emergency department after a fall on blood thinners. Patient was made a code coag. Did not lose consciousness. Does not meet criteria for trauma activation. We obtain CT brain and C-spine. Patient is also having lumbar spine pain as well as pelvic pain and we will obtain CT imaging of those. Will obtain basic labs. Patient's obvious injuries include a contusion to the left ear pinna. No other obvious findings. No concern for hematoma of the left pinna. Vitals within acceptable limits. Patient declines analgesia medications. Laboratory studies returned remarkable for chronic anemia with a hemoglobin of 7.5. INR subtherapeutic at 1.5. Patient has elevated BUN and creatinine within baseline as patient does have CKD. Alcohol negative. Imaging ultimately returned negative for any obvious acute injury of the brain, spine, chest, pelvis, foot. Cervical collar cleared and c-collar removed. After the patient. Patient had pressure bandage placed over the left ear to avoid contusion from turning into a hematoma. Recommended monitoring symptoms and patient can be discharged home at this time. She was in agreement this plan. Can use Tylenol at home and she continues to decline at this time. Vitals are within acceptable limits at time of discharge. I instructed the patient to follow up with their PCP in the next 1-3 days. I explained that the patient should return to the emergency department if they experience any worsening symptoms. Strict return precautions were discussed with the patient. The patient expressed understanding of these instructions. I answered all questions that the patient had. The patient was discharged home in good condition with their prescriptions and follow up information. Undiagnosed new problem with uncertain prognosis? @ -No Drug Therapy requiring intensive monitoring for toxicity (Heparin, Nitro, Insulin, Cardizem)? @ -No Were any procedures done? @ -No Diagnosis/symptom? @ -CKD, anemia Acute, or Chronic, or Acute on Chronic? @ -Chronic Uncomplicated (without systemic symptoms) or Complicated (systemic symptoms)? @ -Uncomplicated Side effects of treatment? @ -No Exacerbation, Progression, or Severe Exacerbation? @ -No Poses a threat to life or bodily function? How? (Chest pain, [place], [place], pneumonia, PE, COPD, DKA, ARF, appy, cholecystitis, CVA, Diverticulitis, Homicidal, Suicid al, threat to staff... and all critical care pts) @ -Unlikely at this time Diagnosis/symptom? @ -Fall, left ear contusion, sprain the left foot, left hip sprain Acute, or Chronic, or Acute on Chronic? @ -Acute Uncomplicated (without systemic symptoms) or Complicated (systemic symptoms)? @ -Uncomplicated Side effects of treatment? @ -None Exacerbation, Progression, or Severe Exacerbation] @ -No Poses a threat to life or bodily function? @ -Unlikely at this time - Lab Data Result diagrams: 04/10/24 21:08 04/10/24 21:08 Lab Results 04/10/24 04/10/24 04/10/24 Range/Units 21:08 21:08 21:08 WBC 10.6 (3.8-10.6) k/uL RBC 2.44 L (3.80-5.40) m/uL Hgb 7.5 L (11.4-16.0) gm/dL Hct 22.3 L (34.0-46.0) % MCV 91.4 (80.0-100.0) fL MCH 30.6 (25.0-35.0) pg MCHC 33.4 (31.0-37.0) g/dL RDW 17.5 H (11.5-15.5) % Plt Count 244 (150-450) k/uL MPV 9.0 Neutrophils % 75 % Lymphocytes % 15 % Monocytes % 5 % Eosinophils % 3 % Basophils % 0 % Neutrophils # 8.0 H (1.3-7.7) k/uL Lymphocytes # 1.5 (1.0-4.8) k/uL Monocytes # 0.6 (0-1.0) k/uL Eosinophils # 0.3 (0-0.7) k/uL Basophils # 0.1 (0-0.2) k/uL Hypochromasia Slight Poikilocytosis Slight Anisocytosis Slight PT 15.9 H (10.0-12.5) sec INR 1.5 H (<1.2) APTT 25.4 (22.0-30.0) sec Sodium 139 (137-145) mmol/L Potassium 4.4 (3.5-5.1) mmol/L Chloride 108 H (98-107) mmol/L Carbon Dioxide 20 L (22-30) mmol/L Anion Gap 11 mmol/L BUN 53 H (7-17) mg/dL Creatinine 2.16 H (0.52-1.04) mg/dL Est GFR (CKD-EPI)AfAm 23 (>60 ml/min/1.73 sqM) Est GFR (CKD-EPI)NonAf 20 (>60 ml/min/1.73 sqM) Glucose 180 H (74-99) mg/dL Calcium 9.9 (8.4-10.2) mg/dL Total Bilirubin 0.5 (0.2-1.3) mg/dL AST 26 (14-36) U/L ALT 17 (4-34) U/L Alkaline Phosphatase 74 (38-126) U/L Total Protein 6.0 L (6.3-8.2) g/dL Albumin 3.8 (3.5-5.0) g/dL Serum Alcohol <10 mg/dL - EKG Data -: EKG Interpreted by Me EKG Comments: 12-lead Electrocardiogram Interpretation Note EKG was reviewed and interpreted by myself. 12-lead ECG performed at 2109 is interpreted by me as revealing normal sinus rhythm at a rate of 63 beats per mi nute. [place] is normal. OR interval is 195 ms, QRS duration is 105 ms, QTc is 426 ms.. There were no ST or T wave abnormalities to suggest myocardial ischemia or injury. R wave progression across the precordium was satisfactory. By my interpretation this EKG is non-diagnostic for acute ischemia. Disposition Clinical Impression: Fall, Sprain of left foot, Contusion of left ear, Chronic anemia, CKD (chronic kidney disease), Sprain of left hip Disposition: HOME SELF-CARE Condition: Good Instructions (If sedation given, give patient instructions): Muscle Strain ( ED), Fall Prevention for Older Adults (ED) Additional Instructions: You are a fall on blood thinners. Imaging returned unremarkable. Keep pressure on the left ear due to left ear contusion. Follow-up x-ray of the left great toe if pain continues in 1 week. No obvious findings on imaging today. Return if any worsening symptoms. Is patient prescribed a controlled substance at d/c from ED?: No Referrals: Ron Busch MD [Primary Care Provider] - 1-2 days Time of Disposition: 22:30
[2024-04-10 22:50] VITALS: BP 154/70; PULSE 68
== END 2024-04-10 22:52 | disposition home or self-care (01) ==
LOC: EC 20:46
DX: S93.522A Sprain of metatarsophalangeal joint of left great toe, initial encounter (principal); S73.102A Unspecified sprain of left hip, initial encounter; S00.432A Contusion of left ear, initial encounter; I12.9 Hypertensive chronic kidney disease with stage 1 through stage 4 chronic kidney disease, or unspecified chronic kidney disease; N18.4 Chronic kidney disease, stage 4 (severe); D63.1 Anemia in chronic kidney disease; Z79.01 Long term (current) use of anticoagulants; Z88.0 Allergy status to penicillin; Z88.1 Allergy status to other antibiotic agents; Z88.2 Allergy status to sulfonamides; Z88.5 Allergy status to narcotic agent; Z88.8 Allergy status to other drugs, medicaments and biological substances; W18.30XA Fall on same level, unspecified, initial encounter; W22.8XXA Striking against or struck by other objects, initial encounter
CPT/HCPCS: 36415; 93005; 80053; 85025; 85610; 85730; 73620; 71045; 72192; 72125; 72131; 70450; 99285; 96360; G0480; 80320

== ENCOUNTER 2024-05-18 17:33 | Inpatient (IN) | payer MEDICARE, BC ==
--- NOTE | 2024-05-18 17:40 | ED ---
Weakness HPI - General Chief complaint: Weakness Stated complaint: Dizziness,weakness Time Seen by Provider: 05/18/24 17:38 Source: patient, RN notes reviewed, old records reviewed, Caregiver Mode of arrival: wheelchair Limitations: no limitations - History of Present Illness Initial comments: This is an 88-year-old female to the ER for evaluation of weakness today. Patient has recent hospital admission with discharge on Monday with persistent weakness since. Patient does have left shoulder fracture and on antibiotics which she has taken twice. Increased debility decreased oral intake overall fatigue and weakness, patient has no chest pain no shortness of breath no abdominal pain no nausea or vomiting no diarrhea. No recent fevers MD Complaint: generalized weakness, lack of energy, difficulty walking -: days(s) Location: generalized Severity: severe Severity scale (1-10): 9 Consistency: constant Improves with: none Worsens with: none Context: recent illness, history of similar Associated Symptoms: confusion, loss of appetite, nausea/vomiting - Related Data Home Medications Medication Instructions Recorded Confirmed Ferrous Sulfate [Iron] 325 mg PO HS 07/13/20 05/18/24 allopurinoL [Zyloprim] 100 mg PO HS 07/13/20 05/18/24 carvediloL [Coreg] 25 mg PO BID-W/MEALS 07/13/20 05/18/24 hydrALAZINE HCL [Apresoline] 50 mg PO BID 07/13/20 05/18/24 Furosemide [Lasix] 20 mg PO Q48H 06/14/22 05/18/24 Sodium Bicarbonate Tab 1,300 mg PO DAILY 06/14/22 05/18/24 Cholecalciferol [Vitamin D3 (125 125 mcg PO DAILY 08/24/22 05/18/24 Mcg = 5000 Iu)] Acetaminophen [Tylenol 8 Hour] 650 mg PO BID 08/30/22 05/18/24 Epoetin Sanya [Procrit] 60,000 unit IM Q21D 10/25/22 05/18/24 Multivitamins, Thera [Multivitamin 1 tab PO DAILY 10/25/22 05/18/24 (formulary)] Pantoprazole [Protonix] 40 mg PO DAILY 01/16/24 05/18/24 Warfarin [Coumadin] 1.25 mg PO MOWE@1800 01/16/24 05/18/24 Warfarin [Coumadin] 2.5 mg PO SUTUTHFRSA@1800 01/16/24 05/18/24 amLODIPine [Norvasc] 5 mg PO DAILY 01/16/24 05/18/24 Sodium Bicarbonate Tab 650 mg PO HS 04/30/24 05/18/24 traMADol HCL 50 mg PO BID 04/30/24 05/18/24 clindamycin HCL 300 mg PO TID 05/18/24 05/18/24 Allergies Allergy/AdvReac Type Severity Reaction Status Date / Time erythromycin base Allergy Dyspnea Verified 05/18/24 18:39 levofloxacin [From Levaquin] Allergy Hallucinati Verified 05/18/24 18:39 ons metronidazole [From Flagyl] Allergy Rash/Hives Verified 05/18/24 18:39 Penicillins Allergy Rash/Hives Verified 05/18/24 18:39 Sulfa (Sulfonamide Allergy Rash/Hives Verified 05/18/24 18:39 Antibiotics) hydrocodone AdvReac Hallucinati Verified 05/18/24 18:39 ons Zvxypgl-IGW-LoQ Reductase AdvReac "muscle Verified 05/18/24 18:39 Inhibitor pain" [Herhofp-Bkw-Ckz Reductase Inhibitor] Review of Systems ROS Statement: Those systems with pertinent positive or pertinent negative responses have been documented in the HPI. ROS Other: All systems not noted in ROS Statement are negative. Past Medical History Past Medical History: Atrial Fibrillation, Coronary Artery Disease (CAD), Eye Disorder, GERD/Reflux, Hearing Disorder / Deafness, Hypertension, Osteoarthritis (OA), Renal Disease, Sleep Apnea/CPAP/BIPAP Additional Past Medical History / Comment(s): "leaky valves",gout, hx of shingles x2-still has pain to forhead and left eye,anemia-received blood transfusions and iron transfusions,hx polio-wears lifts in shoes,CHRONIC KIDNEY DISEASE -STAGE 4-no dialysis,has double vision w/out glasses, HEART MURMUR, HARD OF HEARING,no cpap History of Any Multi-Drug Resistant Organisms: None Reported Past Surgical History: Appendectomy, Cholecystectomy, Hysterectomy, Orthopedic Surgery Additional Past Surgical History / Comment(s): O. . RIF left ankle,vein stripping rt leg,trigger fingers sx X 8, had sx on left leg r/t polio,lizzy placed to rt femur post fx,THUMB procedure,maxine cataracts,arthroscopy rt knee,heartstent x1,EGD,colonoscopy Past Anesthesia/Blood Transfusion Reactions: No Reported Reaction, Family History of Problems w/ Anesthesia Additional Past Anesthesia/Blood Transfusion Reaction / Comment(s): no problems w/ prior blood transfusion-last infusion August 2022. DAUGHTER B/P dropped w/ shoulder surgery & was admitted to ICU Past Psychological History: No Psychological Hx Reported Smoking Status: Never smoker - Past Family History Son(s) Family Medical History: Cancer Additional Family Medical History / Comment(s): esophageal CA Mother Family Medical History: Cancer, Myocardial Infarction (ID) Additional Family Medical History / Comment(s): thinks possibly some type of CA- had fluid retention to stomach area Sister(s) Family Medical History: Cancer, Myocardial Infarction (ID) Additional Family Medical History / Comment(s): LUEKEMIA Brother(s) Additional Family Medical History / Comment(s): Parkinson Father Family Medical History: Myocardial Infarction (ID) General Exam Limitations: no limitations General appearance: alert, in no apparent distress Head exam: Present: atraumatic, normocephalic, normal inspection Eye exam: Present: normal appearance, PERRL, EOMI. Absent: scleral icterus, conjunctival injection, periorbital swelling ENT exam: Present: normal exam, mucous membranes moist Neck exam: Present: normal inspection. Absent: tenderness, meningismus, lymphadenopathy Respiratory exam: Present: normal lung sounds bilaterally. Absent: respiratory distress, wheezes, rales, rhonchi, stridor Cardiovascular Exam: Present: regular rate, normal rhythm, normal heart sounds. Absent: systolic murmur, diastolic murmur, rubs, gallop, clicks GI/Abdominal exam: Present: soft, normal bowel sounds. Absent: distended, tenderness, guarding, rebound, rigid Extremities exam: Present: normal inspection, full ROM, normal capillary refill. Absent: tenderness, pedal edema, joint swelling, calf tenderness Back exam: Present: normal inspection Neurological exam: Present: alert, oriented X3, CN II-XII intact Psychiatric exam: Present: normal affect, normal mood Skin exam: Present: warm, dry, intact, normal color. Absent: rash Course Vital Signs 05/18/24 17:34 Temperature 98 F Pulse Rate 74 Respiratory 16 Rate Blood Pressure 176/75 O2 Sat by Pulse 98 Oximetry - Reevaluation(s) Reevaluation #1: 05/18/24 17:57 Medical records reviewed Recent inpatient hospitalization reviewed showing anemia, hospital course including left heart fracture and infection Reevaluation #2: 05/18/24 19:24 Patient has no change in symptoms here in the ER Patient still currently denies any complaints aside from generalized weakness Reevaluation #3: 05/18/24 19:24 Patient and family informed of results questions were answered Family states patient is unsafe at home and requesting hospital admission for placement Reevaluation #4: Was pt. sent in by a medical professional or institution (, CLARICE, ACCOUNT INSTALLER, urgent care, hospital, or senior living...) When possible be specific @ -no Did you speak to anyone other than the patient for history (EMS, parent, family, police, friend...)? What history was obtained from this source @ -no Did you review nursing and triage notes (agree or disagree)? Why? @ -agree Are old charts reviewed (outside hosp., previous admission, EMS record, old EKG, old radiological studies, urgent care reports/EKG's, senior living records)? Report findings @ -yes Differential Diagnosis (chest pain, altered mental status, abdominal pain women, abdominal pain men, vaginal bleeding, weakness, fever, dyspnea, syncope, headache, dizziness, GI bleed, back pain, seizure, CVA, palpatations, mental health, musculoskeletal)? @ -prior EKG interpreted by me (3pts min.). @ -yes X-rays interpreted by me (1pt min.). @ -yes negative for acute disease CT interpreted by me (1pt min.). @ -no U/S interpreted by me (1pt. min.). @ -no What testing was considered but not performed or refused? (CT, X-rays, U/S, labs)? Why? @ -none What meds were considered but not given or refused? Why? @ -none Did you discuss the management of the patient with other professionals (professionals i.e. CLARICE Landin, ACCOUNT INSTALLER, lab, RT, psych nurse, school social worker, controls engineer, teacher, seaman officer, case technician)? Give summary @ -no Was smoking cessation discussed for >3mins.? @ -no Was critical care preformed (if so, how long)? @ -no Were there social determinants of health that impacted care today? How? (Homelessness, low income, unemployed, alcoholism, drug addiction, transportation, low edu. Level, literacy, decrease access to med. care, correction, rehab)? @ -none Was there de-escalation of care discussed even if they declined (Discuss DNR or withdrawal of care, Hospice)? DNR status @ -no What co-morbidities impacted this encounter? (DM, HTN, Smoking, COPD, CAD, Cancer, CVA, ARF, Chemo, Hep., AIDS, mental health diagnosis, sleep apnea, morbid obesity)? @ -none Was patient admitted / discharged? Hospital course, mention meds given and route, prescriptions, significant lab abnormalities, going to OR and other pertinent info. @ - Undiagnosed new problem with uncertain prognosis? @ -no Drug Therapy requiring intensive monitoring for toxicity (Heparin, Nitro, Insulin, Cardizem)? @ -no Were any procedures done? @ -no Diagnosis/symptom? @ - Acute, or Chronic, or Acute on Chronic? @ -Acute Uncomplicated (without systemic symptoms) or Complicated (systemic symptoms)? @ -Complicated Side effects of treatment? @ -no Exacerbation, Progression, or Severe Exacerbation? @ -exacerbation Poses a threat to life or bodily function? How? (Chest pain, USA, ID, pneumonia, PE, COPD, DKA, ARF, appy, cholecystitis, CVA, Diverticulitis, Homicidal, Corbin icidal, threat to staff... and all critical care pts) @ -yes Reevaluation #5: Differential Weakness: Hypoglycemia, shock, sepsis, hyponatremia, anemia, infection, ID, ETOH, adverse medicine reaction, overdose, stroke, this is not meant to be an all-inclusive list. - Consultations Consultation #1: Spoke with Dr. Busch who agrees to admit this patient EKG Findings - EKG Comments: EKG Findings:: EKG is sinus 70 UT 275 QRS 99 QTc 415 - EKG Results: EKG: interpreted by ERMD Medical Decision Making - Medical Decision Making 88 male to ER for weakness concern for current anemia, patient's hemoglobin is greater than 11, this is a higher number than patient has had in the past. Patient also was mildly prerenal although stable creatinine, patient will admit for consistent as diet, fluid hydration and PT OT - Lab Data Result diagrams: 05/18/24 18:07 05/18/24 18:07 Lab Results 05/18/24 05/18/24 05/18/24 Range/Units 18:07 18:07 18:07 WBC 5.0 (3.8-10.6) k/uL RBC 3.64 L (3.80-5.40) m/uL Hgb 11.0 L (11.4-16.0) gm/dL Hct 34.3 (34.0-46.0) % MCV 94.3 (80.0-100.0) fL MCH 30.1 (25.0-35.0) pg MCHC 31.9 (31.0-37.0) g/dL RDW 17.6 H (11.5-15.5) % Plt Count 245 (150-450) k/uL MPV 9.1 Neutrophils % 58 % Lymphocytes % 27 % Monocytes % 6 % Eosinophils % 6 % Basophils % 1 % Neutrophils # 2.9 (1.3-7.7) k/uL Lymphocytes # 1.4 (1.0-4.8) k/uL Monocytes # 0.3 (0-1.0) k/uL Eosinophils # 0.3 (0-0.7) k/uL Basophils # 0.0 (0-0.2) k/uL Hypochromasia Slight Anisocytosis Slight PT (10.0-12.5) sec INR (<1.2) APTT (22.0-30.0) sec Sodium 139 (137-145) mmol/L Potassium 5.1 (3.5-5.1) mmol/L Chloride 109 H (98-107) mmol/L Carbon Dioxide 19 L (22-30) mmol/L Anion Gap 11 mmol/L BUN 42 H (7-17) mg/dL Creatinine 2.00 H (0.52-1.04) mg/dL Est GFR (CKD-EPI)AfAm 25 (>60 ml/min/1.73 sqM) Est GFR (CKD-EPI)NonAf 22 (>60 ml/min/1.73 sqM) Glucose 100 H (74-99) mg/dL Plasma Lactic Acid Reid 1.7 (0.7-2.0) mmol/L Calcium 11.2 H (8.4-10.2) mg/dL Phosphorus 3.2 (2.5-4.5) mg/dL Magnesium 1.8 (1.6-2.3) mg/dL Total Bilirubin 0.6 (0.2-1.3) mg/dL AST 21 (14-36) U/L ALT 12 (4-34) U/L Alkaline Phosphatase 95 (38-126) U/L Troponin I (0.000-0.034) ng/mL NT-Pro-B Natriuret Pep 7650 pg/mL Total Protein 6.6 (6.3-8.2) g/dL Albumin 4.2 (3.5-5.0) g/dL TSH 2.030 (0.465-4.680) mIU/L Influenza Type A (PCR) (Not Detectd) Influenza Type B (PCR) (Not Detectd) RSV (PCR) (Not Detectd) SARS-CoV-2 (PCR) (Not Detectd) 05/18/24 05/18/24 05/18/24 Range/Units 18:07 18:07 18:14 WBC (3.8-10.6) k/uL RBC (3.80-5.40) m/uL Hgb (11.4-16.0) gm/dL Hct (34.0-46.0) % MCV (80.0-100.0) fL MCH (25.0-35.0) pg MCHC (31.0-37.0) g/dL RDW (11.5-15.5) % Plt Count (150-450) k/uL MPV Neutrophils % % Lymphocytes % % Monocytes % % Eosinophils % % Basophils % % Neutrophils # (1.3-7.7) k/uL Lymphocytes # (1.0-4.8) k/uL Monocytes # (0-1.0) k/uL Eosinophils # (0-0.7) k/uL Basophils # (0-0.2) k/uL Hypochromasia Anisocytosis PT 18.7 H (10.0-12.5) sec INR 1.8 H (<1.2) APTT 27.6 (22.0-30.0) sec Sodium (137-145) mmol/L Potassium (3.5-5.1) mmol/L Chloride (98-107) mmol/L Carbon Dioxide (22-30) mmol/L Anion Gap mmol/L BUN (7-17) mg/dL Creatinine (0.52-1.04) mg/dL Est GFR (CKD-EPI)AfAm (>60 ml/min/1.73 sqM) Est GFR (CKD-EPI)NonAf (>60 ml/min/1.73 sqM) Glucose (74-99) mg/dL Plasma Lactic Acid Reid (0.7-2.0) mmol/L Calcium (8.4-10.2) mg/dL Phosphorus (2.5-4.5) mg/dL Magnesium (1.6-2.3) mg/dL Total Bilirubin (0.2-1.3) mg/dL AST (14-36) U/L ALT (4-34) U/L Alkaline Phosphatase (38-126) U/L Troponin I <0.012 (0.000-0.034) ng/mL NT-Pro-B Natriuret Pep pg/mL Total Protein (6.3-8.2) g/dL Albumin (3.5-5.0) g/dL TSH (0.465-4.680) mIU/L Influenza Type A (PCR) Not Detected (Not Detectd) Influenza Type B (PCR) Not Detected (Not Detectd) RSV (PCR) Not Detected (Not Detectd) SARS-CoV-2 (PCR) Not Detected (Not Detectd) - Radiology Data Radiology results: report reviewed (Chest x-ray is negative for acute disease), image reviewed Disposition Clinical Impression: Chronic kidney disease, Chronic anemia, Dehydration, Weakness, Debility Disposition: ADMITTED IP TO THIS HOSP Condition: Fair Is patient prescribed a controlled substance at d/c from ED?: No Referrals: Ron Busch MD [Primary Care Provider] - 1-2 days Time of Disposition: 19:30
[2024-05-18] MEDS: SODIUM CHLORIDE 0.9% 1,000 ML IV STA (18:11)
[2024-05-18 18:17] LABS: Anisocytosis Slight; Basophils % (A) 1 %; Eosinophils # (A) 0.3 k/uL (0-0.7); Eosinophils % (A) 6 %; HCT 34.3 % (34.0-46.0); Hypochromasia Slight; Lymphocytes # (A) 1.4 k/uL (1.0-4.8); Lymphocytes % (A) 27 %; MCH 30.1 pg (25.0-35.0); MCHC 31.9 g/dL (31.0-37.0); MCV 94.3 fL (80.0-100.0); Mean Platelet Volume 9.1; Monocytes # (A) 0.3 k/uL (0-1.0); Monocytes % (A) 6 %; Neutrophils # (A) 2.9 k/uL (1.3-7.7); Neutrophils % (A) 58 %; Platelet Count 245 k/uL (150-450); RBC 3.64 m/uL (3.80-5.40); RDW 17.6 % (11.5-15.5)
--- NOTE | 2024-05-18 18:26 | XR ---
EXAMINATION TYPE: XR chest 2V DATE OF EXAM: 05/18/2024 6:19 PM COMPARISON: None. CLINICAL INDICATION: Female, 88 years old with history of Weakness, TECHNIQUE: XR chest 2V view(s) obtained. FINDINGS: The heart size is mildly prominent. The pulmonary vasculature is normal. Streaky opacities in the right upper lung field. Correlate for atelectasis. Underlying mass could be considered. This area is smaller in comparison. Continued follow-up is recommended. IMPRESSION: 1. Mild right upper lobe streaky atelectasis. Continued follow-up is recommended. 2. [facility], , 05/18/2024 6:24 PM
[2024-05-18 18:27] LABS: INR 1.8 (<1.2); Partial Thromboplastin Time 27.6 sec (22.0-30.0); Prothrombin Time 18.7 sec (10.0-12.5)
[2024-05-18 18:42] LABS: ALT 12 U/L (4-34); AST 21 U/L (14-36); African American GFR (CKD) 25 (>60 ml/min/1.73 sqM); Albumin 4.2 g/dL (3.5-5.0); Alkaline Phosphatase 95 U/L (38-126); Anion Gap 11 mmol/L; Blood Urea Nitrogen 42 mg/dL (7-17); Calcium 11.2 mg/dL (8.4-10.2); Carbon Dioxide 19 mmol/L (22-30); Chloride 109 mmol/L (98-107); Glucose 100 mg/dL (74-99); Magnesium 1.8 mg/dL (1.6-2.3); Non-African American GFR(CKD) 22 (>60 ml/min/1.73 sqM); Phosphorus 3.2 mg/dL (2.5-4.5); Potassium 5.1 mmol/L (3.5-5.1); Sodium 139 mmol/L (137-145); Total Bilirubin 0.6 mg/dL (0.2-1.3); Total Protein 6.6 g/dL (6.3-8.2)
[2024-05-18 18:50] LABS: NT-Pro-B-Type Natriuretic Pept 7650 pg/mL
[2024-05-18 18:52] LABS: Influenza A Not Detected (Not Detectd); Influenza B Not Detected (Not Detectd); RSV Not Detected (Not Detectd)
[2024-05-18] MEDS ORDERED: MORPHINE SULFATE 4 MG/ML SYRINGE IV PRN (19:22)
[2024-05-18] MEDS ORDERED: ONDANSETRON 4 MG/2 ML VIAL IVP PRN (19:22)
[2024-05-18] MEDS ORDERED: NALOXONE 0.4 MG/ML 1 ML VIAL IV PRN (19:22)
[2024-05-18] MEDS: PANTOPRAZOLE 40 MG/10 ML VIAL IV SCH (19:39)
[2024-05-18] MEDS: DEXTROSE 5%-0.45% NACL 1,000 ML IV ONE (19:41)
[2024-05-18 20:37] LABS: Appearance,Urine Clear (Clear); Bilirubin,Urine Negative (Negative); Blood,Urine Negative (Negative); Color,Urine Colorless; Glucose,Urine (UA) Negative (Negative); Ketones,Urine Negative (Negative); Leukocyte Esterase,Urine Negative (Negative); Nitrite,Urine Negative (Negative); Protein,Urine Trace (Negative); Urobilinogen,Urine <2.0 mg/dL (<2.0)
[2024-05-19 04:41] LABS: ALT 10 U/L (4-34); AST 20 U/L (14-36); African American GFR (CKD) 29 (>60 ml/min/1.73 sqM); Albumin 3.4 g/dL (3.5-5.0); Albumin/Globulin Ratio 1.5; Alkaline Phosphatase 77 U/L (38-126); Anion Gap 9 mmol/L; Blood Urea Nitrogen 36 mg/dL (7-17); Calcium 10.3 mg/dL (8.4-10.2); Carbon Dioxide 18 mmol/L (22-30); Chloride 110 mmol/L (98-107); Globulin 2.2 g/dL; Glucose 117 mg/dL (74-99); Magnesium 1.8 mg/dL (1.6-2.3); Non-African American GFR(CKD) 25 (>60 ml/min/1.73 sqM); Phosphorus 3.5 mg/dL (2.5-4.5); Potassium 4.2 mmol/L (3.5-5.1); Sodium 137 mmol/L (137-145); Total Bilirubin 0.7 mg/dL (0.2-1.3); Total Protein 5.6 g/dL (6.3-8.2)
[2024-05-19 09:24] LABS: Basophils # (A) 0.07 X 10*3/uL (0.00-0.10); Basophils % (A) 1.3 %; Eosinophils # (A) 0.33 X 10*3/uL (0.04-0.35); Eosinophils % (A) 6.2 %; HCT 29.4 % (37.2-46.3); Lymphocytes # (A) 1.51 X 10*3/uL (0.90-5.00); Lymphocytes % (A) 28.4 %; MCH 29.9 pg (27.0-32.0); MCHC 30.6 g/dL (32.0-37.0); MCV 97.7 FL (80.0-97.0); Mean Platelet Volume 11.1 FL (9.5-12.2); Monocytes # (A) 0.59 X 10*3/uL (0.20-1.00); Monocytes % (A) 11.1 %; NRBC Per 100 WBC 0 X 10*3/uL (0.00-0.01); Neutrophils # (A) 2.79 X 10*3/uL (1.80-7.70); Neutrophils % (A) 52.4 %; Platelet Count 231 X 10*3/uL (140-440); RBC 3.01 X 10*6/uL (4.10-5.20); RDW 17.8 % (11.5-14.5); WBC 5.32 X 10*3/uL (4.50-10.00)
[2024-05-19] MEDS ORDERED: DEXTROSE 50% SYRINGE 50 ML IVP PRN ×2 (10:18)
[2024-05-19] MEDS: ACETAMINOPHEN TAB 325 MG TAB PO SCH (10:22)
[2024-05-19] MEDS: carvediloL 12.5 MG TAB PO SCH (10:22)
[2024-05-19] MEDS: amLODIPine 5 MG TAB PO SCH (10:23)
[2024-05-19] MEDS: SODIUM BICARBONATE TAB 650 MG TAB PO SCH ×2 (10:23→21:23)
[2024-05-19] MEDS: CHOLECALCIFEROL 125 MCG (5000 IU) TABLET PO SCH (10:23)
[2024-05-19] MEDS: hydrALAZINE HCL 50 MG TAB PO SCH (10:23)
[2024-05-19] MEDS: SODIUM CHLORIDE 0.9% 1,000 ML IV SCH (10:24)
[2024-05-19 11:42] LABS: Glucose,Whole Blood 128 mg/dL (70-110)
--- NOTE | 2024-05-19 11:49 | P.HPIM ---
History of Present Illness H&P Date: 05/19/24 Shelley Keenan is a 88 year old female patient who presented to the ER with concerns of weakness. Patient was recently here and discharged on Monday. 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 Hemoglobin recovered and patient was discharged home patient reports she continued to have increased weakness. Patient denied any chest pain or shortness of breath. Patient denies any urinary burning or frequency. Patient denies nausea vomiting or diarrhea. Patient has a past medical history of A-fib in which she is maintained on Coumadin, coronary artery disease, I disorder, GERD, osteoarthritis. Lab work completed showing hemoglobin 11.0, white blood cell 5.0, creatinine 1.80 bun 36 did have to reinsert. UA negative influenza COVID-19 and RSV negative. Chest x-ray completed showing mild right upper lobe streaky atelectasis. Cardiomegaly. EKG completed showing sinus rhythm with first-degree AV block. At this time patient will be admitted continue IV fluid at this time. PT OT services consulted. Will also reconsult GI services and check stool for occult blood. Review of Systems Please refer to HPI otherwise unremarkable Past Medical History Past Medical History: Atrial Fibrillation, Coronary Artery Disease (CAD), Eye Disorder, GERD/Reflux, Hearing Disorder / Deafness, Hypertension, Osteoarthritis (OA), Renal Disease, Sleep Apnea/CPAP/BIPAP Additional Past Medical History / Comment(s): "leaky valves",gout, hx of shingles x2-still has pain to forhead and left eye,anemia-received blood t ransfusions and iron transfusions,hx polio-wears lifts in shoes,CHRONIC KIDNEY DISEASE -STAGE 4-no dialysis,has double vision w/out glasses, HEART MURMUR, HARD OF HEARING,no cpap History of Any Multi-Drug Resistant Organisms: None Reported Past Surgical History: Appendectomy, Cholecystectomy, Hysterectomy, Orthopedic Surgery Additional Past Surgical History / Comment(s): stents, hip sx, corrective sx for polio. O. . RIF left ankle,vein stripping rt leg,trigger fingers sx X 8, had sx on left leg r/t polio,lizzy placed to rt femur post fx,THUMB procedure,maxine cataracts,arthroscopy rt knee,heartstent x1,EGD,colonoscopy Past Anesthesia/Blood Transfusion Reactions: No Reported Reaction, Family H istory of Problems w/ Anesthesia Additional Past Anesthesia/Blood Transfusion Reaction / Comment(s): no problems w/ prior blood transfusion-last infusion August 2022. DAUGHTER B/P dropped w/ shoulder surgery & was admitted to ICU Past Psychological History: No Psychological Hx Reported Smoking Status: Never smoker Past Alcohol Use History: None Reported Additional Past Alcohol Use History / Comment(s): smoked as a teenager Past Drug Use History: None Reported - Past Family History Son(s) Family Medical History: Cancer Additional Family Medical History / Comment(s): esophageal CA Mother Family Medical History: Cancer, Myocardial Infarction (AL) Additional Family Medical History / Comment(s): thinks possibly some type of CA- had fluid retention to stomach area Sister(s) Family Medical History: Cancer, Myocardial Infarction (AL) Additional Family Medical History / Comment(s): LUEKEMIA Brother(s) Additional Family Medical History / Comment(s): Parkinson Father Family Medical History: Myocardial Infarction (AL) Medications and Allergies Home Medications Medication Instructions Recorded Confirmed Type Ferrous Sulfate [Iron] 325 mg PO HS 07/13/20 05/18/24 History allopurinoL [Zyloprim] 100 mg PO HS 07/13/20 05/18/24 History carvediloL [Coreg] 25 mg PO BID-W/MEALS 07/13/20 05/18/24 History hydrALAZINE HCL [Apresoline] 50 mg PO BID 07/13/20 05/18/24 History Furosemide [Lasix] 20 mg PO Q48H 06/14/22 05/18/24 History Sodium Bicarbonate Tab 1,300 mg PO DAILY 06/14/22 05/18/24 History Cholecalciferol [Vitamin D3 (125 125 mcg PO DAILY 08/24/22 05/18/24 History Mcg = 5000 Iu)] Acetaminophen [Tylenol 8 Hour] 650 mg PO BID 08/30/22 05/18/24 History Epoetin Sanya [Procrit] 60,000 unit IM Q21D 10/25/22 05/18/24 History Multivitamins, Thera [Multivitamin 1 tab PO DAILY 10/25/22 05/18/24 History (formulary)] Pantoprazole [Protonix] 40 mg PO DAILY 01/16/24 05/18/24 History Warfarin [Coumadin] 1.25 mg PO MOWE@1800 01/16/24 05/18/24 History Warfarin [Coumadin] 2.5 mg PO SUTUTHFRSA@1800 01/16/24 05/18/24 History amLODIPine [Norvasc] 5 mg PO DAILY 01/16/24 05/18/24 History Sodium Bicarbonate Tab 650 mg PO HS 04/30/24 05/18/24 History traMADol HCL 50 mg PO BID 04/30/24 05/18/24 History clindamycin HCL 300 mg PO TID 05/18/24 05/18/24 History Allergies Allergy/AdvReac Type Severity Reaction Status Date / Time erythromycin base Allergy Dyspnea Verified 05/18/24 18:39 levofloxacin [From Levaquin] Allergy Hallucinati Verified 05/18/24 18:39 ons metronidazole [From Flagyl] Allergy Rash/Hives Verified 05/18/24 18:39 Penicillins Allergy Rash/Hives Verified 05/18/24 18:39 Sulfa (Sulfonamide Allergy Rash/Hives Verified 05/18/24 18:39 Antibiotics) hydrocodone AdvReac Hallucinati Verified 05/18/24 18:39 ons Zpmymwr-[id number]-[id number] Reductase AdvReac "muscle Verified 05/18/24 18:39 Inhibitor pain" [[place]-Byq-Sol Reductase Inhibitor] Physical Exam Vitals: Vital Signs Temp Pulse Pulse Resp BP BP Pulse Ox 05/19/24 07:19 97.7 F 61 18 170/81 99 05/19/24 02:12 98.6 F 57 L 16 98 05/19/24 00:16 142/60 05/19/24 00:00 57 L 16 05/18/24 23:00 162/64 05/18/24 22:10 98.4 F 64 16 171/70 96 05/18/24 20:15 71 16 151/76 95 05/18/24 17:34 98 F 74 16 176/75 98 Intake and Output 05/18/24 05/19/24 05/19/24 22:59 06:59 14:59 Other: Voiding Method Bedside Commode Bedside Commode # Voids 1 1 Weight 72.575 kg Head normocephalic Neck supple Lungs clear to auscultation bilaterally no wheezing or crackles Heart regular rate and rhythm S1-S2, no rub or gallop Abdomen is soft nontender nondistended positive bowel sounds no hepatosplenomegaly Extremities no edema Neuro alert and orientated to 3 Results CBC & Chem 7: 05/19/24 03:42 05/19/24 03:42 Labs: Abnormal Lab Results - Last 24 Hours (Table) 05/18/24 05/18/24 05/18/24 Range/Units 18:07 18:07 18:14 RBC 3.64 L (3.80-5.40) m/uL Hgb 11.0 L (11.4-16.0) gm/dL Hct (37.2-46.3) % MCV (80.0-97.0) FL MCHC (32.0-37.0) g/dL RDW 17.6 H (11.5-15.5) % PT 18.7 H (10.0-12.5) sec INR 1.8 H (<1.2) Chloride 109 H (98-107) mmol/L Carbon Dioxide 19 L (22-30) mmol/L BUN 42 H (7-17) mg/dL Creatinine 2.00 H (0.52-1.04) mg/dL Glucose 100 H (74-99) mg/dL Calcium 11.2 H (8.4-10.2) mg/dL Total Protein (6.3-8.2) g/dL Albumin (3.5-5.0) g/dL Urine Protein (Negative) 05/18/24 05/19/24 05/19/24 Range/Units 20:23 03:42 03:42 RBC 3.01 L (3.80-5.40) m/uL Hgb 9.0 L (11.4-16.0) gm/dL Hct 29.4 L (37.2-46.3) % MCV 97.7 H (80.0-97.0) FL MCHC 30.6 L (32.0-37.0) g/dL RDW 17.8 H (11.5-15.5) % PT (10.0-12.5) sec INR (<1.2) Chloride 110 H (98-107) mmol/L Carbon Dioxide 18 L (22-30) mmol/L BUN 36 H (7-17) mg/dL Creatinine 1.80 H (0.52-1.04) mg/dL Glucose 117 H (74-99) mg/dL Calcium 10.3 H (8.4-10.2) mg/dL Total Protein 5.6 L (6.3-8.2) g/dL Albumin 3.4 L (3.5-5.0) g/dL Urine Protein Trace H (Negative) Thrombosis Risk Factor Assmnt - Choose All That Apply Each Factor Represents 1 point: Obesity (BMI >25) Each Risk Factor Represents 3 Points: Age 75 years or older Thrombosis Risk Factor Assessment Total Risk Factor Score: 4 Thrombosis Risk Factor Assessment Level: Moderate Risk Assessment and Plan Assessment: 1. Generalized weakness 2. Acute kidney injury 3. Left toe cellulitis continue clindamycin 4. Anemia status post recent EGD with Dr. 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 5. History of atrial fibrillation maintained on Coumadin 6. History of coronary artery disease 7. History of chronic kidney disease 8. History of essential hypertension 9. History of obstructive sleep apnea PT prophylaxis Coumadin. GI prophylax Protonix Continue IV fluid at this time consult GI services Stool for occult blood ordered PT OT services consulted Time with Patient: Greater than 30 (Greater than 60% of the total time spent in counseling and coordination of care)
[2024-05-19] MEDS: CLINDAMYCIN 150 MG CAP PO SCH (12:43)
[2024-05-19] MEDS: INSULIN LISPRO (HumaLOG) 100 UNIT/ML 10 mL VL SQ SCH (12:44)
[2024-05-19 17:08] LABS: Glucose,Whole Blood 159 mg/dL (70-110)
[2024-05-19] MEDS: WARFARIN 2.5 MG TAB PO SCH (17:12)
[2024-05-19 20:57] LABS: Glucose,Whole Blood 96 mg/dL (70-110)
[2024-05-20 04:25] LABS: INR 1.3 (<1.2)
[2024-05-20 06:23] LABS: Glucose,Whole Blood 138 mg/dL (70-110)
[2024-05-20 08:46] LABS: Basophils # (A) 0.06 X 10*3/uL (0.00-0.10); Basophils % (A) 1.2 %; Eosinophils # (A) 0.33 X 10*3/uL (0.04-0.35); Eosinophils % (A) 6.4 %; HCT 27.6 % (37.2-46.3); HGB 8.5 g/dL (12.0-15.0); Lymphocytes # (A) 1.54 X 10*3/uL (0.90-5.00); MCH 29.7 pg (27.0-32.0); MCHC 30.8 g/dL (32.0-37.0); MCV 96.5 FL (80.0-97.0); Mean Platelet Volume 11.1 FL (9.5-12.2); Monocytes # (A) 0.56 X 10*3/uL (0.20-1.00); Monocytes % (A) 10.9 %; NRBC Per 100 WBC 0 X 10*3/uL (0.00-0.01); Neutrophils # (A) 2.62 X 10*3/uL (1.80-7.70); Neutrophils % (A) 50.9 %; Platelet Count 216 X 10*3/uL (140-440); RBC 2.86 X 10*6/uL (4.10-5.20); RDW 17.7 % (11.5-14.5); WBC 5.14 X 10*3/uL (4.50-10.00)
[2024-05-20 08:47] LABS: ALT 8 U/L (8-44); AST 14 U/L (13-35); Albumin 3.5 g/dL (3.8-4.9); Albumin/Globulin Ratio 2.06 Ratio (1.60-3.17); Alkaline Phosphatase 79 U/L (41-126); BUN/Creat Ratio 14.33 Ratio (12.00-20.00); Blood Urea Nitrogen 30.1 mg/dL (9.0-27.0); Calcium 9.6 mg/dL (8.7-10.3); Carbon Dioxide 20.8 mmol/L (21.6-31.8); Chloride 111 mmol/L (96-109); Globulin 1.7 g/dL (1.6-3.3); Glucose 113 mg/dL (70-110); Potassium 4.5 mmol/L (3.5-5.5); Sodium 141 mmol/L (135-145); Total Bilirubin 0.3 mg/dL (0.3-1.2); Total Protein 5.2 g/dL (6.2-8.2)
--- NOTE | 2024-05-20 11:31 | P.CONS ---
History of Present Illness - Reason for Consult Consult date: 05/20/24 Recent EGD Requesting physician: Ron Bsuch - Chief Complaint Weakness - History of Present Illness This a pleasant 88-year-old female with a history of atrial fibrillation on warfarin, coronary artery disease status post stents, chronic kidney disease, hypertension, obstructive sleep apnea and chronic anemia who follows with Dr. Contreras from hematology. Patient was recently hospitalized with recent discharge home. Currently patient was only home for day or 2 and continued to have extreme weakness and debility so she came back in because she could not care for herself. 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 There was no active bleeding seen. Last colonoscopy was 2 years ago. Patient states she had for iron infusions during that hospitalization. She denies any abdominal pain, no nausea or vomiting. She denies any blood in her stool or black stool. Hemoglobin on admission was 11.0 likely that was hemoconcentrated as her repeat hemoglobin was 9.0 and she went home 12-05 with a hemoglobin of 8.8. Review of Systems REVIEW OF SYSTEMS: CARDIOPULMONARY: No chest pain or shortness of breath. Gastrointestinal: No abdominal pain. No nausea or vomiting. No hematemesis, coffee-ground emesis. No rectal bleeding, or melena. GENITOURINARY: No dysuria or hematuria. MUSCULOSKELETAL: Reports normal range of motion. Joint pain. SKIN: No rashes. No jaundice. ENDOCRINE: No chills, fevers. No excessive weight gain or loss. No polydipsia or polyuria. PSYCHIATRIC: Unremarkable. NEUROLOGY: No change in mental status. Denies dizziness, headache. ENT: Vision unremarkable. CONSTITUTIONAL: No recent weight loss. No fever, chills, night sweats. Overall generalized weakness. Inability to care for self. Past Medical History Past Medical History: Atrial Fibrillation, Coronary Artery Disease (CAD), Eye Disorder, GERD/Reflux, Hearing Disorder / Deafness, Hypertension, Osteoarthritis (OA), Renal Disease, Sleep Apnea/CPAP/BIPAP Additional Past Medical History / Comment(s): "leaky valves",gout, hx of shingles x2-still has pain to forhead and left eye,anemia-received blood transfusions and iron transfusions,hx polio-wears lifts in shoes,CHRONIC KIDNEY DISEASE -STAGE 4-no dialysis,has double vision w/out glasses, HEART MURMUR, HARD OF HEARING,no cpap History of Any Multi-Drug Resistant Organisms: None Reported Past Surgical History: Appendectomy, Cholecystectomy, Hysterectomy, Orthopedic Surgery Additional Past Surgical History / Comment(s): stents, hip sx, corrective sx for polio. O. . RIF left ankle,vein stripping rt leg,trigger fingers sx X 8, had sx on left leg r/t polio,lizzy placed to rt femur post fx,THUMB procedure,maxine cataracts,arthroscopy rt knee,heartstent x1,EGD,colonoscopy Past Anesthesia/Blood Transfusion Reactions: No Reported Reaction, Family History of Problems w/ Anesthesia Additional Past Anesthesia/Blood Transfusion Reaction / Comm: no problems w/ prior blood transfusion-last infusion August 2022. DAUGHTER B/P dropped w/ shoulder surgery & was admitted to ICU Past Psychological History: No Psychological Hx Reported Smoking Status: Never smoker Past Alcohol Use History: None Reported Additional Past Alcohol Use History / Comment(s): smoked as a teenager Past Drug Use History: None Reported - Past Family History Son(s) Family Medical History: Cancer Additional Family Medical History / Comment(s): esophageal CA Mother Family Medical History: Cancer, Myocardial Infarction (MA) Additional Family Medical History / Comment(s): thinks possibly some type of CA- had fluid retention to stomach area Sister(s) Family Medical History: Cancer, Myocardial Infarction (MA) Additional Family Medical History / Comment(s): LUEKEMIA Brother(s) Additional Family Medical History / Comment(s): Parkinson Father Family Medical History: Myocardial Infarction (MA) Medications and Allergies Home Medications Medication Instructions Recorded Confirmed Type Ferrous Sulfate [Iron] 325 mg PO HS 07/13/20 05/18/24 History allopurinoL [Zyloprim] 100 mg PO HS 07/13/20 05/18/24 History carvediloL [Coreg] 25 mg PO BID-W/MEALS 07/13/20 05/18/24 History hydrALAZINE HCL [Apresoline] 50 mg PO BID 07/13/20 05/18/24 History Furosemide [Lasix] 20 mg PO Q48H 06/14/22 05/18/24 History Sodium Bicarbonate Tab 1,300 mg PO DAILY 06/14/22 05/18/24 History Cholecalciferol [Vitamin D3 (125 125 mcg PO DAILY 08/24/22 05/18/24 History Mcg = 5000 Iu)] Acetaminophen [Tylenol 8 Hour] 650 mg PO BID 08/30/22 05/18/24 History Epoetin Sanya [Procrit] 60,000 unit IM Q21D 10/25/22 05/18/24 History Multivitamins, Thera [Multivitamin 1 tab PO DAILY 10/25/22 05/18/24 History (formulary)] Pantoprazole [Protonix] 40 mg PO DAILY 01/16/24 05/18/24 History Warfarin [Coumadin] 1.25 mg PO MOWE@1800 01/16/24 05/18/24 History Warfarin [Coumadin] 2.5 mg PO SUTUTHFRSA@1800 01/16/24 05/18/24 History amLODIPine [Norvasc] 5 mg PO DAILY 01/16/24 05/18/24 History Sodium Bicarbonate Tab 650 mg PO HS 04/30/24 05/18/24 History traMADol HCL 50 mg PO BID 04/30/24 05/18/24 History clindamycin HCL 300 mg PO TID 05/18/24 05/18/24 History Allergies Allergy/AdvReac Type Severity Reaction Status Date / Time erythromycin base Allergy Dyspnea Verified 05/18/24 18:39 levofloxacin [From Levaquin] Allergy Hallucinati Verified 05/18/24 18:39 ons metronidazole [From Flagyl] Allergy Rash/Hives Verified 05/18/24 18:39 Penicillins Allergy Rash/Hives Verified 05/18/24 18:39 Sulfa (Sulfonamide Allergy Rash/Hives Verified 05/18/24 18:39 Antibiotics) hydrocodone AdvReac Hallucinati Verified 05/18/24 18:39 ons Ieotaza-LHJ-RzM Reductase AdvReac "muscle Verified 05/18/24 18:39 Inhibitor pain" [Khkhltl-Joo-Nvg Reductase Inhibitor] Physical Exam Vitals: Vital Signs Temp Pulse Resp BP Pulse Ox 05/20/24 00:39 98.3 F 59 L 16 155/64 98 05/19/24 20:30 59 L 16 05/19/24 19:31 99.3 F 68 17 110/56 96 05/19/24 15:35 98.0 F 67 17 142/65 98 Intake and Output 05/19/24 05/20/24 05/20/24 22:59 06:59 14:59 Output Total 200 Balance -200 Output: Urine 200 Other: Voiding Method Toilet # Voids 1 1 General appearance: The patient is alert, oriented, appears in no acute di stress. HET: Head is normocephalic and atraumatic. Conjunctiva pink. Sclera anicteric. Neck: Supple without lymphadenopathy. Trachea midline. Heart: Regular. Lungs: Equal expansion, normal respiratory effort. Abdomen: Soft, nontender, nondistended. Skin: No rashes. No jaundice. Extremities: Normal skin color and turgor. No pedal edema. Neurological: No focal deficits. Alert and oriented x3. Results CBC & Chem 7: 05/20/24 03:32 05/20/24 03:32 Labs: Abnormal Lab Results - Last 24 Hours (Table) 05/19/24 05/19/24 05/19/24 Range/Units 03:42 11:41 17:06 RBC 3.01 L (4.10-5.20) X 10*6/uL Hgb 9.0 L (12.0-15.0) g/dL Hct 29.4 L (37.2-46.3) % MCV 97.7 H (80.0-97.0) FL MCHC 30.6 L (32.0-37.0) g/dL RDW 17.8 H (11.5-14.5) % PT (10.0-12.5) sec INR (<1.2) Chloride (96-109) mmol/L Carbon Dioxide (21.6-31.8) mmol/L BUN (9.0-27.0) mg/dL Creatinine (0.6-1.5) mg/dL Est GFR (CKD-EPI) (>=60) Glucose (70-110) mg/dL POC Glucose (mg/dL) 128 H 159 H (70-110) mg/dL Total Protein (6.2-8.2) g/dL Albumin (3.8-4.9) g/dL 05/20/24 05/20/24 05/20/24 Range/Units 03:32 03:32 03:32 RBC 2.86 L (4.10-5.20) X 10*6/uL Hgb 8.5 L (12.0-15.0) g/dL Hct 27.6 L (37.2-46.3) % MCV (80.0-97.0) FL MCHC 30.8 L (32.0-37.0) g/dL RDW 17.7 H (11.5-14.5) % PT 14.0 H (10.0-12.5) sec INR 1.3 H (<1.2) Chloride 111 H (96-109) mmol/L Carbon Dioxide 20.8 L (21.6-31.8) mmol/L BUN 30.1 H (9.0-27.0) mg/dL Creatinine 2.1 H (0.6-1.5) mg/dL Est GFR (CKD-EPI) 22 L (>=60) Glucose 113 H (70-110) mg/dL POC Glucose (mg/dL) (70-110) mg/dL Total Protein 5.2 L (6.2-8.2) g/dL Albumin 3.5 L (3.8-4.9) g/dL 05/20/24 Range/Units 06:22 RBC (4.10-5.20) X 10*6/uL Hgb (12.0-15.0) g/dL Hct (37.2-46.3) % MCV (80.0-97.0) FL MCHC (32.0-37.0) g/dL RDW (11.5-14.5) % PT (10.0-12.5) sec INR (<1.2) Chloride (96-109) mmol/L Carbon Dioxide (21.6-31.8) mmol/L BUN (9.0-27.0) mg/dL Creatinine (0.6-1.5) mg/dL Est GFR (CKD-EPI) (>=60) Glucose (70-110) mg/dL POC Glucose (mg/dL) 138 H (70-110) mg/dL Total Protein (6.2-8.2) g/dL Albumin (3.8-4.9) g/dL Assessment and Plan (1) Chronic anemia Narrative/Plan: 88-year-old female with long standing history greater than 20 years of iron deficiency anemia who follows with hematology presenting for generalized weakness. Patient was recently seen by gastroenterology and evaluation for her anemia for upper endoscopy on 05/03/2023 with findings of nonbleeding gastric antral vascular ectasia and telangiectasia status post argon plasma coagulation. Patient is denying abdominal pain, no blood in her stool or black stool. Likely we are dealing with anemia of chronic disease. No plans for any further endoscopic evaluation at this time. No need for repeat colonoscopy as it was completed 2 years ago with no abnormal findings. Current Visit: Yes Status: Acute Code(s): D64.9 - ANEMIA, UNSPECIFIED SNOMED Code(s): 648590900 (2) Gastric antral vascular ectasia Current Visit: Yes Status: Acute Code(s): K31.819 - ANGIODYSPLASIA OF STOMACH AND DUODENUM WITHOUT BLEEDING SNOMED Code(s): 01539600 (3) Debility Current Visit: Yes Status: Acute Code(s): R53.81 - OTHER MALAISE SNOMED Code(s): 57551419 (4) Weakness Current Visit: Yes Status: Acute Code(s): R53.1 - WEAKNESS SNOMED Code(s): 62411917 (5) Coronary artery disease Current Visit: No Status: Acute Code(s): I25.10 - ATHSCL HEART DISEASE OF [place] CORONARY ARTERY W/O ANG PCTRS SNOMED Code(s): 95315107 (6) 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 Continue symptomatic and supportive care 2. Iron studies ordered 3. Protonix 40 mg daily for GI prophylaxis 4. Patient had recent upper endoscopy on 05/03/2024. No plans for further endoscopic evaluation 5. Continue with medical management per primary medical team 6. Consider possible hematology consultation for chronic anemia Thank you for this consultation, we will continue to follow. Dr. Madison Mendez I agree with the dictator's note, documented as a scribe by Lu Alford.
[2024-05-20 11:55] LABS: Glucose,Whole Blood 132 mg/dL (70-110)
[2024-05-20 15:26] LABS: % Iron Saturation 34.91 (12.00-45.00)
[2024-05-20 16:42] LABS: Glucose,Whole Blood 132 mg/dL (70-110)
[2024-05-20] MEDS: WARFARIN 2.5 MG TAB PO ONE (17:38)
[2024-05-20] MEDS ORDERED: WARFARIN 1.25 MG TAB PO SCH (18:00)
[2024-05-20 21:11] LABS: Glucose,Whole Blood 155 mg/dL (70-110)
[2024-05-20] MEDS: traMADol 50 MG TAB PO SCH (23:38)
[2024-05-21 03:25] LABS: % Iron Saturation 27.59 (12.00-45.00)
[2024-05-21 04:35] LABS: INR 1.3 (<1.2); Prothrombin Time 14.2 sec (10.0-12.5)
[2024-05-21 06:07] LABS: Glucose,Whole Blood 116 mg/dL (70-110)
--- NOTE | 2024-05-21 06:42 | P.PN ---
Subjective Progress Note Date: 05/20/24 Shelley Keenan is a 88 year old female patient who presented to the ER with concerns of weakness. Patient was recently here and discharged on Monday. 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 Hemoglobin recovered and patient was discharged home patient reports she continued to have increased weakness. Patient denied any chest pain or shortness of breath. Patient denies any urinary burning or frequency. Patient denies nausea vomiting or diarrhea. Patient has a past medical history of A-fib in which she is maintained on Coumadin, coronary artery disease, I disorder, GERD, osteoarthritis. Lab work c ompleted showing hemoglobin 11.0, white blood cell 5.0, creatinine 1.80 bun 36 did have to reinsert. UA negative influenza COVID-19 and RSV negative. Chest x-ray completed showing mild right upper lobe streaky atelectasis. Cardiomegaly. EKG completed showing sinus rhythm with first-degree AV block. At this time patient will be admitted continue IV fluid at this time. PT OT services consulted. Will also reconsult GI services and check stool for occult blood. On 05/20/2024 patient was seen and examined on the medical floor she is alert and oriented x 3 in no apparent distress there is no fever or chills no headache or dizziness no chest pain no shortness of breath no cough no nausea or vomiting no abdominal pain no diarrhea and no urinary symptoms. Patient is still complaining of generalized weakness. Her hemoglobin is down to 8.5. She was evaluated by gastroenterology, no plan for repeat EGD at this time, recommendation was for hematology consult. Objective - Vital Signs Vital signs: Vital Signs Temp 97.8 F 05/20/24 08:00 Pulse 59 L 05/20/24 08:00 Resp 17 05/20/24 08:00 BP 162/70 05/20/24 08:00 Pulse Ox 98 05/20/24 08:00 FiO2 Intake & Output 05/19/24 05/20/24 05/20/24 18:59 06:59 18:59 Output Total 200 Balance -200 Output: Urine 200 Other: Voiding Method Bedside Commode Toilet # Voids 1 1 - Exam Head normocephalic Neck supple Lungs clear to auscultation bilaterally no wheezing or crackles Heart regular rate and rhythm S1-S2, no rub or gallop Abdomen is soft nontender nondistended positive bowel sounds no hepatosplenomegaly Extremities no edema Neuro alert and orientated to 3 - Labs CBC & Chem 7: 05/20/24 03:32 05/20/24 03:32 Labs: Abnormal Lab Results - Last 24 Hours (Table) 05/20/24 05/20/24 05/20/24 Range/Units 03:32 03:32 03:32 RBC 2.86 L (4.10-5.20) X 10*6/uL Hgb 8.5 L (12.0-15.0) g/dL Hct 27.6 L (37.2-46.3) % MCHC 30.8 L (32.0-37.0) g/dL RDW 17.7 H (11.5-14.5) % PT 14.0 H (10.0-12.5) sec INR 1.3 H (<1.2) Chloride 111 H (96-109) mmol/L Carbon Dioxide 20.8 L (21.6-31.8) mmol/L BUN 30.1 H (9.0-27.0) mg/dL Creatinine 2.1 H (0.6-1.5) mg/dL Est GFR (CKD-EPI) 22 L (>=60) Glucose 113 H (70-110) mg/dL POC Glucose (mg/dL) (70-110) mg/dL Transferrin (204.0-354.0) mg/dL Ferritin (10.0-291.0) ng/mL Total Protein 5.2 L (6.2-8.2) g/dL Albumin 3.5 L (3.8-4.9) g/dL Stool Occult Blood (Negative) 05/20/24 05/20/24 05/20/24 Range/Units 06:22 09:36 11:53 RBC (4.10-5.20) X 10*6/uL Hgb (12.0-15.0) g/dL Hct (37.2-46.3) % MCHC (32.0-37.0) g/dL RDW (11.5-14.5) % PT (10.0-12.5) sec INR (<1.2) Chloride (96-109) mmol/L Carbon Dioxide (21.6-31.8) mmol/L BUN (9.0-27.0) mg/dL Creatinine (0.6-1.5) mg/dL Est GFR (CKD-EPI) (>=60) Glucose (70-110) mg/dL POC Glucose (mg/dL) 138 H 132 H (70-110) mg/dL Transferrin 166.0 L (204.0-354.0) mg/dL Ferritin 392.0 H (10.0-291.0) ng/mL Total Protein (6.2-8.2) g/dL Albumin (3.8-4.9) g/dL Stool Occult Blood (Negative) 05/20/24 05/20/24 Range/Units 15:20 16:41 RBC (4.10-5.20) X 10*6/uL Hgb (12.0-15.0) g/dL Hct (37.2-46.3) % MCHC (32.0-37.0) g/dL RDW (11.5-14.5) % PT (10.0-12.5) sec INR (<1.2) Chloride (96-109) mmol/L Carbon Dioxide (21.6-31.8) mmol/L BUN (9.0-27.0) mg/dL Creatinine (0.6-1.5) mg/dL Est GFR (CKD-EPI) (>=60) Glucose (70-110) mg/dL POC Glucose (mg/dL) 132 H (70-110) mg/dL Transferrin (204.0-354.0) mg/dL Ferritin (10.0-291.0) ng/mL Total Protein (6.2-8.2) g/dL Albumin (3.8-4.9) g/dL Stool Occult Blood Positive H (Negative) Assessment and Plan Assessment: 1. Generalized weakness 2. Acute kidney injury 3. Left toe cellulitis continue clindamycin 4. Anemia status post recent EGD with Dr. 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 5. History of atrial fibrillation maintained on Coumadin 6. History of coronary artery disease 7. History of chronic kidney disease 8. History of essential hypertension 9. History of obstructive sleep apnea PT prophylaxis Coumadin. GI prophylax Protonix Continue IV fluid at this time consult GI services Stool for occult blood ordered PT OT services consulted
[2024-05-21 09:41] LABS: ALT 12 U/L (4-34); AST 19 U/L (14-36); African American GFR (CKD) 28 (>60 ml/min/1.73 sqM); Albumin 3.6 g/dL (3.5-5.0); Albumin/Globulin Ratio 1.6; Alkaline Phosphatase 69 U/L (38-126); Anion Gap 11 mmol/L; Blood Urea Nitrogen 30 mg/dL (7-17); Calcium 9.8 mg/dL (8.4-10.2); Carbon Dioxide 17 mmol/L (22-30); Chloride 110 mmol/L (98-107); Globulin 2.3 g/dL; Glucose 148 mg/dL (74-99); Non-African American GFR(CKD) 24 (>60 ml/min/1.73 sqM); Potassium 4.4 mmol/L (3.5-5.1); Sodium 138 mmol/L (137-145); Total Bilirubin 0.5 mg/dL (0.2-1.3); Total Protein 5.9 g/dL (6.3-8.2)
[2024-05-21 11:29] LABS: Glucose,Whole Blood 182 mg/dL (70-110)
--- NOTE | 2024-05-21 13:12 | P.PN ---
Subjective Progress Note Date: 05/21/24 Shelley Keenan is a 88 year old female patient who presented to the ER with concerns of weakness. Patient was recently here and discharged on Monday. 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 Hemoglobin recovered and patient was discharged home patient reports she continued to have increased weakness. Patient denied any chest pain or shortness of breath. Patient denies any urinary burning or frequency. Patient denies nausea vomiting or diarrhea. Patient has a past medical history of A-fib in which she is maintained on Coumadin, coronary artery disease, I disorder, GERD, osteoarthritis. Lab work c ompleted showing hemoglobin 11.0, white blood cell 5.0, creatinine 1.80 bun 36 did have to reinsert. UA negative influenza COVID-19 and RSV negative. Chest x-ray completed showing mild right upper lobe streaky atelectasis. Cardiomegaly. EKG completed showing sinus rhythm with first-degree AV block. At this time patient will be admitted continue IV fluid at this time. PT OT services consulted. Will also reconsult GI services and check stool for occult blood. On 05/20/2024 patient was seen and examined on the medical floor she is alert and oriented x 3 in no apparent distress there is no fever or chills no headache or dizziness no chest pain no shortness of breath no cough no nausea or vomiting no abdominal pain no diarrhea and no urinary symptoms. Patient is still complaining of generalized weakness. Her hemoglobin is down to 8.5. She was evaluated by gastroenterology, no plan for repeat EGD at this time, recommendation was for hematology consult. On 05/21/2024 patient is alert and oriented x 3. Awaiting hematology input. Creatinine improving to 1.82. Patient denies chest pain or shortness of breath. Patient is complaining about occasional nausea. Patient denies any urinary burning or frequency. Current vital signs temp 97.9, heart rate 60, respiratory rate 169/75 with a pulse ox of 97% on room air Objective - Vital Signs Vital signs: Vital Signs Temp 97.9 F 05/21/24 07:34 Pulse 57 L 05/21/24 07:34 Resp 18 05/21/24 07:34 BP 174/77 05/21/24 07:34 Pulse Ox 96 05/21/24 07:34 FiO2 Intake & Output 05/20/24 05/21/24 05/21/24 18:59 06:59 18:59 Other: # Voids 2 2 # Bowel Movements 1 - Exam Head normocephalic Neck supple Lungs clear to auscultation bilaterally no wheezing or crackles Heart regular rate and rhythm S1-S2, no rub or gallop Abdomen is soft nontender nondistended positive bowel sounds no hepa tosplenomegaly Extremities no edema Neuro alert and orientated to 3 - Labs CBC & Chem 7: 05/20/24 03:32 05/21/24 08:51 Labs: Abnormal Lab Results - Last 24 Hours (Table) 05/20/24 05/20/24 05/20/24 Range/Units 09:36 15:20 16:41 PT (10.0-12.5) sec INR (<1.2) Chloride (98-107) mmol/L Carbon Dioxide (22-30) mmol/L BUN (7-17) mg/dL Creatinine (0.52-1.04) mg/dL Glucose (74-99) mg/dL POC Glucose (mg/dL) 132 H (70-110) mg/dL TIBC (228-460) UG/DL Transferrin 166.0 L (204.0-354.0) mg/dL Ferritin 392.0 H (10.0-291.0) ng/mL Total Protein (6.3-8.2) g/dL Stool Occult Blood Positive H (Negative) 05/20/24 05/20/24 05/21/24 Range/Units 18:58 21:09 03:14 PT 14.2 H (10.0-12.5) sec INR 1.3 H (<1.2) Chloride (98-107) mmol/L Carbon Dioxide (22-30) mmol/L BUN (7-17) mg/dL Creatinine (0.52-1.04) mg/dL Glucose (74-99) mg/dL POC Glucose (mg/dL) 155 H (70-110) mg/dL TIBC 203 L (228-460) UG/DL Transferrin 145.0 L (204.0-354.0) mg/dL Ferritin (10.0-291.0) ng/mL Total Protein (6.3-8.2) g/dL Stool Occult Blood (Negative) 05/21/24 05/21/24 05/21/24 Range/Units 06:06 08:51 11:27 PT (10.0-12.5) sec INR (<1.2) Chloride 110 H (98-107) mmol/L Carbon Dioxide 17 L (22-30) mmol/L BUN 30 H (7-17) mg/dL Creatinine 1.82 H (0.52-1.04) mg/dL Glucose 148 H (74-99) mg/dL POC Glucose (mg/dL) 116 H 182 H (70-110) mg/dL TIBC (228-460) UG/DL Transferrin (204.0-354.0) mg/dL Ferritin (10.0-291.0) ng/mL Total Protein 5.9 L (6.3-8.2) g/dL Stool Occult Blood (Negative) Assessment and Plan Assessment: 1. Generalized weakness 2. Acute kidney injury 3. Left toe cellulitis continue clindamycin 4. Anemia status post recent EGD with Dr. 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 5. History of atrial fibrillation maintained on Coumadin 6. History of coronary artery disease 7. History of chronic kidney disease 8. History of essential hypertension 9. History of obstructive sleep apnea PT prophylaxis Coumadin. GI prophylax Protonix Continue IV fluid at this time consult GI services Stool for occult blood ordered PT OT services consulted
--- NOTE | 2024-05-21 14:19 | P.PN ---
Subjective Progress Note Date: 05/21/24 Principal diagnosis: Anemia This a pleasant 88-year-old female with a history of atrial fibrillation on warfarin, coronary artery disease status post stents, chronic kidney disease, hypertension, obstructive sleep apnea and chronic anemia who follows with Dr. Contreras from hematology. Patient was recently hospitalized with recent discharge home. Currently patient was only home for day or 2 and continued to have extreme weakness and debility so she came back in because she could not care for herself. 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 There was no active bleeding seen. Last colonoscopy was 2 years ago. Patient states she had for iron infusions during that hospitalization. She denies any abdominal pain, no nausea or vomiting. She denies any blood in her stool or black stool. H emoglobin on admission was 11.0 likely that was hemoconcentrated as her repeat hemoglobin was 9.0 and she went home 12-05 with a hemoglobin of 8.8. 05/21/2024 Patient is seen and examined today as a follow-up. She continues to deny any abdominal pain no blood in her stool or black stool. She has some nausea but she is relates that to her medications that are given in the hospital that are not given with food and given at alternate times. Iron studies were reviewed, not consistent with acute blood loss anemia. She did have a positive occult stool. Hemoglobin stable at 8.5 Objective - Vital Signs Vital signs: Vital Signs Temp 98.6 F 05/21/24 07:00 Pulse 60 05/21/24 07:00 Resp 16 05/21/24 07:00 BP 169/65 05/21/24 07:00 Pulse Ox 97 05/21/24 07:00 FiO2 Intake & Output 05/20/24 05/21/24 05/21/24 18:59 06:59 18:59 Other: # Voids 2 2 # Bowel Movements 1 - Exam General appearance: The patient is alert, oriented, appears in no acute distress. HET: Head is normocephalic and atraumatic. Conjunctiva pink. Sclera anicteric. Neck: Supple without lymphadenopathy. Abdomen: Soft, nontender, nondistended. Extremities: Normal skin color and turgor. No pedal edema Skin: No rashes, no jaundice Neurological: No focal deficits. Alert and oriented. - Labs CBC & Chem 7: 05/20/24 03:32 05/21/24 08:51 Labs: Abnormal Lab Results - Last 24 Hours (Table) 05/20/24 05/20/24 05/20/24 Range/Units 09:36 11:53 15:20 PT (10.0-12.5) sec INR (<1.2) POC Glucose (mg/dL) 132 H (70-110) mg/dL TIBC (228-460) UG/DL Transferrin 166.0 L (204.0-354.0) mg/dL Ferritin 392.0 H (10.0-291.0) ng/mL Stool Occult Blood Positive H (Negative) 05/20/24 05/20/24 05/20/24 Range/Units 16:41 18:58 21:09 PT (10.0-12.5) sec INR (<1.2) POC Glucose (mg/dL) 132 H 155 H (70-110) mg/dL TIBC 203 L (228-460) UG/DL Transferrin 145.0 L (204.0-354.0) mg/dL Ferritin (10.0-291.0) ng/mL Stool Occult Blood (Negative) 05/21/24 05/21/24 Range/Units 03:14 06:06 PT 14.2 H (10.0-12.5) sec INR 1.3 H (<1.2) POC Glucose (mg/dL) 116 H (70-110) mg/dL TIBC (228-460) UG/DL Transferrin (204.0-354.0) mg/dL Ferritin (10.0-291.0) ng/mL Stool Occult Blood (Negative) Assessment and Plan (1) Chronic anemia Narrative/Plan: 88-year-old female with long standing history greater than 20 years of iron deficiency anemia who follows with hematology presenting for generalized weakness. Patient was recently seen by gastroenterology and evaluation for her anemia for upper endoscopy on 05/03/2023 with findings of nonbleeding gastric antral vascular ectasia and telangiectasia status post argon plasma coagulation. Patient is denying abdominal pain, no blood in her stool or black stool. Like ly we are dealing with anemia of chronic disease. No plans for any further endoscopic evaluation at this time. No need for repeat colonoscopy as it was completed 2 years ago with no abnormal findings. Iron profile and ferritin not consistent with iron deficiency/acute blood loss anemia. Current Visit: Yes Status: Acute Code(s): D64.9 - ANEMIA, UNSPECIFIED SNOMED Code(s): 603043391 (2) Gastric antral vascular ectasia Current Visit: Yes Status: Acute Code(s): K31.819 - ANGIODYSPLASIA OF STOMA CH AND DUODENUM WITHOUT BLEEDING SNOMED Code(s): 41115642 (3) Debility Current Visit: Yes Status: Acute Code(s): R53.81 - OTHER MALAISE SNOMED Code(s): 47550186 (4) Weakness Current Visit: Yes Status: Acute Code(s): R53.1 - WEAKNESS SNOMED Code(s): 76369217 (5) Coronary artery disease Current Visit: No Status: Acute Code(s): I25.10 - ATHSCL HEART DISEASE OF [place] CORONARY ARTERY W/O ANG PCTRS SNOMED Code(s): 20766077 (6) Current use of intermediate manager anticoagulation Current Visit: No Status: Acute Priority: Medium Code(s): Z79.01 - SENIOR CARE (CURRENT) USE OF ANTICOAGULANTS SNOMED Code(s): 294878112 (7) History of atrial fibrillation Current Visit: No Status: Acute Priority: Medium Code(s): Z86.79 - PERSONAL HISTORY OF OTHER DISEASES OF THE CIRCULATORY SYSTEM SNOMED Code(s): 844441618 Plan: 1. Continue symptomatic and supportive care 2. Iron studies ordered and reviewed 3. Protonix 40 mg daily for GI prophylaxis 4. Patient had recent upper endoscopy on 05/03/2024. No plans for further endoscopic evaluation 5. Continue with medical management per primary medical team 6. Patient's hemoglobin is stable, iron studies were reviewed. Despite positive occult stool, patient is not having any signs of GI bleed. No plans for any further endoscopic evaluation. Thank you for this consultation, patient can follow-up as an outpatient as needed with gastroenterology. Dr. Madison Mendez I agree with the dictator's note, documented as a scribe by Lu Alford.
[2024-05-21] MEDS: DARBEPOETIN ALFA 40 MCG/0.4 ML SYRINGE SQ SCH (15:07)
--- NOTE | 2024-05-21 15:13 | P.CONS ---
History of Present Illness - Reason for Consult Consult date: 05/21/24 anemia Requesting physician: Ron Busch - Chief Complaint weakness - History of Present Illness Patient is a 88 year old female with a history of anemia, CKD, CAD, and atrial fibrillation anticoagulated with warfarin. Patient follows with Dr. Dave Contreras for anemia. She has required iron transfusions in the past. She is also currently on Procrit injections every three weeks, last dose on 04/30/24. Patients hgb was noted to be trending down, 7.8 on 03/18/24, 6.3 on 04/09 requiring a blood transfusion and 5.8 on 04/30, at which time pt was sent to the ER for blood transfusion and further evaluation. Iron studies drawn in November 2023 showed iron saturation 39%, ferritin 189. Paraproteinemia workup obtained at last office visit in January 2024 was negative for M spike with a normal kappa lambda ratio 1.56. An underlying bone marrow process was previously discussed but due to advanced age, comorbidities and increased risk of side effects and intolerance to chemo, bone marrow biopsy was not recommended at this time. During her admit earlier this month, her hemoglobin noted at 5.8, and received 2 units PRBCs. She received 5 doses of parenteral iron. She had EGD which found gastric ectasias that were cauterized. Patient reported last colonoscopy was approx 1.[address] Adam and showed no active bleed at that time. Hgb was stable on discharge on 05/07 at 8.8. Patient represented to the emergency room for weakness. Also reporting mild dizziness. Upon admit hemoglobin noted at 11.0. Repeat hemoglobin today 8.5. Creatinine 2.0, GFR 22, bun 42. Nutritional studies showing ferritin 392, iron saturation 27.5%, vitamin B12 612, folate 26.5. Stool occult positive. Patient denies any noted sammy blood in stool or melena. Patient is also being treated for left toe cellulitis. GI has been consulted, no plans for endoscopic evaluation at this time Review of Systems 10 point ROS is negative except as stated in the HPI Past Medical History Past Medical History: Atrial Fibrillation, Coronary Artery Disease (CAD), Eye Disorder, GERD/Reflux, Hearing Disorder / Deafness, Hypertension, Osteoarthritis (OA), Renal Disease, Sleep Apnea/CPAP/BIPAP Additional Past Medical History / Comment(s): "leaky valves",gout, hx of shingles x2-still has pain to forhead and left eye,anemia-received blood transfusions and iron transfusions,hx polio-wears lifts in shoes,CHRONIC KIDNEY DISEASE -STAGE 4-no dialysis,has double vision w/out glasses, HEART MURMUR, HARD OF HEARING,no cpap History of Any Multi-Drug Resistant Organisms: None Reported Past Surgical History: Appendectomy, Cholecystectomy, Hysterectomy, Orthopedic Surgery Additional Past Surgical History / Comment(s): stents, hip sx, corrective sx for polio. O. . RIF left ankle,vein stripping rt leg,trigger fingers sx X 8, had sx on left leg r/t polio,lizzy placed to rt femur post fx,THUMB procedure,maxine cataracts,arthroscopy rt knee,heartstent x1,EGD,colonoscopy Past Anesthesia/Blood Transfusion Reactions: No Reported Reaction, Family History of Problems w/ Anesthesia Additional Past Anesthesia/Blood Transfusion Reaction / Comm: no problems w/ prior blood transfusion-last infusion August 2022. DAUGHTER B/P dropped w/ shoulder surgery & was admitted to ICU Past Psychological History: No Psychological Hx Reported Smoking Status: Never smoker Past Alcohol Use History: None Reported Additional Past Alcohol Use History / Comment(s): smoked as a teenager Past Drug Use History: None Reported - Past Family History Son(s) Family Medical History: Cancer Additional Family Medical History / Comment(s): esophageal CA Mother Family Medical History: Cancer, Myocardial Infarction (SC) Additional Family Medical History / Comment(s): thinks possibly some type of CA- had fluid retention to stomach area Sister(s) Family Medical History: Cancer, Myocardial Infarction ([place]) Additional Family Medical History / Comment(s): LUEKEMIA Brother(s) Additional Family Medical History / Comment(s): Parkinson Father Family Medical History: Myocardial Infarction ([place]) Medications and Allergies Home Medications Medication Instructions Recorded Confirmed Type Ferrous Sulfate [Iron] 325 mg PO HS 07/13/20 05/18/24 History allopurinoL [Zyloprim] 100 mg PO HS 07/13/20 05/18/24 History carvediloL [Coreg] 25 mg PO BID-W/MEALS 07/13/20 05/18/24 History hydrALAZINE HCL [Apresoline] 50 mg PO BID 07/13/20 05/18/24 History Furosemide [Lasix] 20 mg PO Q48H 06/14/22 05/18/24 History Sodium Bicarbonate Tab 1,300 mg PO DAILY 06/14/22 05/18/24 History Cholecalciferol [Vitamin D3 (125 125 mcg PO DAILY 08/24/22 05/18/24 History Mcg = 5000 Iu)] Acetaminophen [Tylenol 8 Hour] 650 mg PO BID 08/30/22 05/18/24 History Epoetin Sanya [Procrit] 60,000 unit IM Q21D 10/25/22 05/18/24 History Multivitamins, Thera [Multivitamin 1 tab PO DAILY 10/25/22 05/18/24 History (formulary)] Pantoprazole [Protonix] 40 mg PO DAILY 01/16/24 05/18/24 History Warfarin [Coumadin] 1.25 mg PO MOWE@1800 01/16/24 05/18/24 History Warfarin [Coumadin] 2.5 mg PO SUTUTHFRSA@1800 01/16/24 05/18/24 History amLODIPine [Norvasc] 5 mg PO DAILY 01/16/24 05/18/24 History Sodium Bicarbonate Tab 650 mg PO HS 04/30/24 05/18/24 History traMADol HCL 50 mg PO BID 04/30/24 05/18/24 History clindamycin HCL 300 mg PO TID 05/18/24 05/18/24 History Allergies Allergy/AdvReac Type Severity Reaction Status Date / Time erythromycin base Allergy Dyspnea Verified 05/18/24 18:39 levofloxacin [From Levaquin] Allergy Hallucinati Verified 05/18/24 18:39 ons metronidazole [From Flagyl] Allergy Rash/Hives Verified 05/18/24 18:39 Penicillins Allergy Rash/Hives Verified 05/18/24 18:39 Sulfa (Sulfonamide Allergy Rash/Hives Verified 05/18/24 18:39 Antibiotics) hydrocodone AdvReac Hallucinati Verified 05/18/24 18:39 ons Mdzwamn-AKV-EcA Reductase AdvReac "muscle Verified 05/18/24 18:39 Inhibitor pain" [Aaileay-Jlk-Xrk Reductase Inhibitor] Physical Exam Vitals: Vital Signs Temp Pulse Resp BP Pulse Ox 05/21/24 07:34 97.9 F 57 L 18 174/77 96 05/21/24 07:00 98.6 F 60 16 169/65 97 05/21/24 00:18 97.4 F L 60 17 154/64 94 L 05/20/24 19:35 98.6 F 60 17 129/58 96 05/20/24 13:50 98.3 F 58 L 15 159/64 96 Intake and Output 05/20/24 05/21/24 05/21/24 22:59 06:59 14:59 Other: # Voids 2 2 # Bowel Movements 1 - Constitutional General appearance: average body habitus, no acute distress - EENT Eyes: anicteric sclerae, EOMI ENT: hearing grossly normal - Respiratory Respiratory: bilateral: CTA - Cardiovascular Rhythm: regular Abnormal Heart Sounds: systolic murmur - Gastrointestinal General gastrointestinal: soft, tenderness - Integumentary Integumentary: no cyanotic, no jaundiced - Musculoskeletal Musculoskeletal: generalized weakness - Psychiatric Psychiatric: A&O x's 3 Results CBC & Chem 7: 05/20/24 03:32 05/21/24 08:51 Labs: Abnormal Lab Results - Last 24 Hours (Table) 05/20/24 05/20/24 05/20/24 Range/Units 09:36 11:53 15:20 PT (10.0-12.5) sec INR (<1.2) Chloride (98-107) mmol/L Carbon Dioxide (22-30) mmol/L BUN (7-17) mg/dL Creatinine (0.52-1.04) mg/dL Glucose (74-99) mg/dL POC Glucose (mg/dL) 132 H (70-110) mg/dL TIBC (228-460) UG/DL Transferrin 166.0 L (204.0-354.0) mg/dL Ferritin 392.0 H (10.0-291.0) ng/mL Total Protein (6.3-8.2) g/dL Stool Occult Blood Positive H (Negative) 05/20/24 05/20/24 05/20/24 Range/Units 16:41 18:58 21:09 PT (10.0-12.5) sec INR (<1.2) Chloride (98-107) mmol/L Carbon Dioxide (22-30) mmol/L BUN (7-17) mg/dL Creatinine (0.52-1.04) mg/dL Glucose (74-99) mg/dL POC Glucose (mg/dL) 132 H 155 H (70-110) mg/dL TIBC 203 L (228-460) UG/DL Transferrin 145.0 L (204.0-354.0) mg/dL Ferritin (10.0-291.0) ng/mL Total Protein (6.3-8.2) g/dL Stool Occult Blood (Negative) 05/21/24 05/21/24 05/21/24 Range/Units 03:14 06:06 08:51 PT 14.2 H (10.0-12.5) sec INR 1.3 H (<1.2) Chloride 110 H (98-107) mmol/L Carbon Dioxide 17 L (22-30) mmol/L BUN 30 H (7-17) mg/dL Creatinine 1.82 H (0.52-1.04) mg/dL Glucose 148 H (74-99) mg/dL POC Glucose (mg/dL) 116 H (70-110) mg/dL TIBC (228-460) UG/DL Transferrin (204.0-354.0) mg/dL Ferritin (10.0-291.0) ng/mL Total Protein 5.9 L (6.3-8.2) g/dL Stool Occult Blood (Negative) 05/21/24 Range/Units 11:27 PT (10.0-12.5) sec INR (<1.2) Chloride (98-107) mmol/L Carbon Dioxide (22-30) mmol/L BUN (7-17) mg/dL Creatinine (0.52-1.04) mg/dL Glucose (74-99) mg/dL POC Glucose (mg/dL) 182 H (70-110) mg/dL TIBC (228-460) UG/DL Transferrin (204.0-354.0) mg/dL Ferritin (10.0-291.0) ng/mL Total Protein (6.3-8.2) g/dL Stool Occult Blood (Negative) Chest x-ray: report reviewed Assessment and Plan (1) Chronic anemia Current Visit: Yes Status: Acute Code(s): D64.9 - ANEMIA, UNSPECIFIED SNOMED Code(s): 210671662 (2) Dehydration Current Visit: Yes Status: Acute Code(s): E86.0 - DEHYDRATION SNOMED Code(s): 58739629 (3) Weakness Current Visit: Yes Status: Acute Code(s): R53.1 - WEAKNESS SNOMED Code(s): 49650344 Plan: Anemia: 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 Receives procrit every 3 weeks, last dose on 04/30/24. Patient represented with weakness. Had admission earlier this month and was found to have GI bleed and iron deficiency. Received 2 units PRBCs and 5 doses of parenteral iron during admit. Was restarted on her coumadin and hgb was stable at discharge at 8.8 -On EGD patient was found to have gastric ectasias that were likely bleeding, these have been cauterized. -Upon admit hemoglobin noted at 11.0, likely due to hemoconcentration. Creat inine 2.0, GFR 22, bun 42. Repeat hemoglobin today 8.5. -Nutritional studies showing no deficiencies. Ferritin 392, iron saturation 27.5%, vitamin B12 612, folate 26.5. -Stool occult positive. Patient denies any noted sammy blood in stool or melena. -GI has been consulted, no plans for endoscopic evaluation at this time -Pt was due for procrit today in clinic. Will give dose inpt -Continue to monitor CBC. Transfuse for hgb less than 7 attests: I have seen and examined pt, performed H&P, developed impression and plan of care. Discussed with dictator. Agree with documentation, dictated as a scribe.
[2024-05-21 15:45] LABS: Basophils # (A) 0.07 X 10*3/uL (0.00-0.10); Basophils % (A) 1.6 %; Eosinophils # (A) 0.29 X 10*3/uL (0.04-0.35); Eosinophils % (A) 6.6 %; HCT 29.7 % (37.2-46.3); HGB 9.1 g/dL (12.0-15.0); Lymphocytes # (A) 1.09 X 10*3/uL (0.90-5.00); Lymphocytes % (A) 24.7 %; MCHC 30.6 g/dL (32.0-37.0); Mean Platelet Volume 10.8 FL (9.5-12.2); Monocytes # (A) 0.38 X 10*3/uL (0.20-1.00); Monocytes % (A) 8.6 %; NRBC Per 100 WBC 0 X 10*3/uL (0.00-0.01); Neutrophils # (A) 2.56 X 10*3/uL (1.80-7.70); Platelet Count 227 X 10*3/uL (140-440); RBC 3.03 X 10*6/uL (4.10-5.20); RDW 17.6 % (11.5-14.5); WBC 4.41 X 10*3/uL (4.50-10.00)
[2024-05-21] MEDS: WARFARIN 2.5 MG TAB PO ONE (16:58)
[2024-05-21] MEDS: CALCIUM CARBONATE 500 MG CHEWABLE PO PRN (16:58)
[2024-05-21 17:00] LABS: Glucose,Whole Blood 138 mg/dL (70-110)
[2024-05-21 21:11] LABS: Glucose,Whole Blood 124 mg/dL (70-110)
[2024-05-21] MEDS: allopurinoL 100 MG TAB PO SCH (22:15)
[2024-05-22 04:41] LABS: INR 1.5 (<1.2); Prothrombin Time 15.4 sec (10.0-12.5)
[2024-05-22 05:59] LABS: Glucose,Whole Blood 113 mg/dL (70-110)
[2024-05-22 09:08] LABS: ALT 8 U/L (8-44); AST 17 U/L (13-35); Albumin 3.5 g/dL (3.8-4.9); Albumin/Globulin Ratio 2.06 Ratio (1.60-3.17); Alkaline Phosphatase 77 U/L (41-126); BUN/Creat Ratio 17.59 Ratio (12.00-20.00); Blood Urea Nitrogen 29.9 mg/dL (9.0-27.0); Calcium 10.5 mg/dL (8.7-10.3); Carbon Dioxide 20.6 mmol/L (21.6-31.8); Chloride 112 mmol/L (96-109); Globulin 1.7 g/dL (1.6-3.3); Glucose 99 mg/dL (70-110); Potassium 4.3 mmol/L (3.5-5.5); Sodium 142 mmol/L (135-145); Total Bilirubin 0.3 mg/dL (0.3-1.2); Total Protein 5.2 g/dL (6.2-8.2)
--- NOTE | 2024-05-22 10:19 | P.PN ---
Subjective Progress Note Date: 05/22/24 Principal diagnosis: Anemia This a pleasant 88-year-old female with a history of atrial fibrillation on warfarin, coronary artery disease status post stents, chronic kidney disease, hypertension, obstructive sleep apnea and chronic anemia who follows with Dr. Contreras from hematology. Patient was recently hospitalized with recent discharge home. Currently patient was only home for day or 2 and continued to have extreme weakness and debility so she came back in because she could not care for herself. 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 There was no active bleeding seen. Last colonoscopy was 2 years ago. Patient states she had for iron infusions during that hospitalization. She denies any abdominal pain, no nausea or vomiting. She denies any blood in her stool or black stool. H emoglobin on admission was 11.0 likely that was hemoconcentrated as her repeat hemoglobin was 9.0 and she went home 12-05 with a hemoglobin of 8.8. 05/21/2024 Patient is seen and examined today as a follow-up. She continues to deny any abdominal pain no blood in her stool or black stool. She has some nausea but she is relates that to her medications that are given in the hospital that are not given with food and given at alternate times. Iron studies were reviewed, not consistent with acute blood loss anemia. She did have a positive occult stool. Hemoglobin stable at 8.5 05/22/2024 Patient seen and examined today as a follow-up. She continues to have no abdominal pain, nausea or vomiting. No blood in her stool. She was seen by hematology yesterday, anemia likely secondary to chronic disease. Procrit was ordered and given. Objective - Vital Signs Vital signs: Vital Signs Temp 97.8 F 05/22/24 07: Pulse 56 L 05/22/24 07:26 Resp 19 05/22/24 07:26 BP 159/65 05/22/24 07: Pulse Ox 98 05/22/24 07:26 FiO2 Intake & Output 05/21/24 05/22/24 05/22/24 18:59 06:59 18:59 Intake Total 1080 Balance 1080 Intake: Intake, IV Titration 600 Amount Sodium Chloride 0.9% 1, 600 000 ml @ 50 mls/hr IV . Q20H [facility] Rx#:[id number] Oral 480 Other: # Voids 2 2 1 # Bowel Movements 1 - Exam General appearance: The patient is alert, oriented, appears in no acute distress. HET: Head is normocephalic and atraumatic. Conjunctiva pink. Sclera anicteric. Neck: Supple without lymphadenopathy. Abdomen: Soft, nontender, nondistended. Extremities: Normal skin color and turgor. No pedal edema Skin: No rashes, no jaundice Neurological: No focal deficits. Alert and oriented. - Labs CBC & Chem 7: 05/21/24 08:51 05/22/24 03:56 Labs: Abnormal Lab Results - Last 24 Hours (Table) 05/21/24 05/21/24 05/21/24 Range/Units 08:51 11:27 16:59 WBC 4.41 L (4.50-10.00) X 10*3/uL RBC 3.03 L (4.10-5.20) X 10*6/uL Hgb 9.1 L (12.0-15.0) g/dL Hct 29.7 L (37.2-46.3) % MCV 98.0 H (80.0-97.0) FL MCHC 30.6 L (32.0-37.0) g/dL RDW 17.6 H (11.5-14.5) % PT (10.0-12.5) sec INR (<1.2) Chloride (96-109) mmol/L Carbon Dioxide (21.6-31.8) mmol/L BUN (9.0-27.0) mg/dL Creatinine (0.6-1.5) mg/dL Est GFR (CKD-EPI) (>=60) POC Glucose (mg/dL) 182 H 138 H (70-110) mg/dL Calcium (8.7-10.3) mg/dL Total Protein (6.2-8.2) g/dL Albumin (3.8-4.9) g/dL 05/21/24 05/22/24 05/22/24 Range/Units 21:07 03:56 03:56 WBC (4.50-10.00) X 10*3/uL RBC (4.10-5.20) X 10*6/uL Hgb (12.0-15.0) g/dL Hct (37.2-46.3) % MCV (80.0-97.0) FL MCHC (32.0-37.0) g/dL RDW (11.5-14.5) % PT 15.4 H (10.0-12.5) sec INR 1.5 H (<1.2) Chloride 112 H (96-109) mmol/L Carbon Dioxide 20.6 L (21.6-31.8) mmol/L BUN 29.9 H (9.0-27.0) mg/dL Creatinine 1.7 H (0.6-1.5) mg/dL Est GFR (CKD-EPI) 29 L (>=60) POC Glucose (mg/dL) 124 H (70-110) mg/dL Calcium 10.5 H (8.7-10.3) mg/dL Total Protein 5.2 L (6.2-8.2) g/dL Albumin 3.5 L (3.8-4.9) g/dL 05/22/24 Range/Units 05:57 WBC (4.50-10.00) X 10*3/uL RBC (4.10-5.20) X 10*6/uL Hgb (12.0-15.0) g/dL Hct (37.2-46.3) % MCV (80.0-97.0) FL MCHC (32.0-37.0) g/dL RDW (11.5-14.5) % PT (10.0-12.5) sec INR (<1.2) Chloride (96-109) mmol/L Carbon Dioxide (21.6-31.8) mmol/L BUN (9.0-27.0) mg/dL Creatinine (0.6-1.5) mg/dL Est GFR (CKD-EPI) (>=60) POC Glucose (mg/dL) 113 H (70-110) mg/dL Calcium (8.7-10.3) mg/dL Total Protein (6.2-8.2) g/dL Albumin (3.8-4.9) g/dL Assessment and Plan (1) Chronic anemia Narrative/Plan: 88-year-old female with long standing history greater than 20 years of iron deficiency anemia who follows with hematology presenting for generalized weakness. Patient was recently seen by gastroenterology and evaluation for her anemia for upper endoscopy on 05/03/2023 with findings of nonbleeding gastric antral vascular ectasia and telangiectasia status post argon plasma coagulation. Patient is denying abdominal pain, no blood in her stool or black stool. Likely we are dealing with anemia of chronic disease. No plans for any further endoscopic evaluation at this time. No need for repeat colonoscopy as it was completed 2 years ago with no abnormal findings. Iron profile and ferritin not consistent with iron deficiency/acute blood loss anemia. Current Visit: Yes Status: Acute Code(s): D64.9 - ANEMIA, UNSPECIFIED SNOMED Code(s): 954531955 (2) Gastric antral vascular ectasia Current Visit: Yes Status: Acute Code(s): K31.819 - ANGIODYSPLASIA OF STOMACH AND DUODENUM WITHOUT BLEEDING SNOMED Code(s): 59726814 (3) Debility Current Visit: Yes Status: Acute Code(s): R53.81 - OTHER MALAISE SNOMED Code(s): 93228409 (4) Weakness Current Visit: Yes Status: Acute Code(s): R53.1 - WEAKNESS SNOMED Code(s): 71539644 (5) Coronary artery disease Current Visit: No Status: Acute Code(s): I25.10 - ATHSCL HEART DISEASE OF [place] CORONARY ARTERY W/O ANG PCTRS SNOMED Code(s): 54357417 (6) Current use of penitentiary anticoagulation Current Visit: No Status: Acute Priority: Medium Code(s): Z79.01 - RETIREMENT (CURRENT) USE OF ANTICOAGULANTS SNOMED Code(s): 925596020 (7) History of atrial fibrillation Current Visit: No Status: Acute Priority: Medium Code(s): Z86.79 - PERSONAL HISTORY OF OTHER DISEASES OF THE CIRCULATORY SYSTEM SNOMED Code(s): 248734621 Plan: 1. Continue symptomatic and supportive care 2. Iron studies ordered and reviewed 3. Protonix 40 mg daily for GI prophylaxis 4. Patient had recent upper endoscopy on 05/03/2024. No plans for further en doscopic evaluation 5. Continue with medical management per primary medical team 6. Patient's hemoglobin is stable, iron studies were reviewed. Despite positive occult stool, patient is not having any signs of GI bleed. No plans for any further endoscopic evaluation. 7. Continue with recommendations from hematology Thank you for this consultation, patient is cleared from gastroenterology for discharge. We will sign off at this time. Dr. Madison Mendez I agree with the dictator's note, documented as a scribe by Lu Alford.
[2024-05-22 11:38] LABS: Glucose,Whole Blood 105 mg/dL (70-110)
[2024-05-22 12:19] LABS: HGB 8.3 g/dL (12.0-15.0); MCH 29.6 pg (27.0-32.0); MCHC 30.7 g/dL (32.0-37.0); MCV 96.4 FL (80.0-97.0); Mean Platelet Volume 11.2 FL (9.5-12.2); NRBC Per 100 WBC 0 X 10*3/uL (0.00-0.01); Platelet Count 213 X 10*3/uL (140-440); RDW 17.4 % (11.5-14.5); WBC 5.46 X 10*3/uL (4.50-10.00)
[2024-05-22 12:20] LABS: Basophils # (A) 0.05 X 10*3/uL (0.00-0.10); Basophils % (A) 0.9 %; Eosinophils # (A) 0.38 X 10*3/uL (0.04-0.35); Lymphocytes # (A) 1.51 X 10*3/uL (0.90-5.00); Lymphocytes % (A) 27.7 %; Monocytes # (A) 0.56 X 10*3/uL (0.20-1.00); Monocytes % (A) 10.3 %; Neutrophils # (A) 2.94 X 10*3/uL (1.80-7.70); Neutrophils % (A) 53.7 %
[2024-05-22] MEDS: WARFARIN 2.5 MG TAB PO ONE (16:19)
[2024-05-22 17:22] LABS: Glucose,Whole Blood 124 mg/dL (70-110)
--- NOTE | 2024-05-22 17:36 | P.PN ---
Subjective Progress Note Date: 05/22/24 Shelley Keenan is a 88 year old female patient who presented to the ER with concerns of weakness. Patient was recently here and discharged on Monday. 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 Hemoglobin recovered and patient was discharged home patient reports she continued to have increased weakness. Patient denied any chest pain or shortness of breath. Patient denies any urinary burning or frequency. Patient denies nausea vomiting or diarrhea. Patient has a past medical history of A-fib in which she is maintained on Coumadin, coronary artery disease, I disorder, GERD, osteoarthritis. Lab work c ompleted showing hemoglobin 11.0, white blood cell 5.0, creatinine 1.80 bun 36 did have to reinsert. UA negative influenza COVID-19 and RSV negative. Chest x-ray completed showing mild right upper lobe streaky atelectasis. Cardiomegaly. EKG completed showing sinus rhythm with first-degree AV block. At this time patient will be admitted continue IV fluid at this time. PT OT services consulted. Will also reconsult GI services and check stool for occult blood. On 05/20/2024 patient was seen and examined on the medical floor she is alert and oriented x 3 in no apparent distress there is no fever or chills no headache or dizziness no chest pain no shortness of breath no cough no nausea or vomiting no abdominal pain no diarrhea and no urinary symptoms. Patient is still complaining of generalized weakness. Her hemoglobin is down to 8.5. She was evaluated by gastroenterology, no plan for repeat EGD at this time, recommendation was for hematology consult. On 05/21/2024 patient is alert and oriented x 3. Awaiting hematology input. Creatinine improving to 1.82. Patient denies chest pain or shortness of breath. Patient is complaining about occasional nausea. Patient denies any urinary burning or frequency. Current vital signs temp 97.9, heart rate 60, respiratory rate 169/75 with a pulse ox of 97% on room air On 05/22/2024 patient was seen and examined on the medical floor she is alert and oriented x 3 in no apparent distress there is no fever or chills no headache or dizziness no chest pain no shortness of breath no cough no nausea or vomiting no abdominal pain no diarrhea and no urinary symptoms. Hemoglobin is low at 8.3. Patient was evaluated by hematology, she received a dose of Procrit, will recheck labs in a.m. possible discharge to home tomorrow Objective - Vital Signs Vital signs: Vital Signs Temp 97.9 F 05/22/24 14:22 Pulse 61 05/22/24 14:22 Resp 17 05/22/24 14:22 BP 167/72 05/22/24 14:22 Pulse Ox 97 05/22/24 14:22 FiO2 Intake & Output 05/21/24 05/22/24 05/22/24 18:59 06:59 18:59 Intake Total 1080 Balance 1080 Intake: Intake, IV Titration 600 Amount Sodium Chloride 0.9% 1, 600 000 ml @ 50 mls/hr IV . Q20H [facility] Rx#:[id number] Oral 480 Other: # Voids 2 2 1 # Bowel Movements 1 - Exam Head normocephalic Neck supple Lungs clear to auscultation bilaterally no wheezing or crackles Heart regular rate and rhythm S1-S2, no rub or gallop Abdomen is soft nontender nondistended positive bowel sounds no hepatosplenomegaly Extremities no edema Neuro alert and orientated to 3 - Labs CBC & Chem 7: 05/22/24 03:56 05/22/24 03:56 Labs: Abnormal Lab Results - Last 24 Hours (Table) 05/21/24 05/22/24 05/22/24 Range/Units 21:07 03:56 03:56 RBC 2.80 L (4.10-5.20) X 10*6/uL Hgb 8.3 L (12.0-15.0) g/dL Hct 27.0 L (37.2-46.3) % MCHC 30.7 L (32.0-37.0) g/dL RDW 17.4 H (11.5-14.5) % Eosinophils # 0.38 H (0.04-0.35) X 10*3/uL PT 15.4 H (10.0-12.5) sec INR 1.5 H (<1.2) Chloride (96-109) mmol/L Carbon Dioxide (21.6-31.8) mmol/L BUN (9.0-27.0) mg/dL Creatinine (0.6-1.5) mg/dL Est GFR (CKD-EPI) (>=60) POC Glucose (mg/dL) 124 H (70-110) mg/dL Calcium (8.7-10.3) mg/dL Total Protein (6.2-8.2) g/dL Albumin (3.8-4.9) g/dL 05/22/24 05/22/24 05/22/24 Range/Units 03:56 05:57 17:21 RBC (4.10-5.20) X 10*6/uL Hgb (12.0-15.0) g/dL Hct (37.2-46.3) % MCHC (32.0-37.0) g/dL RDW (11.5-14.5) % Eosinophils # (0.04-0.35) X 10*3/uL PT (10.0-12.5) sec INR (<1.2) Chloride 112 H (96-109) mmol/L Carbon Dioxide 20.6 L (21.6-31.8) mmol/L BUN 29.9 H (9.0-27.0) mg/dL Creatinine 1.7 H (0.6-1.5) mg/dL Est GFR (CKD-EPI) 29 L (>=60) POC Glucose (mg/dL) 113 H 124 H (70-110) mg/dL Calcium 10.5 H (8.7-10.3) mg/dL Total Protein 5.2 L (6.2-8.2) g/dL Albumin 3.5 L (3.8-4.9) g/dL Assessment and Plan Assessment: 1. Generalized weakness 2. Acute kidney injury 3. Left toe cellulitis continue clindamycin 4. Anemia status post recent EGD with Dr. 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 5. History of atrial fibrillation maintained on Coumadin 6. History of coronary artery disease 7. History of chronic kidney disease 8. History of essential hypertension 9. History of obstructive sleep apnea PT prophylaxis Coumadin. GI prophylax Protonix Continue IV fluid at this time consult GI services Stool for occult blood ordered PT OT services consulted
[2024-05-22 20:38] LABS: Glucose,Whole Blood 186 mg/dL (70-110)
[2024-05-23 03:11] VITALS: PULSE 61
[2024-05-23 05:22] LABS: INR 1.7 (<1.2); Prothrombin Time 17.1 sec (10.0-12.5)
[2024-05-23 06:20] LABS: Glucose,Whole Blood 117 mg/dL (70-110)
[2024-05-23 09:09] VITALS: BP 169/62; RESP 17; TEMP 97.5
[2024-05-23 10:33] LABS: Basophils # (A) 0.06 X 10*3/uL (0.00-0.10); Basophils % (A) 1.3 %; Eosinophils # (A) 0.33 X 10*3/uL (0.04-0.35); Eosinophils % (A) 7.1 %; HCT 26.1 % (37.2-46.3); HGB 8.1 g/dL (12.0-15.0); Lymphocytes # (A) 1.33 X 10*3/uL (0.90-5.00); Lymphocytes % (A) 28.8 %; MCH 29.9 pg (27.0-32.0); MCV 96.3 FL (80.0-97.0); Monocytes # (A) 0.49 X 10*3/uL (0.20-1.00); Monocytes % (A) 10.6 %; NRBC Per 100 WBC 0 X 10*3/uL (0.00-0.01); Neutrophils # (A) 2.37 X 10*3/uL (1.80-7.70); Neutrophils % (A) 51.3 %; Platelet Count 205 X 10*3/uL (140-440); RBC 2.71 X 10*6/uL (4.10-5.20); RDW 17.7 % (11.5-14.5); WBC 4.62 X 10*3/uL (4.50-10.00)
[2024-05-23 10:51] LABS: ALT 8 U/L (8-44); AST 15 U/L (13-35); Albumin 3.4 g/dL (3.8-4.9); Albumin/Globulin Ratio 1.89 Ratio (1.60-3.17); Alkaline Phosphatase 75 U/L (41-126); BUN/Creat Ratio 18.06 Ratio (12.00-20.00); Blood Urea Nitrogen 30.7 mg/dL (9.0-27.0); Calcium 10.4 mg/dL (8.7-10.3); Carbon Dioxide 21.5 mmol/L (21.6-31.8); Chloride 112 mmol/L (96-109); Globulin 1.8 g/dL (1.6-3.3); Glucose 105 mg/dL (70-110); Potassium 4.5 mmol/L (3.5-5.5); Sodium 143 mmol/L (135-145); Total Bilirubin <0.2 mg/dL (0.3-1.2); Total Protein 5.2 g/dL (6.2-8.2)
[2024-05-23 11:24] LABS: Glucose,Whole Blood 110 mg/dL (70-110)
--- NOTE | 2024-05-23 12:56 | P.DS ---
Providers Date of admission: 05/21/24 09:42 Expected date of discharge: 05/23/24 Attending physician: Ron Busch Consults: 05/20/24 17:16 Consult Physician Routine Consulting Provider: Efrain Mario Consult Reason/Comments: anemia Do you want consulting provider notified?: Yes Primary care physician: Ron [facility] Course: Discharge diagnosis 1. Generalized weakness 2. Acute kidney injury 3. Left toe cellulitis continue clindamycin 4. Anemia status post recent EGD with Dr. 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 5. History of atrial fibrillation maintained on Coumadin 6. History of coronary artery disease 7. History of chronic kidney disease 8. History of essential hypertension 9. History of obstructive sleep apnea Hospital course Shelley Keenan is a 88 year old female patient who presented to the ER with concerns of weakness. Patient was recently here and discharged on Monday. 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 Hemoglobin recovered and patient was discharged home patient reports she continued to have increased weakness. Patient denied any chest pain or shortness of breath. Patient denies any urinary burning or frequency. Patient denies nausea vomiting or diarrhea. Patient has a past medical history of A-fib in which she is maintained on Coumadin, coronary artery disease, I disorder, GERD, osteoarthritis. Lab work completed showing hemoglobin 11.0, white blood cell 5.0, creatinine 1.80 bun 36 did have to reinsert. UA negative influenza COVID-19 and RSV negative. Chest x-ray completed showing mild right upper lobe streaky atelectasis. Cardiomegaly. EKG completed showing sinus rhythm with first-degree AV block. At this time patient will be admitted continue IV fluid at this time. PT OT services consulted. Will also reconsult GI services and check stool for occult blood. On 05/20/2024 patient was seen and examined on the medical floor she is alert and oriented x 3 in no apparent distress there is no fever or chills no headache or dizziness no chest pain no shortness of breath no cough no nausea or vomiting no abdominal pain no diarrhea and no urinary symptoms. Patient is still complaining of generalized weakness. Her hemoglobin is down to 8.5. She was evaluated by gastroenterology, no plan for repeat EGD at this time, recommendation was for hematology consult. On 05/21/2024 patient is alert and oriented x 3. Awaiting hematology input. Creatinine improving to 1.82. Patient denies chest pain or shortness of breath. Patient is complaining about occasional nausea. Patient denies any urinary burning or frequency. Current vital signs temp 97.9, heart rate 60, respiratory rate 169/75 with a pulse ox of 97% on room air On 05/22/2024 patient was seen and examined on the medical floor she is alert and oriented x 3 in no apparent distress there is no fever or chills no headache or dizziness no chest pain no shortness of breath no cough no nausea or vomiting no abdominal pain no diarrhea and no urinary symptoms. Hemoglobin is low at 8.3. Patient was evaluated by hematology, she received a dose of Procrit, will recheck labs in a.m. possible discharge to home tomorrow. 05/23/2024 patient is alert and oriented x 3. Patient would like to be discharged home today to follow-up appointment tomorrow. Hemoglobin 8.1 patient was evaluated by hematology services and GI no further workup at this time Patient Condition at Discharge: Stable Plan - Discharge Summary New Discharge Prescriptions: Continue Ferrous Sulfate [Iron] 325 mg PO HS carvediloL [Coreg] 25 mg PO BID-W/MEALS Furosemide [Lasix] 20 mg PO Q48H Sodium Bicarbonate Tab 1,300 mg PO DAILY Acetaminophen [Tylenol 8 Hour] 650 mg PO BID Pantoprazole [Protonix] 40 mg PO DAILY Warfarin [Coumadin] 2.5 mg PO SUTUTHFRSA@1800 traMADol HCL 50 mg PO BID Sodium Bicarbonate Tab 650 mg PO HS clindamycin HCL 300 mg PO TID hydrALAZINE HCL [Apresoline] 50 mg PO BID allopurinoL [Zyloprim] 100 mg PO HS Cholecalciferol [Vitamin D3 (125 Mcg = 5000 Iu)] 125 mcg PO DAILY Multivitamins, Thera [Multivitamin (formulary)] 1 tab PO DAILY Epoetin Sanya [Procrit] 60,000 unit IM Q21D amLODIPine [Norvasc] 5 mg PO DAILY Warfarin [Coumadin] 1.25 mg PO MOWE@1800 Discharge Medication List Ferrous Sulfate [Iron] 325 mg PO HS 07/13/20 [History] allopurinoL [Zyloprim] 100 mg PO HS 07/13/20 [History] carvediloL [Coreg] 25 mg PO BID-W/MEALS 07/13/20 [History] hydrALAZINE HCL [Apresoline] 50 mg PO BID 07/13/20 [History] Furosemide [Lasix] 20 mg PO Q48H 06/14/22 [History] Sodium Bicarbonate Tab 1,300 mg PO DAILY 06/14/22 [History] Cholecalciferol [Vitamin D3 (125 Mcg = 5000 Iu)] 125 mcg PO DAILY 08/24/22 [History] Acetaminophen [Tylenol 8 Hour] 650 mg PO BID 08/30/22 [History] Epoetin Sanya [Procrit] 60,000 unit IM Q21D 10/25/22 [History] Multivitamins, Thera [Multivitamin (formulary)] 1 tab PO DAILY 10/25/22 [His tory] Pantoprazole [Protonix] 40 mg PO DAILY 01/16/24 [History] Warfarin [Coumadin] 1.25 mg PO MOWE@1800 01/16/24 [History] Warfarin [Coumadin] 2.5 mg PO SUTUTHFRSA@1800 01/16/24 [History] amLODIPine [Norvasc] 5 mg PO DAILY 01/16/24 [History] Sodium Bicarbonate Tab 650 mg PO HS 04/30/24 [History] traMADol HCL 50 mg PO BID 04/30/24 [History] clindamycin HCL 300 mg PO TID 05/18/24 [History] Follow up Appointment(s)/Referral(s): [facility], [NON-STAFF] - As Needed ([facility] will call you to schedule your in home nursing and home health cna visits. ) Ron Busch MD [Primary Care Provider] - 1-2 days Discharge Disposition: HOME SELF-CARE
[2024-05-23] MEDS ORDERED: WARFARIN 2.5 MG TAB PO ONE (18:00)
== END 2024-05-23 13:28 | disposition home or self-care (01) | DRG 684 ==
LOC: EC 17:33 → 4SSUR 19:22 → OBSVTOIN 05-21 09:42
PROVIDERS: ADMIT Internal Medicine; ATTEND Internal Medicine
DX: N17.9 Acute kidney failure, unspecified (principal); D63.1 Anemia in chronic kidney disease; I48.91 Unspecified atrial fibrillation; G47.33 Obstructive sleep apnea (adult) (pediatric); E86.0 Dehydration; I13.10 Hypertensive heart and chronic kidney disease without heart failure, with stage 1 through stage 4 chronic kidney disease, or unspecified chronic kidney disease; N18.9 Chronic kidney disease, unspecified; Z11.52 Encounter for screening for COVID-19; I25.10 Atherosclerotic heart disease of native coronary artery without angina pectoris; L03.032 Cellulitis of left toe; M19.90 Unspecified osteoarthritis, unspecified site; S42.92XD Fracture of left shoulder girdle, part unspecified, subsequent encounter for fracture with routine healing; M10.9 Gout, unspecified; K31.819 Angiodysplasia of stomach and duodenum without bleeding; H91.90 Unspecified hearing loss, unspecified ear; I44.0 Atrioventricular block, first degree; K55.20 Angiodysplasia of colon without hemorrhage; Z79.01 Long term (current) use of anticoagulants; Z79.899 Other long term (current) drug therapy; Z82.49 Family history of ischemic heart disease and other diseases of the circulatory system; Z86.12 Personal history of poliomyelitis; Z86.19 Personal history of other infectious and parasitic diseases; Z90.710 Acquired absence of both cervix and uterus; Z95.5 Presence of coronary angioplasty implant and graft; Z86.79 Personal history of other diseases of the circulatory system; Z88.1 Allergy status to other antibiotic agents; Z88.0 Allergy status to penicillin; Z88.8 Allergy status to other drugs, medicaments and biological substances; Z87.19 Personal history of other diseases of the digestive system; Z98.42 Cataract extraction status, left eye; Z98.41 Cataract extraction status, right eye; Z88.2 Allergy status to sulfonamides
CPT/HCPCS: 36415; 71046; 80053; 81003; 82272; 82607; 82728; 82746; 83036; 83540; 83550; 83605; 83735; 83880; 84100; 84443; 84484; 85025; 85610; 85730; 87636; 93005; 96360; 99285

== ENCOUNTER 2024-07-30 14:56 | Inpatient (IN) | payer MEDICARE, BC ==
[2024-07-30] MEDS: ASPIRIN 81 MG PO STA (15:31)
[2024-07-30] MEDS: NITROGLYCERIN OINT 1 INCH/GM PACKET TOPICAL STA (15:33)
[2024-07-30 15:46] LABS: Basophils # (A) 0.04 10*3/uL (0.00-0.10); Basophils % (A) 0.6 %; Eosinophils # (A) 0.22 10*3/uL (0.04-0.35); Eosinophils % (A) 3.5 %; HCT 21.6 % (37.2-46.3); Lymphocytes # (A) 0.99 10*3/uL (0.90-5.00); Lymphocytes % (A) 15.6 %; MCH 31.5 pg (27.0-32.0); MCHC 32.4 g/dL (32.0-37.0); MCV 97.3 fL (80.0-97.0); Monocytes # (A) 0.59 10*3/uL (0.20-1.00); Monocytes % (A) 9.3 %; Neutrophils # (A) 4.39 10*3/uL (1.80-7.70); Neutrophils % (A) 69.4 %; Platelet Count 283 10*3/uL (140-440); RBC 2.22 10*6/uL (4.10-5.20); RDW 18.5 % (11.5-14.5); WBC 6.33 10*3/uL (4.50-10.00)
--- NOTE | 2024-07-30 15:48 | XR ---
EXAMINATION TYPE: XR chest 2V DATE OF EXAM: 07/30/2024 3:43 PM COMPARISON: Chest radiographs from 05/18/2024 TECHNIQUE: XR chest 2V Frontal and lateral views of the chest. CLINICAL INDICATION:Female, 89 years old with history of difficulty breathing; FINDINGS: Lungs/Pleura: Trace bilateral pleural effusions. No focal consolidation or pneumothorax. Similar line ar scarring within the right upper lung. Hyperinflation with flattening of the hemidiaphragms. Pulmonary vascularity: Mild pulmonary vascular congestion. Heart/mediastinum: Cardiomediastinal silhouette is enlarged and stable. Atherosclerotic calcificatio ns are seen in the aorta. Musculoskeletal: No acute osseous pathology. IMPRESSION: 1. Cardiomegaly, pulmonary vascular congestion and trace bilateral pleural effusions. Correlate with BNP for congestive heart failure. 2. COPD changes. [facility], , 07/30/2024 3:45 PM
--- NOTE | 2024-07-30 15:50 | ED ---
General Adult HPI - General Chief complaint: Shortness of Breath Stated complaint: SOB Time Seen by Provider: 07/30/24 15:05 Source: patient, EMS, RN notes reviewed, old records reviewed Mode of arrival: EMS Limitations: no limitations - History of Present Illness Initial comments: This is an 89-year-old female who presents to the emergency department stating that for the last couple of days she has been having shortness of breath and it is getting worse. Patient states she is also been experiencing chest pain and it gets particularly worse with exertion as does her short of breath. Patient denies any fever chills or cough. Patient denies any abdominal pain patient denies any nausea vomiting. Patient states she is in need of valve replacement. Patient also has a history of atrial fibrillation and is on Coumadin. Patient also has had cardiac stents. Patient states she recently got a unit of blood for her chronic anemia. - Related Data Home Medications Medication Instructions Recorded Confirmed Ferrous Sulfate [Iron] 325 mg PO HS 07/13/20 07/26/24 allopurinoL [Zyloprim] 100 mg PO HS 07/13/20 07/26/24 carvediloL [Coreg] 25 mg PO BID-W/MEALS 07/13/20 07/26/24 hydrALAZINE HCL [Apresoline] 50 mg PO BID 07/13/20 07/26/24 Furosemide [Lasix] 20 mg PO Q48H 06/14/22 07/26/24 Sodium Bicarbonate Tab 1,300 mg PO DAILY 06/14/22 07/26/24 Cholecalciferol [Vitamin D3 (125 125 mcg PO DAILY 08/24/22 07/26/24 Mcg = 5000 Iu)] Acetaminophen [Tylenol 8 Hour] 650 mg PO BID 08/30/22 07/26/24 Epoetin Sanya [Procrit] 60,000 unit IM Q21D 10/25/22 07/26/24 Multivitamins, Thera [Multivitamin 1 tab PO DAILY 10/25/22 07/26/24 (formulary)] Pantoprazole [Protonix] 40 mg PO DAILY 01/16/24 07/26/24 Warfarin [Coumadin] 1.25 mg PO MOWE@1800 01/16/24 07/26/24 Warfarin [Coumadin] 2.5 mg PO SUTUTHFRSA@1800 01/16/24 07/26/24 amLODIPine [Norvasc] 5 mg PO DAILY 01/16/24 07/26/24 Sodium Bicarbonate Tab 650 mg PO HS 04/30/24 07/26/24 traMADol HCL 50 mg PO BID 04/30/24 07/26/24 clindamycin HCL 300 mg PO TID 05/18/24 07/26/24 Allergies Allergy/AdvReac Type Severity Reaction Status Date / Time erythromycin base Allergy Dyspnea Verified 07/30/24 15:06 levofloxacin [From Levaquin] Allergy Hallucinati Verified 07/30/24 15:06 ons metronidazole [From Flagyl] Allergy Rash/Hives Verified 07/30/24 15:06 Penicillins Allergy Rash/Hives Verified 07/30/24 15:06 Sulfa (Sulfonamide Allergy Rash/Hives Verified 07/30/24 15:06 Antibiotics) hydrocodone AdvReac Hallucinati Verified 07/30/24 15:06 ons [id number] Reductase AdvReac "muscle Verified 07/30/24 15:06 Inhibitor pain" [Qupqfbs-Izz-Vut Reductase Inhibitor] Review of Systems ROS Statement: Those systems with pertinent positive or pertinent negative responses have been documented in the HPI. ROS Other: All systems not noted in ROS Statement are negative. Past Medical History Past Medical History: Atrial Fibrillation, Coronary Artery Disease (CAD), Eye Disorder, GERD/Reflux, Hearing Disorder / Deafness, Hypertension, Osteoarthritis (OA), Renal Disease, Sleep Apnea/CPAP/BIPAP Additional Past Medical History / Comment(s): "leaky valves",gout, hx of shingles x2-still has pain to forhead and left eye,anemia-received blood transfusions and iron transfusions,hx polio-wears lifts in shoes,CHRONIC KIDNEY DISEASE -STAGE 4-no dialysis,has double vision w/out glasses, HEART MURMUR, HARD OF HEARING,no cpap History of Any Multi-Drug Resistant Organisms: None Reported Past Surgical History: Appendectomy, Cholecystectomy, Hysterectomy, Orthopedic Surgery Additional Past Surgical History / Comment(s): O. . RIF left ankle,vein stripp ing rt leg,trigger fingers sx X 8, had sx on left leg r/t polio,lizzy placed to rt femur post fx,THUMB procedure,maxine cataracts,arthroscopy rt knee,heartstent x1,EGD,colonoscopy Past Anesthesia/Blood Transfusion Reactions: No Reported Reaction, Family History of Problems w/ Anesthesia Additional Past Anesthesia/Blood Transfusion Reaction / Comment(s): no problems w/ prior blood transfusion-last infusion August 2022. DAUGHTER B/P dropped w/ shoulder surgery & was admitted to ICU Past Psychological History: No Psychological Hx Reported Smoking Status: Former smoker Past Alcohol Use History: None Reported Past Drug Use History: None Reported - Past Family History Son(s) Family Medical History: Cancer Additional Family Medical History / Comment(s): esophageal CA Mother Family Medical History: Cancer, Myocardial Infarction (MD) Additional Family Medical History / Comment(s): thinks possibly some type of CA- had fluid retention to stomach area Sister(s) Family Medical History: Cancer, Myocardial Infarction (MD) Additional Family Medical History / Comment(s): LUEKEMIA Brother(s) Additional Family Medical History / Comment(s): Parkinson Father Family Medical History: Myocardial Infarction (MD) General Exam - General Exam Comments Initial Comments: GENERAL: Patient is well-developed and well-nourished. Patient is nontoxic and well- hydrated and is in mild distress. ENT: Neck is soft and supple. No significant lymphadenopathy is noted. Oropharynx is clear. Moist mucous membranes. Neck has full range of motion without eliciting any pain. EYES: The sclera were anicteric and conjunctiva were pink and moist. Extraocular movements were intact and pupils were equal round and reactive to light. Eyelids were unremarkable. PULMONARY: Unlabored respirations. Good breath sounds bilaterally. No audible rales rhonchi or wheezing was noted. CARDIOVASCULAR: There is a regular rate and rhythm without any murmurs gallops or rubs. ABDOMEN: Soft and nontender with normal bowel sounds. SKIN: Skin is clear with no lesions or rashes and otherwise unremarkable. NEUROLOGIC: Patient is alert and oriented x3. Cranial nerves II through XII are grossly intact. Motor and sensory are also intact. Normal speech, volume and content. Symmetrical smile. MUSCULOSKELETAL: Normal extremities with adequate strength and full range of motion. No lower extremity swelling or edema. No calf tenderness. LYMPHATICS: No significant lymphadenopathy is noted PSYCHIATRIC: Normal psychiatric evaluation. Limitations: no limitations Course Vital Signs 07/30/24 07/30/24 15:02 16:34 Temperature 98.2 F Pulse Rate 62 62 Respiratory 20 20 Rate Blood Pressure 160/68 153/66 O2 Sat by Pulse 99 96 Oximetry Medical Decision Making - Medical Decision Making EKG is interpreted by myself. KG shows a sinus rhythm at 62 bpm CA interval 244 QRS is 106 QT interval is 417 QTc is 423. Patient's EKG shows Q waves anteriorly in V1 V2 and V3 Was pt. sent in by a medical professional or institution (, CLARICE, SAW OPERATOR, urgent care, hospital, or alf...) When possible be specific @ -No Did you speak to anyone other than the patient for history (EMS, parent, family, police, friend...)? What history was obtained from this source @ -No Did you review nursing and triage notes (agree or disagree)? Why? @ -I reviewed and agree with nursing and triage notes Were old charts reviewed (outside hosp., previous admission, EMS record, old EKG, old radiological studies, urgent care reports/EKG's, alf records)? Report findings @ -No old charts were reviewed Differential Diagnosis? @ -Differential Chest Pain: Stable Angina, Unstable Angina, STEMI, NSTEMI Aortic Dissection, Pneumothorax, Musculoskeletal, Esophageal Spasm GERD, Cholecystitis, Pancreatitis, Zoster, t his is not meant to be an all-inclusive list. Differential Dyspnea: Coronary syndrome, arrhythmia, tamponade, asthma, COPD, pulmonary embolism, pneumonia, pneumothorax, pulmonary effusion, anaphylaxis, diabetic ketoacidosis, flailed chest, pulmonary contusion, diaphragmatic rupture, anemia, neuromu scular, this is not meant to be an all-inclusive list. EKG interpreted by me (3pts min.). @ -As above X-rays interpreted by me (1pt min.). @ -Chest x-ray shows pulmonary edema CT interpreted by me (1pt min.). @ -None done U/S interpreted by me (1pt. min.). @ -None done What testing was considered but not performed or refused? (CT, X-rays, U/S, labs)? Why? @ -None What meds were considered but not given or refused? Why? @ -None Did you discuss the management of the patient with other professionals (professionals i.e. , CLARICE, SAW OPERATOR, lab, RT, psych nurse, social science instructor, research lab assistant, teacher, veterans service officer, director case)? Give summary @ -I spoke with Dr. Busch he agreed to admit the patient admit the patient wrote admitting orders Was smoking cessation discussed for >3mins.? @ -No Was critical care preformed (if so, how long)? @ -35 minutes Were there social determinants of health that impacted care today? How? (Homelessness, low income, unemployed, alcoholism, drug addiction, transportation, low edu. Level, literacy, decrease access to med. care, [facility] [facility], rehab)? @ -No Was there de-escalation of care discussed even if they declined (Discuss DNR or withdrawal of care, Hospice)? DNR status @ -No What co-morbidities impacted this encounter? (DM, HTN, Smoking, COPD, CAD, Cancer, CVA, ARF, Chemo, Hep., AIDS, mental health diagnosis, sleep apnea, morbid obesity)? @ -None Was patient admitted / discharged? Hospital course, mention meds given and route, prescriptions, significant lab abnormalities, going to OR and other pertinent info. @ -Patient's hemoglobin was 7.0 and I gave her 1 unit of packed red blood cells because of the symptomatic dyspnea and chest pain. Patient's chest x-ray showed pulmonary edema. Patient received Lasix for this. Patient also had chest pain so she will be admitted with repeat troponins and be placed on aspirin and Nitropaste. Consult will be placed for cardiology Undiagnosed new problem with uncertain prognosis? @ -No Drug Therapy requiring intensive monitoring for toxicity (Heparin, Nitro, Insulin, Cardizem)? @ -No Were any procedures done? @ -No Diagnosis/symptom? @ -Chest pain Acute, or Chronic, or Acute on Chronic? @ -Acute Uncomplicated (without systemic symptoms) or Complicated (systemic symptoms)? @ -Complicated Side effects of treatment? @ -No Exacerbation, Progression, or Severe Exacerbation? @ -No Poses a threat to life or bodily function? How? (Chest pain, USA, MD, pneumonia, PE, COPD, DKA, ARF, appy, cholecystitis, CVA, Diverticulitis, Homicidal, Suicidal, threat to staff... and all critical care pts) @ -Yes this can lead to an MD and endorgan dysfunction Diagnosis/symptom? @ -Pulmonary edema Acute, or Chronic, or Acute on Chronic? @ -Acute Uncomplicated (without systemic symptoms) or Complicated (systemic symptoms)? @ -Complicated Side effects of treatment? @ -None Exacerbation, Progression, or Severe Exacerbation] @ -No Poses a threat to life or bodily function? @ -Yes this can lead to hypoxia and endorgan dysfunction Diagnosis/symptom? @ -Anemia Acute, or Chronic, or Acute on Chronic? @ -Acute on chronic Uncomplicated (without systemic symptoms) or Complicated (systemic symptoms)? @ -Complicated Side effects of treatment? @ -None Exacerbation, Progression, or Severe Exacerbation] @ -No Poses a threat to life or bodily function? @ -Yes this can lead to hypoxia and endorgan dysfunction - Lab Data Result diagrams: 07/30/24 15:27 07/30/24 15:27 Lab Results 07/30/24 07/30/24 07/30/24 Range/Units 15:27 15:27 15:27 WBC 6.33 (4.50-10.00) 10*3/uL RBC 2.22 L (4.10-5.20) 10*6/uL Hgb 7.0 L (12.0-15.0) g/dL Hct 21.6 L (37.2-46.3) % MCV 97.3 H (80.0-97.0) fL MCH 31.5 (27.0-32.0) pg MCHC 32.4 (32.0-37.0) g/dL Plt Count 283 (140-440) 10*3/uL MPV 10.0 (9.5-12.2) fL Immature Gran % (Auto) 1.6 % Neutrophils % 69.4 % Lymphocytes % 15.6 % Monocytes % 9.3 % Eosinophils % 3.5 % Basophils % 0.6 % Immature Gran # 0.10 H (0.00-0.04) 10*3/uL Neutrophils # 4.39 (1.80-7.70) 10*3/uL Lymphocytes # 0.99 (0.90-5.00) 10*3/uL Monocytes # 0.59 (0.20-1.00) 10*3/uL Eosinophils # 0.22 (0.04-0.35) 10*3/uL Basophils # 0.04 (0.00-0.10) 10*3/uL PT 20.2 H (10.0-12.5) sec INR 2.0 H (<1.2) APTT 31.3 H (22.0-30.0) sec D-Dimer 0.18 (<0.60) mg/L FEU Sodium 140 (137-145) mmol/L Potassium 4.4 (3.5-5.1) mmol/L Chloride 112 H (98-107) mmol/L Carbon Dioxide 18 L (22-30) mmol/L Anion Gap 10 mmol/L BUN 40 H (7-17) mg/dL Creatinine 2.01 H (0.52-1.04) mg/dL Est GFR (CKD-EPI)AfAm 25 (>60 ml/min/1.73 sqM) Est GFR (CKD-EPI)NonAf 22 (>60 ml/min/1.73 sqM) Glucose 111 H (74-99) mg/dL Plasma Lactic Acid Reid (0.7-2.0) mmol/L Calcium 9.4 (8.4-10.2) mg/dL Magnesium 1.9 (1.6-2.3) mg/dL Total Bilirubin 1.1 (0.2-1.3) mg/dL AST 56 H (14-36) U/L ALT 15 (4-34) U/L Alkaline Phosphatase 70 (38-126) U/L Troponin I (0.000-0.034) ng/mL NT-Pro-B Natriuret Pep 9840 pg/mL Total Protein 5.6 L (6.3-8.2) g/dL Albumin 3.4 L (3.5-5.0) g/dL Blood Type Blood Type Recheck Bld Type Recheck Status 07/30/24 07/30/24 07/30/24 Range/Units 15:27 15:27 16:10 WBC (4.50-10.00) 10*3/uL RBC (4.10-5.20) 10*6/uL Hgb (12.0-15.0) g/dL Hct (37.2-46.3) % MCV (80.0-97.0) fL MCH (27.0-32.0) pg MCHC (32.0-37.0) g/dL Plt Count (140-440) 10*3/uL MPV (9.5-12.2) fL Immature Gran % (Auto) % Neutrophils % % Lymphocytes % % Monocytes % % Eosinophils % % Basophils % % Immature Gran # (0.00-0.04) 10*3/uL Neutrophils # (1.80-7.70) 10*3/uL Lymphocytes # (0.90-5.00) 10*3/uL Monocytes # (0.20-1.00) 10*3/uL Eosinophils # (0.04-0.35) 10*3/uL Basophils # (0.00-0.10) 10*3/uL PT (10.0-12.5) sec INR (<1.2) APTT (22.0-30.0) sec D-Dimer (<0.60) mg/L FEU Sodium (137-145) mmol/L Potassium (3.5-5.1) mmol/L Chloride (98-107) mmol/L Carbon Dioxide (22-30) mmol/L Anion Gap mmol/L BUN (7-17) mg/dL Creatinine (0.52-1.04) mg/dL Est GFR (CKD-EPI)AfAm (>60 ml/min/1.73 sqM) Est GFR (CKD-EPI)NonAf (>60 ml/min/1.73 sqM) Glucose (74-99) mg/dL Plasma Lactic Acid Reid 1.4 (0.7-2.0) mmol/L Calcium (8.4-10.2) mg/dL Magnesium (1.6-2.3) mg/dL Total Bilirubin (0.2-1.3) mg/dL AST (14-36) U/L ALT (4-34) U/L Alkaline Phosphatase (38-126) U/L Troponin I <0.012 (0.000-0.034) ng/mL NT-Pro-B Natriuret Pep pg/mL Total Protein (6.3-8.2) g/dL Albumin (3.5-5.0) g/dL Blood Type O Negative Blood Type Recheck O Neg Bld Type Recheck Status No Disposition Clinical Impression: Acute pulmonary edema, Chest pain, Anemia Disposition: ADMITTED IP TO THIS HOSP Referrals: Ron Busch MD [Primary Care Provider] - 1-2 days Time of Disposition: 17:07
[2024-07-30 15:55] LABS: ALT 15 U/L (4-34); African American GFR (CKD) 25 (>60 ml/min/1.73 sqM); Albumin 3.4 g/dL (3.5-5.0); Anion Gap 10 mmol/L; Blood Urea Nitrogen 40 mg/dL (7-17); Calcium 9.4 mg/dL (8.4-10.2); Carbon Dioxide 18 mmol/L (22-30); Chloride 112 mmol/L (98-107); Glucose 111 mg/dL (74-99); Non-African American GFR(CKD) 22 (>60 ml/min/1.73 sqM); Sodium 140 mmol/L (137-145); Total Bilirubin 1.1 mg/dL (0.2-1.3); Total Protein 5.6 g/dL (6.3-8.2)
[2024-07-30 15:58] LABS: Partial Thromboplastin Time 31.3 sec (22.0-30.0); Prothrombin Time 20.2 sec (10.0-12.5)
[2024-07-30 16:02] LABS: AST 56 U/L (14-36); Alkaline Phosphatase 70 U/L (38-126); Magnesium 1.9 mg/dL (1.6-2.3); Potassium 4.4 mmol/L (3.5-5.1)
[2024-07-30 16:04] LABS: NT-Pro-B-Type Natriuretic Pept 9840 pg/mL
[2024-07-30] MEDS: ASPIRIN 325 MG TAB PO STA (17:25)
[2024-07-30] MEDS: FUROSEMIDE 10 MG/ML 4 ML VIAL IV STA (17:26)
[2024-07-30 21:46] LABS: Basophils # (A) 0.04 10*3/uL (0.00-0.10); Basophils % (A) 0.7 %; Eosinophils # (A) 0.27 10*3/uL (0.04-0.35); Eosinophils % (A) 4.8 %; HCT 21.8 % (37.2-46.3); HGB 7.2 g/dL (12.0-15.0); Lymphocytes # (A) 1.04 10*3/uL (0.90-5.00); Lymphocytes % (A) 18.7 %; MCH 31.6 pg (27.0-32.0); MCV 95.6 fL (80.0-97.0); Mean Platelet Volume 10.3 fL (9.5-12.2); Neutrophils # (A) 3.64 10*3/uL (1.80-7.70); Neutrophils % (A) 65.4 %; Platelet Count 269 10*3/uL (140-440); RBC 2.28 10*6/uL (4.10-5.20); RDW 18.4 % (11.5-14.5); WBC 5.57 10*3/uL (4.50-10.00)
[2024-07-31] MEDS: FUROSEMIDE 10 MG/ML 4 ML VIAL IV SCH (05:39)
[2024-07-31] MEDS: ASPIRIN 325 MG TAB PO SCH (08:29)
[2024-07-31] MEDS ORDERED: FUROSEMIDE 20 MG TAB PO SCH (09:00)
--- NOTE | 2024-07-31 11:16 | P.CRDCN ---
History of Present Illness History of present illness: HISTORY OF PRESENT ILLNESS: This is a 89-year-old female with a past medical history significant for coronary artery disease with previous stenting, valvular heart disease with moderate to severe aortic stenosis and moderate to severe MR, and moderate TR, moderate pulmonary hypertension, chronic anemia, chronic kidney disease, hypertension, and hyperlipidemia. Patient follows in the office with Dr. Ryan. We have been asked to see the patient in consultation for congestive heart fail ure. Patient examined at the bedside. Patient presented to the hospital with a chief complaint of shortness of breath. Patient states she has been feeling short of breath for the past few days. She denies any chest pain or pressure. Patient does have a history of aortic stenosis and has discussed TAVR with Dr. Ryan on an outpatient basis. The patient was unsure if she wanted to proceed with TAVR last time she was seen in the office. However she states that she has been thinking about it and she would like to proceed. DIAGNOSTICS: - EKG reveals sinus mechanism with no signs of acute ischemia. - Chest xray cardiomegaly, pulmonary vascular congestion and trace bilateral pleural effusions. COPD changes. - Laboratory data: WBC 5.57. Hemoglobin 7.2. Platelet count 269. INR 2.0. Sodium 140. Potassium 4.4. BUN 40. Creatinine 2.01. Troponin negative x 3. proBNP 9840. - Current home cardiac medications include Lasix 20 mg every 48 hours as needed, Coumadin 2.5 mg with dinner, amlodipine 5 mg daily, carvedilol 25 mg twice a day, hydralazine 50 mg twice daily. - Most recent echocardiogram obtained in June 2024 revealed normal EF, moderate to severe , moderate to severe MR, moderate TR - Cardiac catheterization history: October 2022 with PCI of the RCA and left circumflex REVIEW OF SYSTEMS: At the time of my exam: CONSTITUTIONAL: Denies fever or chills. HEENT: Denies blurred vision, vision changes, or eye pain. Denies hemoptysis CARDIOVASCULAR: Denies chest pain. Denies orthopnea. Denies PND. Denies palpitations RESPIRATORY: Denies shortness of breath. GASTROINTESTINAL: Denies abdominal pain. Denies nausea or vomiting. HEMATOLOGIC: Denies bleeding disorders. GENITOURINARY: Denies any blood in urine. SKIN: Denies pruitis. Denies rash. PHYSICAL EXAM: VITAL SIGNS: Reviewed. GENERAL: Well-developed in no acute distress. HEENT: Head is normocephalic. Pupils are equal, round. Sclerae anicteric. Mucous membranes of the mouth are moist. Neck supple. No JVD or thyromegaly LUNGS: Respirations even and unlabored. Lungs essentially clear to auscultation bilaterally. HEART: Regular rate and rhythm. S1 and S2 heard. 4/6 systolic murmur noted ABDOMEN: Soft. Nondistended. Nontender. EXTREMITIES: Normal range of motion. No clubbing or cyanosis. Peripheral pu lses intact. No lower extremity edema NEUROLOGIC: Awake and alert. Oriented x 3. ASSESSMENT: Shortness of breath Acute on chronic heart failure with preserved EF Moderate to severe aortic stenosis Moderate to severe mitral protrusion Moderate tricuspid restriction Coronary artery disease with previous PCI Moderate pulmonary hypertension Chronic anemia Chronic kidney disease Hypertension Hyperlipidemia PLAN: No need to repeat echocardiogram as this was performed in June 2024 at the office Discontinue IV Lasix Begin oral Lasix 20 mg daily starting 08/01/2024 Hold Coumadin N.p.o. at midnight Patient now agreeable for TAVR. Possible cardiac catheterization tomorrow with Dr. Ryan pending INR Further recommendations pending patient course Nurse practitioner note has been reviewed by physician. Signing provider agrees with the documented findings, assessment, and plan of care documented by CARDING MACHINE FEEDER as a scribe. Past Medical History Past Medical History: Atrial Fibrillation, Coronary Artery Disease (CAD), Eye Disorder, GERD/Reflux, Hearing Disorder / Deafness, Hypertension, Osteoarthritis (OA), Renal Disease, Sleep Apnea/CPAP/BIPAP Additional Past Medical History / Comment(s): "leaky valves",gout, hx of shingles x2-still has pain to forhead and left eye,anemia-received blood transfusions and iron transfusions,hx polio-wears lifts in shoes,CHRONIC KIDNEY DISEASE -STAGE 4-no dialysis,has double vision w/out glasses, HEART MURMUR, HARD OF HEARING,no cpap History of Any Multi-Drug Resistant Organisms: None Reported Past Surgical History: Appendectomy, Cholecystectomy, Heart Catheterization With Stent, Hysterectomy, Orthopedic Surgery Additional Past Surgical History / Comment(s): O. . RIF left ankle,vein stripping rt leg,trigger fingers sx X 8, had sx on left leg r/t polio,lizzy placed to rt femur post fx,THUMB procedure,maxine cataracts,arthroscopy rt knee,heartstent x1,EGD,colonoscopy Past Anesthesia/Blood Transfusion Reactions: No Reported Reaction, Family History of Problems w/ Anesthesia Additional Past Anesthesia/Blood Transfusion Reaction / Comment(s): no problems w/ prior blood transfusion-last infusion August 2022. DAUGHTER B/P dropped w/ shoulder surgery & was admitted to ICU Date of Last Stent Placement:: 2022 Past Psychological History: No Psychological Hx Reported Smoking Status: Former smoker Past Alcohol Use History: None Reported Additional Past Alcohol Use History / Comment(s): smoked as a teenager Past Drug Use History: None Reported - Past Family History Son(s) Family Medical History: Cancer Additional Family Medical History / Comment(s): esophageal CA Mother Family Medical History: Cancer, Myocardial Infarction ([place]) Additional Family Medical History / Comment(s): thinks possibly some type of CA- had fluid retention to stomach area Sister(s) Family Medical History: Cancer, Myocardial Infarction ([place]) Additional Family Medical History / Comment(s): LUEKEMIA Brother(s) Additional Family Medical History / Comment(s): Parkinson Father Family Medical History: Myocardial Infarction ([place]) Medications and Allergies Home Medications Medication Instructions Recorded Confirmed Type Ferrous Sulfate [Iron] 325 mg PO HS 07/13/20 07/30/24 History allopurinoL [Zyloprim] 100 mg PO HS 07/13/20 07/30/24 History carvediloL [Coreg] 25 mg PO BID-W/MEALS 07/13/20 07/30/24 History hydrALAZINE HCL [Apresoline] 50 mg PO BID 07/13/20 07/30/24 History Furosemide [Lasix] 20 mg PO Q48H PRN 06/14/22 07/30/24 History Cholecalciferol [Vitamin D3 (125 125 mcg PO DAILY 08/24/22 07/30/24 History Mcg = 5000 Iu)] Acetaminophen [Tylenol 8 Hour] 650 mg PO BID 08/30/22 07/30/24 History Epoetin Sanya [Procrit] 60,000 unit IM DIRECTED 10/25/22 07/30/24 History Multivitamins, Thera [Multivitamin 1 tab PO DAILY 10/25/22 07/30/24 History (formulary)] Pantoprazole [Protonix] 40 mg PO DAILY 01/16/24 07/30/24 History Warfarin [Coumadin] 2.5 mg PO W/SUPPER 01/16/24 07/30/24 History amLODIPine [Norvasc] 5 mg PO DAILY 01/16/24 07/30/24 History Sodium Bicarbonate Tab 650 mg PO BID 04/30/24 07/30/24 History traMADol HCL 50 mg PO BID 04/30/24 07/30/24 History Allergies Allergy/AdvReac Type Severity Reaction Status Date / Time erythromycin base Allergy Dyspnea Verified 07/30/24 17:43 levofloxacin [From Levaquin] Allergy Hallucinati Verified 07/30/24 17:43 ons metronidazole [From Flagyl] Allergy Rash/Hives Verified 07/30/24 17:43 Penicillins Allergy Rash/Hives Verified 07/30/24 17:43 Sulfa (Sulfonamide Allergy Rash/Hives Verified 07/30/24 17:43 Antibiotics) hydrocodone AdvReac Hallucinati Verified 07/30/24 17:43 ons Drzcqpc-LST-UoB Reductase AdvReac "muscle Verified 07/30/24 17:43 Inhibitor pain" [Ipdngvs-Szx-Ese Reductase Inhibitor] Physical Exam Vitals: Vital Signs Temp Pulse Pulse Resp BP BP Pulse Ox 07/31/24 07:05 98.1 F 53 L 15 171/75 97 07/31/24 05:38 167/67 07/31/24 02:04 97.8 F 57 L 17 156/65 95 07/30/24 23:51 98.1 F 60 18 168/78 97 07/30/24 23:02 98.0 F 60 19 153/65 92 L 07/30/24 20:00 97.7 F 58 L 20 149/68 98 07/30/24 19:15 97.7 F 62 20 142/86 96 07/30/24 18:46 98 F 58 L 16 159/68 96 07/30/24 18:14 98 F 56 L 16 168/86 96 07/30/24 18:13 998 F H 60 16 150/60 96 07/30/24 18:00 58 L 16 146/86 98 07/30/24 17:54 98 F 56 L 16 150/61 95 07/30/24 17:41 98.7 F 57 L 16 142/60 95 07/30/24 16:34 62 20 153/66 96 07/30/24 15:02 98.2 F 62 20 160/68 99 Intake and Output 07/30/24 07/31/24 07/31/24 22:59 06:59 14:59 Intake Total 310 Balance 310 Intake: Blood Product 310 Rc As-1 Unit 310 [id number] Other: Voiding Method Bedside Commode # Voids 3 Weight 74.843 kg 74.843 kg Results 07/30/24 21:10 07/30/24 15:27 Cardiac Enzymes 07/30/24 07/30/24 07/30/24 Range/Units 15:27 15:27 20:50 AST 56 H (14-36) U/L Troponin I <0.012 0.014 (0.000-0.034) ng/mL 07/31/24 Range/Units 03:17 AST (14-36) U/L Troponin I <0.012 (0.000-0.034) ng/mL Coagulation 07/30/24 Range/Units 15:27 PT 20.2 H (10.0-12.5) sec APTT 31.3 H (22.0-30.0) sec CBC 07/30/24 07/30/24 Range/Units 15:27 21:10 WBC 6.33 5.57 (4.50-10.00) 10*3/uL RBC 2.22 L 2.28 L (4.10-5.20) 10*6/uL Hgb 7.0 L 7.2 L (12.0-15.0) g/dL Hct 21.6 L 21.8 L (37.2-46.3) % Plt Count 283 269 (140-440) 10*3/uL Comprehensive Metabolic Panel 07/30/24 Range/Units 15:27 Sodium 140 (137-145) mmol/L Potassium 4.4 (3.5-5.1) mmol/L Chloride 112 H (98-107) mmol/L Carbon Dioxide 18 L (22-30) mmol/L BUN 40 H (7-17) mg/dL Creatinine 2.01 H (0.52-1.04) mg/dL Glucose 111 H (74-99) mg/dL Calcium 9.4 (8.4-10.2) mg/dL AST 56 H (14-36) U/L ALT 15 (4-34) U/L Alkaline Phosphatase 70 (38-126) U/L Total Protein 5.6 L (6.3-8.2) g/dL Albumin 3.4 L (3.5-5.0) g/dL Current Medications Generic Name Dose Route Start Last Admin Trade Name Freq PRN Reason Stop Dose Admin Amlodipine Besylate 5 mg 07/31/24 09:00 Amlodipine 5 Mg Tab PO DAILY CONCHITA Carvedilol 25 mg 07/31/24 08:45 Carvedilol 12.5 Mg Tab PO BID-W/MEALS CONCHITA Furosemide 20 mg 08/01/24 09:00 Furosemide 20 Mg Tab PO DAILY CONCHITA Hydralazine HCl 50 mg 07/31/24 09:00 Hydralazine Hcl 50 Mg Tab PO BID CONCHITA Intake and Output 07/30/24 07/31/24 07/31/24 22:59 06:59 14:59 Intake Total 310 Balance 310 Intake: Blood Product 310 Rc As-1 Unit 310 [id number] Other: Voiding Method Bedside Commode # Voids 3 Weight 74.843 kg 74.843 kg 07/30/24 21:10 07/30/24 15:27
[2024-07-31] MEDS: hydrALAZINE HCL 50 MG TAB PO SCH (11:29)
[2024-07-31] MEDS: carvediloL 12.5 MG TAB PO SCH (11:29)
[2024-07-31] MEDS: amLODIPine 5 MG TAB PO SCH (11:30)
[2024-07-31 11:49] VITALS: BMI 26.6
[2024-07-31] MEDS ORDERED: FUROSEMIDE 20 MG TAB PO PRN (12:56)
--- NOTE | 2024-07-31 14:56 | P.CONS ---
History of Present Illness - Reason for Consult Consult date: 07/31/24 Anemia Requesting physician: Ron Busch - Chief Complaint Shortness of breath and chest pain - History of Present Illness This a pleasant 88-year-old female with a history of atrial fibrillation coronary artery disease status post stents on warfarin, pulmonary hypertension, valvular heart disease with moderate to severe aortic stenosis, chronic kidney disease, hypertension, obstructive sleep apnea and chronic anemia who follows with Dr. Contreras from hematology. Patient had presented to the emergency department yesterday with complaints of shortness of breath and chest pain that seems to increase with exertion. States that the chest pain is intermittent underneath her left rib bone. Patient has been following with Dr. Ryan and has been in discussion for possible TAVR. She has a long history of anemia also has history of vascular ectasia. Patient was noted to be anemic on admission, normocytic normochromic anemia. She denies any blood in her stool or black stool. She takes oral iron. Denies any abdominal pain nausea or vomiting. Appetite has been normal. Gastroenterology was consulted again for anemia. She does follow with Dr. Ledezma she was recently seen and received blood transfusion on 07/26/2024 and again yesterday for hemoglobin of 7.0. 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 There was no active bleeding seen. Last colonoscopy was 2 years ago. Last Coumadin taken Monday evening. Cardiology is following and planning on possible cardiac catheterization tomorrow, patient now agreeable to possible TAVR. Current labs WBC 5.5 hemoglobin 7.2 hematocrit 21 platelet count 269,000 last INR 2.0 Review of Systems REVIEW OF SYSTEMS: CARDIOPULMONARY: Shortness of breath, dyspnea with exertion, chest pain with exertion. Gastrointestinal: No abdominal pain. No nausea or vomiting. No hematemesis, coffee-ground emesis. No rectal bleeding, or melena. GENITOURINARY: No dysuria or hematuria. MUSCULOSKELETAL: Reports normal range of motion., Joint pain. SKIN: No rashes. No jaundice. ENDOCRINE: No chills, fevers. No excessive weight gain or loss. No polydipsia or polyuria. PSYCHIATRIC: Unremarkable. NEUROLOGY: No change in mental status. Denies dizziness, headache. ENT: Vision unremarkable. CONSTITUTIONAL: No recent weight loss. No fever, chills, night sweats. Past Medical History Past Medical History: Atrial Fibrillation, Coronary Artery Disease (CAD), Eye Disorder, GERD/Reflux, Hearing Disorder / Deafness, Hypertension, Osteoarthritis (OA), Renal Disease, Sleep Apnea/CPAP/BIPAP Additional Past Medical History / Comment(s): "leaky valves",gout, hx of shingles x2-still has pain to forhead and left eye,anemia-received blood transfusions and iron transfusions,hx polio-wears lifts in shoes,CHRONIC KIDNEY DISEASE -STAGE 4-no dialysis,has double vision w/out glasses, HEART MURMUR, HARD OF HEARING,no cpap History of Any Multi-Drug Resistant Organisms: None Reported Past Surgical History: Appendectomy, Cholecystectomy, Heart Catheterization With Stent, Hysterectomy, Orthopedic Surgery Additional Past Surgical History / Comment(s): O. . RIF left ankle,vein stripping rt leg,trigger fingers sx X 8, had sx on left leg r/t polio,lizzy placed to rt femur post fx,THUMB procedure,maxine cataracts,arthroscopy rt knee,heartstent x1,EGD,colonoscopy Past Anesthesia/Blood Transfusion Reactions: No Reported Reaction, Family His tory of Problems w/ Anesthesia Additional Past Anesthesia/Blood Transfusion Reaction / Comm: no problems w/ prior blood transfusion-last infusion August 2022. DAUGHTER B/P dropped w/ shoulder surgery & was admitted to ICU Date of Last Stent Placement:: 2022 Past Psychological History: No Psychological Hx Reported Smoking Status: Former smoker Past Alcohol Use History: None Reported Additional Past Alcohol Use History / Comment(s): smoked as a teenager Past Drug Use History: None Reported - Past Family History Son(s) Family Medical History: Cancer Additional Family Medical History / Comment(s): esophageal CA Mother Family Medical History: Cancer, Myocardial Infarction ([place]) Additional Family Medical History / Comment(s): thinks possibly some type of CA- had fluid retention to stomach area Sister(s) Family Medical History: Cancer, Myocardial Infarction ([place]) Additional Family Medical History / Comment(s): LUEKEMIA Brother(s) Additional Family Medical History / Comment(s): Parkinson Father Family Medical History: Myocardial Infarction ([place]) Medications and Allergies Home Medications Medication Instructions Recorded Confirmed Type Ferrous Sulfate [Iron] 325 mg PO HS 07/13/20 07/30/24 History allopurinoL [Zyloprim] 100 mg PO HS 07/13/20 07/30/24 History carvediloL [Coreg] 25 mg PO BID-W/MEALS 07/13/20 07/30/24 History hydrALAZINE HCL [Apresoline] 50 mg PO BID 07/13/20 07/30/24 History Furosemide [Lasix] 20 mg PO Q48H PRN 06/14/22 07/30/24 History Cholecalciferol [Vitamin D3 (125 125 mcg PO DAILY 08/24/22 07/30/24 History Mcg = 5000 Iu)] Acetaminophen [Tylenol 8 Hour] 650 mg PO BID 08/30/22 07/30/24 History Epoetin Sanya [Procrit] 60,000 unit IM DIRECTED 10/25/22 07/30/24 History Multivitamins, Thera [Multivitamin 1 tab PO DAILY 10/25/22 07/30/24 History (formulary)] Pantoprazole [Protonix] 40 mg PO DAILY 01/16/24 07/30/24 History Warfarin [Coumadin] 2.5 mg PO W/SUPPER 01/16/24 07/30/24 History amLODIPine [Norvasc] 5 mg PO DAILY 01/16/24 07/30/24 History Sodium Bicarbonate Tab 650 mg PO BID 04/30/24 07/30/24 History traMADol HCL 50 mg PO BID 04/30/24 07/30/24 History Allergies Allergy/AdvReac Type Severity Reaction Status Date / Time erythromycin base Allergy Dyspnea Verified 07/30/24 17:43 levofloxacin [From Levaquin] Allergy Hallucinati Verified 07/30/24 17:43 ons metronidazole [From Flagyl] Allergy Rash/Hives Verified 07/30/24 17:43 Penicillins Allergy Rash/Hives Verified 07/30/24 17:43 Sulfa (Sulfonamide Allergy Rash/Hives Verified 07/30/24 17:43 Antibiotics) hydrocodone AdvReac Hallucinati Verified 07/30/24 17:43 ons Jvrbvwc-AFS-PmQ Reductase AdvReac "muscle Verified 07/30/24 17:43 Inhibitor pain" [Rqostim-Kup-Uux Reductase Inhibitor] Physical Exam Vitals: Vital Signs Temp Pulse Pulse Resp BP BP Pulse Ox 07/31/24 07:05 98.1 F 53 L 15 171/75 97 07/31/24 05:38 167/67 07/31/24 02:04 97.8 F 57 L 17 156/65 95 07/30/24 23:51 98.1 F 60 18 168/78 97 07/30/24 23:02 98.0 F 60 19 153/65 92 L 07/30/24 20:00 97.7 F 58 L 20 149/68 98 07/30/24 19:15 97.7 F 62 20 142/86 96 07/30/24 18:46 98 F 58 L 16 159/68 96 07/30/24 18:14 98 F 56 L 16 168/86 96 07/30/24 18:13 998 F H 60 16 150/60 96 07/30/24 18:00 58 L 16 146/86 98 07/30/24 17:54 98 F 56 L 16 150/61 95 07/30/24 17:41 98.7 F 57 L 16 142/60 95 07/30/24 16:34 62 20 153/66 96 07/30/24 15:02 98.2 F 62 20 160/68 99 Intake and Output 07/30/24 07/31/24 07/31/24 22:59 06:59 14:59 Intake Total 310 Balance 310 Intake: Blood Product 310 Rc As-1 Unit 310 [id number] Other: Voiding Method Bedside Commode # Voids 3 Weight 74.843 kg 74.843 kg 74.843 kg General appearance: The patient is alert, oriented, appears in no acute distress. HET: Head is normocephalic and atraumatic. Conjunctiva pink. Sclera anicteric. Neck: Supple without lymphadenopathy. Trachea midline. Heart: Regular. Lungs: Equal expansion, normal respiratory effort. Abdomen: Soft, nontender, nondistended. Skin: No rashes. No jaundice. Extremities: Normal skin color and turgor. No pedal edema. Neurological: No focal deficits. Alert and oriented x3. Results CBC & Chem 7: 07/30/24 21:10 07/30/24 15:27 Labs: Abnormal Lab Results - Last 24 Hours (Table) 07/30/24 07/30/24 07/30/24 Range/Units 15:27 15:27 15:27 RBC 2.22 L (4.10-5.20) 10*6/uL Hgb 7.0 L (12.0-15.0) g/dL Hct 21.6 L (37.2-46.3) % MCV 97.3 H (80.0-97.0) fL Immature Gran # 0.10 H (0.00-0.04) 10*3/uL PT 20.2 H (10.0-12.5) sec INR 2.0 H (<1.2) APTT 31.3 H (22.0-30.0) sec Chloride 112 H (98-107) mmol/L Carbon Dioxide 18 L (22-30) mmol/L BUN 40 H (7-17) mg/dL Creatinine 2.01 H (0.52-1.04) mg/dL Glucose 111 H (74-99) mg/dL AST 56 H (14-36) U/L Total Protein 5.6 L (6.3-8.2) g/dL Albumin 3.4 L (3.5-5.0) g/dL Crossmatch 07/30/24 07/30/24 Range/Units 16:10 21:10 RBC 2.28 L (4.10-5.20) 10*6/uL Hgb 7.2 L (12.0-15.0) g/dL Hct 21.8 L (37.2-46.3) % MCV (80.0-97.0) fL Immature Gran # 0.08 H (0.00-0.04) 10*3/uL PT (10.0-12.5) sec INR (<1.2) APTT (22.0-30.0) sec Chloride (98-107) mmol/L Carbon Dioxide (22-30) mmol/L BUN (7-17) mg/dL Creatinine (0.52-1.04) mg/dL Glucose (74-99) mg/dL AST (14-36) U/L Total Protein (6.3-8.2) g/dL Albumin (3.5-5.0) g/dL Crossmatch See Detail Assessment and Plan (1) Chronic anemia Narrative/Plan: 89-year-old female with multiple comorbidities with significant coronary artery disease, chronic iron deficiency anemia requiring multiple blood transfusions in the past, history of nonbleeding gastric ectasia with prior endoscopic evaluation and cauterized presented to the hospital with shortness of breath and chest pain. Noted to be anemic on admission. She has been following with Dr. Contreras from hematology and has been getting blood transfusions as needed. She denies any gross evidence of GI bleed including no complaints of black stool, abdominal pain, hematemesis or coffee-ground emesis. Will repeat iron studies. No plans on endoscopic evaluation. Patient being closely followed by cardiology with plans for cardiac catheterization tomorrow possible TAVR in the future. Current Visit: No Status: Acute Code(s): D64.9 - ANEMIA, UNSPECIFIED SNOMED Code(s): 166414720 (2) Chest pain Current Visit: Yes Status: Acute Code(s): R07.9 - CHEST PAIN, UNSPECIFIED SNOMED Code(s): 19395937 (3) Coronary artery disease Current Visit: No Status: Acute Code(s): I25.10 - ATHSCL HEART DISEASE OF [place] CORONARY ARTERY W/O ANG PCTRS SNOMED Code(s): 75999512 (4) Current use of snf anticoagulation Current Visit: No Status: Acute Priority: Medium Code(s): Z79.01 - USP (CURRENT) USE OF ANTICOAGULANTS SNOMED Code(s): 461384532 (5) Gastric antral vascular ectasia Current Visit: No Status: Acute Code(s): K31.819 - ANGIODYSPLASIA OF STOMACH AND DUODENUM WITHOUT BLEEDING SNOMED Code(s): 76874759 (6) History of atrial fibrillation Current Visit: No Status: Acute Priority: Medium Code(s): Z86.79 - PERSONAL HISTORY OF OTHER DISEASES OF THE CIRCULATORY SYSTEM SNOMED Code(s): 255026598 (7) Normocytic normochromic anemia Current Visit: No Status: Acute Code(s): D64.9 - ANEMIA, UNSPECIFIED SNOMED Code(s): 72748950 (8) Chronic kidney disease Current Visit: No Status: Chronic Priority: Medium Code(s): N18.9 - CHRONIC KIDNEY DISEASE, UNSPECIFIED SNOMED Code(s): 461557295 Plan: 1. Continue symptomatic and supportive care 2. Daily CBC, transfuse for hemoglobin less than 7 3. Anemia profile ordered 4. Protonix 40 mg daily for GI prophylaxis 5. Diet as tolerated 6. Continue with recommendations from cardiology 7. No plans on endoscopic evaluation 8. Follow-up as scheduled with hematology on discharge Thank you for this consultation, we will continue to follow. Dr. Madison Mendez I agree with the dictator's note, documented as a scribe by Lu Alford.
--- NOTE | 2024-07-31 16:53 | P.HPIM ---
History of Present Illness H&P Date: 07/31/24 Shelley Keenan, is an 89-year-old female who presented to [facility] emergency room with a chief complaint of worsening shortness of breath She was evaluated in the emergency room vital examination on presentation revealed a temperature of 98.2 pulse 62 respiration 20 blood pressure 160/68 pulse ox 99% on room air Laboratory data revealed a white blood count of 6.33 hemoglobin 7.0 platelet count 283 BUN 40 creatinine 2.01 troponin 0.012 Testing in the emergency room revealed EKG revealed anteroseptal myocardial infarction with poor R wave progression in anterior leads no ST or T wave abnormalities, chest x-ray revealed cardiomegaly pulmonary vascular congestion and trace bilateral pleural effusion and COPD changes. Patient was given 1 unit of red blood cell transfusion in the emergency room. Patient was admitted to medical floor for further evaluation and treatment, c ardiology consultation and gastroenterology consultation was requested Past Medical History Past Medical History: Atrial Fibrillation, Coronary Artery Disease (CAD), Eye Disorder, GERD/Reflux, Hearing Disorder / Deafness, Hypertension, Osteoarthritis (OA), Renal Disease, Sleep Apnea/CPAP/BIPAP Additional Past Medical History / Comment(s): "leaky valves",gout, hx of shingles x2-still has pain to forhead and left eye,anemia-received blood transfusions and iron transfusions,hx polio-wears lifts in shoes,CHRONIC KIDNEY DISEASE -STAGE 4-no dialysis,has double vision w/out glasses, HEART MURMUR, HARD OF HEARING,no cpap History of Any Multi-Drug Resistant Organisms: None Reported Past Surgical History: Appendectomy, Cholecystectomy, Heart Catheterization With Stent, Hysterectomy, Orthopedic Surgery Additional Past Surgical History / Comment(s): O. . RIF left ankle,vein stripping rt leg,trigger fingers sx X 8, had sx on left leg r/t polio,lizzy placed to rt femur post fx,THUMB procedure,maxine cataracts,arthroscopy rt knee,heartstent x1,EGD,colonoscopy Past Anesthesia/Blood Transfusion Reactions: No Reported Reaction, Family H istory of Problems w/ Anesthesia Additional Past Anesthesia/Blood Transfusion Reaction / Comment(s): no problems w/ prior blood transfusion-last infusion August 2022. DAUGHTER B/P dropped w/ shoulder surgery & was admitted to ICU Date of Last Stent Placement:: 2022 Past Psychological History: No Psychological Hx Reported Smoking Status: Former smoker Past Alcohol Use History: None Reported Additional Past Alcohol Use History / Comment(s): smoked as a teenager Past Drug Use History: None Reported - Past Family History Son(s) Family Medical History: Cancer Additional Family Medical History / Comment(s): esophageal CA Mother Family Medical History: Cancer, Myocardial Infarction ([place]) Additional Family Medical History / Comment(s): thinks possibly some type of CA- had fluid retention to stomach area Sister(s) Family Medical History: Cancer, Myocardial Infarction ([place]) Additional Family Medical History / Comment(s): LUEKEMIA Brother(s) Additional Family Medical History / Comment(s): Parkinson Father Family Medical History: Myocardial Infarction ([place]) Medications and Allergies Home Medications Medication Instructions Recorded Confirmed Type Ferrous Sulfate [Iron] 325 mg PO HS 07/13/20 07/30/24 History allopurinoL [Zyloprim] 100 mg PO HS 07/13/20 07/30/24 History carvediloL [Coreg] 25 mg PO BID-W/MEALS 07/13/20 07/30/24 History hydrALAZINE HCL [Apresoline] 50 mg PO BID 07/13/20 07/30/24 History Furosemide [Lasix] 20 mg PO Q48H PRN 06/14/22 07/30/24 History Cholecalciferol [Vitamin D3 (125 125 mcg PO DAILY 08/24/22 07/30/24 History Mcg = 5000 Iu)] Acetaminophen [Tylenol 8 Hour] 650 mg PO BID 08/30/22 07/30/24 History Epoetin Sanya [Procrit] 60,000 unit IM DIRECTED 10/25/22 07/30/24 History Multivitamins, Thera [Multivitamin 1 tab PO DAILY 10/25/22 07/30/24 History (formulary)] Pantoprazole [Protonix] 40 mg PO DAILY 01/16/24 07/30/24 History Warfarin [Coumadin] 2.5 mg PO W/SUPPER 01/16/24 07/30/24 History amLODIPine [Norvasc] 5 mg PO DAILY 01/16/24 07/30/24 History Sodium Bicarbonate Tab 650 mg PO BID 04/30/24 07/30/24 History traMADol HCL 50 mg PO BID 04/30/24 07/30/24 History Allergies Allergy/AdvReac Type Severity Reaction Status Date / Time erythromycin base Allergy Dyspnea Verified 07/30/24 17:43 levofloxacin [From Levaquin] Allergy Hallucinati Verified 07/30/24 17:43 ons metronidazole [From Flagyl] Allergy Rash/Hives Verified 07/30/24 17:43 Penicillins Allergy Rash/Hives Verified 07/30/24 17:43 Sulfa (Sulfonamide Allergy Rash/Hives Verified 07/30/24 17:43 Antibiotics) hydrocodone AdvReac Hallucinati Verified 07/30/24 17:43 ons Wpsrvjg-WRQ-LeV Reductase AdvReac "muscle Verified 07/30/24 17:43 Inhibitor pain" [Pifpmpo-Unt-Cmp Reductase Inhibitor] Physical Exam Vitals: Vital Signs Temp Pulse Pulse Resp BP BP Pulse Ox 07/31/24 07:05 98.1 F 53 L 15 171/75 97 07/31/24 05:38 167/67 07/31/24 02:04 97.8 F 57 L 17 156/65 95 07/30/24 23:51 98.1 F 60 18 168/78 97 07/30/24 23:02 98.0 F 60 19 153/65 92 L 07/30/24 20:00 97.7 F 58 L 20 149/68 98 07/30/24 19:15 97.7 F 62 20 142/86 96 07/30/24 18:46 98 F 58 L 16 159/68 96 07/30/24 18:14 98 F 56 L 16 168/86 96 07/30/24 18:13 998 F H 60 16 150/60 96 07/30/24 18:00 58 L 16 146/86 98 07/30/24 17:54 98 F 56 L 16 150/61 95 07/30/24 17:41 98.7 F 57 L 16 142/60 95 07/30/24 16:34 62 20 153/66 96 07/30/24 15:02 98.2 F 62 20 160/68 99 Intake and Output 07/30/24 07/31/24 07/31/24 22:59 06:59 14:59 Intake Total 310 Balance 310 Intake: Blood Product 310 Rc As-1 Unit 310 [id number] Other: Voiding Method Bedside Commode # Voids 3 Weight 74.843 kg 74.843 kg In general patient is alert and oriented x 3 in no distress HEENT head normocephalic and atraumatic Neck is supple no JVD no goiter no lymphadenopathy no carotid bruit Chest examination is clear to auscultation no crackles no wheezing Cardiac exam reveals regular heart sounds S1 and S2 no gallops no murmurs Abdomen is soft nontender no organomegaly with normal bowel sounds Extremity exam reveals no edema no cyanosis or clubbing Neurological examination reveals no gross focal deficits Results CBC & Chem 7: 07/30/24 21:10 07/30/24 15:27 Labs: Abnormal Lab Results - Last 24 Hours (Table) 07/30/24 07/30/24 07/30/24 Range/Units 15:27 15: 15: RBC 2.22 L (4.10-5.20) 10*6/uL Hgb 7.0 L (12.0-15.0) g/dL Hct 21.6 L (37.2-46.3) % MCV 97.3 H (80.0-97.0) fL Immature Gran # 0.10 H (0.00-0.04) 10*3/uL PT 20.2 H (10.0-12.5) sec INR 2.0 H (<1.2) APTT 31.3 H (22.0-30.0) sec Chloride 112 H (98-107) mmol/L Carbon Dioxide 18 L (22-30) mmol/L BUN 40 H (7-17) mg/dL Creatinine 2.01 H (0.52-1.04) mg/dL Glucose 111 H (74-99) mg/dL AST 56 H (14-36) U/L Total Protein 5.6 L (6.3-8.2) g/dL Albumin 3.4 L (3.5-5.0) g/dL Crossmatch 07/30/24 07/30/24 Range/Units 16:10 21:10 RBC 2.28 L (4.10-5.20) 10*6/uL Hgb 7.2 L (12.0-15.0) g/dL Hct 21.8 L (37.2-46.3) % MCV (80.0-97.0) fL Immature Gran # 0.08 H (0.00-0.04) 10*3/uL PT (10.0-12.5) sec INR (<1.2) APTT (22.0-30.0) sec Chloride (98-107) mmol/L Carbon Dioxide (22-30) mmol/L BUN (7-17) mg/dL Creatinine (0.52-1.04) mg/dL Glucose (74-99) mg/dL AST (14-36) U/L Total Protein (6.3-8.2) g/dL Albumin (3.5-5.0) g/dL Crossmatch See Detail Thrombosis Risk Factor Assmnt - Choose All That Apply Each Factor Represents 1 point: Obesity (BMI >25) Each Risk Factor Represents 3 Points: Age 75 years or older Thrombosis Risk Factor Assessment Total Risk Factor Score: 4 Thrombosis Risk Factor Assessment Level: Moderate Risk Assessment and Plan Plan: Worsening shortness of breath Evidence of congestive heart failure exacerbation Underlying history of pulmonary hypertension Underlying history of valvular heart disease with moderate to severe aortic stenosis Underlying history of obstructive sleep apnea Anemia, acute on chronic, patient had evidence of telangiectasia in the stomach and received argon plasma coagulation treatment in the past Underlying history of hypertension Underlying history of gout Underlying history of chronic kidney disease Underlying history of atrial fibrillation maintained on Coumadin INR on presentation 2.0 At this time patient was seen and examined Home medications reviewed and reordered Cardiology consultation and gastroenterology consultation requested Will follow closely
[2024-07-31] MEDS ORDERED: WARFARIN 2.5 MG TAB PO SCH (17:30)
[2024-07-31 19:26] LABS: % Iron Saturation 6.54 (12.00-45.00)
[2024-07-31] MEDS: ACETAMINOPHEN TAB 325 MG TAB PO SCH (20:05)
[2024-07-31] MEDS: traMADol 50 MG TAB PO SCH (21:57)
[2024-07-31] MEDS: allopurinoL 100 MG TAB PO SCH (21:57)
[2024-07-31] MEDS: FERROUS SULFATE 325 MG TAB PO SCH (21:57)
[2024-07-31] MEDS: SODIUM BICARBONATE TAB 650 MG TAB PO SCH (21:57)
[2024-08-01] MEDS: PANTOPRAZOLE 40 MG TABLET PO SCH (06:09)
[2024-08-01 08:32] LABS: Basophils # (A) 0.03 X 10*3/uL (0.00-0.10); Basophils % (A) 0.5 %; Eosinophils # (A) 0.41 X 10*3/uL (0.04-0.35); Eosinophils % (A) 7.3 %; HGB 7.9 g/dL (12.0-15.0); Lymphocytes # (A) 1.36 X 10*3/uL (0.90-5.00); Lymphocytes % (A) 24.2 %; MCHC 31.6 g/dL (32.0-37.0); MCV 95.1 FL (80.0-97.0); Mean Platelet Volume 10.1 FL (9.5-12.2); Monocytes # (A) 0.56 X 10*3/uL (0.20-1.00); NRBC Per 100 WBC 0.02 X 10*3/uL (0.00-0.01); Neutrophils # (A) 3.22 X 10*3/uL (1.80-7.70); Neutrophils % (A) 57.3 %; Platelet Count 303 X 10*3/uL (140-440); RBC 2.63 X 10*6/uL (4.10-5.20); RDW 17.6 % (11.5-14.5); WBC 5.62 X 10*3/uL (4.50-10.00)
[2024-08-01] MEDS: SODIUM FERRIC GLUCONAT-SUCROSE 125 MG in SODIUM CHLORIDE 0.9% 100 ML IVPB SCH (08:51)
[2024-08-01] MEDS: CHOLECALCIFEROL 125 MCG (5000 IU) TABLET PO SCH (09:00)
[2024-08-01] MEDS: MULTIVITAMINS, THERA 1 EACH TAB PO SCH (09:00)
[2024-08-01 09:06] LABS: ALT 10 U/L (8-44); AST 17 U/L (13-35); Albumin 3.6 g/dL (3.8-4.9); Alkaline Phosphatase 65 U/L (41-126); Blood Urea Nitrogen 40.4 mg/dL (9.0-27.0); Calcium 9.4 mg/dL (8.7-10.3); Carbon Dioxide 20.2 mmol/L (21.6-31.8); Chloride 105 mmol/L (96-109); Globulin 1.8 g/dL (1.6-3.3); Glucose 116 mg/dL (70-110); Sodium 139 mmol/L (135-145); Total Bilirubin 0.4 mg/dL (0.3-1.2); Total Protein 5.4 g/dL (6.2-8.2)
--- NOTE | 2024-08-01 09:23 | P.PN ---
Subjective Progress Note Date: 08/01/24 Shelley Keenan, is an 89-year-old female who presented to [facility] emergency room with a chief complaint of worsening shortness of breath She was evaluated in the emergency room vital examination on presentation revealed a temperature of 98.2 pulse 62 respiration 20 blood pressure 160/68 pulse ox 99% on room air Laboratory data revealed a white blood count of 6.33 hemoglobin 7.0 platelet count 283 BUN 40 creatinine 2.01 troponin 0.012 Testing in the emergency room revealed EKG revealed anteroseptal myocardial infarction with poor R wave progression in anterior leads no ST or T wave abnormalities, chest x-ray revealed cardiomegaly pulmonary vascular congestion and trace bilateral pleural effusion and COPD changes. Patient was given 1 unit of red blood cell transfusion in the emergency room. Patient was admitted to medical floor for further evaluation and treatment, cardiology consultation and gastroenterology consultation was requested On 08/01/2024 patient is alert and oriented x 3. Cardiology and GI services are following. Patient has been transition to p.o. Lasix. Patient also given IV iron per GI services. Per cardiology patient is now agreeable for possible TAVR. Possible cardiac catheterization today with Dr. Quinonez. Patient denies chest pain or shortness of breath. Patient denies nausea vomiting or diarrhea. Patient denies any urinary burning or frequency. Hemoglobin today 7.9. Creatinine 2.0 bun 40.4. Current vital signs temp 98.7, heart rate 53, respiratory 15, blood pressure 154/67 with a pulse ox of 97% on room air Objective - Vital Signs Vital signs: Vital Signs Temp 98.7 F 08/01/24 07:00 Pulse 53 L 08/01/24 07:00 Resp 15 08/01/24 07:00 BP 154/67 08/01/24 07:00 Pulse Ox 97 08/01/24 07:00 FiO2 Intake & Output 07/31/24 08/01/24 08/01/24 18:59 06:59 18:59 Intake Total 118 Balance 118 Weight 74.843 kg Intake: Oral 118 Other: Voiding Method Bedside Commode Toilet # Voids 4 2 - Exam In general patient is alert and oriented x 3 in no distress HEENT head normocephalic and atraumatic Neck is supple no JVD no goiter no lymphadenopathy no carotid bruit Chest examination is clear to auscultation no crackles no wheezing Cardiac exam reveals regular heart sounds S1 and S2 no gallops no murmurs Abdomen is soft nontender no organomegaly with normal bowel sounds Extremity exam reveals no edema no cyanosis or clubbing Neurological examination reveals no gross focal deficits - Labs CBC & Chem 7: 08/01/24 05:41 08/01/24 05:41 Labs: Abnormal Lab Results - Last 24 Hours (Table) 07/31/24 07/31/24 07/31/24 Range/Units 14:24 14:24 14:24 RBC (4.10-5.20) X 10*6/uL Hgb (12.0-15.0) g/dL Hct (37.2-46.3) % MCHC (32.0-37.0) g/dL RDW (11.5-14.5) % Eosinophils # (0.04-0.35) X 10*3/uL NRBC/100 WBC Diff (0.00-0.01) X 10*3/uL Carbon Dioxide (21.6-31.8) mmol/L Anion Gap (4.00-12.00) mmol/L BUN (9.0-27.0) mg/dL Creatinine (0.6-1.5) mg/dL Est GFR (CKD-EPI) (>=60) BUN/Creatinine Ratio (12.00-20.00) Ratio Glucose (70-110) mg/dL Iron 14 L (50-170) UG/DL TIBC 214 L (228-460) UG/DL % Saturation 6.54 L (12.00-45.00) Transferrin 153.0 L (204.0-354.0) mg/dL Total Protein (6.2-8.2) g/dL Albumin (3.8-4.9) g/dL Vitamin B12 1391.0 H (200.0-944.0) pg/mL Folate 40.00 H (4.40-31.00) ng/mL 08/01/24 08/01/24 Range/Units 05:41 05:41 RBC 2.63 L (4.10-5.20) X 10*6/uL Hgb 7.9 L (12.0-15.0) g/dL Hct 25.0 L (37.2-46.3) % MCHC 31.6 L (32.0-37.0) g/dL RDW 17.6 H (11.5-14.5) % Eosinophils # 0.41 H (0.04-0.35) X 10*3/uL NRBC/100 WBC Diff 0.02 H (0.00-0.01) X 10*3/uL Carbon Dioxide 20.2 L (21.6-31.8) mmol/L Anion Gap 13.80 H (4.00-12.00) mmol/L BUN 40.4 H (9.0-27.0) mg/dL Creatinine 2.0 H (0.6-1.5) mg/dL Est GFR (CKD-EPI) 23 L (>=60) BUN/Creatinine Ratio 20.20 H (12.00-20.00) Ratio Glucose 116 H (70-110) mg/dL Iron (50-170) UG/DL TIBC (228-460) UG/DL % Saturation (12.00-45.00) Transferrin (204.0-354.0) mg/dL Total Protein 5.4 L (6.2-8.2) g/dL Albumin 3.6 L (3.8-4.9) g/dL Vitamin B12 (200.0-944.0) pg/mL Folate (4.40-31.00) ng/mL Assessment and Plan Plan: Worsening shortness of breath Evidence of congestive heart failure exacerbation Underlying history of pulmonary hypertension Underlying history of valvular heart disease with moderate to severe aortic stenosis Underlying history of obstructive sleep apnea Anemia, acute on chronic, patient had evidence of telangiectasia in the stomach and received argon plasma coagulation treatment in the past Underlying history of hypertension Underlying history of gout Underlying history of chronic kidney disease Underlying history of atrial fibrillation maintained on Coumadin INR on presentation 2.0 At this time patient was seen and examined Home medications reviewed and reordered Cardiology consultation and gastroenterology consultation requested Will follow closely
[2024-08-01 11:07] LABS: INR 1.66 sec (0.93-1.11); Prothrombin Time 18.2 sec (9.9-11.9)
[2024-08-01] MEDS ORDERED: ALPRAZolam 0.25 MG TAB PO PRN (11:14)
[2024-08-01] MEDS ORDERED: NITROGLYCERIN SL TABS 0.4 MG TAB SUBLINGUAL PRN (11:14)
[2024-08-01] MEDS ORDERED: ALPRAZolam 0.5 MG TAB PO PRN (11:14)
[2024-08-01] MEDS ORDERED: HEPARIN SODIUM 1,000 UN/ML (10ML VL) IV PRN (11:14)
--- NOTE | 2024-08-01 11:14 | P.PN ---
Subjective HISTORY OF PRESENT ILLNESS: This is a 89-year-old female with a past medical history significant for coronary artery disease with previous stenting, valvular heart disease with moderate to severe aortic stenosis and moderate to severe MR, and moderate TR, moderate pulmonary hypertension, chronic anemia, chronic kidney disease, hypertension, and hyperlipidemia. Patient follows in the office with Dr. Ryan. We have been asked to see the patient in consultation for congestive heart failure. Patient examined at the bedside. Patient presented to the hospital with a chief complaint of shortness of breath. Patient states she has been feeling short of breath for the past few days. She denies any chest pain or pressure. Patient does have a history of aortic stenosis and has discussed TAVR with Dr. Ryan on an outpatient basis. The patient was unsure if she wanted to proceed with TAVR last time she was seen in the office. However she states that she has been thinking about it and she would like to proceed. DIAGNOSTICS: - EKG reveals sinus mechanism with no signs of acute ischemia. - Chest xray cardiomegaly, pulmonary vascular congestion and trace bilateral pleural effusions. COPD changes. - Laboratory data: WBC 5.57. Hemoglobin 7.2. Platelet count 269. INR 2.0. Sodium 140. Potassium 4.4. BUN 40. Creatinine 2.01. Troponin negative x 3. proBNP 9840. - Current home cardiac medications include Lasix 20 mg every 48 hours as needed, Coumadin 2.5 mg with dinner, amlodipine 5 mg daily, carvedilol 25 mg twice a day, hydralazine 50 mg twice daily. - Most recent echocardiogram obtained in June 2024 revealed normal EF, moderate to severe , moderate to severe MR, moderate TR - Cardiac catheterization history: October 2022 with PCI of the RCA and left circumflex 08/01/2024 Patient examined this morning at the bedside. Patient currently denies chest pain or pressure. She denies shortness of breath. Creatinine stable at 2.0. She remains off Coumadin. INR today 1.66. PHYSICAL EXAM: VITAL SIGNS: Reviewed. GENERAL: Well-developed in no acute distress. HEENT: Head is normocephalic. Pupils are equal, round. Sclerae anicteric. Mucous membranes of the mouth are moist. Neck supple. No JVD or thyromegaly LUNGS: Respirations even and unlabored. Lungs essentially clear to auscultation bilaterally. HEART: Regular rate and rhythm. S1 and S2 heard. 4/6 systolic murmur noted ABDOMEN: Soft. Nondistended. Nontender. EXTREMITIES: Normal range of motion. No clubbing or cyanosis. Peripheral pulses intact. No lower extremity edema NEUROLOGIC: Awake and alert. Oriented x 3. ASSESSMENT: Shortness of breath Acute on chronic heart failure with preserved EF Moderate to severe aortic stenosis Moderate to severe mitral regurgitation Moderate tricuspid regurgitation Coronary artery disease with previous PCI Paroxysmal atrial fibrillation Moderate pulmonary hypertension Chronic anemia Chronic kidney disease Hypertension Hyperlipidemia PLAN: No need to repeat echocardiogram as this was performed in June 2024 at the office Hold Coumadin. Begin IV heparin in the interim. N.p.o. at midnight Patient now agreeable for TAVR. Patient will undergo cardiac catheterization tomorrow with Dr. Ryan Further recommendations pending patient course Nurse practitioner note has been reviewed by physician. Signing provider agrees with the documented findings, assessment, and plan of care documented by MUD GRINDER as a scribe. Objective - Vital Signs Vital signs: Vital Signs Temp 98.7 F 08/01/24 07:00 Pulse 53 L 08/01/24 08:00 Resp 15 08/01/24 08:00 BP 154/67 08/01/24 07:00 Pulse Ox 97 08/01/24 07:00 FiO2 Intake & Output 07/31/24 08/01/24 08/01/24 18:59 06:59 18:59 Intake Total 118 Balance 118 Weight 74.843 kg Intake: Oral 118 Other: Voiding Method Bedside Commode Toilet Toilet # Voids 4 2 - Labs CBC & Chem 7: 08/01/24 05:41 08/01/24 05:41 Labs: Abnormal Lab Results - Last 24 Hours (Table) 07/31/24 07/31/24 07/31/24 Range/Units 14:24 14:24 14:24 RBC (4.10-5.20) X 10*6/uL Hgb (12.0-15.0) g/dL Hct (37.2-46.3) % MCHC (32.0-37.0) g/dL RDW (11.5-14.5) % Eosinophils # (0.04-0.35) X 10*3/uL NRBC/100 WBC Diff (0.00-0.01) X 10*3/uL PT (9.9-11.9) sec INR (0.93-1.11) sec Carbon Dioxide (21.6-31.8) mmol/L Anion Gap (4.00-12.00) mmol/L BUN (9.0-27.0) mg/dL Creatinine (0.6-1.5) mg/dL Est GFR (CKD-EPI) (>=60) BUN/Creatinine Ratio (12.00-20.00) Ratio Glucose (70-110) mg/dL Iron 14 L (50-170) UG/DL TIBC 214 L (228-460) UG/DL % Saturation 6.54 L (12.00-45.00) Transferrin 153.0 L (204.0-354.0) mg/dL Total Protein (6.2-8.2) g/dL Albumin (3.8-4.9) g/dL Vitamin B12 1391.0 H (200.0-944.0) pg/mL Folate 40.00 H (4.40-31.00) ng/mL 08/01/24 08/01/24 08/01/24 Range/Units 05:41 05:41 05:41 RBC 2.63 L (4.10-5.20) X 10*6/uL Hgb 7.9 L (12.0-15.0) g/dL Hct 25.0 L (37.2-46.3) % MCHC 31.6 L (32.0-37.0) g/dL RDW 17.6 H (11.5-14.5) % Eosinophils # 0.41 H (0.04-0.35) X 10*3/uL NRBC/100 WBC Diff 0.02 H (0.00-0.01) X 10*3/uL PT 18.2 H (9.9-11.9) sec INR 1.66 H (0.93-1.11) sec Carbon Dioxide 20.2 L (21.6-31.8) mmol/L Anion Gap 13.80 H (4.00-12.00) mmol/L BUN 40.4 H (9.0-27.0) mg/dL Creatinine 2.0 H (0.6-1.5) mg/dL Est GFR (CKD-EPI) 23 L (>=60) BUN/Creatinine Ratio 20.20 H (12.00-20.00) Ratio Glucose 116 H (70-110) mg/dL Iron (50-170) UG/DL TIBC (228-460) UG/DL % Saturation (12.00-45.00) Transferrin (204.0-354.0) mg/dL Total Protein 5.4 L (6.2-8.2) g/dL Albumin 3.6 L (3.8-4.9) g/dL Vitamin B12 (200.0-944.0) pg/mL Folate (4.40-31.00) ng/mL
--- NOTE | 2024-08-01 11:21 | P.NPCON ---
History of Present Illness - Reason for Consult chronic renal failure - History of Present Illness Reason for consultation: Chronic kidney disease History of present illness: Patient is 89-year-old female seen in renal consultation for chronic kidney disease. Patient has chronic kidney disease stage IV with baseline creatinine 1.8-2 secondary to nephrosclerosis and cardiorenal syndrome. GFR is near ba seline. Patient came to the hospital due to chest pain and shortness of breath going on for the last few days. Patient describes the pain as sharp in the left side of her chest and radiates down to her left arm. Patient also says she is getting short of breath even with minimal exertion like from walking from 1 room to another at her house. She denies use of nonsteroidals. She has history of diastolic CHF. Also has moderate to severe aortic stenosis with moderate tricuspid regurgitation and pulmonary hypertension. She denies gross hematuria or dysuria. No vomiting or diarrhea. Oral intake is good. Vital signs are stable. General: No acute distress. HEENT: Head exam is unremarkable. On room air. LUNGS: No audible rhonchi or wheezes. HEART: Rate and Rhythm are regular. ABDOMEN: Nontender. EXTREMITITES: No edema. Past Medical History Past Medical History: Atrial Fibrillation, Coronary Artery Disease (CAD), Eye Disorder, GERD/Reflux, Hearing Disorder / Deafness, Hypertension, Osteoarthritis (OA), Renal Disease, Sleep Apnea/CPAP/BIPAP Additional Past Medical History / Comment(s): "leaky valves",gout, hx of zazueta gles x2-still has pain to forhead and left eye,anemia-received blood transfusions and iron transfusions,hx polio-wears lifts in shoes,CHRONIC KIDNEY DISEASE -STAGE 4-no dialysis,has double vision w/out glasses, HEART MURMUR, HARD OF HEARING,no cpap History of Any Multi-Drug Resistant Organisms: None Reported Past Surgical History: Appendectomy, Cholecystectomy, Heart Catheterization With Stent, Hysterectomy, Orthopedic Surgery Additional Past Surgical History / Comment(s): O. . RIF left ankle,vein stripping rt leg,trigger fingers sx X 8, had sx on left leg r/t polio,lizzy placed to rt femur post fx,THUMB procedure,maxine cataracts,arthroscopy rt knee,heartstent x1,EGD,colonoscopy Past Anesthesia/Blood Transfusion Reactions: No Reported Reaction, Family History of Problems w/ Anesthesia Additional Past Anesthesia/Blood Transfusion Reaction / Comment(s): no problems w/ prior blood transfusion-last infusion August 2022. DAUGHTER B/P dropped w/ shoulder surgery & was admitted to ICU Date of Last Stent Placement:: 2022 Past Psychological History: No Psychological Hx Reported Smoking Status: Former smoker Past Alcohol Use History: None Reported Additional Past Alcohol Use History / Comment(s): smoked as a teenager Past Drug Use History: None Reported - Past Family History Son(s) Family Medical History: Cancer Additional Family Medical History / Comment(s): esophageal CA Mother Family Medical History: Cancer, Myocardial Infarction ([place]) Additional Family Medical History / Comment(s): thinks possibly some type of CA- had fluid retention to stomach area Sister(s) Family Medical History: Cancer, Myocardial Infarction ([place]) Additional Family Medical History / Comment(s): LUEKEMIA Brother(s) Additional Family Medical History / Comment(s): Parkinson Father Family Medical History: Myocardial Infarction ([place]) Medications and Allergies Home Medications Medication Instructions Recorded Confirmed Type Ferrous Sulfate [Iron] 325 mg PO HS 07/13/20 07/30/24 History allopurinoL [Zyloprim] 100 mg PO HS 07/13/20 07/30/24 History carvediloL [Coreg] 25 mg PO BID-W/MEALS 07/13/20 07/30/24 History hydrALAZINE HCL [Apresoline] 50 mg PO BID 07/13/20 07/30/24 History Furosemide [Lasix] 20 mg PO Q48H PRN 06/14/22 07/30/24 History Cholecalciferol [Vitamin D3 (125 125 mcg PO DAILY 08/24/22 07/30/24 History Mcg = 5000 Iu)] Acetaminophen [Tylenol 8 Hour] 650 mg PO BID 08/30/22 07/30/24 History Epoetin Sanya [Procrit] 60,000 unit IM DIRECTED 10/25/22 07/30/24 History Multivitamins, Thera [Multivitamin 1 tab PO DAILY 10/25/22 07/30/24 History (formulary)] Pantoprazole [Protonix] 40 mg PO DAILY 01/16/24 07/30/24 History Warfarin [Coumadin] 2.5 mg PO W/SUPPER 01/16/24 07/30/24 History amLODIPine [Norvasc] 5 mg PO DAILY 01/16/24 07/30/24 History Sodium Bicarbonate Tab 650 mg PO BID 04/30/24 07/30/24 History traMADol HCL 50 mg PO BID 04/30/24 07/30/24 History Allergies Allergy/AdvReac Type Severity Reaction Status Date / Time erythromycin base Allergy Dyspnea Verified 07/30/24 17:43 levofloxacin [From Levaquin] Allergy Hallucinati Verified 07/30/24 17:43 ons metronidazole [From Flagyl] Allergy Rash/Hives Verified 07/30/24 17:43 Penicillins Allergy Rash/Hives Verified 07/30/24 17:43 Sulfa (Sulfonamide Allergy Rash/Hives Verified 07/30/24 17:43 Antibiotics) hydrocodone AdvReac Hallucinati Verified 07/30/24 17:43 ons Tjaxqwc-LZV-FvG Reductase AdvReac "muscle Verified 07/30/24 17:43 Inhibitor pain" [Fqsfgkv-Hcc-Gzc Reductase Inhibitor] Physical Exam Vitals: Vital Signs Temp Pulse Resp BP Pulse Ox 08/01/24 08:00 53 L 15 08/01/24 07:00 98.7 F 53 L 15 154/67 97 08/01/24 02:17 98.0 F 58 L 19 169/76 97 07/31/24 18:51 98.0 F 58 L 16 149/76 97 07/31/24 14:05 97.4 F L 57 L 17 132/70 96 07/31/24 14:00 61 17 Intake and Output 07/31/24 08/01/24 08/01/24 22:59 06:59 14:59 Intake Total 118 Balance 118 Intake: Oral 118 Other: Voiding Method Toilet Toilet Toilet # Voids 1 2 Results - Lab Results Most recent lab results Calcium 9.4 mg/dL (8.7-10.3) 08/01/24 05:41 Magnesium 1.9 mg/dL (1.6-2.3) 07/30/24 15:27 08/01/24 05:41 08/01/24 05:41 Assessment and Plan Plan: Assessment: 1. Chronic kidney disease stage IV with baseline creatinine 1.8-2 secondary to nephrosclerosis and cardiorenal syndrome. 2. Coronary artery disease with cardiac stents. 3. Acute on chronic diastolic CHF. 4. Moderate aortic stenosis, moderate tricuspid regurgitation and pulmonary hypertension. 5. History of A-fib. 6. Dyspnea. 7. Hypertension with chronic kidney disease. 8. Anemia of chronic kidney disease. Iron deficiency noted. Plan: Maintain Lasix. Maintain IV iron. Avoid nephrotoxins. Check UA. Check renal ultrasound. Cardiac catheterization being considered for tomorrow. Hold Lasix tomorrow. Discussed with RN. Avoid aggressive IV hydration due to underlying CHF. Normal saline 50 cc an hour 2 to 3 hours pre and postcardiac catheterization. Risk of worsening renal function, potentially requiring renal placement therapy, discussed with patient. She understands. Thank you for the consultation. I will continue to follow the patient with you during her hospital stay.
[2024-08-01 12:12] LABS: Basophils # (A) 0.03 10*3/uL (0.00-0.10); Basophils % (A) 0.5 %; Eosinophils # (A) 0.41 10*3/uL (0.04-0.35); Eosinophils % (A) 7.4 %; HCT 25.5 % (37.2-46.3); HGB 8.3 g/dL (12.0-15.0); Lymphocytes # (A) 1.35 10*3/uL (0.90-5.00); Lymphocytes % (A) 24.3 %; MCH 30.6 pg (27.0-32.0); MCHC 32.5 g/dL (32.0-37.0); MCV 94.1 fL (80.0-97.0); Mean Platelet Volume 9.6 fL (9.5-12.2); Monocytes # (A) 0.53 10*3/uL (0.20-1.00); Monocytes % (A) 9.5 %; Neutrophils # (A) 3.19 10*3/uL (1.80-7.70); Neutrophils % (A) 57.4 %; Platelet Count 283 10*3/uL (140-440); RBC 2.71 10*6/uL (4.10-5.20); RDW 17.6 % (11.5-14.5); WBC 5.56 10*3/uL (4.50-10.00)
[2024-08-01 12:30] LABS: INR 1.7 (<1.2); Partial Thromboplastin Time 40.4 sec (22.0-30.0); Prothrombin Time 17.7 sec (10.0-12.5)
[2024-08-01] MEDS: HEPARIN SOD,PORK IN 0.45% NACL 25,000 UNIT in 0.45% NACL 1 250ML.BAG IV SCH (13:37)
--- NOTE | 2024-08-01 14:29 | P.PN ---
Subjective Progress Note Date: 08/01/24 Principal diagnosis: Anemia This a pleasant 88-year-old female with a history of atrial fibrillation coronary artery disease status post stents on warfarin, pulmonary hypertension, valvular heart disease with moderate to severe aortic stenosis, chronic kidney disease, hypertension, obstructive sleep apnea and chronic anemia who follows with Dr. Contreras from hematology. Patient had presented to the emergency department yesterday with complaints of shortness of breath and chest pain that seems to increase with exertion. States that the chest pain is intermittent underneath her left rib bone. Patient has been following with Dr. Ryan and has been in discussion for possible TAVR. She has a long history of anemia also has history of vascular ectasia. Patient was noted to be anemic on admission, normocytic normochromic anemia. She denies any blood in her stool or black stool. She takes oral iron. Denies any abdominal pain nausea or vomiting. Appetite has been normal. Gastroenterology was consulted again for anemia. She does follow with Dr. Ledezma she was recently seen and received blood transfusion on 07/26/2024 and again yesterday for hemoglobin of 7.0. 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 There was no active bleeding seen. Last colonoscopy was 2 years ago. Last Coumadin taken Monday evening. Cardiology is following and planning on possible cardiac catheterization tomorrow, patient now agreeable to possible TAVR. Current labs WBC 5.5 hemoglobin 7.2 hematocrit 21 platelet count 269,000 last INR 2.0 08/01/2024 Patient seen and examined today as a follow-up. She is sitting up at the bedside eating her lunch. States she is doing well. Cardiology is following and plan cardiac catheterization tomorrow with possible plan for TAVR. She de nies any blood in her stool or black stool. She denies abdominal pain, nausea or vomiting. Hemoglobin improved 8.3 up from 7.9. Iron studies completed, iron was 14 ferritin 136. Nephrology on consultation for chronic kidney disease. Coumadin remains on hold. Plan is to start patient on heparin drip per cardiology. Objective - Vital Signs Vital signs: Vital Signs Temp 98.7 F 08/01/24 07:00 Pulse 53 L 08/01/24 08:00 Resp 15 08/01/24 08:00 BP 154/67 08/01/24 07:00 Pulse Ox 97 08/01/24 07:00 FiO2 Intake & Output 07/31/24 08/01/24 08/01/24 18:59 06:59 18:59 Intake Total 118 Balance 118 Weight 74.843 kg Intake: Oral 118 Other: Voiding Method Bedside Commode Toilet Toilet # Voids 4 2 2 - Exam General appearance: The patient is alert, oriented, appears in no acute distress. HET: Head is normocephalic and atraumatic. Conjunctiva pink. Sclera anicteric. Neck: Supple without lymphadenopathy. Abdomen: Soft, nontender, nondistended. Extremities: Normal skin color and turgor. No pedal edema Skin: No rashes, no jaundice Neurological: No focal deficits. Alert and oriented. - Labs CBC & Chem 7: 08/01/24 11:29 08/01/24 05:41 Labs: Abnormal Lab Results - Last 24 Hours (Table) 07/31/24 07/31/24 07/31/24 Range/Units 14:24 14:24 14:24 RBC (4.10-5.20) X 10*6/uL Hgb (12.0-15.0) g/dL Hct (37.2-46.3) % MCHC (32.0-37.0) g/dL RDW (11.5-14.5) % Immature Gran # (0.00-0.04) 10*3/uL Eosinophils # (0.04-0.35) X 10*3/uL NRBC/100 WBC Diff (0.00-0.01) X 10*3/uL PT (9.9-11.9) sec INR (0.93-1.11) sec APTT (22.0-30.0) sec Carbon Dioxide (21.6-31.8) mmol/L Anion Gap (4.00-12.00) mmol/L BUN (9.0-27.0) mg/dL Creatinine (0.6-1.5) mg/dL Est GFR (CKD-EPI) (>=60) BUN/Creatinine Ratio (12.00-20.00) Ratio Glucose (70-110) mg/dL Iron 14 L (50-170) UG/DL TIBC 214 L (228-460) UG/DL % Saturation 6.54 L (12.00-45.00) Transferrin 153.0 L (204.0-354.0) mg/dL Total Protein (6.2-8.2) g/dL Albumin (3.8-4.9) g/dL Vitamin B12 1391.0 H (200.0-944.0) pg/mL Folate 40.00 H (4.40-31.00) ng/mL 08/01/24 08/01/24 08/01/24 Range/Units 05:41 05:41 05:41 RBC 2.63 L (4.10-5.20) X 10*6/uL Hgb 7.9 L (12.0-15.0) g/dL Hct 25.0 L (37.2-46.3) % MCHC 31.6 L (32.0-37.0) g/dL RDW 17.6 H (11.5-14.5) % Immature Gran # (0.00-0.04) 10*3/uL Eosinophils # 0.41 H (0.04-0.35) X 10*3/uL NRBC/100 WBC Diff 0.02 H (0.00-0.01) X 10*3/uL PT 18.2 H (9.9-11.9) sec INR 1.66 H (0.93-1.11) sec APTT (22.0-30.0) sec Carbon Dioxide 20.2 L (21.6-31.8) mmol/L Anion Gap 13.80 H (4.00-12.00) mmol/L BUN 40.4 H (9.0-27.0) mg/dL Creatinine 2.0 H (0.6-1.5) mg/dL Est GFR (CKD-EPI) 23 L (>=60) BUN/Creatinine Ratio 20.20 H (12.00-20.00) Ratio Glucose 116 H (70-110) mg/dL Iron (50-170) UG/DL TIBC (228-460) UG/DL % Saturation (12.00-45.00) Transferrin (204.0-354.0) mg/dL Total Protein 5.4 L (6.2-8.2) g/dL Albumin 3.6 L (3.8-4.9) g/dL Vitamin B12 (200.0-944.0) pg/mL Folate (4.40-31.00) ng/mL 08/01/24 08/01/24 Range/Units 11:29 11:29 RBC 2.71 L (4.10-5.20) X 10*6/uL Hgb 8.3 L (12.0-15.0) g/dL Hct 25.5 L (37.2-46.3) % MCHC (32.0-37.0) g/dL RDW 17.6 H (11.5-14.5) % Immature Gran # 0.05 H (0.00-0.04) 10*3/uL Eosinophils # 0.41 H (0.04-0.35) X 10*3/uL NRBC/100 WBC Diff (0.00-0.01) X 10*3/uL PT 17.7 H (9.9-11.9) sec INR 1.7 H (0.93-1.11) sec APTT 40.4 H (22.0-30.0) sec Carbon Dioxide (21.6-31.8) mmol/L Anion Gap (4.00-12.00) mmol/L BUN (9.0-27.0) mg/dL Creatinine (0.6-1.5) mg/dL Est GFR (CKD-EPI) (>=60) BUN/Creatinine Ratio (12.00-20.00) Ratio Glucose (70-110) mg/dL Iron (50-170) UG/DL TIBC (228-460) UG/DL % Saturation (12.00-45.00) Transferrin (204.0-354.0) mg/dL Total Protein (6.2-8.2) g/dL Albumin (3.8-4.9) g/dL Vitamin B12 (200.0-944.0) pg/mL Folate (4.40-31.00) ng/mL Assessment and Plan (1) Chronic anemia Narrative/Plan: 89-year-old female with multiple comorbidities with significant coronary artery disease, chronic iron deficiency anemia requiring multiple blood transfusions in the past, history of nonbleeding gastric ectasia with prior endoscopic evaluation and cauterized presented to the hospital with shortness of breath and chest pain. Noted to be anemic on admission. She has been following with Dr. Contreras from hematology and has been getting blood transfusions as needed. She denies any gross evidence of GI bleed including no complaints of black stool, a bdominal pain, hematemesis or coffee-ground emesis. Patient being closely followed by cardiology with plans for cardiac catheterization tomorrow possible TAVR in the future. Continues to have no signs of GI bleed. Will give parental iron. Nephrology following patient for chronic kidney disease and stating possible need for renal replacement therapy. Anemia likely secondary to chronic disease. No plans on endoscopic evaluation. Current Visit: No Status: Acute Code(s): D64.9 - ANEMIA, UNSPECIFIED SNOMED Code(s): 652945001 (2) Chest pain Current Visit: Yes Status: Acute Code(s): R07.9 - CHEST PAIN, UNSPECIFIED SNOMED Code(s): 30841839 (3) Coronary artery disease Current Visit: No Status: Acute Code(s): I25.10 - ATHSCL HEART DISEASE OF [place] CORONARY ARTERY W/O ANG PCTRS SNOMED Code(s): 21131285 (4) Current use of terminal system operator anticoagulation Current Visit: No Status: Acute Priority: Medium Code(s): Z79.01 - JAIL (CURRENT) USE OF ANTICOAGULANTS SNOMED Code(s): 641223839 (5) Gastric antral vascular ectasia Current Visit: No Status: Acute Code(s): K31.819 - ANGIODYSPLASIA OF STOMACH AND DUODENUM WITHOUT BLEEDING SNOMED Code(s): 08815471 (6) History of atrial fibrillation Current Visit: No Status: Acute Priority: Medium Code(s): Z86.79 - PERSONAL HISTORY OF OTHER DISEASES OF THE CIRCULATORY SYSTEM SNOMED Code(s): 407810801 (7) Normocytic normochromic anemia Current Visit: No Status: Acute Code(s): D64.9 - ANEMIA, UNSPECIFIED SNOMED Code(s): 68686520 (8) Chronic kidney disease Current Visit: No Status: Chronic Priority: Medium Code(s): N18.9 - C HRONIC KIDNEY DISEASE, UNSPECIFIED SNOMED Code(s): 221811455 Plan: 1. Continue symptomatic and supportive care 2. Parental iron ordered 3. Protonix 40 mg daily for GI prophylaxis 4. Diet as tolerated 5. Continue with recommendations from cardiology 6. No plans on endoscopic evaluation Thank you for this consultation, gastroenterology will sign off at this time. Patient can follow-up in 1 to 2 weeks. Recommend follow-up with hematology as scheduled, patient follows with Dr. Diane Mendez I agree with the dictator's note, documented as a scribe by Lu Alford.
[2024-08-01] MEDS: FUROSEMIDE 20 MG TAB PO SCH (15:26)
[2024-08-02] MEDS: SODIUM CHLORIDE 0.9% 1,000 ML in EMPTY BAG 1 BAG IV SCH (01:51)
[2024-08-02 04:50] LABS: INR 1.4 (<1.2); Partial Thromboplastin Time 60.4 sec (22.0-30.0)
[2024-08-02] MEDS: ATORVASTATIN 80 MG TAB PO ONE (05:17)
[2024-08-02] MEDS: ASPIRIN 325 MG TAB PO ONE (05:17)
[2024-08-02] MEDS ORDERED: HEPARIN SODIUM,PORCINE 10,000 UNIT in SODIUM CHLORIDE 0.9% 1,000 ML IRRIGATION PRN (07:00)
[2024-08-02] MEDS ORDERED: HEPARIN SODIUM,PORCINE (1 ML) 2,500 UNIT in SODIUM CHLORIDE 0.9% 250 ML IRRIGATION PRN (07:00)
[2024-08-02 08:16] LABS: Basophils # (A) 0.05 X 10*3/uL (0.00-0.10); Basophils % (A) 0.9 %; Eosinophils # (A) 0.36 X 10*3/uL (0.04-0.35); Eosinophils % (A) 6.5 %; HCT 25.7 % (37.2-46.3); HGB 7.8 g/dL (12.0-15.0); Lymphocytes # (A) 1.49 X 10*3/uL (0.90-5.00); MCH 29.3 pg (27.0-32.0); MCHC 30.4 g/dL (32.0-37.0); MCV 96.6 FL (80.0-97.0); Mean Platelet Volume 10.3 FL (9.5-12.2); Monocytes # (A) 0.59 X 10*3/uL (0.20-1.00); Monocytes % (A) 10.7 %; NRBC Per 100 WBC 0 X 10*3/uL (0.00-0.01); Neutrophils # (A) 2.97 X 10*3/uL (1.80-7.70); Platelet Count 314 X 10*3/uL (140-440); RBC 2.66 X 10*6/uL (4.10-5.20); RDW 17.4 % (11.5-14.5); WBC 5.51 X 10*3/uL (4.50-10.00)
[2024-08-02 08:29] LABS: ALT 10 U/L (8-44); AST 15 U/L (13-35); Albumin 3.4 g/dL (3.8-4.9); Albumin/Globulin Ratio 1.89 Ratio (1.60-3.17); Alkaline Phosphatase 63 U/L (41-126); BUN/Creat Ratio 18.25 Ratio (12.00-20.00); Blood Urea Nitrogen 43.8 mg/dL (9.0-27.0); Calcium 9.2 mg/dL (8.7-10.3); Carbon Dioxide 20.7 mmol/L (21.6-31.8); Chloride 109 mmol/L (96-109); Globulin 1.8 g/dL (1.6-3.3); Glucose 117 mg/dL (70-110); Potassium 4.4 mmol/L (3.5-5.5); Sodium 143 mmol/L (135-145); Total Bilirubin 0.2 mg/dL (0.3-1.2); Total Protein 5.2 g/dL (6.2-8.2)
--- NOTE | 2024-08-02 09:36 | P.PN ---
Subjective Progress Note Date: 08/02/24 Shelley Keenan, is an 89-year-old female who presented to [facility] emergency room with a chief complaint of worsening shortness of breath She was evaluated in the emergency room vital examination on presentation revealed a temperature of 98.2 pulse 62 respiration 20 blood pressure 160/68 pulse ox 99% on room air Laboratory data revealed a white blood count of 6.33 hemoglobin 7.0 platelet count 283 BUN 40 creatinine 2.01 troponin 0.012 Testing in the emergency room revealed EKG revealed anteroseptal myocardial infarction with poor R wave progression in anterior leads no ST or T wave abnormalities, chest x-ray revealed cardiomegaly pulmonary vascular congestion and trace bilateral pleural effusion and COPD changes. Patient was given 1 unit of red blood cell transfusion in the emergency room. Patient was admitted to medical floor for further evaluation and treatment, cardiology consultation and gastroenterology consultation was requested On 08/01/2024 patient is alert and oriented x 3. Cardiology and GI services are following. Patient has been transition to p.o. Lasix. Patient also given IV iron per GI services. Per cardiology patient is now agreeable for possible TAVR. Possible cardiac catheterization today with Dr. Quinonez. Patient denies chest pain or shortness of breath. Patient denies nausea vomiting or diarrhea. Patient denies any urinary burning or frequency. Hemoglobin today 7.9. Creatinine 2.0 bun 40.4. Current vital signs temp 98.7, heart rate 53, respiratory 15, blood pressure 154/67 with a pulse ox of 97% on room air On 08/02/2024 patient is alert and oriented x 3. Plans for heart catheterization today. Nephrology services are following and watching kidney function closely creatinine 2.4, hemoglobin 7.8. Patient was started on heparin drip per cardiology. At this time patient denies chest pain or shortness of breath. Patient denies nausea vomiting or diarrhea. Patient denies any urinary burning or frequency Objective - Vital Signs Vital signs: Vital Signs Temp 98.1 F 08/02/24 07:00 Pulse 59 L 08/02/24 07:00 Resp 16 08/02/24 07:00 BP 142/56 08/02/24 07:00 Pulse Ox 97 08/02/24 07:00 FiO2 Intake & Output 08/01/24 08/02/24 08/02/24 18:59 06:59 18:59 Intake Total 187.154 Balance 187.154 Intake: Intake, IV Titration 69.154 Amount Heparin Sod,Pork in 0.45% 69.154 NaCl 25,000 unit In 0.45 % NaCl 1 250ml.bag @ 12 UNITS/KG/HR 8.981 mls/hr IV .Q24H [facility] Rx#: [id number] Oral 118 Other: Voiding Method Toilet Toilet # Voids 2 1 - Exam In general patient is alert and oriented x 3 in no distress HEENT head normocephalic and atraumatic Neck is supple no JVD no goiter no lymphadenopathy no carotid bruit Chest examination is clear to auscultation no crackles no wheezing Cardiac exam reveals regular heart sounds S1 and S2 no gallops no murmurs Abdomen is soft nontender no organomegaly with normal bowel sounds Extremity exam reveals no edema no cyanosis or clubbing Neurological examination reveals no gross focal deficits - Labs CBC & Chem 7: 08/02/24 03:18 08/02/24 03:18 Labs: Abnormal Lab Results - Last 24 Hours (Table) 08/01/24 08/01/24 08/01/24 Range/Units 05:41 11:29 11:29 RBC 2.71 L (4.10-5.20) 10*6/uL Hgb 8.3 L (12.0-15.0) g/dL Hct 25.5 L (37.2-46.3) % MCHC (32.0-37.0) g/dL RDW 17.6 H (11.5-14.5) % Immature Gran # 0.05 H (0.00-0.04) 10*3/uL Eosinophils # 0.41 H (0.04-0.35) 10*3/uL PT 18.2 H 17.7 H (9.9-11.9) sec INR 1.66 H 1.7 H (0.93-1.11) sec APTT 40.4 H (22.0-30.0) sec Carbon Dioxide (21.6-31.8) mmol/L Anion Gap (4.00-12.00) mmol/L BUN (9.0-27.0) mg/dL Creatinine (0.6-1.5) mg/dL Est GFR (CKD-EPI) (>=60) Glucose (70-110) mg/dL Total Bilirubin (0.3-1.2) mg/dL Total Protein (6.2-8.2) g/dL Albumin (3.8-4.9) g/dL 08/01/24 08/01/24 08/02/24 Range/Units 18:08 20:39 03:18 RBC (4.10-5.20) 10*6/uL Hgb (12.0-15.0) g/dL Hct (37.2-46.3) % MCHC (32.0-37.0) g/dL RDW (11.5-14.5) % Immature Gran # (0.00-0.04) 10*3/uL Eosinophils # (0.04-0.35) 10*3/uL PT (9.9-11.9) sec INR (0.93-1.11) sec APTT 67.3 H 75.0 H (22.0-30.0) sec Carbon Dioxide 20.7 L (21.6-31.8) mmol/L Anion Gap 13.30 H (4.00-12.00) mmol/L BUN 43.8 H (9.0-27.0) mg/dL Creatinine 2.4 H (0.6-1.5) mg/dL Est GFR (CKD-EPI) 19 L (>=60) Glucose 117 H (70-110) mg/dL Total Bilirubin 0.2 L (0.3-1.2) mg/dL Total Protein 5.2 L (6.2-8.2) g/dL Albumin 3.4 L (3.8-4.9) g/dL 08/02/24 08/02/24 Range/Units 03:18 03:18 RBC 2.66 L (4.10-5.20) 10*6/uL Hgb 7.8 L (12.0-15.0) g/dL Hct 25.7 L (37.2-46.3) % MCHC 30.4 L (32.0-37.0) g/dL RDW 17.4 H (11.5-14.5) % Immature Gran # 0.05 H (0.00-0.04) 10*3/uL Eosinophils # 0.36 H (0.04-0.35) 10*3/uL PT 15.0 H (9.9-11.9) sec INR 1.4 H (0.93-1.11) sec APTT 60.4 H (22.0-30.0) sec Carbon Dioxide (21.6-31.8) mmol/L Anion Gap (4.00-12.00) mmol/L BUN (9.0-27.0) mg/dL Creatinine (0.6-1.5) mg/dL Est GFR (CKD-EPI) (>=60) Glucose (70-110) mg/dL Total Bilirubin (0.3-1.2) mg/dL Total Protein (6.2-8.2) g/dL Albumin (3.8-4.9) g/dL Assessment and Plan Plan: Worsening shortness of breath Evidence of congestive heart failure exacerbation Underlying history of pulmonary hypertension Underlying history of valvular heart disease with moderate to severe aortic stenosis Underlying history of obstructive sleep apnea Anemia, acute on chronic, patient had evidence of telangiectasia in the stomach and received argon plasma coagulation treatment in the past Underlying history of hypertension Underlying history of gout Underlying history of chronic kidney disease Underlying history of atrial fibrillation maintained on Coumadin INR on presentation 2.0 At this time patient was seen and examined Home medications reviewed and reordered Cardiology consultation and gastroenterology consultation requested Heart catheterization today 08/02/2024 Nephrology services are following Will follow closely
[2024-08-02] MEDS: SODIUM CHLORIDE 0.9% 1,000 ML IV SCH ×2 (10:15→15:29)
--- NOTE | 2024-08-02 10:44 | P.PN ---
Subjective Patient is seen in follow-up for chronic kidney disease. Renal function little worse today with creatinine 2.4. Has been voiding. Scheduled for cardiac catheterization today. Lasix held this morning. Vital signs are stable. General: No acute distress. HEENT: Head exam is unremarkable. LUNGS: No audible rhonchi or wheezes. HEART: Rate and Rhythm are regular. ABDOMEN: Nontender. EXTREMITITES: No edema. Objective - Vital Signs Vital signs: Vital Signs Temp 98.1 F 08/02/24 07:00 Pulse 59 L 08/02/24 07:00 Resp 16 08/02/24 07:00 BP 142/56 08/02/24 07:00 Pulse Ox 97 08/02/24 07:00 FiO2 Intake & Output 08/01/24 08/02/24 08/02/24 18:59 06:59 18:59 Intake Total 187.154 92.802 Balance 187.154 92.802 Intake: Intake, IV Titration 69.154 92.802 Amount Heparin Sod,Pork in 0.45% 69.154 92.802 NaCl 25,000 unit In 0.45 % NaCl 1 250ml.bag @ 12 UNITS/KG/HR 8.981 mls/hr IV .Q[facility]H [facility] Rx#: [id number] Oral 118 Other: Voiding Method Toilet Toilet # Voids 2 1 - Labs CBC & Chem 7: 08/02/24 03:18 08/02/24 03:18 Labs: Abnormal Lab Results - Last 24 Hours (Table) 08/01/24 08/01/24 08/01/24 Range/Units 05:41 11:29 11:29 RBC 2.71 L (4.10-5.20) 10*6/uL Hgb 8.3 L (12.0-15.0) g/dL Hct 25.5 L (37.2-46.3) % MCHC (32.0-37.0) g/dL RDW 17.6 H (11.5-14.5) % Immature Gran # 0.05 H (0.00-0.04) 10*3/uL Eosinophils # 0.41 H (0.04-0.35) 10*3/uL PT 18.2 H 17.7 H (9.9-11.9) sec INR 1.66 H 1.7 H (0.93-1.11) sec APTT 40.4 H (22.0-30.0) sec Carbon Dioxide (21.6-31.8) mmol/L Anion Gap (4.00-12.00) mmol/L BUN (9.0-27.0) mg/dL Creatinine (0.6-1.5) mg/dL Est GFR (CKD-EPI) (>=60) Glucose (70-110) mg/dL Total Bilirubin (0.3-1.2) mg/dL Total Protein (6.2-8.2) g/dL Albumin (3.8-4.9) g/dL 08/01/24 08/01/24 08/02/24 Range/Units 18:08 20:39 03:18 RBC (4.10-5.20) 10*6/uL Hgb (12.0-15.0) g/dL Hct (37.2-46.3) % MCHC (32.0-37.0) g/dL RDW (11.5-14.5) % Immature Gran # (0.00-0.04) 10*3/uL Eosinophils # (0.04-0.35) 10*3/uL PT (9.9-11.9) sec INR (0.93-1.11) sec APTT 67.3 H 75.0 H (22.0-30.0) sec Carbon Dioxide 20.7 L (21.6-31.8) mmol/L Anion Gap 13.30 H (4.00-12.00) mmol/L BUN 43.8 H (9.0-27.0) mg/dL Creatinine 2.4 H (0.6-1.5) mg/dL Est GFR (CKD-EPI) 19 L (>=60) Glucose 117 H (70-110) mg/dL Total Bilirubin 0.2 L (0.3-1.2) mg/dL Total Protein 5.2 L (6.2-8.2) g/dL Albumin 3.4 L (3.8-4.9) g/dL 08/02/24 08/02/24 Range/Units 03:18 03:18 RBC 2.66 L (4.10-5.20) 10*6/uL Hgb 7.8 L (12.0-15.0) g/dL Hct 25.7 L (37.2-46.3) % MCHC 30.4 L (32.0-37.0) g/dL RDW 17.4 H (11.5-14.5) % Immature Gran # 0.05 H (0.00-0.04) 10*3/uL Eosinophils # 0.36 H (0.04-0.35) 10*3/uL PT 15.0 H (9.9-11.9) sec INR 1.4 H (0.93-1.11) sec APTT 60.4 H (22.0-30.0) sec Carbon Dioxide (21.6-31.8) mmol/L Anion Gap (4.00-12.00) mmol/L BUN (9.0-27.0) mg/dL Creatinine (0.6-1.5) mg/dL Est GFR (CKD-EPI) (>=60) Glucose (70-110) mg/dL Total Bilirubin (0.3-1.2) mg/dL Total Protein (6.2-8.2) g/dL Albumin (3.8-4.9) g/dL Assessment and Plan Plan: Assessment: 1. Chronic kidney disease stage IV with baseline creatinine 1.8-2 secondary to nephrosclerosis and cardiorenal syndrome. Creatinine 2.4 today. 2. Coronary artery disease with cardiac stents. 3. Acute on chronic diastolic CHF. 4. Moderate aortic stenosis, moderate tricuspid regurgitation and pulmonary hypertension. 5. History of A-fib. 6. Dyspnea. 7. Hypertension with chronic kidney disease. Stable. 8. Anemia of chronic kidney disease. Iron deficiency noted. Plan: Hold Lasix today. Maintain IV iron. Avoid nephrotoxins. Follow-up UA. Follow-up renal ultrasound. Cardiac catheterization scheduled for today. Avoid aggressive IV hydration due to underlying CHF. Normal saline 50 cc an hour 2 to 3 hours pre and postcardiac catheterization. Risk of worsening renal function, potentially requiring renal placement therapy, has been discussed with patient. She understands.
--- NOTE | 2024-08-02 11:23 | P.PN ---
Subjective HISTORY OF PRESENT ILLNESS: This is a 89-year-old female with a past medical history significant for coronary artery disease with previous stenting, valvular heart disease with moderate to severe aortic stenosis and moderate to severe MR, and moderate TR, moderate pulmonary hypertension, chronic anemia, chronic kidney disease, hypertension, and hyperlipidemia. Patient follows in the office with Dr. Ryan. We have been asked to see the patient in consultation for congestive heart failure. Patient examined at the bedside. Patient presented to the hospital with a chief complaint of shortness of breath. Patient states she has been feeling short of breath for the past few days. She denies any chest pain or pressure. Patient does have a history of aortic stenosis and has discussed TAVR with Dr. Ryan on an outpatient basis. The patient was unsure if she wanted to proceed with TAVR last time she was seen in the office. However she states that she has been thinking about it and she would like to proceed. DIAGNOSTICS: - EKG reveals sinus mechanism with no signs of acute ischemia. - Chest xray cardiomegaly, pulmonary vascular congestion and trace bilateral pleural effusions. COPD changes. - Laboratory data: WBC 5.57. Hemoglobin 7.2. Platelet count 269. INR 2.0. Sodium 140. Potassium 4.4. BUN 40. Creatinine 2.01. Troponin negative x 3. proBNP 9840. - Current home cardiac medications include Lasix 20 mg every 48 hours as needed, Coumadin 2.5 mg with dinner, amlodipine 5 mg daily, carvedilol 25 mg twice a day, hydralazine 50 mg twice daily. - Most recent echocardiogram obtained in June 2024 revealed normal EF, moderate to severe , moderate to severe MR, moderate TR - Cardiac catheterization history: October 2022 with PCI of the RCA and left circumflex 08/01/2024 Patient examined this morning at the bedside. Patient currently denies chest pain or pressure. She denies shortness of breath. Creatinine stable at 2.0. She remains off Coumadin. INR today 1.66. 08/02/2024 Patient examined this morning at bedside. Patient currently denies chest pain or pressure. She denies shortness of breath. Patient's Coumadin remains on hold for pending cardiac catheterization. INR 1.4. She has been placed on IV heparin in the interim. Creatinine today worsened to 2.4, up from 2.0 yesterday. PHYSICAL EXAM: VITAL SIGNS: Reviewed. GENERAL: Well-developed in no acute distress. HEENT: Head is normocephalic. Pupils are equal, round. Sclerae anicteric. Mucous membranes of the mouth are moist. Neck supple. No JVD or thyromegaly LUNGS: Respirations even and unlabored. Lungs essentially clear to auscultation bilaterally. HEART: Regular rate and rhythm. S1 and S2 heard. 4/6 systolic murmur noted ABDOMEN: Soft. Nondistended. Nontender. EXTREMITIES: Normal range of motion. No clubbing or cyanosis. Peripheral pulses intact. No lower extremity edema NEUROLOGIC: Awake and alert. Oriented x 3. ASSESSMENT: Shortness of breath Acute on chronic heart failure with preserved EF Moderate to severe aortic stenosis Moderate to severe mitral regurgitation Moderate tricuspid regurgitation Coronary artery disease with previous PCI Paroxysmal atrial fibrillation Moderate pulmonary hypertension Chronic anemia Chronic kidney disease, baseline around 2.0 Hypertension Hyperlipidemia PLAN: No need to repeat echocardiogram as this was performed in June 2024 at the office Patient now agreeable for TAVR which will be performed on an outpatient basis. Patient will undergo cardiac catheterization today with Dr. Shelby Weldon Coumadin this evening postcardiac catheterization Further recommendations pending patient course Nurse practitioner note has been reviewed by physician. Signing provider agrees with the documented findings, assessment, and plan of care documented by SHOE REPAIRER APPRENTICE as a scribe. Objective - Vital Signs Vital signs: Vital Signs Temp 98.1 F 08/02/24 07:00 Pulse 59 L 08/02/24 07:00 Resp 16 08/02/24 07:00 BP 142/56 08/02/24 07:00 Pulse Ox 97 08/02/24 07:00 FiO2 Intake & Output 08/01/24 08/02/24 08/02/24 18:59 06:59 18:59 Intake Total 187.154 Balance 187.154 Intake: Intake, IV Titration 69.154 Amount Heparin Sod,Pork in 0.45% 69.154 NaCl 25,000 unit In 0.45 % NaCl 1 250ml.bag @ 12 UNITS/KG/HR 8.981 mls/hr IV .Q24H [facility] Rx#: [id number] Oral 118 Other: Voiding Method Toilet Toilet # Voids 2 1 - Labs CBC & Chem 7: 08/02/24 03:18 08/02/24 03:18 Labs: Abnormal Lab Results - Last 24 Hours (Table) 08/01/24 08/01/24 08/01/24 Range/Units 05:41 05:41 11:29 RBC 2.71 L (4.10-5.20) 10*6/uL Hgb 8.3 L (12.0-15.0) g/dL Hct 25.5 L (37.2-46.3) % MCHC (32.0-37.0) g/dL RDW 17.6 H (11.5-14.5) % Immature Gran # 0.05 H (0.00-0.04) 10*3/uL Eosinophils # 0.41 H (0.04-0.35) 10*3/uL PT 18.2 H (9.9-11.9) sec INR 1.66 H (0.93-1.11) sec APTT (22.0-30.0) sec Carbon Dioxide 20.2 L (21.6-31.8) mmol/L Anion Gap 13.80 H (4.00-12.00) mmol/L BUN 40.4 H (9.0-27.0) mg/dL Creatinine 2.0 H (0.6-1.5) mg/dL Est GFR (CKD-EPI) 23 L (>=60) BUN/Creatinine Ratio 20.20 H (12.00-20.00) Ratio Glucose 116 H (70-110) mg/dL Total Bilirubin (0.3-1.2) mg/dL Total Protein 5.4 L (6.2-8.2) g/dL Albumin 3.6 L (3.8-4.9) g/dL 08/01/24 08/01/24 08/01/24 Range/Units 11:29 18:08 20:39 RBC (4.10-5.20) 10*6/uL Hgb (12.0-15.0) g/dL Hct (37.2-46.3) % MCHC (32.0-37.0) g/dL RDW (11.5-14.5) % Immature Gran # (0.00-0.04) 10*3/uL Eosinophils # (0.04-0.35) 10*3/uL PT 17.7 H (9.9-11.9) sec INR 1.7 H (0.93-1.11) sec APTT 40.4 H 67.3 H 75.0 H (22.0-30.0) sec Carbon Dioxide (21.6-31.8) mmol/L Anion Gap (4.00-12.00) mmol/L BUN (9.0-27.0) mg/dL Creatinine (0.6-1.5) mg/dL Est GFR (CKD-EPI) (>=60) BUN/Creatinine Ratio (12.00-20.00) Ratio Glucose (70-110) mg/dL Total Bilirubin (0.3-1.2) mg/dL Total Protein (6.2-8.2) g/dL Albumin (3.8-4.9) g/dL 08/02/24 08/02/24 08/02/24 Range/Units 03:18 03:18 03:18 RBC 2.66 L (4.10-5.20) 10*6/uL Hgb 7.8 L (12.0-15.0) g/dL Hct 25.7 L (37.2-46.3) % MCHC 30.4 L (32.0-37.0) g/dL RDW 17.4 H (11.5-14.5) % Immature Gran # 0.05 H (0.00-0.04) 10*3/uL Eosinophils # 0.36 H (0.04-0.35) 10*3/uL PT 15.0 H (9.9-11.9) sec INR 1.4 H (0.93-1.11) sec APTT 60.4 H (22.0-30.0) sec Carbon Dioxide 20.7 L (21.6-31.8) mmol/L Anion Gap 13.30 H (4.00-12.00) mmol/L BUN 43.8 H (9.0-27.0) mg/dL Creatinine 2.4 H (0.6-1.5) mg/dL Est GFR (CKD-EPI) 19 L (>=60) BUN/Creatinine Ratio (12.00-20.00) Ratio Glucose 117 H (70-110) mg/dL Total Bilirubin 0.2 L (0.3-1.2) mg/dL Total Protein 5.2 L (6.2-8.2) g/dL Albumin 3.4 L (3.8-4.9) g/dL
--- NOTE | 2024-08-02 12:00 | US ---
EXAMINATION TYPE: US kidneys/renal and bladder DATE OF EXAM: 08/02/2024 COMPARISON: NONE CLINICAL INDICATION: Female, 89 years old with history of tabitha; TECHNIQUE: Grayscale imaging of the bilateral kidneys and urinary bladder: FINDINGS: EXAM MEASUREMENTS: Right Kidney: 7.2x3.3x3.2 cm Left Kidney: 10.0x4.0x4.3 cm limited study due to overlying bowel, pt body habitus & rib shadow Right Kidney: No hydronephrosis or masses seen, slightly obscured Left Kidney: Anechoic area seen: 1.5x0.9x1.5cm Bladder: wnl Bilateral Jets seen: not super full, jets limited No hydronephrosis or solid renal masses. No shadowing calculi. Simple-appearing left renal cyst measu ring up to 1.5 cm. The cortical medullary differentiation is maintained. Urinary bladder is underdist ended but anechoic. IMPRESSION: Limited examination due to patient's body habitus and overlying bowel gas. No hydronephrosis or nephrolithiasis. [facility], , 08/02/2024 11:57 AM
--- NOTE | 2024-08-02 12:20 | P.PN ---
Subjective Progress Note Date: 08/02/24 Principal diagnosis: Anemia This a pleasant 88-year-old female with a history of atrial fibrillation coronary artery disease status post stents on warfarin, pulmonary hypertension, valvular heart disease with moderate to severe aortic stenosis, chronic kidney disease, hypertension, obstructive sleep apnea and chronic anemia who follows with Dr. Contreras from hematology. Patient had presented to the emergency department yesterday with complaints of shortness of breath and chest pain that seems to increase with exertion. States that the chest pain is intermittent underneath her left rib bone. Patient has been following with Dr. Ryan and has been in discussion for possible TAVR. She has a long history of anemia also has history of vascular ectasia. Patient was noted to be anemic on admission, normocytic normochromic anemia. She denies any blood in her stool or black stool. She takes oral iron. Denies any abdominal pain nausea or vomiting. Appetite has been normal. Gastroenterology was consulted again for anemia. She does follow with Dr. Ledezma she was recently seen and received blood transfusion on 07/26/2024 and again yesterday for hemoglobin of 7.0. 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 There was no active bleeding seen. Last colonoscopy was 2 years ago. Last Coumadin taken Monday evening. Cardiology is following and planning on possible cardiac catheterization tomorrow, patient now agreeable to possible TAVR. Current labs WBC 5.5 hemoglobin 7.2 hematocrit 21 platelet count 269,000 last INR 2.0 08/01/2024 Patient seen and examined today as a follow-up. She is sitting up at the bedside eating her lunch. States she is doing well. Cardiology is following and plan cardiac catheterization tomorrow with possible plan for TAVR. She de nies any blood in her stool or black stool. She denies abdominal pain, nausea or vomiting. Hemoglobin improved 8.3 up from 7.9. Iron studies completed, iron was 14 ferritin 136. Nephrology on consultation for chronic kidney disease. Coumadin remains on hold. Plan is to start patient on heparin drip per cardiology. 925 Patient seen and examined today as a follow-up. She still remains without any signs or symptoms of GI bleed. Denies any black stool or blood in her stool. Is scheduled for her cardiac catheterization this morning. She was started on a heparin drip yesterday. Hemoglobin stable at 7.8. Objective - Vital Signs Vital signs: Vital Signs Temp 98.0 F 08/02/24 01:02 Pulse 62 08/02/24 01:02 Resp 16 08/02/24 01:02 BP 122/62 08/02/24 01:02 Pulse Ox 97 08/02/24 01:02 FiO2 Intake & Output 08/01/24 08/01/24 08/02/24 06:59 18:59 06:59 Intake Total 187.154 Balance 187.154 Intake: Intake, IV Titration 69.154 Amount Heparin Sod,Pork in 0.45% 69.154 NaCl 25,000 unit In 0.45 % NaCl 1 250ml.bag @ 12 UNITS/KG/HR 8.981 mls/hr IV .Q24H [facility] Rx#: [id number] Oral 118 Other: Voiding Method Toilet Toilet Toilet # Voids 2 2 1 - Exam General appearance: The patient is alert, oriented, appears in no acute distress. HET: Head is normocephalic and atraumatic. Conjunctiva pink. Sclera anicteric. Neck: Supple without lymphadenopathy. Abdomen: Soft, nontender, nondistended. Extremities: Normal skin color and turgor. No pedal edema Skin: No rashes, no jaundice Neurological: No focal deficits. Alert and oriented. - Labs CBC & Chem 7: 08/02/24 03:18 08/02/24 03:18 Labs: Abnormal Lab Results - Last 24 Hours (Table) 08/01/24 08/01/24 08/01/24 Range/Units 05:41 05:41 05:41 RBC 2.63 L (4.10-5.20) X 10*6/uL Hgb 7.9 L (12.0-15.0) g/dL Hct 25.0 L (37.2-46.3) % MCHC 31.6 L (32.0-37.0) g/dL RDW 17.6 H (11.5-14.5) % Immature Gran # (0.00-0.04) 10*3/uL Eosinophils # 0.41 H (0.04-0.35) X 10*3/uL NRBC/100 WBC Diff 0.02 H (0.00-0.01) X 10*3/uL PT 18.2 H (9.9-11.9) sec INR 1.66 H (0.93-1.11) sec APTT (22.0-30.0) sec Carbon Dioxide 20.2 L (21.6-31.8) mmol/L Anion Gap 13.80 H (4.00-12.00) mmol/L BUN 40.4 H (9.0-27.0) mg/dL Creatinine 2.0 H (0.6-1.5) mg/dL Est GFR (CKD-EPI) 23 L (>=60) BUN/Creatinine Ratio 20.20 H (12.00-20.00) Ratio Glucose 116 H (70-110) mg/dL Total Protein 5.4 L (6.2-8.2) g/dL Albumin 3.6 L (3.8-4.9) g/dL 08/01/24 08/01/24 08/01/24 Range/Units 11:29 11:29 18:08 RBC 2.71 L (4.10-5.20) X 10*6/uL Hgb 8.3 L (12.0-15.0) g/dL Hct 25.5 L (37.2-46.3) % MCHC (32.0-37.0) g/dL RDW 17.6 H (11.5-14.5) % Immature Gran # 0.05 H (0.00-0.04) 10*3/uL Eosinophils # 0.41 H (0.04-0.35) X 10*3/uL NRBC/100 WBC Diff (0.00-0.01) X 10*3/uL PT 17.7 H (9.9-11.9) sec INR 1.7 H (0.93-1.11) sec APTT 40.4 H 67.3 H (22.0-30.0) sec Carbon Dioxide (21.6-31.8) mmol/L Anion Gap (4.00-12.00) mmol/L BUN (9.0-27.0) mg/dL Creatinine (0.6-1.5) mg/dL Est GFR (CKD-EPI) (>=60) BUN/Creatinine Ratio (12.00-20.00) Ratio Glucose (70-110) mg/dL Total Protein (6.2-8.2) g/dL Albumin (3.8-4.9) g/dL 08/01/24 08/02/24 Range/Units 20:39 03:18 RBC (4.10-5.20) X 10*6/uL Hgb (12.0-15.0) g/dL Hct (37.2-46.3) % MCHC (32.0-37.0) g/dL RDW (11.5-14.5) % Immature Gran # (0.00-0.04) 10*3/uL Eosinophils # (0.04-0.35) X 10*3/uL NRBC/100 WBC Diff (0.00-0.01) X 10*3/uL PT 15.0 H (9.9-11.9) sec INR 1.4 H (0.93-1.11) sec APTT 75.0 H 60.4 H (22.0-30.0) sec Carbon Dioxide (21.6-31.8) mmol/L Anion Gap (4.00-12.00) mmol/L BUN (9.0-27.0) mg/dL Creatinine (0.6-1.5) mg/dL Est GFR (CKD-EPI) (>=60) BUN/Creatinine Ratio (12.00-20.00) Ratio Glucose (70-110) mg/dL Total Protein (6.2-8.2) g/dL Albumin (3.8-4.9) g/dL Assessment and Plan (1) Chronic anemia Narrative/Plan: 89-year-old female with multiple comorbidities with significant coronary artery disease, chronic iron deficiency anemia requiring multiple blood transfusions in the past, history of nonbleeding gastric ectasia with prior endoscopic evaluation and cauterized presented to the hospital with shortness of breath and chest pain. Noted to be anemic on admission. She has been following with Dr. Contreras from hematology and has been getting blood transfusions as needed. She denies any gross evidence of GI bleed including no complaints of black stool, abdominal pain, hematemesis or coffee-ground emesis. Patient being closely followed by cardiology with plans for cardiac catheterization tomorrow possible TAVR in the future. Continues to have no signs of GI bleed. Will give parental iron. Nephrology following patient for chronic kidney disease and stating possible need for renal replacement therapy. Anemia likely secondary to chronic disease. No plans on endoscopic evaluation. Current Visit: No Status: Acute Code(s): D64.9 - ANEMIA, UNSPECIFIED SNOMED Code(s): 427239386 (2) Chest pain Current Visit: Yes Status: Acute Code(s): R07.9 - CHEST PAIN, UNSPECIFIED SNOMED Code(s): 08321376 (3) Coronary artery disease Current Visit: No Status: Acute Code(s): I25.10 - ATHSCL HEART DISEASE OF [place] CORONARY ARTERY W/O ANG PCTRS SNOMED Code(s): 98871909 (4) Current use of meterman anticoagulation Current Visit: No Status: Acute Priority: Medium Code(s): Z79.01 - LONG TE RM (CURRENT) USE OF ANTICOAGULANTS SNOMED Code(s): 035352978 (5) Gastric antral vascular ectasia Current Visit: No Status: Acute Code(s): K31.819 - ANGIODYSPLASIA OF STOMACH AND DUODENUM WITHOUT BLEEDING SNOMED Code(s): 37405651 (6) History of atrial fibrillation Current Visit: No Status: Acute Priority: Medium Code(s): Z86.79 - PERSONAL HISTORY OF OTHER DISEASES OF THE CIRCULATORY SYSTEM SNOMED Code(s): 853877908 (7) Normocytic normochromic anemia Current Visit: No Status: Acute Code(s): D64.9 - ANEMIA, UNSPECIFIED SNOMED Code(s): 74832825 (8) Chronic kidney disease Current Visit: No Status: Chronic Priority: Medium Code(s): N18.9 - CHRONIC KIDNEY DISEASE, UNSPECIFIED SNOMED Code(s): 806777096 Plan: 1. Continue symptomatic and supportive care 2. Parental iron ordered 3. Protonix 40 mg daily for GI prophylaxis 4. Diet as tolerated 5. Patient scheduled for cardiac catheterization today. Continue with recommendations from cardiology. 6. No plans on endoscopic evaluation Thank you for this consultation, gastroenterology will sign off at this time. Patient can follow-up in 1 to 2 weeks. Recommend follow-up with hematology as scheduled, patient follows with Dr. Diane Mendez I agree with the dictator's note, documented as a scribe by Lu Alford.
[2024-08-02] MEDS: MIDAZOLAM 2 MG/2 ML VIAL IVP ONE (12:40)
[2024-08-02] MEDS: VERAPAMIL SYRINGE (5 MG/10 ML) INTRAARTER ONE (12:41)
[2024-08-02] MEDS: LIDOCAINE 1% INJ 10MG/ML (20 ML MDV) SQ ONE (12:41)
[2024-08-02] MEDS: HEPARIN SODIUM 1,000 UN/ML (10ML VL) IVP ONE (12:45)
[2024-08-02] MEDS: HEPARIN SODIUM,PORCINE (1 ML) 2,500 UNIT in SODIUM CHLORIDE 0.9% 250 ML IRRIGATION ONE (13:00)
[2024-08-02] MEDS: HEPARIN SODIUM (1,000 UNIT/ML) 1,000 UNIT in SODIUM CHLORIDE 0.9% 1,000 ML IRRIGATION ONE (13:00)
[2024-08-02] MEDS: IV FLUID CONTINUATION 1,000 ML IV ONE (13:00)
[2024-08-02] MEDS: NITROGLYCERIN SL TABS 0.4 MG TAB SUBLINGUAL ONE (13:01)
[2024-08-02] MEDS: MORPHINE SULFATE 4 MG/ML SYRINGE IVP ONE (13:02)
[2024-08-02] MEDS ORDERED: RX INFO: IV CONTRAST WAS GIVEN 1 EACH MISC MISCELLANE PRN (13:10)
[2024-08-02] MEDS: IOPAMIDOL-370 100ML BTL INJ ONE (13:13)
--- NOTE | 2024-08-02 13:13 | P.PCN ---
Date of Procedure: 08/02/24 Operative Findings: CARDIAC CATHETERIZATION PERFORMING PHYSICIAN: Armando Ryan MD, RPVI PROCEDURE PERFORMED: 1. Selective right and left coronary angiogram 2. Left heart catheterization 3. Ultrasound-guided access of the right radial artery INDICATION: Valvular heart disease COMPLICATION: None APPROACH: Right radial artery LEVEL OF SEDATION: Moderate with a sedation length of 13 minutes PROCEDURE DESCRIPTION: After obtaining an informed consent, the patient was brought to cardiac labour market economist. Local anesthesia was performed using lidocaine subcutaneously. The right radial artery was cannulated using Seldinger technique, under ultrasound guidance, the guidewire passed easily, following that we advanced a 5-Cambodian sheath dilator assembly, the wire and dilator were removed and sheath was flushed. Following that, 2 mg of verapamil along with 5000 unit heparin were given. Selective right and left coronary angiogram using a 5-Cambodian JR4 and JL 3.5 catheters. Following that we did left heart catheterization using JR4 catheter with a straight wire The procedure was completed there was no complication. SELECTIVE CORONARY ANGIOGRAM: The right coronary artery: Large caliber vessel nondominant vessel with patent stent in the mid RCA and ostial RCA disease appears to be in the range of 60 Left main: Is angiographically normal The left circumflex: Large caliber vessel nondominant vessel with patent stent in the mid left circumflex and severe disease involving first OM/ramus intermediate The left anterior descending artery: Large caliber vessel with patent stent in the proximal LAD and severe disease involving the mid LAD with a focal lesion HEMODYNAMICS: The LVEDP was 10 mmHg with a mean gradient of 13 mmHg across aortic valve CONCLUSION: 1. Mild aortic stenosis by gradient was only 13 mmHg mean gradient across the aortic valve and normal left-sided filling pressure 2. Patent stent in the proximal LAD with severe focal lesion involving the mid LAD appeared to be in the range of 70% 3. Patent stent in the mid left circumflex with severe disease involving the ramus intermedius/OM1 3. Patent stent in the mid RCA with intermediate lesion involving the ostial RCA POSTPROCEDURE MANAGEMENT: Medical treatment at this point giving the limited contrast use in the light of chronic kidney disease Consider PCI of the LAD if the patient remains symptomatic Follow-up with the patient
[2024-08-02] MEDS: WARFARIN 3 MG TAB PO ONE (18:02)
[2024-08-02 20:52] LABS: Appearance,Urine Clear (Clear); Bilirubin,Urine Negative (Negative); Blood,Urine Negative (Negative); Color,Urine Yellow; Glucose,Urine (UA) Negative (Negative); Ketones,Urine Negative (Negative); Leukocyte Esterase,Urine Trace (Negative); Nitrite,Urine Negative (Negative); Protein,Urine Negative (Negative); RBC,Urine <1 /hpf (0-5); Specific Gravity,Urine 1.022 (1.001-1.035); Urobilinogen,Urine <2.0 mg/dL (<2.0); WBC,Urine 15 /hpf (0-5)
[2024-08-03 06:53] LABS: INR 1.3 (<1.2); Prothrombin Time 13.5 sec (10.0-12.5)
[2024-08-03] MEDS: FUROSEMIDE 20 MG TAB PO SCH (08:41)
[2024-08-03 10:42] LABS: Basophils # (A) 0.06 X 10*3/uL (0.00-0.10); Basophils % (A) 0.9 %; Eosinophils # (A) 0.46 X 10*3/uL (0.04-0.35); Eosinophils % (A) 7.3 %; HGB 8.2 g/dL (12.0-15.0); Lymphocytes # (A) 1.51 X 10*3/uL (0.90-5.00); Lymphocytes % (A) 23.9 %; MCH 29.9 pg (27.0-32.0); MCHC 30.4 g/dL (32.0-37.0); MCV 98.5 FL (80.0-97.0); Mean Platelet Volume 10.1 FL (9.5-12.2); Monocytes # (A) 0.62 X 10*3/uL (0.20-1.00); Monocytes % (A) 9.8 %; NRBC Per 100 WBC 0 X 10*3/uL (0.00-0.01); Neutrophils # (A) 3.61 X 10*3/uL (1.80-7.70); Platelet Count 313 X 10*3/uL (140-440); RBC 2.74 X 10*6/uL (4.10-5.20); RDW 17.3 % (11.5-14.5); WBC 6.33 X 10*3/uL (4.50-10.00)
[2024-08-03 11:01] LABS: ALT 11 U/L (8-44); AST 18 U/L (13-35); Albumin 3.6 g/dL (3.8-4.9); Albumin/Globulin Ratio 1.89 Ratio (1.60-3.17); Alkaline Phosphatase 64 U/L (41-126); Blood Urea Nitrogen 47.3 mg/dL (9.0-27.0); Calcium 9.5 mg/dL (8.7-10.3); Carbon Dioxide 19.7 mmol/L (21.6-31.8); Chloride 109 mmol/L (96-109); Globulin 1.9 g/dL (1.6-3.3); Glucose 101 mg/dL (70-110); Potassium 4.8 mmol/L (3.5-5.5); Sodium 141 mmol/L (135-145); Total Bilirubin 0.3 mg/dL (0.3-1.2); Total Protein 5.5 g/dL (6.2-8.2)
--- NOTE | 2024-08-03 11:32 | P.PN ---
Subjective Progress Note Date: 08/03/24 Shelley Keenan, is an 89-year-old female who presented to [facility] emergency room with a chief complaint of worsening shortness of breath She was evaluated in the emergency room vital examination on presentation revealed a temperature of 98.2 pulse 62 respiration 20 blood pressure 160/68 pulse ox 99% on room air Laboratory data revealed a white blood count of 6.33 hemoglobin 7.0 platelet count 283 BUN 40 creatinine 2.01 troponin 0.012 Testing in the emergency room revealed EKG revealed anteroseptal myocardial infarction with poor R wave progression in anterior leads no ST or T wave abnormalities, chest x-ray revealed cardiomegaly pulmonary vascular congestion and trace bilateral pleural effusion and COPD changes. Patient was given 1 unit of red blood cell transfusion in the emergency room. Patient was admitted to medical floor for further evaluation and treatment, cardiology consultation and gastroenterology consultation was requested On 08/01/2024 patient is alert and oriented x 3. Cardiology and GI services are following. Patient has been transition to p.o. Lasix. Patient also given IV iron per GI services. Per cardiology patient is now agreeable for possible TAVR. Possible cardiac catheterization today with Dr. Quinonez. Patient denies chest pain or shortness of breath. Patient denies nausea vomiting or diarrhea. Patient denies any urinary burning or frequency. Hemoglobin today 7.9. Creatinine 2.0 bun 40.4. Current vital signs temp 98.7, heart rate 53, respiratory 15, blood pressure 154/67 with a pulse ox of 97% on room air On 08/02/2024 patient is alert and oriented x 3. Plans for heart catheterization today. Nephrology services are following and watching kidney function closely creatinine 2.4, hemoglobin 7.8. Patient was started on heparin drip per cardiology. At this time patient denies chest pain or shortness of breath. Patient denies nausea vomiting or diarrhea. Patient denies any urinary burning or frequency On 08/03/2024 patient was seen and examined on the medical floor she is alert and oriented x 3 in no apparent distress, she underwent cardiac catheterization yesterday, she is receiving IV fluid, kidney function is marginal with creatinine at 2.2 today, patient will be resumed on oral Coumadin today her INR is subtherapeutic, she will receive subcu Lovenox until her INR is therapeutic, clinically she denies any complaints at this time there is no fever or chills no headache or dizziness no chest pain no shortness of breath no cough no nausea or vomiting no abdominal pain no diarrhea and no urinary symptoms. At this time we are awaiting further recommendation from nephrology and cardiology. Objective - Vital Signs Vital signs: Vital Signs Temp 98.0 F 08/03/24 07:13 Pulse 58 L 08/03/24 07:13 Resp 14 08/03/24 07:13 BP 144/62 08/03/24 07:13 Pulse Ox 96 08/03/24 07:13 FiO2 Intake & Output 08/02/24 08/03/24 08/03/24 18:59 06:59 18:59 Intake Total 413.802 540 240 Balance 413.802 540 240 Intake: IV 100 Intake, IV Titration 92.802 Amount Heparin Sod,Pork in 0.45% 92.802 NaCl 25,000 unit In 0.45 % NaCl 1 250ml.bag @ 12 UNITS/KG/HR 8.981 mls/hr IV .Q24H [facility] Rx#: [id number] Oral 221 540 240 Other: Voiding Method Toilet Toilet # Voids 2 2 - Exam In general patient is alert and oriented x 3 in no distress HEENT head normocephalic and atraumatic Neck is supple no JVD no goiter no lymphadenopathy no carotid bruit Chest examination is clear to auscultation no crackles no wheezing Cardiac exam reveals regular heart sounds S1 and S2 no gallops no murmurs Abdomen is soft nontender no organomegaly with normal bowel sounds Extremity exam reveals no edema no cyanosis or clubbing Neurological examination reveals no gross focal deficits - Labs CBC & Chem 7: 08/03/24 06:08 08/03/24 06:08 Labs: Abnormal Lab Results - Last 24 Hours (Table) 08/02/24 08/03/24 08/03/24 Range/Units 19:44 06:08 06:08 RBC 2.74 L (4.10-5.20) X 10*6/uL Hgb 8.2 L (12.0-15.0) g/dL Hct 27.0 L (37.2-46.3) % MCV 98.5 H (80.0-97.0) FL MCHC 30.4 L (32.0-37.0) g/dL RDW 17.3 H (11.5-14.5) % Immature Gran # 0.07 H (0.00-0.04) X 10*3/uL Eosinophils # 0.46 H (0.04-0.35) X 10*3/uL PT (10.0-12.5) sec INR (<1.2) Carbon Dioxide 19.7 L (21.6-31.8) mmol/L Anion Gap 12.30 H (4.00-12.00) mmol/L BUN 47.3 H (9.0-27.0) mg/dL Creatinine 2.2 H (0.6-1.5) mg/dL Est GFR (CKD-EPI) 21 L (>=60) BUN/Creatinine Ratio 21.50 H (12.00-20.00) Ratio Total Protein 5.5 L (6.2-8.2) g/dL Albumin 3.6 L (3.8-4.9) g/dL Ur Leukocyte Esterase Trace H (Negative) Urine WBC 15 H (0-5) /hpf 08/03/24 Range/Units 06:08 RBC (4.10-5.20) X 10*6/uL Hgb (12.0-15.0) g/dL Hct (37.2-46.3) % MCV (80.0-97.0) FL MCHC (32.0-37.0) g/dL RDW (11.5-14.5) % Immature Gran # (0.00-0.04) X 10*3/uL Eosinophils # (0.04-0.35) X 10*3/uL PT 13.5 H (10.0-12.5) sec INR 1.3 H (<1.2) Carbon Dioxide (21.6-31.8) mmol/L Anion Gap (4.00-12.00) mmol/L BUN (9.0-27.0) mg/dL Creatinine (0.6-1.5) mg/dL Est GFR (CKD-EPI) (>=60) BUN/Creatinine Ratio (12.00-20.00) Ratio Total Protein (6.2-8.2) g/dL Albumin (3.8-4.9) g/dL Ur Leukocyte Esterase (Negative) Urine WBC (0-5) /hpf Assessment and Plan Plan: Worsening shortness of breath Evidence of congestive heart failure exacerbation Underlying history of pulmonary hypertension Underlying history of valvular heart disease with moderate to severe aortic stenosis Underlying history of obstructive sleep apnea Anemia, acute on chronic, patient had evidence of telangiectasia in the stomach and received argon plasma coagulation treatment in the past Underlying history of hypertension Underlying history of gout Underlying history of chronic kidney disease Underlying history of atrial fibrillation maintained on Coumadin INR on presentation 2.0 At this time patient was seen and examined Home medications reviewed and reordered Cardiology consultation and gastroenterology consultation requested Heart catheterization today 08/02/2024 Nephrology services are following Will follow closely
[2024-08-03] MEDS ORDERED: HEPARIN SODIUM 1,000 UN/ML (10ML VL) IV PRN (11:36)
[2024-08-03] MEDS: HEPARIN SOD,PORK IN 0.45% NACL 25,000 UNIT in 0.45% NACL 1 250ML.BAG IV SCH (12:05)
--- NOTE | 2024-08-03 13:10 | P.PN ---
Subjective Progress Note Date: 08/03/24 HISTORY OF PRESENT ILLNESS: This is a 89-year-old female with a past medical history significant for co ronary artery disease with previous stenting, valvular heart disease with moderate to severe aortic stenosis and moderate to severe MR, and moderate TR, moderate pulmonary hypertension, chronic anemia, chronic kidney disease, hypertension, and hyperlipidemia. Patient follows in the office with Dr. Ryan. We have been asked to see the patient in consultation for congestive heart failure. Patient examined at the bedside. Patient presented to the hospital with a chief complaint of shortness of breath. Patient states she has been feeling short of breath for the past few days. She denies any chest pain or pressure. Patient does have a history of aortic stenosis and has discussed TAVR with Dr. Ryan on an outpatient basis. The patient was unsure if she wanted to proceed with TAVR last time she was seen in the office. However she states that she has been thinking about it and she would like to proceed. DIAGNOSTICS: - EKG reveals sinus mechanism with no signs of acute ischemia. - Chest xray cardiomegaly, pulmonary vascular congestion and trace bilateral pleural effusions. COPD changes. - Laboratory data: WBC 5.57. Hemoglobin 7.2. Platelet count 269. INR 2.0. Sodium 140. Potassium 4.4. BUN 40. Creatinine 2.01. Troponin negative x 3. proBNP 9840. - Current home cardiac medications include Lasix 20 mg every 48 hours as needed, Coumadin 2.5 mg with dinner, amlodipine 5 mg daily, carvedilol 25 mg twice a day, hydralazine 50 mg twice daily. - Most recent echocardiogram obtained in June 2024 revealed normal EF, moderate to severe , moderate to severe MR, moderate TR - Cardiac catheterization history: October 2022 with PCI of the RCA and left circumflex 08/01/2024 Patient examined this morning at the bedside. Patient currently denies chest pain or pressure. She denies shortness of breath. Creatinine stable at 2.0. She remains off Coumadin. INR today 1.66. 08/02/2024 Patient examined this morning at bedside. Patient currently denies chest pain or pressure. She denies shortness of breath. Patient's Coumadin remains on hold for pending cardiac catheterization. INR 1.4. She has been placed on IV heparin in the interim. Creatinine today worsened to 2.4, up from 2.0 yesterday. 08/03/2024 Hemodynamic stable, denies any chest pain chest pressure shortness of breath. Creatinine is stable, hemoglobin is 8.2, stable, INR is 1.3 today. Currently getting IV heparin drip and warfarin PHYSICAL EXAM: VITAL SIGNS: Reviewed. GENERAL: Well-developed in no acute distress. HEENT: Head is normocephalic. Pupils are equal, round. Sclerae anicteric. Mucous membranes of the mouth are moist. Neck supple. No JVD or thyromegaly LUNGS: Respirations even and unlabored. Lungs essentially clear to auscultation bilaterally. HEART: Regular rate and rhythm. S1 and S2 heard. 4/6 systolic murmur noted ABDOMEN: Soft. Nondistended. Nontender. EXTREMITIES: Normal range of motion. No clubbing or cyanosis. Peripheral pulses intact. No lower extremity edema NEUROLOGIC: Awake and alert. Oriented x 3. ASSESSMENT: Acute on chronic heart failure with preserved EF Moderate to severe aortic stenosis Moderate to severe mitral regurgitation Moderate tricuspid regurgitation Coronary artery disease with previous PCI. Carda catheterization on current admission showed patent stent in proximal LAD LCx and RCA. 70% mid LAD disease, severe disease involving ramus intermedius and OM1. No interventions were performed. Paroxysmal atrial fibrillation Moderate pulmonary hypertension Chronic anemia Chronic kidney disease, baseline around 2.0 Hypertension Hyperlipidemia Statin intolerrance PLAN: No intervention was performed at this time for moderate to severe disease in OM, ramus, mid LAD territory. Aspirin. She is statin intolerant so I will start her on Repatha to go home with. Coreg 25 mg twice daily, amlodipine 5 mg daily Hydralazine 50 mg twice daily Warfarin. Currently she is on heparin drip. Heparin has been used to bridge INR to 2-3. Currently INR is 1.5. Agree with using IV heparin drip today. If INR is therapeutic or mildly subtherapeutic tomorrow, she can be cleared from cardiovascular standpoint to be discharged with recommended outpatient follow-up with Dr. Quinonez for TAVR evaluation and outpatient INR checks. Objective - Vital Signs Vital signs: Vital Signs Temp 98.0 F 08/03/24 07:13 Pulse 58 L 08/03/24 07:13 Resp 14 08/03/24 07:13 BP 144/62 08/03/24 07:13 Pulse Ox 96 08/03/24 07:13 FiO2 Intake & Output 08/02/24 08/03/24 08/03/24 18:59 06:59 18:59 Intake Total 413.802 540 240 Balance 413.802 540 240 Intake: IV 100 Intake, IV Titration 92.802 Amount Heparin Sod,Pork in 0.45% 92.802 NaCl 25,000 unit In 0.45 % NaCl 1 250ml.bag @ 12 UNITS/KG/HR 8.981 mls/hr IV .Q24H [facility] Rx#: [id number] Oral 221 540 240 Other: Voiding Method Toilet Toilet # Voids 2 2 - Labs CBC & Chem 7: 08/03/24 06:08 08/03/24 06:08 Labs: Abnormal Lab Results - Last 24 Hours (Table) 08/02/24 08/03/24 08/03/24 Range/Units 19:44 06:08 06:08 RBC 2.74 L (4.10-5.20) X 10*6/uL Hgb 8.2 L (12.0-15.0) g/dL Hct 27.0 L (37.2-46.3) % MCV 98.5 H (80.0-97.0) FL MCHC 30.4 L (32.0-37.0) g/dL RDW 17.3 H (11.5-14.5) % Immature Gran # 0.07 H (0.00-0.04) X 10*3/uL Eosinophils # 0.46 H (0.04-0.35) X 10*3/uL PT (10.0-12.5) sec INR (<1.2) Carbon Dioxide 19.7 L (21.6-31.8) mmol/L Anion Gap 12.30 H (4.00-12.00) mmol/L BUN 47.3 H (9.0-27.0) mg/dL Creatinine 2.2 H (0.6-1.5) mg/dL Est GFR (CKD-EPI) 21 L (>=60) BUN/Creatinine Ratio 21.50 H (12.00-20.00) Ratio Total Protein 5.5 L (6.2-8.2) g/dL Albumin 3.6 L (3.8-4.9) g/dL Ur Leukocyte Esterase Trace H (Negative) Urine WBC 15 H (0-5) /hpf 08/03/24 Range/Units 06:08 RBC (4.10-5.20) X 10*6/uL Hgb (12.0-15.0) g/dL Hct (37.2-46.3) % MCV (80.0-97.0) FL MCHC (32.0-37.0) g/dL RDW (11.5-14.5) % Immature Gran # (0.00-0.04) X 10*3/uL Eosinophils # (0.04-0.35) X 10*3/uL PT 13.5 H (10.0-12.5) sec INR 1.3 H (<1.2) Carbon Dioxide (21.6-31.8) mmol/L Anion Gap (4.00-12.00) mmol/L BUN (9.0-27.0) mg/dL Creatinine (0.6-1.5) mg/dL Est GFR (CKD-EPI) (>=60) BUN/Creatinine Ratio (12.00-20.00) Ratio Total Protein (6.2-8.2) g/dL Albumin (3.8-4.9) g/dL Ur Leukocyte Esterase (Negative) Urine WBC (0-5) /hpf
--- NOTE | 2024-08-03 13:41 | P.PN ---
Subjective Patient is seen for follow-up for acute kidney injury and chronic kidney disease. Status post cardiac catheterization yesterday. Serum creatinine at 2.2 today from 2.4 yesterday. Patient has been voiding. Maintained on IV heparin. Objective - Vital Signs Vital signs: Vital Signs Temp 98.0 F 08/03/24 07:13 Pulse 58 L 08/03/24 07:13 Resp 14 08/03/24 07:13 BP 144/62 08/03/24 07:13 Pulse Ox 96 08/03/24 07:13 FiO2 Intake & Output 08/02/24 08/03/24 08/03/24 18:59 06:59 18:59 Intake Total 413.802 540 240 Balance 413.802 540 240 Intake: IV 100 Intake, IV Titration 92.802 Amount Heparin Sod,Pork in 0.45% 92.802 NaCl 25,000 unit In 0.45 % NaCl 1 250ml.bag @ 12 UNITS/KG/HR 8.981 mls/hr IV .Q24H [facility] Rx#: [id number] Oral 221 540 240 Other: Voiding Method Toilet Toilet # Voids 2 2 - Exam Patient is awake, comfortable, no acute distress Examination of the heart S1 and S2 Examination of the lungs bilateral breath sounds are heard Abdomen is soft nontender Examination of lower extremities shows no significant edema [employer] exam grossly intact - Labs CBC & Chem 7: 08/03/24 06:08 08/03/24 06:08 Labs: Abnormal Lab Results - Last 24 Hours (Table) 08/02/24 08/03/24 08/03/24 Range/Units 19:44 06:08 06:08 RBC 2.74 L (4.10-5.20) X 10*6/uL Hgb 8.2 L (12.0-15.0) g/dL Hct 27.0 L (37.2-46.3) % MCV 98.5 H (80.0-97.0) FL MCHC 30.4 L (32.0-37.0) g/dL RDW 17.3 H (11.5-14.5) % Immature Gran # 0.07 H (0.00-0.04) X 10*3/uL Eosinophils # 0.46 H (0.04-0.35) X 10*3/uL PT (10.0-12.5) sec INR (<1.2) Carbon Dioxide 19.7 L (21.6-31.8) mmol/L Anion Gap 12.30 H (4.00-12.00) mmol/L BUN 47.3 H (9.0-27.0) mg/dL Creatinine 2.2 H (0.6-1.5) mg/dL Est GFR (CKD-EPI) 21 L (>=60) BUN/Creatinine Ratio 21.50 H (12.00-20.00) Ratio Total Protein 5.5 L (6.2-8.2) g/dL Albumin 3.6 L (3.8-4.9) g/dL Ur Leukocyte Esterase Trace H (Negative) Urine WBC 15 H (0-5) /hpf 08/03/24 Range/Units 06:08 RBC (4.10-5.20) X 10*6/uL Hgb (12.0-15.0) g/dL Hct (37.2-46.3) % MCV (80.0-97.0) FL MCHC (32.0-37.0) g/dL RDW (11.5-14.5) % Immature Gran # (0.00-0.04) X 10*3/uL Eosinophils # (0.04-0.35) X 10*3/uL PT 13.5 H (10.0-12.5) sec INR 1.3 H (<1.2) Carbon Dioxide (21.6-31.8) mmol/L Anion Gap (4.00-12.00) mmol/L BUN (9.0-27.0) mg/dL Creatinine (0.6-1.5) mg/dL Est GFR (CKD-EPI) (>=60) BUN/Creatinine Ratio (12.00-20.00) Ratio Total Protein (6.2-8.2) g/dL Albumin (3.8-4.9) g/dL Ur Leukocyte Esterase (Negative) Urine WBC (0-5) /hpf Assessment and Plan Assessment: 1. Chronic kidney disease stage IV with baseline creatinine 1.8-2 secondary to nephrosclerosis and cardiorenal syndrome. Creatinine 2.2 today. Status post cardiac catheterization 08/02/2024 2. Coronary artery disease with cardiac stents. 3. Acute on chronic diastolic CHF. 4. Moderate aortic stenosis, moderate tricuspid regurgitation and pulmonary hypertension. 5. History of A-fib. 6. Dyspnea. 7. Hypertension with chronic kidney disease. Stable. 8. Anemia of chronic kidney disease. Iron deficiency noted. Plan: Repeat labs in a.m. Continue off of IV fluids. Maintained on low-dose loop diuretics.
[2024-08-03] MEDS: ASPIRIN 81 MG PO SCH (15:23)
[2024-08-03] MEDS: WARFARIN 2.5 MG TAB PO SCH (17:12)
[2024-08-03] MEDS: ATORVASTATIN 40 MG TAB PO SCH (21:06)
[2024-08-04 04:44] LABS: INR 1.5 (<1.2); Prothrombin Time 15.2 sec (10.0-12.5)
[2024-08-04 09:57] LABS: Basophils # (A) 0.05 X 10*3/uL (0.00-0.10); Basophils % (A) 0.8 %; Eosinophils # (A) 0.48 X 10*3/uL (0.04-0.35); Eosinophils % (A) 7.7 %; HGB 7.2 g/dL (12.0-15.0); Lymphocytes # (A) 1.67 X 10*3/uL (0.90-5.00); Lymphocytes % (A) 26.9 %; MCH 29.5 pg (27.0-32.0); MCV 98.4 FL (80.0-97.0); Mean Platelet Volume 10.4 FL (9.5-12.2); Monocytes # (A) 0.63 X 10*3/uL (0.20-1.00); Monocytes % (A) 10.1 %; NRBC Per 100 WBC 0 X 10*3/uL (0.00-0.01); Neutrophils # (A) 3.32 X 10*3/uL (1.80-7.70); Neutrophils % (A) 53.5 %; Platelet Count 253 X 10*3/uL (140-440); RBC 2.44 X 10*6/uL (4.10-5.20); RDW 16.9 % (11.5-14.5); WBC 6.21 X 10*3/uL (4.50-10.00)
--- NOTE | 2024-08-04 10:02 | P.PN ---
Subjective Progress Note Date: 08/04/24 Shelley Keenan, is an 89-year-old female who presented to [facility] emergency room with a chief complaint of worsening shortness of breath She was evaluated in the emergency room vital examination on presentation revealed a temperature of 98.2 pulse 62 respiration 20 blood pressure 160/68 pulse ox 99% on room air Laboratory data revealed a white blood count of 6.33 hemoglobin 7.0 platelet count 283 BUN 40 creatinine 2.01 troponin 0.012 Testing in the emergency room revealed EKG revealed anteroseptal myocardial infarction with poor R wave progression in anterior leads no ST or T wave abnormalities, chest x-ray revealed cardiomegaly pulmonary vascular congestion and trace bilateral pleural effusion and COPD changes. Patient was given 1 unit of red blood cell transfusion in the emergency room. Patient was admitted to medical floor for further evaluation and treatment, cardiology consultation and gastroenterology consultation was requested On 08/01/2024 patient is alert and oriented x 3. Cardiology and GI services are following. Patient has been transition to p.o. Lasix. Patient also given IV iron per GI services. Per cardiology patient is now agreeable for possible TAVR. Possible cardiac catheterization today with Dr. Quinonez. Patient denies chest pain or shortness of breath. Patient denies nausea vomiting or diarrhea. Patient denies any urinary burning or frequency. Hemoglobin today 7.9. Creatinine 2.0 bun 40.4. Current vital signs temp 98.7, heart rate 53, respiratory 15, blood pressure 154/67 with a pulse ox of 97% on room air On 08/02/2024 patient is alert and oriented x 3. Plans for heart catheterization today. Nephrology services are following and watching kidney function closely creatinine 2.4, hemoglobin 7.8. Patient was started on heparin drip per cardiology. At this time patient denies chest pain or shortness of breath. Patient denies nausea vomiting or diarrhea. Patient denies any urinary burning or frequency On 08/03/2024 patient was seen and examined on the medical floor she is alert and oriented x 3 in no apparent distress, she underwent cardiac catheterization yesterday, she is receiving IV fluid, kidney function is marginal with creatinine at 2.2 today, patient will be resumed on oral Coumadin today her INR is subtherapeutic, she will receive subcu Lovenox until her INR is therapeutic, clinically she denies any complaints at this time there is no fever or chills no headache or dizziness no chest pain no shortness of breath no cough no nausea or vomiting no abdominal pain no diarrhea and no urinary symptoms. At this time we are awaiting further recommendation from nephrology and cardiology. On 08/04/2024 patient is alert and oriented x 3. Patient remains on IV heparin drip INR subtherapeutic at 1.5 patient has been resumed on Coumadin at this time patient denies chest pain or shortness of breath. Patient denies nausea vomiting or diarrhea. Patient denies urinary frequency Objective - Vital Signs Vital signs: Vital Signs Temp 97.9 F 08/04/24 06:55 Pulse 54 L 08/04/24 06:55 Resp 16 08/04/24 06:55 BP 188/51 08/04/24 06:55 Pulse Ox 99 08/04/24 06:55 FiO2 Intake & Output 08/03/24 08/04/24 08/04/24 18:59 06:59 18:59 Intake Total 240 Output Total 300 600 Balance -60 -600 Intake: Oral 240 Output: Urine 300 600 Other: Voiding Method Toilet # Voids 3 1 # Bowel Movements 0 - Exam In general patient is alert and oriented x 3 in no distress HEENT head normocephalic and atraumatic Neck is supple no JVD no goiter no lymphadenopathy no carotid bruit Chest examination is clear to auscultation no crackles no wheezing Cardiac exam reveals regular heart sounds S1 and S2 no gallops no murmurs Abdomen is soft nontender no organomegaly with normal bowel sounds Extremity exam reveals no edema no cyanosis or clubbing Neurological examination reveals no gross focal deficits - Labs CBC & Chem 7: 08/04/24 03:20 08/03/24 06:08 Labs: Abnormal Lab Results - Last 24 Hours (Table) 08/03/24 08/03/24 08/03/24 Range/Units 06:08 06:08 19:03 RBC 2.74 L (4.10-5.20) X 10*6/uL Hgb 8.2 L (12.0-15.0) g/dL Hct 27.0 L (37.2-46.3) % MCV 98.5 H (80.0-97.0) FL MCHC 30.4 L (32.0-37.0) g/dL RDW 17.3 H (11.5-14.5) % Immature Gran # 0.07 H (0.00-0.04) X 10*3/uL Eosinophils # 0.46 H (0.04-0.35) X 10*3/uL PT (10.0-12.5) sec INR (<1.2) APTT 62.8 H (22.0-30.0) sec Carbon Dioxide 19.7 L (21.6-31.8) mmol/L Anion Gap 12.30 H (4.00-12.00) mmol/L BUN 47.3 H (9.0-27.0) mg/dL Creatinine 2.2 H (0.6-1.5) mg/dL Est GFR (CKD-EPI) 21 L (>=60) BUN/Creatinine Ratio 21.50 H (12.00-20.00) Ratio Total Protein 5.5 L (6.2-8.2) g/dL Albumin 3.6 L (3.8-4.9) g/dL 08/04/24 08/04/24 Range/Units 03:20 03:20 RBC 2.44 L (4.10-5.20) X 10*6/uL Hgb 7.2 L (12.0-15.0) g/dL Hct 24.0 L (37.2-46.3) % MCV 98.4 H (80.0-97.0) FL MCHC 30.0 L (32.0-37.0) g/dL RDW 16.9 H (11.5-14.5) % Immature Gran # 0.06 H (0.00-0.04) X 10*3/uL Eosinophils # 0.48 H (0.04-0.35) X 10*3/uL PT 15.2 H (10.0-12.5) sec INR 1.5 H (<1.2) APTT (22.0-30.0) sec Carbon Dioxide (21.6-31.8) mmol/L Anion Gap (4.00-12.00) mmol/L BUN (9.0-27.0) mg/dL Creatinine (0.6-1.5) mg/dL Est GFR (CKD-EPI) (>=60) BUN/Creatinine Ratio (12.00-20.00) Ratio Total Protein (6.2-8.2) g/dL Albumin (3.8-4.9) g/dL Assessment and Plan Plan: Worsening shortness of breath Evidence of congestive heart failure exacerbation Underlying history of pulmonary hypertension Underlying history of valvular heart disease with moderate to severe aortic stenosis Underlying history of obstructive sleep apnea Anemia, acute on chronic, patient had evidence of telangiectasia in the stomach and received argon plasma coagulation treatment in the past Underlying history of hypertension Underlying history of gout Underlying history of chronic kidney disease Underlying history of atrial fibrillation maintained on Coumadin INR on presentation 2.0 At this time patient was seen and examined Home medications reviewed and reordered Cardiology consultation and gastroenterology consultation requested Status post heart catheterization on 08/02/2024 Nephrology services are following Will follow closely
--- NOTE | 2024-08-04 10:51 | P.PN ---
Subjective Patient is seen for follow-up for acute kidney injury and chronic kidney disease. Status post cardiac catheterization on 08/02/2024 Serum creatinine at 2.2 yesterday. Labs are pending from today Patient has been voiding. Maintained on IV heparin. Objective - Vital Signs Vital signs: Vital Signs Temp 97.9 F 08/04/24 06:55 Pulse 54 L 08/04/24 06:55 Resp 16 08/04/24 06:55 BP 188/51 08/04/24 06:55 Pulse Ox 99 08/04/24 06:55 FiO2 Intake & Output 08/03/24 08/04/24 08/04/24 18:59 06:59 18:59 Intake Total 240 Output Total 300 600 Balance -60 -600 Intake: Oral 240 Output: Urine 300 600 Other: Voiding Method Toilet # Voids 3 1 # Bowel Movements 0 - Exam Patient is awake, comfortable, no acute distress Examination of the heart S1 and S2 Examination of the lungs bilateral breath sounds are heard Abdomen is soft nontender Examination of lower extremities shows no significant edema 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 - Labs CBC & Chem 7: 08/04/24 03:20 08/03/24 06:08 Labs: Abnormal Lab Results - Last 24 Hours (Table) 08/03/24 08/03/24 08/04/24 Range/Units 06:08 19:03 03:20 RBC (4.10-5.20) X 10*6/uL Hgb (12.0-15.0) g/dL Hct (37.2-46.3) % MCV (80.0-97.0) FL MCHC (32.0-37.0) g/dL RDW (11.5-14.5) % Immature Gran # (0.00-0.04) X 10*3/uL Eosinophils # (0.04-0.35) X 10*3/uL PT 15.2 H (10.0-12.5) sec INR 1.5 H (<1.2) APTT 62.8 H (22.0-30.0) sec Carbon Dioxide 19.7 L (21.6-31.8) mmol/L Anion Gap 12.30 H (4.00-12.00) mmol/L BUN 47.3 H (9.0-27.0) mg/dL Creatinine 2.2 H (0.6-1.5) mg/dL Est GFR (CKD-EPI) 21 L (>=60) BUN/Creatinine Ratio 21.50 H (12.00-20.00) Ratio Total Protein 5.5 L (6.2-8.2) g/dL Albumin 3.6 L (3.8-4.9) g/dL 08/04/24 Range/Units 03:20 RBC 2.44 L (4.10-5.20) X 10*6/uL Hgb 7.2 L (12.0-15.0) g/dL Hct 24.0 L (37.2-46.3) % MCV 98.4 H (80.0-97.0) FL MCHC 30.0 L (32.0-37.0) g/dL RDW 16.9 H (11.5-14.5) % Immature Gran # 0.06 H (0.00-0.04) X 10*3/uL Eosinophils # 0.48 H (0.04-0.35) X 10*3/uL PT (10.0-12.5) sec INR (<1.2) APTT (22.0-30.0) sec Carbon Dioxide (21.6-31.8) mmol/L Anion Gap (4.00-12.00) mmol/L BUN (9.0-27.0) mg/dL Creatinine (0.6-1.5) mg/dL Est GFR (CKD-EPI) (>=60) BUN/Creatinine Ratio (12.00-20.00) Ratio Total Protein (6.2-8.2) g/dL Albumin (3.8-4.9) g/dL Assessment and Plan Assessment: 1. Chronic kidney disease stage IV with baseline creatinine 1.8-2 secondary to nephrosclerosis and cardiorenal syndrome. Creatinine 2.2 yesterday. Status post cardiac catheterization 08/02/2024 2. Coronary artery disease with cardiac stents. 3. Acute on chronic diastolic CHF. 4. Moderate aortic stenosis, moderate tricuspid regurgitation and pulmonary hypertension. 5. History of A-fib. 6. Dyspnea. 7. Hypertension with chronic kidney disease. Stable. 8. Anemia of chronic kidney disease. Iron deficiency noted. Plan: Repeat labs in a.m. Continue off of IV fluids. Maintained on low-dose loop diuretics.
[2024-08-04 12:01] LABS: ALT 10 U/L (8-44); AST 15 U/L (13-35); Albumin 3.4 g/dL (3.8-4.9); Alkaline Phosphatase 57 U/L (41-126); Blood Urea Nitrogen 52.2 mg/dL (9.0-27.0); Calcium 9.3 mg/dL (8.7-10.3); Chloride 110 mmol/L (96-109); Globulin 1.7 g/dL (1.6-3.3); Glucose 92 mg/dL (70-110); Potassium 4.4 mmol/L (3.5-5.5); Sodium 142 mmol/L (135-145); Total Bilirubin 0.2 mg/dL (0.3-1.2); Total Protein 5.1 g/dL (6.2-8.2)
--- NOTE | 2024-08-04 12:36 | P.PN ---
Subjective Progress Note Date: 08/04/24 HISTORY OF PRESENT ILLNESS: This is a 89-year-old female with a past medical history significant for c oronary artery disease with previous stenting, valvular heart disease with moderate to severe aortic stenosis and moderate to severe MR, and moderate TR, moderate pulmonary hypertension, chronic anemia, chronic kidney disease, hypertension, and hyperlipidemia. Patient follows in the office with Dr. Ryan. We have been asked to see the patient in consultation for congestive heart failure. Patient examined at the bedside. Patient presented to the hospital with a chief complaint of shortness of breath. Patient states she has been feeling short of breath for the past few days. She denies any chest pain or pressure. Patient does have a history of aortic stenosis and has discussed TAVR with Dr. Ryan on an outpatient basis. The patient was unsure if she wanted to proceed with TAVR last time she was seen in the office. However she states that she has been thinking about it and she would like to proceed. DIAGNOSTICS: - EKG reveals sinus mechanism with no signs of acute ischemia. - Chest xray cardiomegaly, pulmonary vascular congestion and trace bilateral pleural effusions. COPD changes. - Laboratory data: WBC 5.57. Hemoglobin 7.2. Platelet count 269. INR 2.0. Sodium 140. Potassium 4.4. BUN 40. Creatinine 2.01. Troponin negative x 3. proBNP 9840. - Current home cardiac medications include Lasix 20 mg every 48 hours as needed, Coumadin 2.5 mg with dinner, amlodipine 5 mg daily, carvedilol 25 mg twice a day, hydralazine 50 mg twice daily. - Most recent echocardiogram obtained in June 2024 revealed normal EF, moderate to severe , moderate to severe MR, moderate TR - Cardiac catheterization history: October 2022 with PCI of the RCA and left circumflex 08/01/2024 Patient examined this morning at the bedside. Patient currently denies chest pain or pressure. She denies shortness of breath. Creatinine stable at 2.0. She remains off Coumadin. INR today 1.66. 08/02/2024 Patient examined this morning at bedside. Patient currently denies chest pain or pressure. She denies shortness of breath. Patient's Coumadin remains on hold for pending cardiac catheterization. INR 1.4. She has been placed on IV heparin in the interim. Creatinine today worsened to 2.4, up from 2.0 yesterday. 08/03/2024 Hemodynamic stable, denies any chest pain chest pressure shortness of breath. Creatinine is stable, hemoglobin is 8.2, stable, INR is 1.3 today. Currently getting IV heparin drip and warfarin 08/04/2024 BP 116/53 heart rate 60 bpm, hemoglobin 7.2, INR 1.5, BUN 52, creatinine 2.3, which is stable. INR still subtherapeutic PHYSICAL EXAM: HEENT: Head is normocephalic. Pupils are equal, round. Sclerae anicteric. Mucous membranes of the mouth are moist. Neck supple. No JVD or thyromegaly LUNGS: Respirations even and unlabored. Lungs essentially clear to auscultation bilaterally. HEART: Regular rate and rhythm. S1 and S2 heard. 4/6 systolic murmur noted. Pulses parvus at tardus carotid ABDOMEN: Soft. Nondistended. Nontender. EXTREMITIES: Normal range of motion. No clubbing or cyanosis. Peripheral pulses intact. No lower extremity edema NEUROLOGIC: Awake and alert. Oriented x 3. ASSESSMENT: Acute on chronic heart failure with preserved EF Moderate to severe aortic stenosis Moderate to severe mitral regurgitation Moderate tricuspid regurgitation Coronary artery disease with previous PCI. Carda catheterization on current admission showed patent stent in proximal LAD LCx and RCA. 70% mid LAD disease, severe disease involving ramus intermedius and OM1. No interventions were performed. Paroxysmal atrial fibrillation Moderate pulmonary hypertension Chronic anemia Chronic kidney disease, baseline around 2.0 Hypertension Hyperlipidemia Statin intolerrance PLAN: No intervention was performed at this time for moderate to severe disease in OM, ramus, mid LAD territory. Aspirin. She is statin intolerant so I will start her on Repatha to go home with. Coreg 25 mg twice daily, amlodipine 5 mg daily Hydralazine 50 mg twice daily Continue warfarin at home dose INR check within next 1 week. Recommend outpatient follow-up with Dr. Quinonez in next 1 week Outpatient TAVR workup Patient is cleared from cardiovascular standpoint to be discharged even though INR is 1.5 on warfarin as patient's [id number] score is 5 without any history of CVA along with history of anemia. HISTORY OF PRESENT ILLNESS: This is a 89-year-old female with a past medical history significant for coronary artery disease with previous stenting, valvular heart disease with moderate to severe aortic stenosis and moderate to severe MR, and moderate TR, moderate pulmonary hypertension, chronic anemia, chronic kidney disease, hypertension, and hyperlipidemia. Patient follows in the office with Dr. Ryan. We have been asked to see the patient in consultation for congestive heart failure. Patient examined at the bedside. Patient presented to the hospital wi a chief complaint of shortness of breath. Patient states she has been feeling short of breath for the past few days. She denies any chest pain or pressure. Patient does have a history of aortic stenosis and has discussed TAVR with Dr. Ryan on an outpatient basis. The patient was unsure if she wanted to proceed with TAVR last time she was seen in the office. However she states that she has been thinking about it and she would like to proceed. DIAGNOSTICS: - EKG reveals sinus mechanism with no signs of acute ischemia. - Chest xray cardiomegaly, pulmonary vascular congestion and trace bilateral pleural effusions. COPD changes. - Laboratory data: WBC 5.57. Hemoglobin 7.2. Platelet count 269. INR 2.0. Sodium 140. Potassium 4.4. BUN 40. Creatinine 2.01. Troponin negative x 3. proBNP 9840. - Current home cardiac medications include Lasix 20 mg every 48 hours as needed, Coumadin 2.5 mg with dinner, amlodipine 5 mg daily, carvedilol 25 mg twice a day, hydralazine 50 mg twice daily. - Most recent echocardiogram obtained in June 2024 revealed normal EF, moderate to severe , moderate to severe MR, moderate TR - Cardiac catheterization history: October 2022 with PCI of the RCA and left circumflex 08/01/2024 Patient examined this morning at the bedside. Patient currently denies chest pain or pressure. She denies shortness of breath. Creatinine stable at 2.0. She remains off Coumadin. INR today 1.66. 08/02/2024 Patient examined this morning at bedside. Patient currently denies chest pain or pressure. She denies shortness of breath. Patient's Coumadin remains on hold for pending cardiac catheterization. INR 1.4. She has been placed on IV heparin in the interim. Creatinine today worsened to 2.4, up from 2.0 yesterday. 08/03/2024 Hemodynamic stable, denies any chest pain chest pressure shortness of breath. Creatinine is stable, hemoglobin is 8.2, stable, INR is 1.3 today. Currently getting IV heparin drip and warfarin 08/04/2024 BP 116/53 heart rate 60 bpm, hemoglobin 7.2, INR 1.5, BUN 52, creatinine 2.3, which is stable. INR still subtherapeutic PHYSICAL EXAM: HEENT: Head is normocephalic. Pupils are equal, round. Sclerae anicteric. Mucous membranes of the mouth are moist. Neck supple. No JVD or thyromegaly LUNGS: Respirations even and unlabored. Lungs essentially clear to auscultation bilaterally. HEART: Regular rate and rhythm. S1 and S2 heard. 4/6 systolic murmur noted. Pulses parvus at tardus carotid ABDOMEN: Soft. Nondistended. Nontender. EXTREMITIES: Normal range of motion. No clubbing or cyanosis. Peripheral pulses intact. No lower extremity edema NEUROLOGIC: Awake and alert. Oriented x 3. ASSESSMENT: Acute on chronic heart failure with preserved EF Moderate to severe aortic stenosis Moderate to severe mitral regurgitation Moderate tricuspid regurgitation Coronary artery disease with previous PCI. Carda catheterization on current admission showed patent stent in proximal LAD LCx and RCA. 70% mid LAD disease, severe disease involving ramus intermedius and OM1. No interventions were performed. Paroxysmal atrial fibrillation Moderate pulmonary hypertension Chronic anemia Chronic kidney disease, baseline around 2.0 Hypertension Hyperlipidemia Statin intolerrance PLAN: No intervention was performed at this time for moderate to severe disease in OM, ramus, mid LAD territory. Aspirin. She is statin intolerant so I will start her on Repatha to go home with. Coreg 25 mg twice daily, amlodipine 5 mg daily Hydralazine 50 mg twice daily Continue warfarin at home dose INR check within next 1 week. Recommend outpatient follow-up with Dr. Quinonez in next 1 week Outpatient TAVR workup Patient is cleared from cardiovascular standpoint to be discharged even though INR is 1.5 on warfarin as patient's [id number] score is 5 without any history of CVA along with history of anemia. However she is recommended to take warfarin at home and INR checked within 1 week Objective - Vital Signs Vital signs: Vital Signs Temp 97.9 F 08/04/24 06:55 Pulse 54 L 08/04/24 06:55 Resp 16 08/04/24 06:55 BP 188/51 08/04/24 06:55 Pulse Ox 99 08/04/24 06:55 FiO2 Intake & Output 08/03/24 08/04/24 08/04/24 18:59 06:59 18:59 Intake Total 240 Output Total 300 600 Balance -60 -600 Intake: Oral 240 Output: Urine 300 600 Other: Voiding Method Toilet # Voids 3 1 # Bowel Movements 0 - Labs CBC & Chem 7: 08/04/24 03:20 08/04/24 03:20 Labs: Abnormal Lab Results - Last 24 Hours (Table) 08/03/24 08/04/24 08/04/24 Range/Units 19:03 03:20 03:20 RBC 2.44 L (4.10-5.20) X 10*6/uL Hgb 7.2 L (12.0-15.0) g/dL Hct 24.0 L (37.2-46.3) % MCV 98.4 H (80.0-97.0) FL MCHC 30.0 L (32.0-37.0) g/dL RDW 16.9 H (11.5-14.5) % Immature Gran # 0.06 H (0.00-0.04) X 10*3/uL Eosinophils # 0.48 H (0.04-0.35) X 10*3/uL PT 15.2 H (10.0-12.5) sec INR 1.5 H (<1.2) APTT 62.8 H (22.0-30.0) sec Chloride (96-109) mmol/L Carbon Dioxide (21.6-31.8) mmol/L BUN (9.0-27.0) mg/dL Creatinine (0.6-1.5) mg/dL Est GFR (CKD-EPI) (>=60) BUN/Creatinine Ratio (12.00-20.00) Ratio Total Bilirubin (0.3-1.2) mg/dL Total Protein (6.2-8.2) g/dL Albumin (3.8-4.9) g/dL 08/04/24 Range/Units 03:20 RBC (4.10-5.20) X 10*6/uL Hgb (12.0-15.0) g/dL Hct (37.2-46.3) % MCV (80.0-97.0) FL MCHC (32.0-37.0) g/dL RDW (11.5-14.5) % Immature Gran # (0.00-0.04) X 10*3/uL Eosinophils # (0.04-0.35) X 10*3/uL PT (10.0-12.5) sec INR (<1.2) APTT (22.0-30.0) sec Chloride 110 H (96-109) mmol/L Carbon Dioxide 20.0 L (21.6-31.8) mmol/L BUN 52.2 H (9.0-27.0) mg/dL Creatinine 2.3 H (0.6-1.5) mg/dL Est GFR (CKD-EPI) 20 L (>=60) BUN/Creatinine Ratio 22.70 H (12.00-20.00) Ratio Total Bilirubin 0.2 L (0.3-1.2) mg/dL Total Protein 5.1 L (6.2-8.2) g/dL Albumin 3.4 L (3.8-4.9) g/dL
[2024-08-05 06:12] LABS: INR 1.7 (<1.2); Prothrombin Time 17.7 sec (10.0-12.5)
[2024-08-05 08:15] LABS: ALT 11 U/L (8-44); AST 20 U/L (13-35); Albumin 3.6 g/dL (3.8-4.9); Albumin/Globulin Ratio 1.89 Ratio (1.60-3.17); Alkaline Phosphatase 61 U/L (41-126); BUN/Creat Ratio 26.48 Ratio (12.00-20.00); Blood Urea Nitrogen 60.9 mg/dL (9.0-27.0); Calcium 9.5 mg/dL (8.7-10.3); Carbon Dioxide 20.1 mmol/L (21.6-31.8); Chloride 106 mmol/L (96-109); Globulin 1.9 g/dL (1.6-3.3); Glucose 122 mg/dL (70-110); Potassium 4.4 mmol/L (3.5-5.5); Sodium 140 mmol/L (135-145); Total Bilirubin 0.3 mg/dL (0.3-1.2); Total Protein 5.5 g/dL (6.2-8.2)
[2024-08-05 08:44] LABS: Basophils # (A) 0.04 X 10*3/uL (0.00-0.10); Basophils % (A) 0.4 %; Eosinophils # (A) 0.34 X 10*3/uL (0.04-0.35); Eosinophils % (A) 3.8 %; HCT 24.3 % (37.2-46.3); HGB 7.5 g/dL (12.0-15.0); Lymphocytes # (A) 1.31 X 10*3/uL (0.90-5.00); Lymphocytes % (A) 14.7 %; MCH 29.9 pg (27.0-32.0); MCHC 30.9 g/dL (32.0-37.0); MCV 96.8 FL (80.0-97.0); Mean Platelet Volume 10.5 FL (9.5-12.2); Monocytes # (A) 0.74 X 10*3/uL (0.20-1.00); Monocytes % (A) 8.3 %; NRBC Per 100 WBC 0 X 10*3/uL (0.00-0.01); Neutrophils # (A) 6.42 X 10*3/uL (1.80-7.70); Neutrophils % (A) 71.9 %; Platelet Count 298 X 10*3/uL (140-440); RBC 2.51 X 10*6/uL (4.10-5.20); RDW 16.8 % (11.5-14.5); WBC 8.93 X 10*3/uL (4.50-10.00)
--- NOTE | 2024-08-05 11:31 | P.PN ---
Subjective HISTORY OF PRESENT ILLNESS: This is a 89-year-old female with a past medical history significant for coronary artery disease with previous stenting, valvular heart disease with moderate to severe aortic stenosis and moderate to severe MR, and moderate TR, moderate pulmonary hypertension, chronic anemia, chronic kidney disease, hypertension, and hyperlipidemia. Patient follows in the office with Dr. Ryan. We have been asked to see the patient in consultation for congestive heart failure. Patient examined at the bedside. Patient presented to the hospital with a chief complaint of shortness of breath. Patient states she has been feeling short of breath for the past few days. She denies any chest pain or pressure. Patient does have a history of aortic stenosis and has discussed TAVR with Dr. Ryan on an outpatient basis. The patient was unsure if she wanted to proceed with TAVR last time she was seen in the office. However she states that she has been thinking about it and she would like to proceed. DIAGNOSTICS: - EKG reveals sinus mechanism with no signs of acute ischemia. - Chest xray cardiomegaly, pulmonary vascular congestion and trace bilateral pleural effusions. COPD changes. - Laboratory data: WBC 5.57. Hemoglobin 7.2. Platelet count 269. INR 2.0. Sodium 140. Potassium 4.4. BUN 40. Creatinine 2.01. Troponin negative x 3. proBNP 9840. - Current home cardiac medications include Lasix 20 mg every 48 hours as needed, Coumadin 2.5 mg with dinner, amlodipine 5 mg daily, carvedilol 25 mg twice a day, hydralazine 50 mg twice daily. - Most recent echocardiogram obtained in June 2024 revealed normal EF, moderate to severe , moderate to severe MR, moderate TR - Cardiac catheterization history: October 2022 with PCI of the RCA and left circumflex 08/01/2024 Patient examined this morning at the bedside. Patient currently denies chest pain or pressure. She denies shortness of breath. Creatinine stable at 2.0. She remains off Coumadin. INR today 1.66. 08/02/2024 Patient examined this morning at bedside. Patient currently denies chest pain or pressure. She denies shortness of breath. Patient's Coumadin remains on hold for pending cardiac catheterization. INR 1.4. She has been placed on IV heparin in the interim. Creatinine today worsened to 2.4, up from 2.0 yesterday. 08/03/2024 Hemodynamic stable, denies any chest pain chest pressure shortness of breath. Creatinine is stable, hemoglobin is 8.2, stable, INR is 1.3 today. Currently getting IV heparin drip and warfarin 08/04/2024 BP 116/53 heart rate 60 bpm, hemoglobin 7.2, INR 1.5, BUN 52, creatinine 2.3, which is stable. INR still subtherapeutic 08/05/2024 Patient seen and examined resting comfortably laying flat in bed in no acute distress. Blood pressure 146/53 heart rate 58 afebrile maintaining oxygen saturation on room air. Laboratory data reviewed, hemoglobin 7.5, platelets 298, INR 1.7, sodium 140, potassium 4.4, creatinine 2.3. PHYSICAL EXAM: HEENT: Head is normocephalic. Pupils are equal, round. Sclerae anicteric. Mucous membranes of the mouth are moist. Neck supple. No JVD or thyromegaly LUNGS: Respirations even and unlabored. Lungs essentially clear to auscultation bilaterally. HEART: Regular rate and rhythm. S1 and S2 heard. 4/6 systolic murmur noted. Pulses parvus at tardus carotid ABDOMEN: Soft. Nondistended. Nontender. EXTREMITIES: Normal range of motion. No clubbing or cyanosis. Peripheral pul ses intact. No lower extremity edema NEUROLOGIC: Awake and alert. Oriented x 3. ASSESSMENT: Acute on chronic heart failure with preserved EF Mild aortic stenosis with regurgitation Moderate to severe mitral regurgitation Moderate tricuspid regurgitation Coronary artery disease with previous PCI. Cardiac catheterization on current admission showed patent stent in proximal LAD LCx and RCA. 70% mid LAD disease, severe disease involving ramus intermedius and OM1. No interventions were performed. Paroxysmal atrial fibrillation on warfarin Moderate pulmonary hypertension Chronic anemia Chronic kidney disease, baseline around 2.0 Hypertension Hyperlipidemia Statin intolerance PLAN: No intervention was performed at this time for moderate to severe disease in OM, ramus, mid LAD territory. Increase hydralazine to 50 mg 3 times daily. Continue warfarin at home dose and discontinue heparin. INR check Monday at our office. Recommend outpatient follow-up with Dr. Ryan in next 1 week Outpatient TAVR workup Patient is cleared from cardiovascular standpoint to be discharged even though INR is 1.5 on warfarin as patient's [id number] score is 5 without any history of CVA along with history of anemia. Nurse Practitioner note has been reviewed, I agree with a documented findings and plan of care. Patient was seen and examined. Objective - Vital Signs Vital signs: Vital Signs Temp 98.5 F 08/05/24 07:00 Pulse 58 L 08/05/24 07:00 Resp 16 08/05/24 07:00 BP 146/53 08/05/24 07:00 Pulse Ox 97 08/05/24 07:00 FiO2 Intake & Output 08/04/24 08/05/24 08/05/24 18:59 06:59 18:59 Intake Total 1466.471 350.19 Output Total 1400 400 Balance 66.471 -400 350.19 Intake: Intake, IV Titration 226.471 170.19 Amount Heparin Sod,Pork in 0.45% 226.471 170.19 NaCl 25,000 unit In 0.45 % NaCl 1 250ml.bag @ 12 UNITS/KG/HR 8.981 mls/hr IV .Q24H [facility] Rx#: [id number] Oral 1240 180 Output: Urine 1400 400 Other: Voiding Method Toilet # Voids 4 3 # Bowel Movements 0 - Labs CBC & Chem 7: 08/05/24 04:53 08/05/24 04:53 Labs: Abnormal Lab Results - Last 24 Hours (Table) 08/04/24 08/05/24 08/05/24 Range/Units 03:20 04:53 04:53 RBC 2.51 L (4.10-5.20) X 10*6/uL Hgb 7.5 L (12.0-15.0) g/dL Hct 24.3 L (37.2-46.3) % MCHC 30.9 L (32.0-37.0) g/dL RDW 16.8 H (11.5-14.5) % Immature Gran # 0.08 H (0.00-0.04) X 10*3/uL PT (10.0-12.5) sec INR (<1.2) APTT (22.0-30.0) sec Chloride 110 H (96-109) mmol/L Carbon Dioxide 20.0 L 20.1 L (21.6-31.8) mmol/L Anion Gap 13.90 H (4.00-12.00) mmol/L BUN 52.2 H 60.9 H (9.0-27.0) mg/dL Creatinine 2.3 H 2.3 H (0.6-1.5) mg/dL Est GFR (CKD-EPI) 20 L 20 L (>=60) BUN/Creatinine Ratio 22.70 H 26.48 H (12.00-20.00) Ratio Glucose 122 H (70-110) mg/dL Total Bilirubin 0.2 L (0.3-1.2) mg/dL Total Protein 5.1 L 5.5 L (6.2-8.2) g/dL Albumin 3.4 L 3.6 L (3.8-4.9) g/dL 08/05/24 08/05/24 Range/Units 04:53 07:16 RBC (4.10-5.20) X 10*6/uL Hgb (12.0-15.0) g/dL Hct (37.2-46.3) % MCHC (32.0-37.0) g/dL RDW (11.5-14.5) % Immature Gran # (0.00-0.04) X 10*3/uL PT 17.7 H (10.0-12.5) sec INR 1.7 H (<1.2) APTT 100.3 H* (22.0-30.0) sec Chloride (96-109) mmol/L Carbon Dioxide (21.6-31.8) mmol/L Anion Gap (4.00-12.00) mmol/L BUN (9.0-27.0) mg/dL Creatinine (0.6-1.5) mg/dL Est GFR (CKD-EPI) (>=60) BUN/Creatinine Ratio (12.00-20.00) Ratio Glucose (70-110) mg/dL Total Bilirubin (0.3-1.2) mg/dL Total Protein (6.2-8.2) g/dL Albumin (3.8-4.9) g/dL
--- NOTE | 2024-08-05 13:04 | P.PN ---
Subjective Patient is seen for follow-up for acute kidney injury and chronic kidney disease. Status post cardiac catheterization on 08/02/2024 Serum creatinine staying at 2.3 Patient has been voiding. Maintained on IV heparin. Objective - Vital Signs Vital signs: Vital Signs Temp 98.5 F 08/05/24 07:00 Pulse 58 L 08/05/24 07:00 Resp 16 08/05/24 07:00 BP 146/53 08/05/24 07:00 Pulse Ox 97 08/05/24 07:00 FiO2 Intake & Output 08/04/24 08/05/24 08/05/24 18:59 06:59 18:59 Intake Total 1466.471 350.19 Output Total 1400 400 Balance 66.471 -400 350.19 Intake: Intake, IV Titration 226.471 170.19 Amount Heparin Sod,Pork in 0.45% 226.471 170.19 NaCl 25,000 unit In 0.45 % NaCl 1 250ml.bag @ 12 UNITS/KG/HR 8.981 mls/hr IV .Q24H [facility] Rx#: [id number] Oral 1240 180 Output: Urine 1400 400 Other: Voiding Method Toilet # Voids 4 3 # Bowel Movements 0 - Exam Patient is awake, comfortable, no acute distress Examination of lower extremities shows 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 - Labs CBC & Chem 7: 08/05/24 04:53 08/05/24 04:53 Labs: Abnormal Lab Results - Last 24 Hours (Table) 08/05/24 08/05/24 08/05/24 Range/Units 04:53 04:53 04:53 RBC 2.51 L (4.10-5.20) X 10*6/uL Hgb 7.5 L (12.0-15.0) g/dL Hct 24.3 L (37.2-46.3) % MCHC 30.9 L (32.0-37.0) g/dL RDW 16.8 H (11.5-14.5) % Immature Gran # 0.08 H (0.00-0.04) X 10*3/uL PT 17.7 H (10.0-12.5) sec INR 1.7 H (<1.2) APTT (22.0-30.0) sec Carbon Dioxide 20.1 L (21.6-31.8) mmol/L Anion Gap 13.90 H (4.00-12.00) mmol/L BUN 60.9 H (9.0-27.0) mg/dL Creatinine 2.3 H (0.6-1.5) mg/dL Est GFR (CKD-EPI) 20 L (>=60) BUN/Creatinine Ratio 26.48 H (12.00-20.00) Ratio Glucose 122 H (70-110) mg/dL Total Protein 5.5 L (6.2-8.2) g/dL Albumin 3.6 L (3.8-4.9) g/dL 08/05/24 Range/Units 07:16 RBC (4.10-5.20) X 10*6/uL Hgb (12.0-15.0) g/dL Hct (37.2-46.3) % MCHC (32.0-37.0) g/dL RDW (11.5-14.5) % Immature Gran # (0.00-0.04) X 10*3/uL PT (10.0-12.5) sec INR (<1.2) APTT 100.3 H* (22.0-30.0) sec Carbon Dioxide (21.6-31.8) mmol/L Anion Gap (4.00-12.00) mmol/L BUN (9.0-27.0) mg/dL Creatinine (0.6-1.5) mg/dL Est GFR (CKD-EPI) (>=60) BUN/Creatinine Ratio (12.00-20.00) Ratio Glucose (70-110) mg/dL Total Protein (6.2-8.2) g/dL Albumin (3.8-4.9) g/dL Assessment and Plan Assessment: 1. Chronic kidney disease stage IV with baseline creatinine 1.8-2 secondary to nephrosclerosis and cardiorenal syndrome. Creatinine stable at 2.3. Status post cardiac catheterization 08/02/2024 2. Coronary artery disease with cardiac stents. 3. Acute on chronic diastolic CHF. 4. Moderate aortic stenosis, moderate tricuspid regurgitation and pulmonary hypertension. 5. History of A-fib. 6. Dyspnea. 7. Hypertension with chronic kidney disease. Stable. 8. Anemia of chronic kidney disease. Iron deficiency noted. Plan: Stable for discharge from nephrology standpoint. Follow-up as outpatient in 1 to 2 weeks
[2024-08-05] MEDS: hydrALAZINE HCL 50 MG TAB PO SCH (16:06)
--- NOTE | 2024-08-05 17:05 | P.PN ---
Subjective Progress Note Date: 08/05/24 Shelley Keenan, is an 89-year-old female who presented to [facility] emergency room with a chief complaint of worsening shortness of breath She was evaluated in the emergency room vital examination on presentation revealed a temperature of 98.2 pulse 62 respiration 20 blood pressure 160/68 pulse ox 99% on room air Laboratory data revealed a white blood count of 6.33 hemoglobin 7.0 platelet count 283 BUN 40 creatinine 2.01 troponin 0.012 Testing in the emergency room revealed EKG revealed anteroseptal myocardial infarction with poor R wave progression in anterior leads no ST or T wave abnormalities, chest x-ray revealed cardiomegaly pulmonary vascular congestion and trace bilateral pleural effusion and COPD changes. Patient was given 1 unit of red blood cell transfusion in the emergency room. Patient was admitted to medical floor for further evaluation and treatment, cardiology consultation and gastroenterology consultation was requested On 08/01/2024 patient is alert and oriented x 3. Cardiology and GI services are following. Patient has been transition to p.o. Lasix. Patient also given IV iron per GI services. Per cardiology patient is now agreeable for possible TAVR. Possible cardiac catheterization today with Dr. Quinonez. Patient denies chest pain or shortness of breath. Patient denies nausea vomiting or diarrhea. Patient denies any urinary burning or frequency. Hemoglobin today 7.9. Creatinine 2.0 bun 40.4. Current vital signs temp 98.7, heart rate 53, respiratory 15, blood pressure 154/67 with a pulse ox of 97% on room air On 08/02/2024 patient is alert and oriented x 3. Plans for heart catheterization today. Nephrology services are following and watching kidney function closely creatinine 2.4, hemoglobin 7.8. Patient was started on heparin drip per cardiology. At this time patient denies chest pain or shortness of breath. Patient denies nausea vomiting or diarrhea. Patient denies any urinary burning or frequency On 08/03/2024 patient was seen and examined on the medical floor she is alert and oriented x 3 in no apparent distress, she underwent cardiac catheterization yesterday, she is receiving IV fluid, kidney function is marginal with creatinine at 2.2 today, patient will be resumed on oral Coumadin today her INR is subtherapeutic, she will receive subcu Lovenox until her INR is therapeutic, clinically she denies any complaints at this time there is no fever or chills no headache or dizziness no chest pain no shortness of breath no cough no nausea or vomiting no abdominal pain no diarrhea and no urinary symptoms. At this time we are awaiting further recommendation from nephrology and cardiology. On 08/04/2024 patient is alert and oriented x 3. Patient remains on IV heparin drip INR subtherapeutic at 1.5 patient has been resumed on Coumadin at this time patient denies chest pain or shortness of breath. Patient denies nausea vomiting or diarrhea. Patient denies urinary frequency On 08/05/2024 patient was seen and examined on the medical floor she is alert and oriented x 3 in no apparent distress there is no fever or chills no headache or dizziness no chest pain no shortness of breath no cough no nausea or vomiting no abdominal pain no diarrhea no urinary symptoms. INR remains subtherapeutic at 1.7 patient remains on IV heparin possible discharge to home tomorrow Objective - Vital Signs Vital signs: Vital Signs Temp 98.5 F 08/05/24 07:00 Pulse 58 L 08/05/24 07:00 Resp 16 08/05/24 07:00 BP 146/53 08/05/24 07:00 Pulse Ox 97 08/05/24 07:00 FiO2 Intake & Output 08/04/24 08/05/24 08/05/24 18:59 06:59 18:59 Intake Total 1466.471 170.19 Output Total 1400 400 Balance 66.471 -400 170.19 Intake: Intake, IV Titration 226.471 170.19 Amount Heparin Sod,Pork in 0.45% 226.471 170.19 NaCl 25,000 unit In 0.45 % NaCl 1 250ml.bag @ 12 UNITS/KG/HR 8.981 mls/hr IV .Q24H [facility] Rx#: [id number] Oral 1240 Output: Urine 1400 400 Other: # Voids 4 3 # Bowel Movements 0 - Exam In general patient is alert and oriented x 3 in no distress HEENT head normocephalic and atraumatic Neck is supple no JVD no goiter no lymphadenopathy no carotid bruit Chest examination is clear to auscultation no crackles no wheezing Cardiac exam reveals regular heart sounds S1 and S2 no gallops no murmurs Abdomen is soft nontender no organomegaly with normal bowel sounds Extremity exam reveals no edema no cyanosis or clubbing Neurological examination reveals no gross focal deficits - Labs CBC & Chem 7: 08/05/24 04:53 08/05/24 04:53 Labs: Abnormal Lab Results - Last 24 Hours (Table) 08/04/24 08/04/24 08/05/24 Range/Units 03:20 03:20 04:53 RBC 2.44 L 2.51 L (4.10-5.20) X 10*6/uL Hgb 7.2 L 7.5 L (12.0-15.0) g/dL Hct 24.0 L 24.3 L (37.2-46.3) % MCV 98.4 H (80.0-97.0) FL MCHC 30.0 L 30.9 L (32.0-37.0) g/dL RDW 16.9 H 16.8 H (11.5-14.5) % Immature Gran # 0.06 H 0.08 H (0.00-0.04) X 10*3/uL Eosinophils # 0.48 H (0.04-0.35) X 10*3/uL PT (10.0-12.5) sec INR (<1.2) APTT (22.0-30.0) sec Chloride 110 H (96-109) mmol/L Carbon Dioxide 20.0 L (21.6-31.8) mmol/L Anion Gap (4.00-12.00) mmol/L BUN 52.2 H (9.0-27.0) mg/dL Creatinine 2.3 H (0.6-1.5) mg/dL Est GFR (CKD-EPI) 20 L (>=60) BUN/Creatinine Ratio 22.70 H (12.00-20.00) Ratio Glucose (70-110) mg/dL Total Bilirubin 0.2 L (0.3-1.2) mg/dL Total Protein 5.1 L (6.2-8.2) g/dL Albumin 3.4 L (3.8-4.9) g/dL 08/05/24 08/05/24 08/05/24 Range/Units 04:53 04:53 07:16 RBC (4.10-5.20) X 10*6/uL Hgb (12.0-15.0) g/dL Hct (37.2-46.3) % MCV (80.0-97.0) FL MCHC (32.0-37.0) g/dL RDW (11.5-14.5) % Immature Gran # (0.00-0.04) X 10*3/uL Eosinophils # (0.04-0.35) X 10*3/uL PT 17.7 H (10.0-12.5) sec INR 1.7 H (<1.2) APTT 100.3 H* (22.0-30.0) sec Chloride (96-109) mmol/L Carbon Dioxide 20.1 L (21.6-31.8) mmol/L Anion Gap 13.90 H (4.00-12.00) mmol/L BUN 60.9 H (9.0-27.0) mg/dL Creatinine 2.3 H (0.6-1.5) mg/dL Est GFR (CKD-EPI) 20 L (>=60) BUN/Creatinine Ratio 26.48 H (12.00-20.00) Ratio Glucose 122 H (70-110) mg/dL Total Bilirubin (0.3-1.2) mg/dL Total Protein 5.5 L (6.2-8.2) g/dL Albumin 3.6 L (3.8-4.9) g/dL Assessment and Plan Plan: Worsening shortness of breath Evidence of congestive heart failure exacerbation Underlying history of pulmonary hypertension Underlying history of valvular heart disease with moderate to severe aortic stenosis Underlying history of obstructive sleep apnea Anemia, acute on chronic, patient had evidence of telangiectasia in the stomach and received argon plasma coagulation treatment in the past Underlying history of hypertension Underlying history of gout Underlying history of chronic kidney disease Underlying history of atrial fibrillation maintained on Coumadin INR on presentation 2.0 At this time patient was seen and examined Home medications reviewed and reordered Cardiology consultation and gastroenterology consultation requested Status post heart catheterization on 08/02/2024 Nephrology services are following Will follow closely
[2024-08-06 05:26] LABS: Prothrombin Time 20.4 sec (10.0-12.5)
[2024-08-06 07:54] VITALS: BP 139/66; PULSE 60; RESP 16; TEMP 98.3
--- NOTE | 2024-08-06 10:37 | P.DS ---
Providers Date of admission: 08/01/24 08:54 Expected date of discharge: 08/06/24 Attending physician: Ron Busch Consults: 07/30/24 17:07 Consult Physician Routine Consulting Provider: [facility] Consult Reason/Comments: Pulmonary edema, chest pain Do you want consulting provider notified?: Yes 07/31/24 12:55 Consult Physician Routine Consulting Provider: Lori Mendez Consult Reason/Comments: anemia Do you want consulting provider notified?: Yes 08/01/24 09:32 Consult Physician Routine Consulting Provider: Stacey Kenny Consult Reason/Comments: ckd, possible heart cath Do you want consulting provider notified?: Yes Primary care physician: Ron [facility] Course: Discharge diagnosis Worsening shortness of breath Evidence of congestive heart failure exacerbation Underlying history of pulmonary hypertension Underlying history of valvular heart disease with moderate to severe aortic stenosis Underlying history of obstructive sleep apnea Anemia, acute on chronic, patient had evidence of telangiectasia in the stomach and received argon plasma coagulation treatment in the past Underlying history of hypertension Underlying history of gout Underlying history of chronic kidney disease Underlying history of atrial fibrillation maintained on Coumadin INR on presentation 2.0 Hospital course Shelley Keenan, is an 89-year-old female who presented to [facility] emergency room with a chief complaint of worsening shortness of breath She was evaluated in the emergency room vital examination on presentation revealed a temperature of 98.2 pulse 62 respiration 20 blood pressure 160/68 pulse ox 99% on room air Laboratory data revealed a white blood count of 6.33 hemoglobin 7.0 platelet count 283 BUN 40 creatinine 2.01 troponin 0.012 Testing in the emergency room revealed EKG revealed anteroseptal myocardial infarction with poor R wave progression in anterior leads no ST or T wave abnormalities, chest x-ray revealed cardiomegaly pulmonary vascular congestion and trace bilateral pleural effusion and COPD changes. Patient was given 1 unit of red blood cell transfusion in the emergency room. Patient was admitted to medical floor for further evaluation and treatment, cardiology consultation and gastroenterology consultation was requested On 08/01/2024 patient is alert and oriented x 3. Cardiology and GI services are following. Patient has been transition to p.o. Lasix. Patient also given IV iron per GI services. Per cardiology patient is now agreeable for possible TAVR. Possible cardiac catheterization today with Dr. Quinonez. Patient denies chest pain or shortness of breath. Patient denies nausea vomiting or diarrhea. Patient denies any urinary burning or frequency. Hemoglobin today 7.9. Creatinine 2.0 bun 40.4. Current vital signs temp 98.7, heart rate 53, respiratory 15, blood pressure 154/67 with a pulse ox of 97% on room air On 08/02/2024 patient is alert and oriented x 3. Plans for heart catheterization today. Nephrology services are following and watching kidney function closely creatinine 2.4, hemoglobin 7.8. Patient was started on heparin drip per cardiology. At this time patient denies chest pain or shortness of breath. Patient denies nausea vomiting or diarrhea. Patient denies any urinary burning or frequency On 08/03/2024 patient was seen and examined on the medical floor she is alert and oriented x 3 in no apparent distress, she underwent cardiac catheterization yesterday, she is receiving IV fluid, kidney function is marginal with creatinine at 2.2 today, patient will be resumed on oral Coumadin today her INR is subtherapeutic, she will receive subcu Lovenox until her INR is therapeutic, clinically she denies any complaints at this time there is no fever or chills no headache or dizziness no chest pain no shortness of breath no cough no nausea or vomiting no abdominal pain no diarrhea and no urinary symptoms. At this time we are awaiting further recommendation from nephrology and cardiology. On 08/04/2024 patient is alert and oriented x 3. Patient remains on IV heparin drip INR subtherapeutic at 1.5 patient has been resumed on Coumadin at this time patient denies chest pain or shortness of breath. Patient denies nausea vomiting or diarrhea. Patient denies urinary frequency On 08/05/2024 patient was seen and examined on the medical floor she is alert and oriented x 3 in no apparent distress there is no fever or chills no headache or dizziness no chest pain no shortness of breath no cough no nausea or vomiting no abdominal pain no diarrhea no urinary symptoms. INR remains subtherapeutic at 1.7 patient remains on IV heparin possible discharge to home tomorrow On 08/06/2024 and oriented x 3. INR today 2.0. Patient will be DC'd on home dose of Coumadin 2.5 daily. Patient denies chest pain or shortness of breath. Patient denies nausea vomiting or diarrhea. Patient denies any urinary burning or frequency. Patient to follow-up with cardiology services for TAVR workup and follow-up with nephrology services for chronic kidney disease Patient Condition at Discharge: Stable Plan - Discharge Summary Discharge Rx Participant: No New Discharge Prescriptions: New Furosemide [Lasix] 20 mg PO DAILY 30 Days #30 tab Evolocumab [Repatha Sureclick] 0 mg SQ [id number] 90 Days #6 each Aspirin 81 mg PO DAILY 30 Days #30 tab Atorvastatin [Lipitor] 40 mg PO HS 30 Days #30 tab Continue Ferrous Sulfate [Iron] 325 mg PO HS carvediloL [Coreg] 25 mg PO BID-W/MEALS Acetaminophen [Tylenol 8 Hour] 650 mg PO BID Pantoprazole [Protonix] 40 mg PO DAILY Warfarin [Coumadin] 2.5 mg PO W/SUPPER traMADol HCL 50 mg PO BID Sodium Bicarbonate Tab 650 mg PO BID hydrALAZINE HCL [Apresoline] 50 mg PO BID allopurinoL [Zyloprim] 100 mg PO HS Cholecalciferol [Vitamin D3 (125 Mcg = 5000 Iu)] 125 mcg PO DAILY Multivitamins, Thera [Multivitamin (formulary)] 1 tab PO DAILY Epoetin Sanya [Procrit] 60,000 unit IM DIRECTED amLODIPine [Norvasc] 5 mg PO DAILY Discontinued Furosemide [Lasix] 20 mg PO Q48H PRN PRN Reason: Edema Discharge Medication List Ferrous Sulfate [Iron] 325 mg PO HS 07/13/20 [History] allopurinoL [Zyloprim] 100 mg PO HS 07/13/20 [History] carvediloL [Coreg] 25 mg PO BID-W/MEALS 07/13/20 [History] hydrALAZINE HCL [Apresoline] 50 mg PO BID 07/13/20 [History] Cholecalciferol [Vitamin D3 (125 Mcg = 5000 Iu)] 125 mcg PO DAILY 08/24/22 [History] Acetaminophen [Tylenol 8 Hour] 650 mg PO BID 08/30/22 [History] Epoetin Sanya [Procrit] 60,000 unit IM DIRECTED 10/25/22 [History] Multivitamins, Thera [Multivitamin (formulary)] 1 tab PO DAILY 10/25/22 [History] Pantoprazole [Protonix] 40 mg PO DAILY 01/16/24 [History] Warfarin [Coumadin] 2.5 mg PO W/SUPPER 01/16/24 [History] amLODIPine [Norvasc] 5 mg PO DAILY 01/16/24 [History] Sodium Bicarbonate Tab 650 mg PO BID 04/30/24 [History] traMADol HCL 50 mg PO BID 04/30/24 [History] Evolocumab [Repatha Sureclick] 0 mg SQ [id number] 90 Days #6 each 08/03/24 [Rx] Aspirin 81 mg PO DAILY 30 Days #30 tab 08/06/24 [Rx] Atorvastatin [Lipitor] 40 mg PO HS 30 Days #30 tab 08/06/24 [Rx] Furosemide [Lasix] 20 mg PO DAILY 30 Days #30 tab 08/06/24 [Rx] Follow up Appointment(s)/Referral(s): Armando Ryan MD [STAFF PHYSICIAN] - 1 Week (Office will call patient with appointment ) Ron Busch MD [Primary Care Provider] - 1-2 days Discharge Disposition: HOME SELF-CARE
--- NOTE | 2024-08-06 10:59 | P.PN ---
Subjective HISTORY OF PRESENT ILLNESS: This is a 89-year-old female with a past medical history significant for coronary artery disease with previous stenting, valvular heart disease with moderate to severe aortic stenosis and moderate to severe MR, and moderate TR, moderate pulmonary hypertension, chronic anemia, chronic kidney disease, hypertension, and hyperlipidemia. Patient follows in the office with Dr. Ryan. We have been asked to see the patient in consultation for congestive heart failure. Patient examined at the bedside. Patient presented to the hospital with a chief complaint of shortness of breath. Patient states she has been feeling short of breath for the past few days. She denies any chest pain or pressure. Patient does have a history of aortic stenosis and has discussed TAVR with Dr. Ryan on an outpatient basis. The patient was unsure if she wanted to proceed with TAVR last time she was seen in the office. However she states that she has been thinking about it and she would like to proceed. DIAGNOSTICS: - EKG reveals sinus mechanism with no signs of acute ischemia. - Chest xray cardiomegaly, pulmonary vascular congestion and trace bilateral pleural effusions. COPD changes. - Laboratory data: WBC 5.57. Hemoglobin 7.2. Platelet count 269. INR 2.0. Sodium 140. Potassium 4.4. BUN 40. Creatinine 2.01. Troponin negative x 3. proBNP 9840. - Current home cardiac medications include Lasix 20 mg every 48 hours as needed, Coumadin 2.5 mg with dinner, amlodipine 5 mg daily, carvedilol 25 mg twice a day, hydralazine 50 mg twice daily. - Most recent echocardiogram obtained in June 2024 revealed normal EF, moderate to severe , moderate to severe MR, moderate TR - Cardiac catheterization history: October 2022 with PCI of the RCA and left circumflex 08/01/2024 Patient examined this morning at the bedside. Patient currently denies chest pain or pressure. She denies shortness of breath. Creatinine stable at 2.0. She remains off Coumadin. INR today 1.66. 08/02/2024 Patient examined this morning at bedside. Patient currently denies chest pain or pressure. She denies shortness of breath. Patient's Coumadin remains on hold for pending cardiac catheterization. INR 1.4. She has been placed on IV heparin in the interim. Creatinine today worsened to 2.4, up from 2.0 yesterday. 08/03/2024 Hemodynamic stable, denies any chest pain chest pressure shortness of breath. Creatinine is stable, hemoglobin is 8.2, stable, INR is 1.3 today. Currently getting IV heparin drip and warfarin 08/04/2024 BP 116/53 heart rate 60 bpm, hemoglobin 7.2, INR 1.5, BUN 52, creatinine 2.3, which is stable. INR still subtherapeutic 08/05/2024 Patient seen and examined resting comfortably laying flat in bed in no acute distress. Blood pressure 146/53 heart rate 58 afebrile maintaining oxygen saturation on room air. Laboratory data reviewed, hemoglobin 7.5, platelets 298, INR 1.7, sodium 140, potassium 4.4, creatinine 2.3. 08/06/2024 Patient seen and examined resting comfortably in bed in no acute distress. R epeat INR today is 2.0. Blood pressure 139/66 heart rate 60 afebrile maintaining oxygen saturation on room air. PHYSICAL EXAM: HEENT: Head is normocephalic. Pupils are equal, round. Sclerae anicteric. Mucous membranes of the mouth are moist. Neck supple. No JVD or thyromegaly LUNGS: Respirations even and unlabored. Lungs essentially clear to auscultation bilaterally. HEART: Regular rate and rhythm. S1 and S2 heard. 4/6 systolic murmur noted. Pulses parvus at tardus carotid ABDOMEN: Soft. Nondistended. Nontender. EXTREMITIES: Normal range of motion. No clubbing or cyanosis. Peripheral p ulses intact. No lower extremity edema NEUROLOGIC: Awake and alert. Oriented x 3. ASSESSMENT: Acute on chronic heart failure with preserved EF Mild aortic stenosis with regurgitation Moderate to severe mitral regurgitation Moderate tricuspid regurgitation Coronary artery disease with previous PCI. Cardiac catheterization on current admission showed patent stent in proximal LAD LCx and RCA. 70% mid LAD disease, severe disease involving ramus intermedius and OM1. No interventions were perfo rmed. Paroxysmal atrial fibrillation on warfarin Moderate pulmonary hypertension Chronic anemia Chronic kidney disease, baseline around 2.0 Hypertension Hyperlipidemia Statin intolerance PLAN: INR check in 1 week in the office. Recommend outpatient follow-up with Dr. Ryan in next 1 week Outpatient TAVR workup Patient is cleared from cardiovascular standpoint to be discharged. Nurse Practitioner note has been reviewed, I agree with a documented findings and plan of care. Patient was seen and examined. Objective - Vital Signs Vital signs: Vital Signs Temp 98.3 F 08/06/24 07:27 Pulse 60 08/06/24 07:27 Resp 16 08/06/24 09:11 BP 139/66 08/06/24 07:27 Pulse Ox 97 08/06/24 07:27 FiO2 Intake & Output 08/05/24 08/06/24 08/06/24 18:59 06:59 18:59 Intake Total 530.19 Output Total 800 700 Balance -269.81 -700 Intake: Intake, IV Titration 170.19 Amount Heparin Sod,Pork in 0.45% 170.19 NaCl 25,000 unit In 0.45 % NaCl 1 250ml.bag @ 12 UNITS/KG/HR 8.981 mls/hr IV .Q24H [facility] Rx#: [id number] Oral 360 Output: Urine 800 700 Other: Voiding Method Toilet Toilet Toilet # Voids 1 2 - Labs CBC & Chem 7: 08/05/24 04:53 08/05/24 04:53 Labs: Abnormal Lab Results - Last 24 Hours (Table) 08/06/24 Range/Units 04:26 PT 20.4 H (10.0-12.5) sec INR 2.0 H (<1.2)
--- NOTE | 2024-08-07 00:06 | P.PN ---
Subjective Patient is seen for follow-up for acute kidney injury and chronic kidney disease. Status post cardiac catheterization on 08/02/2024 Serum creatinine staying at 2.3 Patient has been voiding. Maintained on IV heparin. Objective - Vital Signs Vital signs: Vital Signs Temp 98.3 F 08/06/24 07:27 Pulse 60 08/06/24 07:27 Resp 16 08/06/24 09:11 BP 139/66 08/06/24 07:27 Pulse Ox 97 08/06/24 07:27 FiO2 Intake & Output 08/06/24 08/06/24 08/07/24 06:59 18:59 06:59 Output Total 700 Balance -700 Output: Urine 700 Other: Voiding Method Toilet Toilet # Voids 2 - Exam Patient is awake, comfortable, no acute distress Examination of the heart S1 and S2 Examination of the lungs bilateral breath sounds are heard Abdomen is soft nontender Examination of lower extremities shows no significant edema [employer] exam grossly intact - Labs CBC & Chem 7: 08/05/24 04:53 08/05/24 04:53 Labs: Abnormal Lab Results - Last 24 Hours (Table) 08/06/24 Range/Units 04:26 PT 20.4 H (10.0-12.5) sec INR 2.0 H (<1.2) Assessment and Plan Assessment: 1. Chronic kidney disease stage IV with baseline creatinine 1.8-2 secondary to nephrosclerosis and cardiorenal syndrome. Creatinine stable at 2.3. Status post cardiac catheterization 08/02/2024 2. Coronary artery disease with cardiac stents. 3. Acute on chronic diastolic CHF. 4. Moderate aortic stenosis, moderate tricuspid regurgitation and pulmonary hypertension. 5. History of A-fib. 6. Dyspnea. 7. Hypertension with chronic kidney disease. Stable. 8. Anemia of chronic kidney disease. Iron deficiency noted. Plan: Stable for discharge from nephrology standpoint. Follow-up as outpatient in 1 to 2 weeks
[2024-08-13] MEDS ORDERED: DARBEPOETIN ALFA 100MCG/0.5ML SYRINGE SQ SCH (09:00)
== END 2024-08-06 13:15 | disposition home or self-care (01) | DRG 286 ==
LOC: EC 14:56 → 6NMEDSUR 17:21 → OBSVTOIN 08-01 08:54
PROVIDERS: ADMIT Internal Medicine; ATTEND Internal Medicine
PROC: 4A023N7 Measurement of Cardiac Sampling and Pressure, Left Heart, Percutaneous Approach (ICD-10-PCS; principal; 2024-08-02 12:00)
PROC: B2111ZZ Fluoroscopy of Multiple Coronary Arteries using Low Osmolar Contrast (ICD-10-PCS; principal; 2024-08-02 12:00)
DX: I13.0 Hypertensive heart and chronic kidney disease with heart failure and stage 1 through stage 4 chronic kidney disease, or unspecified chronic kidney disease (principal); I50.33 Acute on chronic diastolic (congestive) heart failure; I27.20 Pulmonary hypertension, unspecified; N18.4 Chronic kidney disease, stage 4 (severe); J44.9 Chronic obstructive pulmonary disease, unspecified; I08.2 Rheumatic disorders of both aortic and tricuspid valves; N17.9 Acute kidney failure, unspecified; I48.0 Paroxysmal atrial fibrillation; I25.10 Atherosclerotic heart disease of native coronary artery without angina pectoris; K31.819 Angiodysplasia of stomach and duodenum without bleeding; Z79.01 Long term (current) use of anticoagulants; Z79.899 Other long term (current) drug therapy; Z86.12 Personal history of poliomyelitis; Z86.19 Personal history of other infectious and parasitic diseases; Z86.79 Personal history of other diseases of the circulatory system; Z87.891 Personal history of nicotine dependence; Z95.5 Presence of coronary angioplasty implant and graft; Z28.310 Unvaccinated for COVID-19; Z28.21 Immunization not carried out because of patient refusal; Z88.1 Allergy status to other antibiotic agents; Z88.0 Allergy status to penicillin
CPT/HCPCS: 36415; 36430; 71046; 76770; 80053; 81001; 82607; 82728; 82746; 83540; 83550; 83605; 83735; 83880; 84484; 85025; 85379; 85610; 85730; 86850; 86900; 86901; 86920; 93005; 93458; 96374; 99291

== ENCOUNTER 2024-08-14 09:38 | Emergency (ER) | payer MEDICARE, BC ==
[2024-08-14 09:43] VITALS: RESP 18
--- NOTE | 2024-08-14 10:19 | ED ---
Recheck HPI - General Chief Complaint: Recheck/Abnormal Lab/Rx Stated Complaint: Abn Labs Time Seen by Provider: 08/14/24 09:57 Source: patient, family, RN notes reviewed Mode of arrival: wheelchair Limitations: no limitations - History of Present Illness Initial Comments: This is an 89-year-old female with history including CAD with stents, A-fib, hypertension, heart failure and renal disease presenting for abnormal lab work. Patient states she was sent by her PCP, Dr. Contreras, following discovery of hemoglobin in the six. Patient endorses fatigue and shortness of breath for the past several months as well as dizziness with positional change. Endorses use of warfarin in June with Epoetin Sanya. Patient notes recurrent, chronic epigastric pain that does not worsen with eating. Endorses dark stool attributed to iron use. Denies fever, chills, chest pain, N/V/D. MD Complaint: abnormal lab Onset/Timin -: days(s) Context: called for abnormal lab result Associated Symptoms: shortness of breath - Related Data Home Medications Medication Instructions Recorded Confirmed Ferrous Sulfate [Iron] 325 mg PO HS 07/13/20 07/30/24 allopurinoL [Zyloprim] 100 mg PO HS 07/13/20 07/30/24 carvediloL [Coreg] 25 mg PO BID-W/MEALS 07/13/20 07/30/24 hydrALAZINE HCL [Apresoline] 50 mg PO BID 07/13/20 07/30/24 Cholecalciferol [Vitamin D3 (125 125 mcg PO DAILY 08/24/22 07/30/24 Mcg = 5000 Iu)] Acetaminophen [Tylenol 8 Hour] 650 mg PO BID 08/30/22 07/30/24 Epoetin Sanya [Procrit] 60,000 unit IM DIRECTED 10/25/22 07/30/24 Multivitamins, Thera [Multivitamin 1 tab PO DAILY 10/25/22 07/30/24 (formulary)] Pantoprazole [Protonix] 40 mg PO DAILY 01/16/24 07/30/24 Warfarin [Coumadin] 2.5 mg PO W/SUPPER 01/16/24 07/30/24 amLODIPine [Norvasc] 5 mg PO DAILY 01/16/24 07/30/24 Sodium Bicarbonate Tab 650 mg PO BID 04/30/24 07/30/24 traMADol HCL 50 mg PO BID 04/30/24 07/30/24 Previous Rx's Medication Instructions Recorded Evolocumab [Repatha Sureclick] 0 mg SQ [id number] 90 Days #6 each 08/03/24 Aspirin 81 mg PO DAILY 30 Days #30 tab 08/06/24 Atorvastatin [Lipitor] 40 mg PO HS 30 Days #30 tab 08/06/24 Furosemide [Lasix] 20 mg PO DAILY 30 Days #30 tab 08/06/24 Allergies Allergy/AdvReac Type Severity Reaction Status Date / Time erythromycin base Allergy Dyspnea Verified 08/14/24 09:41 levofloxacin [From Levaquin] Allergy Hallucinati Verified 08/14/24 09:41 ons metronidazole [From Flagyl] Allergy Rash/Hives Verified 08/14/24 09:41 Penicillins Allergy Rash/Hives Verified 08/14/24 09:41 Sulfa (Sulfonamide Allergy Rash/Hives Verified 08/14/24 09:41 Antibiotics) hydrocodone AdvReac Hallucinati Verified 08/14/24 09:41 ons Fdynyfj-NQS-BkJ Reductase AdvReac "muscle Verified 08/14/24 09:41 Inhibitor pain" [Bfkmrzk-Cex-Ygn Reductase Inhibitor] Review of Systems ROS Statement: Those systems with pertinent positive or pertinent negative responses have been documented in the HPI. ROS Other: All systems not noted in ROS Statement are negative. Past Medical History Past Medical History: Atrial Fibrillation, Coronary Artery Disease (CAD), Heart Failure, Eye Disorder, GERD/Reflux, Hearing Disorder / Deafness, Hypertension, Osteoarthritis (OA), Renal Disease, Sleep Apnea/CPAP/BIPAP Additional Past Medical History / Comment(s): "leaky valves",gout, hx of shingles x2-still has pain to forhead and left eye,anemia-received blood transfusions and iron transfusions,hx polio-wears lifts in shoes,CHRONIC KIDNEY DISEASE -STAGE 4-no dialysis,has double vision w/out glasses, HEART MURMUR, HARD OF HEARING,no cpap History of Any Multi-Drug Resistant Organisms: None Reported Past Surgical History: Appendectomy, Cholecystectomy, Heart Catheterization With Stent, Hysterectomy, Orthopedic Surgery Additional Past Surgical History / Comment(s): O. . RIF left ankle,vein stripping rt leg,trigger fingers sx X 8, had sx on left leg r/t polio,lizzy placed to rt femur post fx,THUMB procedure,maxine cataracts,arthroscopy rt knee, heartstent x1,EGD,colonoscopy Past Anesthesia/Blood Transfusion Reactions: No Reported Reaction, Family History of Problems w/ Anesthesia Additional Past Anesthesia/Blood Transfusion Reaction / Comment(s): no problems w/ prior blood transfusion-last infusion August 2022. DAUGHTER B/P dropped w/ shoulder surgery & was admitted to ICU Date of Last Stent Placement:: 2022 Past Psychological History: No Psychological Hx Reported Smoking Status: Former smoker Past Alcohol Use History: None Reported Past Drug Use History: None Reported - Past Family History Son(s) Family Medical History: Cancer Additional Family Medical History / Comment(s): esophageal CA Mother Family Medical History: Cancer, Myocardial Infarction ([place]) Additional Family Medical History / Comment(s): thinks possibly some type of CA- had fluid retention to stomach area Sister(s) Family Medical History: Cancer, Myocardial Infarction ([place]) Additional Family Medical History / Comment(s): LUEKEMIA Brother(s) Additional Family Medical History / Comment(s): Parkinson Father Family Medical History: Myocardial Infarction ([place]) General Exam Limitations: no limitations General appearance: alert (Patient appears pale and fatigued), in no apparent distress Head exam: Present: atraumatic, normocephalic, normal inspection Eye exam: Present: normal appearance, PERRL, EOMI. Absent: scleral icterus, conjunctival injection, periorbital swelling ENT exam: Present: normal exam, mucous membranes moist Neck exam: Present: normal inspection. Absent: tenderness, meningismus, lymphadenopathy Respiratory exam: Present: normal lung sounds bilaterally. Absent: respiratory distress, wheezes, rales, rhonchi, stridor, accessory muscle use, decreased breath sounds, prolonged expiratory Cardiovascular Exam: Present: regular rate, normal rhythm, systolic murmur (3/6). Absent: diastolic murmur, rubs, gallop, clicks GI/Abdominal exam: Present: soft, tenderness (Positive epigastric TTP without guarding or rebound tenderness), normal bowel sounds. Absent: distended, guard ing, rebound, rigid Extremities exam: Present: normal inspection, full ROM, normal capillary refill. Absent: tenderness, pedal edema, joint swelling, calf tenderness Back exam: Present: normal inspection Neurological exam: Present: alert, oriented X3, CN II-XII intact Psychiatric exam: Present: normal affect, normal mood Skin exam: Present: warm, dry, intact, normal color. Absent: rash Course Vital Signs 08/14/24 08/14/24 09:39 12:14 Temperature 97.3 F L Pulse Rate 65 58 L Respiratory 18 18 Rate Blood Pressure 130/62 137/58 O2 Sat by Pulse 100 97 Oximetry Medical Decision Making - Medical Decision Making Was pt. sent in by a medical professional or institution (, PA, [facility], urgent care, hospital, or [facility]...) When possible be specific @ -[No] Did you speak to anyone other than the patient for history (EMS, parent, family, police, friend...)? What history was obtained from this source @ -[No] Did you review nursing and triage notes (agree or disagree)? Why? @ -[I reviewed and agree with nursing and triage notes] Were old charts reviewed (outside hosp., previous admission, EMS record, old EKG, old radiological studies, urgent care reports/EKG's, [facility] records)? Report findings @ -[No old charts were reviewed] Differential Diagnosis (chest pain, altered mental status, abdominal pain women, abdominal pain men, vaginal bleeding, weakness, fever, dyspnea, syncope, headache, dizziness, GI bleed, back pain, seizure, CVA, palpatations, mental health, musculoskeletal)? @ -Differential Dyspnea: Coronary syndrome, arrhythmia, tamponade, asthma, COPD, pulmonary embolism, pneumonia, pneumothorax, pulmonary effusion, anaphylaxis, diabetic ketoacidosis, flailed chest, pulmonary contusion, diaphragmatic rupture, anemia, neuromuscular, this is not meant to be an all-inclusive list. EKG interpreted by me (3pts min.). @ -Sinus bradycardia with first-degree AV block. No ST deviation or T wave inversion. Ventricular rate 56 bpm, KENNEDI 260 ms, QRS 109 ms, QTc 435 ms. X-rays interpreted by me (1pt min.). @ -[None done] CT interpreted by me (1pt min.). @ -[None done] U/S interpreted by me (1pt. min.). @ -[None done] What testing was considered but not performed or refused? (CT, X-rays, U/S, labs)? Why? @ -[None] What meds were considered but not given or refused? Why? @ -[None] Did you discuss the management of the patient with other professionals (professionals i.e. , PA, [facility], lab, RT, psych nurse, social studies department chair, operations systems specialist, teacher, disability insurance hearing officer, dependency case manager)? Give summary @ -[No] Was smoking cessation discussed for >3mins.? @ -[No] Was critical care preformed (if so, how long)? @ -[No] Were there social determinants of health that impacted care today? How? (Homelessness, low income, unemployed, alcoholism, drug addiction, transportation, low edu. Level, literacy, decrease access to med. care, assisted, r ehab)? @ -[No] Was there de-escalation of care discussed even if they declined (Discuss DNR or withdrawal of care, Hospice)? DNR status @ -[No] What co-morbidities impacted this encounter? (DM, HTN, Smoking, COPD, CAD, Cancer, CVA, ARF, Chemo, Hep., AIDS, mental health diagnosis, sleep apnea, morbid obesity)? @ -[None] Was patient admitted / discharged? Hospital course, mention meds given and rout e, prescriptions, significant lab abnormalities, going to OR and other pertinent info. @ -[hospital course] Undiagnosed new problem with uncertain prognosis? @ -[No] Drug Therapy requiring intensive monitoring for toxicity (Heparin, Nitro, Insulin, Cardizem)? @ -[No] Were any procedures done? @ -[No] Diagnosis/symptom? @ -[default] Acute, or Chronic, or Acute on Chronic? @ -Acute Uncomplicated (without systemic symptoms) or Complicated (systemic symptoms)? @ -Complicated Side effects of treatment? @ -[No] Exacerbation, Progression, or Severe Exacerbation? @ -[No] Poses a threat to life or bodily function? How? (Chest pain, [place], [place], pneumonia, PE, COPD, DKA, ARF, appy, cholecystitis, CVA, Diverticulitis, Homicidal, Suicidal, threat to staff... and all critical care pts) @ -[No] - Lab Data Result diagrams: 08/14/24 10:37 08/14/24 10:37 Lab Results 08/14/24 08/14/24 08/14/24 Range/Units 10:37 10:37 10:37 WBC 8.15 (4.50-10.00) 10*3/uL RBC 2.08 L (4.10-5.20) 10*6/uL Hgb 6.5 L* D (12.0-15.0) g/dL Hct 20.6 L (37.2-46.3) % MCV 99.0 H (80.0-97.0) fL MCH 31.3 (27.0-32.0) pg MCHC 31.6 L (32.0-37.0) g/dL Plt Count 333 (140-440) 10*3/uL MPV 9.8 (9.5-12.2) fL Immature Gran % (Auto) 6.9 % Neutrophils % (Manual) 66 % Lymphocytes % (Manual) 19 % Monocytes % (Manual) 8 % Eosinophils % (Manual) 7 % Immature Gran # 0.56 H (0.00-0.04) 10*3/uL Neutrophils # (Manual) 5.38 (1.3-7.7) k/uL Lymphocytes # (Manual) 1.55 (1.0-4.8) k/uL Monocytes # (Manual) 0.65 (0-1.0) k/uL Eosinophils # (Manual) 0.57 (0-0.7) k/uL Nucleated RBCs 0 (0-0) /100 WBC Manual Slide Review Performed PT 24.0 H (10.0-12.5) sec INR 2.4 H (<1.2) APTT 28.5 (22.0-30.0) sec Sodium 140 (137-145) mmol/L Potassium 3.6 (3.5-5.1) mmol/L Chloride 103 (98-107) mmol/L Carbon Dioxide 22 (22-30) mmol/L Anion Gap 15 mmol/L BUN 64 H (7-17) mg/dL Creatinine 2.41 H (0.52-1.04) mg/dL Est GFR (CKD-EPI)AfAm 20 (>60 ml/min/1.73 sqM) Est GFR (CKD-EPI)NonAf 17 (>60 ml/min/1.73 sqM) Glucose 158 H (74-99) mg/dL Calcium 10.9 H (8.4-10.2) mg/dL Total Bilirubin 0.4 (0.2-1.3) mg/dL AST 23 (14-36) U/L ALT 15 (4-34) U/L Alkaline Phosphatase 57 (38-126) U/L Troponin I (0.000-0.034) ng/mL Total Protein 6.1 L (6.3-8.2) g/dL Albumin 3.9 (3.5-5.0) g/dL Blood Type Blood Type Recheck Bld Type Recheck Status Antibody Screen Crossmatch Spec Expiration Date 08/14/24 08/14/24 Range/Units 10:37 11:55 WBC (4.50-10.00) 10*3/uL RBC (4.10-5.20) 10*6/uL Hgb (12.0-15.0) g/dL Hct (37.2-46.3) % MCV (80.0-97.0) fL MCH (27.0-32.0) pg MCHC (32.0-37.0) g/dL Plt Count (140-440) 10*3/uL MPV (9.5-12.2) fL Immature Gran % (Auto) % Neutrophils % (Manual) % Lymphocytes % (Manual) % Monocytes % (Manual) % Eosinophils % (Manual) % Immature Gran # (0.00-0.04) 10*3/uL Neutrophils # (Manual) (1.3-7.7) k/uL Lymphocytes # (Manual) (1.0-4.8) k/uL Monocytes # (Manual) (0-1.0) k/uL Eosinophils # (Manual) (0-0.7) k/uL Nucleated RBCs (0-0) /100 WBC Manual Slide Review PT (10.0-12.5) sec INR (<1.2) APTT (22.0-30.0) sec Sodium (137-145) mmol/L Potassium (3.5-5.1) mmol/L Chloride (98-107) mmol/L Carbon Dioxide (22-30) mmol/L Anion Gap mmol/L BUN (7-17) mg/dL Creatinine (0.52-1.04) mg/dL Est GFR (CKD-EPI)AfAm (>60 ml/min/1.73 sqM) Est GFR (CKD-EPI)NonAf (>60 ml/min/1.73 sqM) Glucose (74-99) mg/dL Calcium (8.4-10.2) mg/dL Total Bilirubin (0.2-1.3) mg/dL AST (14-36) U/L ALT (4-34) U/L Alkaline Phosphatase (38-126) U/L Troponin I 0.014 (0.000-0.034) ng/mL Total Protein (6.3-8.2) g/dL Albumin (3.5-5.0) g/dL Blood Type O Negative Blood Type Recheck O Neg Bld Type Recheck Status No Antibody Screen NEGATIVE Crossmatch See Detail Spec Expiration Date 08/17/20242354 Disposition Clinical Impression: Anemia Disposition: HOME SELF-CARE Condition: Fair Instructions (If sedation given, give patient instructions): Anemia (ED) Additional Instructions: Follow-up with PCP/Dr. Thompson in the next 24-48 hours. Is patient prescribed a controlled substance at d/c from ED?: No Referrals: Ron Busch MD [Primary Care Provider] - 1-2 days Time of Disposition: 12:53
[2024-08-14 10:46] LABS: HCT 20.6 % (37.2-46.3); MCH 31.3 pg (27.0-32.0); MCHC 31.6 g/dL (32.0-37.0); Mean Platelet Volume 9.8 fL (9.5-12.2); Platelet Count 333 10*3/uL (140-440); RBC 2.08 10*6/uL (4.10-5.20); WBC 8.15 10*3/uL (4.50-10.00)
[2024-08-14 10:54] LABS: INR 2.4 (<1.2); Partial Thromboplastin Time 28.5 sec (22.0-30.0)
[2024-08-14 11:00] LABS: HGB 6.5 g/dL (12.0-15.0)
[2024-08-14 11:25] LABS: AST 23 U/L (14-36); African American GFR (CKD) 20 (>60 ml/min/1.73 sqM); Albumin 3.9 g/dL (3.5-5.0); Anion Gap 15 mmol/L; Blood Urea Nitrogen 64 mg/dL (7-17); Calcium 10.9 mg/dL (8.4-10.2); Carbon Dioxide 22 mmol/L (22-30); Chloride 103 mmol/L (98-107); Glucose 158 mg/dL (74-99); Non-African American GFR(CKD) 17 (>60 ml/min/1.73 sqM); Potassium 3.6 mmol/L (3.5-5.1); Sodium 140 mmol/L (137-145); Total Bilirubin 0.4 mg/dL (0.2-1.3); Total Protein 6.1 g/dL (6.3-8.2)
[2024-08-14 11:26] LABS: ALT 15 U/L (4-34); Alkaline Phosphatase 57 U/L (38-126)
--- NOTE | 2024-08-14 11:49 | XR ---
EXAMINATION TYPE: XR chest 2V DATE OF EXAM: 08/14/2024 CLINICAL INDICATION: Female, 89 years old with history of SOB, fatigue, TECHNIQUE: Frontal and lateral views of the chest are obtained. COMPARISON: Chest x-ray 15 days ago. FINDINGS: Persisting cardiomegaly with improved bilateral pleural effusions and central vascular meg estion. Persistent reticular shaped right upper lung increased opacity. No new focal airspace opacit y. The osseous structures remain demineralized. IMPRESSION: Cardiomegaly without new acute pulmonary process. [facility], , 08/14/2024 11:47 AM
[2024-08-14 12:10] LABS: Eosinophils # (M) 0.57 k/uL (0-0.7); Lymphocytes # (M) 1.55 k/uL (1.0-4.8); Monocytes # (M) 0.65 k/uL (0-1.0); Neutrophils # (M) 5.38 k/uL (1.3-7.7); Neutrophils % (M) 66 %; Nucleated Red Blood Cells 0 /100 WBC (0-0); Total Cells Counted 100
[2024-08-14 15:57] VITALS: BP 159/61; PULSE 58; TEMP 98.5
== END 2024-08-14 16:14 | disposition home or self-care (01) ==
LOC: EC 09:38
DX: D64.9 Anemia, unspecified (principal); Z87.891 Personal history of nicotine dependence; Z88.0 Allergy status to penicillin; Z88.1 Allergy status to other antibiotic agents; Z88.2 Allergy status to sulfonamides; Z88.5 Allergy status to narcotic agent; Z88.8 Allergy status to other drugs, medicaments and biological substances
CPT/HCPCS: 36415; 93005; 86900; 86901; 80053; 84484; 85025; 85610; 85730; 86850; 86920; 71046; 99284; 36430; P9016